=== PATIENT | male | born 1935 | race Caucasian/White ===

== ENCOUNTER 2017-07-28 11:48 | Inpatient (IN) | payer OTHER, MEDICARE ==
[~2017-07-28] VITALS: Ht 182.9 cm; Wt 81.6 kg
[~2017-07-28 11:48] MED LIST: AUGMENTIN 875-1 EACH PO; CEFUROXIME250 M1 PO; CENTRUM SILVER1 EAC3 PO; CLOPIDOGREL75 M1 PO; METOPROLOL TART25 M1 PO; PANTOPRAZOLE SO40 M1 PO; PANTOPRAZOLE SO40 MG PO; VITAMIN D22000 UNIT PO
[2017-07-28 12:52] LABS: ABSOLUTE BASOPHIL COUNT 0 /CUMM (0.0-0.2); ABSOLUTE EOSINOPHIL COUNT 0.1 /CUMM (0.0-0.7); ABSOLUTE GRANULOCYTE CT 4.2 /CUMM (1.4-6.5); ABSOLUTE LYMPH COUNT 0.8 /CUMM (1.2-3.4); ABSOLUTE MONOCYTE COUNT 0.6 /CUMM (0.10-0.60); BASOPHIL % 0.7 % (0.0-2.0); EOSINOPHIL % 1.3 % (0-5); GRANULOCYTE % 72.9 % (42.2-75.2); HEMATOCRIT 48.5 % (42-52); MEAN CORPUSCULAR HGB 29.9 PG (27.0-31.0); MEAN CORPUSCULAR HGB CONC 32.1 G/DL (33.0-37.0); MEAN CORPUSCULAR VOLUME 93.3 FL (80.0-94.0); MEAN PLATELET VOLUME 8.5 FL (7.4-10.4); PLATELET COUNT 241 /CUMM (130-400); RBC DISTRIBUTION WIDTH 14.9 % (11.5-14.5); WHITE BLOOD CELL COUNT 5.7 /CUMM (4.8-10.8)
[2017-07-28 13:02] LABS: PT 12.8 SEC (9.4-12.5); PTT 33 SEC (25-37)
--- NOTE | 2017-07-28 13:37 | RADIOLOGY REPORT ---
EXAMINATION: XR PORTABLE CHEST CLINICAL INFORMATION: Shortness of breath and hypoxia COMPARISON: CXR from 10/19/2016 and 06/13/2017 TECHNIQUE: Portable frontal view of the chest was obtained. FINDINGS: Chronic emphysematous lung disease. There are fiducial markers around a stable nodular opacity of the right upper lobe. The right lower lobe consolidation of 06/13/2017 has improved. However, there is some residual and/or recurrent consolidation in the right perihilar region, possibly in the superior segment of the right lower lobe. The left perihilar opacity and architectural distortion, compatible with region of radiation-induced fibrosis, is unchanged. There is stable cardiomegaly without acute pulmonary edema. The small left pleural effusion is unchanged. No acute osseous abnormality. IMPRESSION: 1. Chronic obstructive pulmonary disease. 2. There is an area of persistent or recurrent consolidation in the right midlung (likely pneumonia in the superior segment of the right lower lobe). Otherwise, stable findings in the chest compared to 06/13/2017.
--- NOTE | 2017-07-28 14:08 | ED DYSPNEA/ASTHMA COMPLAINT ---
History of Present Illness General Chief Complaint: Dyspnea (COPD, CHF, Other) Stated Complaint: SOB Source: patient Exam Limitations: no limitations Reconcile Medications Cefuroxime Axetil (Cefuroxime) 250 MG TABLET 2 TAB PO Q12 PNEUMONIA . Clopidogrel Bisulfate (Clopidogrel) 75 MG TABLET 1 TAB PO DAILY BLOOD THINNER (Reported) Ergocalciferol (Vitamin D2) (Vitamin D2) 2,000 UNIT TABLET 1 TAB PO DAILY VITAMIN SUPPORT (Reported) Metoprolol Tartrate 25 MG TABLET 1 TAB PO DAILY BP (Reported) Multivit-Min/FA/Lycopen/Lutein (Centrum Silver Tablet) 0.4 MG-300 MCG-250 MCG TABLET 1 TAB PO DAILY VITAMIN SUPPORT (Reported) Pantoprazole Sodium 40 MG TABLET. 1 TAB PO DAILY GI (Reported) Triage Note: PT WITH HX OF LUNG CANCER BECAME VERY SOB (MORE SO THEN USUAL) TODAY. PT STATES HE HAS HAD PNEUMONIA AND A PNEUMO IN THE PAST. WAS SCHEDULED TO SEE DR DIAZ [facility]. PT DENIES CP Triage Nurses Notes Reviewed? yes Onset: Gradual Duration: week(s): (2), changing over time, continues in ED, getting worse Timing: recent history Severity: mild, moderate Activities at Onset: none Prior Episodes/Possible Cause: occasional episodes Associated Symptoms: anxiety, weakness HPI: 81-year-old male past medical history of lung cancer presents for evaluation of shortness of breath. Patient states that he has been short of breath for the past year but recently over the past 2 weeks it is gotten much worse. He states he has difficulty sleeping due to shortness of breath. He sometimes has a dry cough but denies hemoptysis or chest pain. No fevers. He has a history of pneumothorax and pneumonia. He also states that he has been increasingly weak and has lost weight due to decreased appetite. He is currently not on chemotherapy or radiation but has had this in the past. He has inhalers that he 's been using without improvement. Symptoms get worse on exertion and improved with rest. No recent surgery or trauma. No lower extremity edema. No nausea vomiting or diarrhea. (Giovanni Gaytan) Vital Signs & Intake/Output Vital Signs & Intake/Output Vital Signs Date Time Temp Pulse Resp B/P B/P Pulse O2 O2 Flow FiO2 Mean Ox Delivery Rate 07/28 1752 97.6 105 20 140/78 98 Nasal 2.0L Cannula 07/28 1609 95 Nasal 1.5L Cannula 07/28 1440 98.0 91 20 103/65 95 Nasal 2.0L Cannula 07/28 1222 88 Room Air 07/28 1200 95.8 86 26 150/69 96 Room Air Allergies Coded Allergies: animal dander (Severe, EYES REDDENED, HIVES 07/28/17) Penicillins (Intermediate, RASH 07/21/16) (Liana ULRICH,Óscar Rowley) Past History Travel History Traveled to [place] past 21 day No Medical History Any Pertinent Medical History? see below for history Cardiovascular: ANEURYSM Gastrointestinal: lower GI bleed Cancer(s): lung cancer Other Medical Hx: peripheral vascular disease, carotid artery stenosis History of MRSA: No History of VRE: No History of CDIFF: No Influenza Vaccine: 04/30/16 Surgical History Surgical History: hernia repair-umbilical, PTX, CHEST TUBE LEFT CEA Psychosocial History Who do you live with Spouse Services at Home None What is your primary language Cuban Tobacco Use: Quit >30 days ago ETOH Use: denies use Illicit Drug Use: denies illicit drug use Family History Family History, If Any: MOTHER FH: diabetes mellitus BROTHER FH: COPD (chronic obstructive pulmonary disease) Hx Contributory? No (Giovanni Gaytan) Review of Systems Review of Systems Constitutional: Reports: weakness. EENTM: Reports: no symptoms. Respiratory: Reports: see HPI, cough, short of breath, wheezing. Cardiovascular: Reports: no symptoms. GI: Reports: see HPI (DECREASED APPETITE). Genitourinary: Reports: no symptoms. Musculoskeletal: Reports: no symptoms. Skin: Reports: no symptoms. Neurological/Psychological: Reports: no symptoms. Hematologic/Endocrine: Reports: no symptoms. Immunologic/Allergic: Reports: no symptoms. All Other Systems: Reviewed and Negative (Giovanni Gaytan) Physical Exam Physical Exam General Appearance: well developed/nourished, alert, awake, moderate distress Head: atraumatic, normal appearance Eyes: Bilateral: normal appearance, PERRL, EOMI. Ears, Nose, Throat: normal pharynx, normal ENT inspection, hearing grossly normal Neck: normal inspection, supple, full range of motion Respiratory: chest non-tender, decreased breath sounds, wheezing, respiratory distress Cardiovascular: regular rate/rhythm, normal peripheral pulses Peripheral Pulses: 2+ radial (R), 2+ radial (L) Gastrointestinal: normal bowel sounds, soft, non-tender, no organomegaly, distention Extremities: normal inspection, normal range of motion, no edema Neurologic/Psych: no motor/sensory deficits, awake, alert, oriented x 3, normal gait Skin: intact, normal color, warm/dry Core Measures ACS in differential dx? No CVA/TIA Diagnosis No Sepsis Present: No Sepsis Focused Exam Completed? No (Bhupinder GARCIA,Giovanni) Progress Differential Diagnosis: asthma, AMI, bronchitis, CHF, COPD, pericarditis, pulmonary embolism, pneumonia, LUNG CANCER Diagnostic Imaging: Viewed by Me: Radiology Read, CT Scan. Discussed w/RAD: Radiology Read, CT Scan. Radiology Impression: PATIENT: XIN LIM SR PRESENT AGE: 81 PATIENT ACCOUNT NO: [id number] : 33 LOCATION: [facility] ORDERING PHYSICIAN: Giovanni GARCIA SERVICE DATE: 07/28/17 EXAM TYPE: CAT - CTA CHEST-PULMONARY EMBOLISM EXAMINATION: CT ANGIOGRAM OF THE CHEST WITH AND WITHOUT CONTRAST (CT PULMONARY ANGIOGRAM FOR PE) CLINICAL INFORMATION: Shortness of breath and hypoxia. Assess for pulmonary embolism. COMPARISON: CTA of the chest from 06/13/2017, chest x-ray from 07/28/2017 TECHNIQUE: Prior to contrast administration, noncontrast localization images were obtained. Subsequently, multidetector volumetric imaging was performed from the thoracic inlet to below the diaphragms following the administration of 95 mL Optiray 320 intravenous contrast. No contrast reaction reported. Sagittal, coronal, and MIP oblique sagittal reformatted images were obtained on the CT workstation, uploaded to PACS, and reviewed. Total exam dose-length product 544 mGy-cm. FINDINGS: QUALITY OF STUDY/CONTRAST BOLUS: Satisfactory PULMONARY ARTERIES: There is some streak artifact through the main pulmonary arteries, accounting for which there is no evidence of central or segmental pulmonary embolism. THORACIC AORTA: The thoracic aorta remains normal in caliber with moderate calcification. There is calcification in the region of the aortic valve, unchanged. LUNG/pleura: There is underlying fairly severe emphysematous change. There is spiculated and calcified scarring in the right apex, with fiducial markers, unchanged. There are moderate bilateral pleural effusions which appear partially loculated on the left, progressive from the prior CT. There is a smaller but more densely consolidated area of airspace opacification in the right lower lobe than there was on the 06/13/2017 study, with less surrounding groundglass opacification that was seen on the earlier study. There is stable confluent soft tissue in the left hilum extending peripherally along the segmental bronchi with bronchiectasis, perhaps post treatment related change, unchanged. No progressive mucous plugging is visualized. MEDIASTINUM: The heart size is stable and within normal limits. There are coronary calcifications. There is nodular opacification in the left epicardial fat which is suspected reflect some fluid, unchanged. There is a trace pericardial effusion. No evidence of septal bowing or right heart strain. There are scattered mediastinal lymph nodes which are unchanged in comparison to the prior study, the largest in the left paratracheal region measures up to 1.3 cm in short axis. CHEST WALL/AXILLA: No axillary or internal mammary lymphadenopathy. OSSEOUS STRUCTURES: Multilevel degenerative changes of the spine. No acute abnormality. UPPER ABDOMEN: No acute abnormalities. There is mild reflux of contrast into the hepatic veins, similar to the prior. IMPRESSION : Accounting for streak artifact there is no central or segmental pulmonary embolism. There has been an increase in size in the loculated left pleural effusion from the prior CT of 06/13/2017. There is a stable moderate right pleural effusion. An area of irregular airspace opacification in the right lower lobe has become more densely consolidated with a decrease in surrounding ground glass attenuation. There are numerous other underlying chronic changes within both lungs as detailed above, and unchanged. VTE: negative DICTATED BY: Kitty Julien MD DATE/TIME DICTATED:07/28/171444 TAPE LIBRARIAN:JOCE DATE/TIME TRANSCRIBED:07/28/171444 CONFIDENTIAL, DO NOT COPY WITHOUT APPROPRIATE AUTHORIZATION. CXR Impression: PATIENT: XIN LIM PRESENT AGE: 81 PATIENT ACCOUNT NO: [id number] : 33 LOCATION: [facility] ORDERING PHYSICIAN: Giovanni GARCIA SERVICE DATE: 07/28/17 EXAM TYPE: RAD - XRY-PORTABLE CHEST XRAY EXAMINATION: XR PORTABLE CHEST CLINICAL INFORMATION: Shortness of breath and hypoxia COMPARISON: CXR from 10/19/2016 and 06/13/2017 TECHNIQUE: Portable frontal view of the chest was obtained. FINDINGS: Chronic emphysematous lung disease. There are fiducial markers around a stable nodular opacity of the right upper lobe. The right lower lobe consolidation of 06/13/2017 has improved. However, there is some residual and/or recurrent consolidation in the right perihilar region, possibly in the superior segment of the right lower lobe. The left perihilar opacity and architectural distortion, compatible with region of radiation-induced fibrosis, is unchanged. There is stable cardiomegaly without acute pulmonary edema. The small left pleural effusion is unchanged. No acute osseous abnormality. IMPRESSION: 1. Chronic obstructive pulmonary disease. 2. There is an area of persistent or recurrent consolidation in the right midlung ( likely pneumonia in the superior segment of the right lower lobe). Otherwise, stable findings in the chest compared to 06/13/2017. DICTATED BY: Sekou Galvez MD DATE/TIME DICTATED:07/28/171327 TAPE LIBRARIAN:JOCE DATE/TIME TRANSCRIBED:07/28/171327 Initial ED EKG: normal sinus rhythm, RBBB, LEFT ATRIAL ABNORMALITY Prior EKG: unchanged Rhythm Strip: normal sinus rhythm (Giovanni Gaytan) Plan of Care: Orders Procedure Date/time Status Heart Healthy Diet 07/29 B Active Telemetry/Floor Sanding Machine Operator 07/28 1223 Active URINALYSIS 07/28 1223 Active TROPONIN LEVEL 07/28 1223 Complete PARTIAL THROMBOPLASTIN TIME 07/28 1223 Complete PROTHROMBIN TIME 07/28 1223 Complete MAGNESIUM 07/28 1223 Complete D-DIMER 07/28 1223 Complete COMPREHENSIVE METABOLIC PANEL 07/28 1223 Complete CBC WITHOUT DIFFERENTIAL 07/28 1223 Complete B-TYPE NATRIURETIC PEP (BNP) 07/28 1223 Complete EKG 07/28 1149 Active Current Medications Sig/Dominique Start time Last Medication Dose Stop Time Status Admin Azithromycin 500 MG ONCE ONE 07/28 1730 AC (Zithromax) 07/28 1829 Sodium Chloride 250 ML (Normal Saline 0.9%) Laboratory Tests 07/28/17 1240: Anion Gap 17 H, Estimated GFR > 60, BUN/Creatinine Ratio 17.3, Glucose 125 H, Calcium 10.1, Magnesium 2.0, Total Bilirubin 1.1, AST 33, ALT 30, Alkaline Phosphatase 113, Troponin I 0.03, Yha-I-Diptkvewzoq Pept 7660 H, Total Protein 8.2, Albumin 4.8, Globulin 3.4, Albumin/Globulin Ratio 1.4, PT 12.8 H, INR 1.22 H, APTT 33, D-Dimer High Sensitivty 1025 H, CBC w Diff NO MAN DIFF REQ, RBC 5.20, MCV 93.3, MCH 29.9, RDW 14.9 H, MPV 8.5, Gran % 72.9, Lymphocytes % 14.0 L, Monocytes % 11.1 H, Eosinophils % 1.3, Basophils % 0.7, Absolute Granulocytes 4.2, Absolute Lymphocytes 0.8 L, Absolute Monocytes 0.6, Absolute Eosinophils 0.1, Absolute Basophils 0, PUBS MCHC 32.1 L Patient seen and evaluated. He has significant risk to her distress with decreased breath sounds and wheezing bilaterally. Patient is medicated with Solu-Medrol and DuoNeb. He becomes very short of breath with any ambulation and movement in the better just talking. No chest pain or hemoptysis. D-dimer is elevated. Patient will require CTA. Chest x-ray shows a possible pneumonia. Blood cell count negative troponin. BNP is also elevated to 7600. No pulmonary edema or peripheral edema to suggest acute CHF. CTA of the chest is negative for PE. Patient does have pleural effusions which may also be contributing to his hypoxia. Patient was ambulated in the emergency department and desaturated to 89% on room air. He was visibly short of breath. Patient will be admitted to the hospital for COPD exacerbation and pneumonia. He was hospitalized in May with pneumonia. He'll be medicated with ceftriaxone and Zithromax. Case discussed with Dr. Gaines he agrees. (Bhupinder GARCIA,Giovanni) (Liana ULRICH,Óscar Rowley) Departure Departure Disposition: STILL A PATIENT Condition: Stable Clinical Impression Primary Impression: COPD exacerbation Secondary Impressions: Pneumonia Qualifiers: Pneumonia type: due to unspecified organism Laterality: right Lung location: unspecified part of lung Qualified Code: J18.9 - Pneumonia, unspecified organism Referrals: Barbara ULRICH,Stalin Montoya (PCP/Family) Departure Forms: Customer Survey General Discharge Information Admission Note Spoke With: Ramon ULRICH,Derick Documentation of Exam: Documentation of any treatments & extenuating circumstances including Concerns Regarding Discharge (functional status, medication knowledge or non-compliance, living conditions, etc.) that warrant an admission rather than observation: Patient was ambulated in the emergency department and desaturated to 89% on room air. He has a pneumonia on his chest x-ray and recurrent pleural effusions. He require IV steroids, DuoNeb, IV antibiotics, pulmonology consult, oncology consult, serial chest x-rays, physical therapy (Giovanni Gaytan) PA/NURSING PROGRAM MANAGER Co-Sign Statement Statement: ED Attending supervision documentation- [X] I saw and evaluated the patient. I have also reviewed all the pertinent lab results and diagnostic results. I agree with the findings and the plan of care as documented in the PA's/NURSING PROGRAM MANAGER's documentation. Patient presents for evaluation of severe exertional dyspnea the past history of lung cancer. He is taking both chemotherapy and radiation therapy. Physical examination reveals a tired- appearing gentleman with otherwise good bilateral air entry and no wheezes rales or rhonchi. [] I have reviewed the ED Record and agree with the PA's/NURSING PROGRAM MANAGER's documentation. [] Additions or exceptions (if any) to the PAs/NURSING PROGRAM MANAGER's note and plan are summarized below: [] (Liana ULRICH,Óscar Rowley) Critical Care Note Critical Care Note Critical Care Time: non-applicable (Giovanni Gaytan)
--- NOTE | 2017-07-28 15:03 | CT SCAN REPORT ---
EXAMINATION: CT ANGIOGRAM OF THE CHEST WITH AND WITHOUT CONTRAST (CT PULMONARY ANGIOGRAM FOR PE) CLINICAL INFORMATION: Shortness of breath and hypoxia. Assess for pulmonary embolism. COMPARISON: CTA of the chest from 06/13/2017, chest x-ray from 07/28/2017 TECHNIQUE: Prior to contrast administration, noncontrast localization images were obtained. Subsequently, multidetector volumetric imaging was performed from the thoracic inlet to below the diaphragms following the administration of 95 mL Optiray 320 intravenous contrast. No contrast reaction reported. Sagittal, coronal, and MIP oblique sagittal reformatted images were obtained on the CT workstation, uploaded to PACS, and reviewed. Total exam dose-length product 544 mGy-cm. FINDINGS: QUALITY OF STUDY/CONTRAST BOLUS: Satisfactory PULMONARY ARTERIES: There is some streak artifact through the main pulmonary arteries, accounting for which there is no evidence of central or segmental pulmonary embolism. THORACIC AORTA: The thoracic aorta remains normal in caliber with moderate calcification. There is calcification in the region of the aortic valve, unchanged. LUNG/pleura: There is underlying fairly severe emphysematous change. There is spiculated and calcified scarring in the right apex, with fiducial markers, unchanged. There are moderate bilateral pleural effusions which appear partially loculated on the left, progressive from the prior CT. There is a smaller but more densely consolidated area of airspace opacification in the right lower lobe than there was on the 06/13/2017 study, with less surrounding groundglass opacification that was seen on the earlier study. There is stable confluent soft tissue in the left hilum extending peripherally along the segmental bronchi with bronchiectasis, perhaps post treatment related change, unchanged. No progressive mucous plugging is visualized. MEDIASTINUM: The heart size is stable and within normal limits. There are coronary calcifications. There is nodular opacification in the left epicardial fat which is suspected reflect some fluid, unchanged. There is a trace pericardial effusion. No evidence of septal bowing or right heart strain. There are scattered mediastinal lymph nodes which are unchanged in comparison to the prior study, the largest in the left paratracheal region measures up to 1.3 cm in short axis. CHEST WALL/AXILLA: No axillary or internal mammary lymphadenopathy. OSSEOUS STRUCTURES: Multilevel degenerative changes of the spine. No acute abnormality. UPPER ABDOMEN: No acute abnormalities. There is mild reflux of contrast into the hepatic veins, similar to the prior. IMPRESSION: Accounting for streak artifact there is no central or segmental pulmonary embolism. There has been an increase in size in the loculated left pleural effusion from the prior CT of 06/13/2017. There is a stable moderate right pleural effusion. An area of irregular airspace opacification in the right lower lobe has become more densely consolidated with a decrease in surrounding ground glass attenuation. There are numerous other underlying chronic changes within both lungs as detailed above, and unchanged. VTE: negative
[2017-07-28] MEDS ORDERED: VITAMIN D1000 UNIT PO (18:59)
--- NOTE | 2017-07-28 20:35 | History & Physical ---
Michael Kimble MD 07/28/172033: General Information and HPI MD Statement: I have seen and personally examined XIN LIM SR and documented this H&P. The patient is a 81 year old M who presented with a patient stated chief complaint of dyspnea Source of Information: patient, family, old records Exam Limitations: no limitations History of Present Illness: 81 year old male with a past medical history significant for smoking quit in 2007 with diagnosis of advanced lung cancer treated with chemotherapy and radiation therapy at [facility] in 2007 with subsequent Cyberknife treatments for lung nodule uncertain if biopsied, recurrence vs new primaries ( Dr. Slater @ [facility]) in 2014 and 02/2017, 5 treatments each time, history of pneumothorax in 2013 treated with a thoracic vent by Dr. Joshua, h/o GI bleed, abdominal aortic aneurysm, emphysema and COPD not on home oxygen, left CEA on plavix, recently admittted to [facility] and treated for community acquired pneumonia last month presents to the hospital today with complaints of progressive severe dyspnea. The patient was recently treated at [facility] for a right lower lobe community acquired pneumonia and discharged on total ten day course of oral cefuroxime. After discharge, the patient said he never quite felt better. The patient reports a progressive decline in his breathing without any obvious triggers. The patient denies any fevers or chills, upper respiratory infection, sinus pain, sore throat, rhinorrhea, sick contacts or travel. He does reportedly have a mild mostly dry cough that is occasionally productive of yellow sputum but no significant changes in its production, severity, or frequency. He denies any other symptoms on review, no chest pain palpitations, abdominal pain, nausea, vomiting, diarrhea or dysuria. He reportedly was having more and more trouble breathing and does endorse symptoms of orthopnea and that he was having more difficulty sleeping because of his breathing. He saw Dr. Solano, Dr. Thornton and Dr. Renteria prior to returning to the emergency department. He was started on steroids and a COPD inhaler just prior to arrival. A CTA of the chest was performed in the ED and in comparison to prior admission it showed and increased loculated left pleural effusion and stable moderate right pleural effusion. Irregular airspace opacification in the right lower lobe more densely consolidated. Of note, there was no pulmonary embolism. The patient was treated with ceftriaxone, azithromycin, albuterol, ipatroprium and solumedrol in the emergency department and admitted to general medicine for pneumonia. Allergies/Medications Allergies: Coded Allergies: animal dander (Severe, EYES REDDENED, HIVES 07/28/17) Penicillins (Intermediate, RASH 07/21/16) Home Med list Cholecalciferol (Vitamin D3) (Vitamin D) 1,000 UNIT TABLET 1 TAB PO DAILY SUPPLEMENT (Reported) Clopidogrel Bisulfate (Clopidogrel) 75 MG TABLET 1 TAB PO DAILY BLOOD THINNER (Reported) Metoprolol Tartrate 25 MG TABLET 1 TAB PO DAILY BP (Reported) Multivit-Min/FA/Lycopen/Lutein (Centrum Silver Tablet) 0.4 MG-300 MCG-250 MCG TABLET 1 TAB PO DAILY VITAMIN SUPPORT (Reported) Pantoprazole Sodium 40 MG TABLET.DR 1 TAB PO DAILY GI (Reported) Compliance With Home Meds: GOOD Past History Travel History Traveled to [place] past 21 day No Medical History Cardiovascular: ANEURYSM Gastrointestinal: lower GI bleed Cancer(s): lung cancer Other Medical Hx: peripheral vascular disease, carotid artery stenosis History of MRSA: No History of VRE: No History of CDIFF: No Influenza Vaccine: 04/30/16 Surgical History Surgical History: hernia repair-umbilical, PTX, CHEST TUBE LEFT CEA Past Family/Social History Family History Relations & Conditions if any MOTHER FH: diabetes mellitus BROTHER FH: COPD (chronic obstructive pulmonary disease) Psychosocial History Who Do You Live With? spouse Services at Home: None ETOH Use: denies use Illicit Drug Use: denies illicit drug use Functional Ability ADLs Independent: dressing, eating, toileting, bathing. Ambulation: independent IADLs Independent: shopping, housework, finances, food prep, telephone, transportation , medication admin. Review of Systems Review of Systems Constitutional: Reports: see HPI. Exam & Diagnostic Data Last 24 Hrs of Vital Signs/I&O Vital Signs Date Time Temp Pulse Resp B/P B/P Pulse O2 O2 Flow FiO2 Mean Ox Delivery Rate 07/28 2241 Nasal 2.0L Cannula 07/28 2027 98.7 99 22 136/84 96 Nasal 2.0L Cannula 07/28 1752 97.6 105 20 140/78 98 Nasal 2.0L Cannula 07/28 1609 95 Nasal 1.5L Cannula 07/28 1440 98.0 91 20 103/65 95 Nasal 2.0L Cannula 07/28 1222 88 Room Air 07/28 1200 95.8 86 26 150/69 96 Room Air Intake & Output 07/28 1600 07/28 0800 07/28 0000 Intake Total Output Total Balance Patient 81.647 kg Weight Weight Reported by Patient Measurement Method Physical Exam General Appearance Alert, Oriented X3, Cooperative, No Acute Distress Cardiovascular Regular Rate, Normal S1, Normal S2, No Murmurs Lungs right base crackles and diminished breath sounds bibasilarly Abdomen Normal Bowel Sounds, Soft, No Tenderness, No Masses Extremities No Clubbing, No Cyanosis, No Edema, Normal Pulses Last 24 Hrs of Labs/Yong: Laboratory Tests 07/28/17 1915: Urine Color YEL, Urine Clarity CLEAR, Urine pH 5.5, Ur Specific [place] 1.015, Urine Protein TRACE H, Urine Ketones NEG, Urine Nitrite NEG, Urine Bilirubin NEG, Urine Urobilinogen 0.2, Ur Leukocyte Esterase NEG, Ur Microscopic SEDIMENT EXAMINED, Urine RBC 1-3, Urine WBC 1-3 H, Ur Epithelial Cells RARE, Urine Bacteria MOD H, Urine Hemoglobin TRACE-INTACT H, Urine Glucose NEG 07/28/17 1240: Anion Gap 17 H, Estimated GFR > 60, BUN/Creatinine Ratio 17.3, Glucose 125 H, Calcium 10.1, Magnesium 2.0, Total Bilirubin 1.1, AST 33, ALT 30, Alkaline Phosphatase 113, Troponin I 0.03, Vha-G-Tmpuzssevhj Pept 7660 H, Total Protein 8.2, Albumin 4.8, Globulin 3.4, Albumin/Globulin Ratio 1.4, PT 12.8 H, INR 1.22 H, APTT 33, D-Dimer High Sensitivty 1025 H, CBC w Diff NO MAN DIFF REQ, RBC 5.20, MCV 93.3, MCH 29.9, RDW 14.9 H, MPV 8.5, Gran % 72.9, Lymphocytes % 14.0 L, Monocytes % 11.1 H, Eosinophils % 1.3, Basophils % 0.7, Absolute Granulocytes 4.2, Absolute Lymphocytes 0.8 L, Absolute Monocytes 0.6, Absolute Eosinophils 0.1, Absolute Basophils 0, PUBS MCHC 32.1 L Diagnostic Data EKG Results no ischemic ST T wave changes CXR Results 1. Chronic obstructive pulmonary disease. 2. There is an area of persistent or recurrent consolidation in the right midlung (likely pneumonia in the superior segment of the right lower lobe). Otherwise, stable findings in the chest compared to 06/13/2017. Other Results There has been an increase in size in the loculated left pleural effusion from the prior CT of 06/13/2017. There is a stable moderate right pleural effusion. An area of irregular airspace opacification in the right lower lobe has become more densely consolidated with a decrease in surrounding ground glass attenuation Assessment/Plan Assessment: 81 year old male with a past medical history significant for smoking, advanced lung cancer treated with chemotherapy and radiation therapy and Cyberknife, history of pneumothorax in 2013, COPD not on home oxygen, left CEA on plavix presents with progressive dyspnea and is found to have increasing pleural effusion and consolidation consistent with pneumonia. Acute hypoxemic respiratory failure with tachypnea and accessory muscle use Multifactorial-smoking/copd/emphysema/h/o radiation and pleural effusion with residual pna Continue empiric antibiotics for community acquired pneumonia Consolidation likely persistent from adjancent large pleural effusion Pulmonology consultation Titrate supplemental oxygen Incentive spirometry Would likely benefit from diagnostic and therapeutic thoracentesis TRC evaluation HTN: Continue metroprolol GERD: Continue PO PPI Heart healthy diet DVT ppx-lovenox 40mg subcutaneous daily Full code As Ranked By This Provider Problem List: 1. Lung cancer 2. Pneumothorax 3. Hypertension 4. GERD (gastroesophageal reflux disease) 5. Dyspnea 6. Pneumonia Qualifiers Pneumonia type: due to unspecified organism Laterality: right Lung location: unspecified part of lung Qualified Code: J18.9 - Pneumonia, unspecified organism 7. COPD exacerbation 8. Pleural effusion associated with pulmonary infection Core Measures/Misc (04/16) Acute Coronary Syndrome ACS Diagnosis: No Congestive Heart Failure Congestive Heart Failure Diagnosis No Cerebrovascular Accident CVA/TIA Diagnosis: No VTE (View Protocol) VTE Risk Factors Age>40 No Mechanical VTE Prophylaxis d/t N/A MechProphylax Ordered No VTE Pharm Prophylaxis d/t NA PharmProphylax ordered Sepsis (View protocol) Sepsis Present: No Josafat Farnsworth 07/29/17 0056: Resident Review Statement Resident Statement: examined this patient, discussed with dietary internship, agreed with dietary internship, discussed with family, reviewed EMR data (avail), discussed with nursing , discussed with case mgmt, reviewed images, amended to note Other Findings: 81-year-old , 120 PPD quit 10 years ago; with past medical history significant for lung cancer diagnosed in 2007 status post chemoradiotherapy ( [facility] center in [place]; last RDx in 2016), in remission since then, presented with worsening dyspnea. Patient is an active community dweller; lives with his . He was recently discharged from [facility] on 06/14/2017, during which he was diagnosed with pneumonia with the imaging finding of new patchy consolidation and groundglass attenuation in the right lower lobe associated with a small right pleural effusion. He was discharged on cefuroxime 500 mg by mouth twice a day for 10 days that he finished. Afterward patient noticed thathos "debilitating shortness" of breath has slightly improved. That minimal improvement lasted forfor while, when he was able to stay more physically active. About 3-4 weeks ago he started feeling gradual decline in his respiratory status. He could not highlight any significant precipitants factor/event that might have caused this decline.Shortness of breath was primarily started as exertional and eventually progressed to resting. Denies any recent travel, sick contacts, chest pain, palpitation, symptoms of URI, cough and sputum production, fever and shaking chills, GI/ symptoms. He had an appointment with Dr. Pat today as cancer Center but due to his debilitating shortness of breath patient could not keep his appointment and decided to come to the emergency room. Of note, his PMH is significant for, hypertension, GERD, carotid stenosis status post CEA, diverticular bleed (1y ago), peripheral vascular disease, aortic aneurysm. Review of system: Complaining of dyspnea; vital signs: Hypoxia saturating 88% in room air; corrected with 2 L of oxygen; tachycardia. Physical exam: GA: Moderate respiratory distress and increased work of breathing mucous membranes are dry; patient is using short sentences for communication; chest: S1-S2 no gallop no murmur, bibasilar faint crackles more predominant on the right side no wheezing, generally decreased air movements; normal chest expansion no tenderness; no peripheral edema; no lymphadenopathy, peripheral pulses are 2+ and symmetric. Pertinent data: Chest CTA: Accounting for streak artifact there is no central or segmental pulmonary embolism. There has been an increase in size in the loculated left pleural effusion from the prior CT of 06/13/2017. There is a stable moderate right pleural effusion. An area of irregular airspace opacification in the right lower lobe has become more densely consolidated with a decrease in surrounding ground glass attenuation. Chest x-ray: 1. Chronic obstructive pulmonary disease. 2. There is an area of persistent or recurrent consolidation in the right midlung (likely pneumonia in the superior segment of the right lower lobe). Otherwise, stable findings in the chest compared to 06/13/2017. INR 1.22, PT 12.8, d-dimer 10.25, Wells score: high risk Sodium 144, potassium 5.2, chloride 102 bicarbonate 25, ring gap 17 BUN 19, creatinine 1.1, troponin 0.03, proBNP 7660 EKG: Normal sinus rhythm, sinus tach; no ST- T segment change List of problems #1 hypoxic respiratory failure: Differential diagnosis includes but not limited to pulmonary thromboembolism ( elevated wells score and d-dimer; CTA was negative); I'm not convinced that Mr. Lim is having another pneumonia, however, due to his multiple comorbidities and history of cancer will continue IV antibiotics. If patient remained clinically stable morning came will reassess and DC the antibiotics. Clear evidence of expanding loculated pleural effusion that might have explained the slowly, progressive dyspnea and hypoxic respiratory failure. ProBNP is elevated , physical findings, history and images, decreases the likelihood of CHF/fluid overload. #AGMA: no lactic acid #Hypertension and tachycardia #GERD #Carotid artery stenosis status post CEA Plan * Admit to general medical floor * TRC; DuoNeb every 4 ioknal-dty-whsiq as needed * Continue ceftriaxone 1000 mg IV daily * Continue azithromycin 500 mg IV daily * Follow lactic acid results and ABG to interpret the AGMA * Gentle IV hydration normal saline 75-100 mL per hour- 1000 ML only * continue metoprolol 25 mg po BID * Hold Plavix; for possible ultrasound-guided thoracentesis tomorrow * Trazodone 50 mg at bedtime for insomnia * Consult pulmonology in the a.m. full code painpathway continued omeprazole Ramon ULRICH, [facility] 07/29/17 0588: Attending MD Review Statement Attending Statement Attending MD Statement: examined this patient, discuss w/resident/PA/SUPERVISOR PASTRY, agreed w/resident/PA/SUPERVISOR PASTRY, reviewed images, amended to note Attending Assessment/Plan: 81 yo M ex-smoker with h/o AAA, COPD, NSCLC s/p chemoradiation (2007), with recurrent malignant lung nodules requiring radiation therapy (last radiation Feb 2017 at [facility]), left pneumothorax s/p thoracic vent (2013), left CEA, recently admitted to [facility] (May 2017) for pneumonia, is here for evaluation of worsening exertional and rest dyspnea. He has baseline exertional dyspnea, but it has exacerbated over past 2 weeks now even occuring at rest. Dry cough+. The dyspnea limits his activities of daily living. He is also increasingly weak, has lost his appetite and some weight loss too. No sick contacts. Vitals: afebrile, HR 90-100's, BP 140/78, sats 88% RA --> 98% on 2L. Exam: AAO, in moderate respiratory distress, able to speak in short sentences, MMM, PERRL, Neck supple, Chest basilar crackles R>L, reduced to absent air entry b/l, Heart S1S2 regular, LE: no edema. Labs: no leukocytosis, INR 1.22, elevated D-dimer, K 5.2, AG 17, trop neg, elevated proBNP, UA neg. CXR: COPD, area of persistent or recurrent consolidation in right midlung. CTA chest: no PE, increase in size of loculated left pleural effusion, stable moderate right pleural effusion, area of irregular airspace consolidation in right lower lobe more densely consolidated with decrease in surrounding attenuation. EKG: SR, no changes. Assessment and plan: 1. Acute hypoxic respiratory failure 2. RLL consolidation, community acquired pneumonia ?persistent pneumonia 3. Bilateral pleural effusion loculated left and moderate right effusions (new from prior CT in May 2017) 4. History of bilateral lung cancer 5. Recurrent enlarging malignant nodules s/p radiation therapy 6. COPD 7. No evidence of PE - Admit to general medicine - [facility] nebs - Sputum culture - He received IV solumedrol in ER, he does not appear to be in COPD exacerbation - Pulm consult - He will need diagnostic and therapeutic thoracentesis by IR - Continue ceftriaxone and azithro for now - Would consider discontinuing antibiotics if he remains afebrile - Hold plavix and heparin products in anticipation of thoracentesis by IR - Continue metoprolol, PPI and trazodone - No IV fluids DVT ppx Alps. Full code.
[2017-07-28 23:02] VITALS: BP 113/70
--- NOTE | 2017-07-29 05:20 | Admission Certification ---
Admission Certification Certification Statement - As attending physician, I certify that at the time of - admission, based on clinical presentation, severity of - symptoms, need for further diagnostic testing and - therapeutic interventions, and risk of adverse outcomes - without in-hospital treatment, in my clinical assessment, - this patient requires an acute hospital stay for a minimum - of two nights or longer. I have also considered psychsocial - factors such as support system, advanced age, financial - issues, cognitive issues, and failed out-patient treatments, - past re-admission history, safety of patient, and lack of - compliance as applicable. Specific rationale supporting this admission is: Acute hypoxic respiratory failure, pleural effusion, community acquired pneumonia.
--- NOTE | 2017-07-29 05:39 | PN- Housestaff ---
Subjective Follow-up For: acute hypoxemic respiratory failure pleural effusion copd lung cancer Subjective: progressive exertional dyspnea, some tachypnea at rest minimal cough nonproductive no fevers or chills no other complaints Review of Systems Constitutional: Reports: see HPI. Objective Last 24 Hrs of Vital Signs/I&O Vital Signs Date Time Temp Pulse Resp B/P B/P Pulse O2 O2 Flow FiO2 Mean Ox Delivery Rate 07/29 0909 98 Nasal 2.0L Cannula 07/29 0800 Nasal 2.0L Cannula 07/29 0643 97.7 86 20 108/60 94 Nasal Cannula 07/29 0054 97.4 106 22 113/70 07/29 0000 Nasal 2.0L Cannula 07/28 2302 97.4 106 22 113/70 94 Nasal 2.0L Cannula 07/28 2241 Nasal 2.0L Cannula 07/28 2200 96 Nasal 2.0L Cannula 07/287 98.7 99 22 136/84 96 Nasal 2.0L Cannula 07/28 1752 97.6 105 20 140/78 98 Nasal 2.0L Cannula 07/28 1609 95 Nasal 1.5L Cannula 07/28 1440 98.0 91 20 103/65 95 Nasal 2.0L Cannula 07/28 1222 88 Room Air 07/28 1200 95.8 86 26 150/69 96 Room Air Intake & Output 07/29 1600 07/29 0800 07/29 0000 Intake Total 800 500 Output Total Balance 800 500 Intake, IV 600 500 Intake, Oral 200 Patient 81.647 kg Weight Weight Bed scale Measurement Method Physical Exam General Appearance: Alert, Oriented X3, Cooperative, No Acute Distress Cardiovascular: Regular Rate, Normal S1, Normal S2, No Murmurs Lungs: diminished bibasilar Abdomen: Normal Bowel Sounds, Soft, No Tenderness, No Masses Extremities: No Clubbing, No Cyanosis, No Edema, Normal Pulses Current Medications: Current Medications Sig/Dominique Start time Last Medication Dose Route Stop Time Status Admin Acetaminophen 650 MG Q6P PRN 07/29 0200 AC PO Acetaminophen 1,000 MG Q6P PRN 07/29 0200 AC IV Albuterol Sulfate 3 ML BID 07/29 1000 AC 07/29 INH 0909 Albuterol Sulfate 3 ML ONCE ONE 07/28 1530 DC 07/28 INH 07/28 1531 1608 Azithromycin 500 MG Q24H 07/29 1800 AC Sodium Chloride 250 ML IV Azithromycin 500 MG ONCE ONE 07/28 1730 DC 07/28 Sodium Chloride 250 ML IV 07/28 1829 1806 Ceftriaxone Sodium 1,000 MG Q24H 07/29 1800 AC IV Ceftriaxone Sodium 0 .STK-MED ONE 07/28 1759 DC .ROUTE Ceftriaxone Sodium 1,000 MG ONCE ONE 07/28 1730 DC 07/28 IV 07/28 1731 1806 Ipratropium [place] 2.5 ML ONCE ONE 07/28 1530 DC 07/28 INH 07/28 1531 1608 Methylprednisolone 0 .STK-MED ONE 07/28 1522 DC .ROUTE Methylprednisolone 125 MG ONCE ONE 07/28 1515 DC 07/28 IV 07/28 1516 1530 Metoprolol Tartrate 25 MG BID 07/28 2200 AC 07/29 PO 0054 Metoprolol Tartrate 25 MG DAILY 07/28 2132 DC PO Morphine Sulfate 1 MG Q6-PRN PRN 07/29 0200 AC IV Omeprazole 40 MG DAILY AC 07/29 0700 AC 07/29 PO 0557 Sodium Chloride 1,000 ML .Q10H 07/28 2215 DC 07/28 IV 07/29 0907 2301 Sodium Chloride 500 ML BOLUS ONE 07/28 1530 DC 07/28 IV 07/28 1629 1530 Trazodone HCl 50 MG AT BEDTIME NEED.. 07/29 0200 AC PO Last 24 Hrs of Lab/Yong Results Last 24 Hrs of Labs/Mics: Laboratory Tests 07/29/17 0730: Sodium Pending, Potassium Pending, Chloride Pending, Carbon Dioxide Pending, Anion Gap Pending, BUN Pending, Creatinine Pending, BUN/Creatinine Ratio Pending , Lactic Acid Pending, CBC w Diff Pending, WBC Pending, RBC Pending, Hgb Pending , Hct Pending, MCV Pending, MCH Pending, RDW Pending, Plt Count Pending, MPV Pending, PUBS MCHC Pending 07/28/17 1915: Urine Color YEL, Urine Clarity CLEAR, Urine pH 5.5, Ur Specific [place] 1.015, Urine Protein TRACE H, Urine Ketones NEG, Urine Nitrite NEG, Urine Bilirubin NEG, Urine Urobilinogen 0.2, Ur Leukocyte Esterase NEG, Ur Microscopic SEDIMENT EXAMINED, Urine RBC 1-3, Urine WBC 1-3 H, Ur Epithelial Cells RARE, Urine Bacteria MOD H, Urine Hemoglobin TRACE-INTACT H, Urine Glucose NEG 07/28/17 1240: Anion Gap 17 H, Estimated GFR > 60, BUN/Creatinine Ratio 17.3, Glucose 125 H, Calcium 10.1, Magnesium 2.0, Total Bilirubin 1.1, AST 33, ALT 30, Alkaline Phosphatase 113, Troponin I 0.03, Flw-E-Fpwcdzwlapj Pept 7660 H, Total Protein 8.2, Albumin 4.8, Globulin 3.4, Albumin/Globulin Ratio 1.4, PT 12.8 H, INR 1.22 H, APTT 33, D-Dimer High Sensitivty 1025 H, CBC w Diff NO MAN DIFF REQ, RBC 5.20, MCV 93.3, MCH 29.9, RDW 14.9 H, MPV 8.5, Gran % 72.9, Lymphocytes % 14.0 L, Monocytes % 11.1 H, Eosinophils % 1.3, Basophils % 0.7, Absolute Granulocytes 4.2, Absolute Lymphocytes 0.8 L, Absolute Monocytes 0.6, Absolute Eosinophils 0.1, Absolute Basophils 0, PUBS MCHC 32.1 L Microbiology 07/29 732 BODY FLUID: Body Fluid Culture - ORD 07/29 732 BODY FLUID: Gram Stain - ORD 07/29 719 LOWER RESP: Respiratory Culture - ORD 07/29 719 LOWER RESP: Gram Stain - ORD Assessment/Plan Assessment: 81 year old male with a past medical history significant for smoking, advanced lung cancer treated with chemotherapy and radiation therapy and Cyberknife, history of pneumothorax in 2013, COPD not on home oxygen, left CEA on plavix presents with progressive dyspnea and is found to have increasing pleural effusion and consolidation consistent with pneumonia. Acute hypoxemic respiratory failure with tachypnea and accessory muscle use Multifactorial-smoking/copd/emphysema/h/o radiation and pleural effusion with residual pna Continue empiric antibiotics for community acquired pneumonia, ceftriaxone/ azithroymcin Consolidation likely persistent from adjacent large pleural effusion Pulmonology consultation, consider therapeutic thoracentesis Titrate supplemental oxygen Incentive spirometry TRC evaluation HTN: Continue metroprolol GERD: Continue PO PPI Heart healthy diet DVT ppx-lovenox 40mg subcutaneous daily Full code Problem List: 1. Pleural effusion associated with pulmonary infection 2. COPD exacerbation 3. Pneumonia 4. Hypertension 5. GERD (gastroesophageal reflux disease) 6. Lung cancer Pain Ratin Pain Location: n/a Pain Goal: Pain 4 or less Pain Plan: prn Tomorrow's Labs & Rationales: rebecca borjap
[2017-07-29 06:43] VITALS: BP 108/60
[2017-07-29 09:21] LABS: ABSOLUTE BASOPHIL COUNT 0 /CUMM (0.0-0.2); ABSOLUTE EOSINOPHIL COUNT 0 /CUMM (0.0-0.7); ABSOLUTE LYMPH COUNT 0.4 /CUMM (1.2-3.4); ABSOLUTE MONOCYTE COUNT 0.3 /CUMM (0.10-0.60); MEAN CORPUSCULAR HGB 30.9 PG (27.0-31.0)
[2017-07-29 09:45] LABS: ABSOLUTE GRANULOCYTE CT 3.9 /CUMM (1.4-6.5); BASOPHIL % 0 % (0.0-2.0); EOSINOPHIL % 0.1 % (0-5); MEAN CORPUSCULAR HGB CONC 33.3 G/DL (33.0-37.0); MEAN CORPUSCULAR VOLUME 92.7 FL (80.0-94.0); PLATELET COUNT 193 /CUMM (130-400); RBC DISTRIBUTION WIDTH 15.2 % (11.5-14.5); RED BLOOD CELL CT 4.37 /CUMM (4.70-6.10); WHITE BLOOD CELL COUNT 4.6 /CUMM (4.8-10.8)
[2017-07-29 09:59] LABS: HEMATOCRIT 40.5 % (42-52)
[2017-07-29 10:17] LABS: GRANULOCYTE % 84.6 % (42.2-75.2)
--- NOTE | 2017-07-29 12:32 | PN- Att Addend ---
Attending Addendum Attending Brief Note Patient seen and examined. Resting comfortably not in acute distress. present at the bedside. Patient reports that his been developing progressive shortness of breath going on for the past few weeks. He reports having imaging done by his president [place] when results were obtained who was referred to his audio narrator for evaluation. He reports that his audio narrator referred for pulmonology function testing and was told that the results showed "no need for oxygen." He presented to the ER due to progressive shortness of breath and imaging revealed loculated left pleural effusion increased from prior imaging and stable moderate right pleural effusion. During hospitalization focal motor quadrant pneumonia in May imaging at that time was reported as small right pleural effusion and small loculated left pleural effusion. Patient currently is saturating 94% on room air. He does not appear to be in any respiratory distress. Vital Signs Date Time Temp Pulse Resp B/P B/P Pulse O2 O2 Flow FiO2 Mean Ox Delivery Rate 07/29 0935 100 120/62 07/29 0909 98 Nasal 2.0L Cannula 07/29 0800 Nasal 2.0L Cannula 07/29 0643 97.7 86 20 108/60 94 Nasal Cannula 07/29 0054 97.4 106 22 113/70 07/29 0000 Nasal 2.0L Cannula 07/28 2302 97.4 106 22 113/70 94 Nasal 2.0L Cannula 07/28 2241 Nasal 2.0L Cannula 07/28 2200 96 Nasal 2.0L Cannula 07/28 2027 98.7 99 22 136/84 96 Nasal 2.0L Cannula 07/28 1752 97.6 105 20 140/78 98 Nasal 2.0L Cannula 07/28 1609 95 Nasal 1.5L Cannula 07/28 1440 98.0 91 20 103/65 95 Nasal 2.0L Cannula 07/28 1222 88 Room Air Gen. appearance: Not in any respiratory distress Heart: S1-S2 regular Lungs: Diminished breath sounds bilaterally. No added sounds Abdomen: Soft, nontender with normal bowel sounds Extremities: No peripheral edema Skin: Intact with no rashes Neurologic: No gross focal deficit. Laboratory Tests 07/29/17 0940: pH 7.43, pCO2 28 L, pO2 60 L, HCO3 18 L, ABG O2 Sat (Measured) 88.0 L, Carboxyhemoglobin 1.4 L, O2 Concentration % RA, Phlebotomy Draw Site RIGHT RADIAL 07/29/17 0730: Anion Gap 14, Estimated GFR > 60, BUN/Creatinine Ratio 18.9, Lactic Acid 1.8, CBC w Diff NO MAN DIFF REQ, RBC 4.37 L, MCV 92.7, MCH 30.9, RDW 15.2 H, MPV 9.0, Gran % 84.6 H, Lymphocytes % 9.3 L, Monocytes % 6.0, Eosinophils % 0.1, Basophils % 0, Absolute Granulocytes 3.9, Absolute Lymphocytes 0.4 L, Absolute Monocytes 0.3, Absolute Eosinophils 0, Absolute Basophils 0, PUBS MCHC 33.3 07/28/17 1915: Urine Color YEL, Urine Clarity CLEAR, Urine pH 5.5, Ur Specific [place] 1.015, Urine Protein TRACE H, Urine Ketones NEG, Urine Nitrite NEG, Urine Bilirubin NEG, Urine Urobilinogen 0.2, Ur Leukocyte Esterase NEG, Ur Microscopic SEDIMENT EXAMINED, Urine RBC 1-3, Urine WBC 1-3 H, Ur Epithelial Cells RARE, Urine Bacteria MOD H, Urine Hemoglobin TRACE-INTACT H, Urine Glucose NEG 07/28/17 1240: Anion Gap 17 H, Estimated GFR > 60, BUN/Creatinine Ratio 17.3, Glucose 125 H, Calcium 10.1, Magnesium 2.0, Total Bilirubin 1.1, AST 33, ALT 30, Alkaline Phosphatase 113, Troponin I 0.03, Zso-Q-Emnmfppeamd Pept 7660 H, Total Protein 8.2, Albumin 4.8, Globulin 3.4, Albumin/Globulin Ratio 1.4, PT 12.8 H, INR 1.22 H, APTT 33, D-Dimer High Sensitivty 1025 H, CBC w Diff NO MAN DIFF REQ, RBC 5.20, MCV 93.3, MCH 29.9, RDW 14.9 H, MPV 8.5, Gran % 72.9, Lymphocytes % 14.0 L, Monocytes % 11.1 H, Eosinophils % 1.3, Basophils % 0.7, Absolute Granulocytes 4.2, Absolute Lymphocytes 0.8 L, Absolute Monocytes 0.6, Absolute Eosinophils 0.1, Absolute Basophils 0, PUBS MCHC 32.1 L Microbiology 07/29 0732 BODY FLUID: Body Fluid Culture - COLB 07/29 732 BODY FLUID: Gram Stain - COLB 07/29 0719 LOWER RESP: Respiratory Culture - COLB 07/29 719 LOWER RESP: Gram Stain - COLB Problems: 1. Bilateral pleural effusions. 2. History of lung cancer 3. Known oxygen-dependent COPD 4. History of peripheral vascular disease and carotid artery stenosis status post endarterectomy 5. History of diverticular bleeding. Plan: -Follow-up with pulmonology service. Patient will likely require diagnostic/ therapeutic thoracocentesis. -He was empirically started on antibiotics on admission. No evidence of pulmonary noted on imaging. Follow-up with the pulmonary service regarding need to continue antibiotic therapy. -Hold Plavix in anticipation of thoracocentesis.
[2017-07-29 14:43] VITALS: BP 122/66
--- NOTE | 2017-07-29 16:49 | Cons- Pulmonary ---
General Information and HPI Consulting Request Date of Consult: 07/29/17 Requested By: med team History of Present Illness: 81 year old male with a past medical history significant for smoking quit in 2007 with diagnosis of advanced lung cancer treated with chemotherapy and radiation therapy at [facility] in 2007 with subsequent Cyberknife treatments for lung nodule, recurrence vs new primaries (Dr. Slater @ [facility]) in 2014 and 02/2017, 5 treatments each time, history of pneumothorax in 2013 treated with a thoracic vent by Dr. Joshua, h/o GI bleed, abdominal aortic aneurysm, emphysema and COPD not on home oxygen, left CEA on plavix, recently admittted to [facility] and treated for community acquired pneumonia last month presents to the hospital today with complaints of progressive severe dyspnea. The patient was recently treated at [facility] for a right lower lobe community acquired pneumonia and discharged on total ten day course of oral cefuroxime. After discharge, the patient said he never quite felt better. The patient reports a progressive decline in his breathing without any obvious triggers. The patient denies any fevers or chills, upper respiratory infection, sinus pain, sore throat, rhinorrhea, sick contacts or travel. He does reportedly have a mild mostly dry cough that is occasionally productive of yellow sputum but no significant changes in its production, severity, or frequency. He denies any other symptoms on review, no chest pain palpitations, abdominal pain, nausea, vomiting, diarrhea or dysuria. He reportedly was having more and more trouble breathing and does endorse symptoms of orthopnea and that he was having more difficulty sleeping because of his breathing. He saw Dr. Solano, Dr. Thornton and Dr. Renteria prior to returning to the emergency department. He was started on steroids and a COPD inhaler just prior to arrival. A CTA of the chest was performed in the ED and in comparison to prior admission it showed and increased loculated left pleural effusion and stable moderate right pleural effusion. Irregular airspace opacification in the right lower lobe more densely consolidated. Of note, there was no pulmonary embolism. The patient was treated with ceftriaxone, azithromycin, albuterol, ipatroprium and solumedrol in the emergency department and admitted to general medicine for pneumonia. Allergies/Medications Allergies: Coded Allergies: animal dander (Severe, EYES REDDENED, HIVES 07/28/17) Penicillins (Intermediate, RASH 07/21/16) Home Med List: Cholecalciferol (Vitamin D3) (Vitamin D) 1,000 UNIT TABLET 1 TAB PO DAILY SUPPLEMENT (Reported) Clopidogrel Bisulfate (Clopidogrel) 75 MG TABLET 1 TAB PO DAILY BLOOD THINNER (Reported) Metoprolol Tartrate 25 MG TABLET 1 TAB PO DAILY BP (Reported) Multivit-Min/FA/Lycopen/Lutein (Centrum Silver Tablet) 0.4 MG-300 MCG-250 MCG TABLET 1 TAB PO DAILY VITAMIN SUPPORT (Reported) Pantoprazole Sodium 40 MG TABLET.DR 1 TAB PO DAILY GI (Reported) Review of Systems Review of Systems Constitutional: Reports: see HPI. 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 Home Who Do You Live With? spouse Services at Home: None Smoking Status: Former Smoker ETOH Use: denies use Illicit Drug Use: denies illicit drug use Functional Ability ADLs Independent: dressing, eating, toileting, bathing. Ambulation: independent IADLs Independent: shopping, housework, finances, food prep, telephone, transportation , medication admin. Exam & Diagnostic Data Last 24 Hrs of Vital Signs/I&O Vital Signs Date Time Temp Pulse Resp B/P B/P Pulse O2 O2 Flow FiO2 Mean Ox Delivery Rate 07/29 1443 97.2 80 20 122/66 94 Nasal Cannula 07/29 0935 100 120/62 07/29 0909 98 Nasal 2.0L Cannula 07/29 0800 Nasal 2.0L Cannula 07/29 0643 97.7 86 20 108/60 94 Nasal Cannula 07/29 0054 97.4 106 22 113/70 07/29 0000 Nasal 2.0L Cannula 07/28 2302 97.4 106 22 113/70 94 Nasal 2.0L Cannula 07/28 2241 Nasal 2.0L Cannula 12/29 2200 96 Nasal 2.0L Cannula 07/28 2027 98.7 99 22 136/84 96 Nasal 2.0L Cannula 07/28 1752 97.6 105 20 140/78 98 Nasal 2.0L Cannula Intake & Output 07/29 1600 07/29 0800 07/29 0000 Intake Total 1100 800 500 Output Total Balance 1100 800 500 Intake, IV 450 600 500 Intake, Oral 650 200 Patient 180 lb Weight Weight Bed scale Measurement Method Last 48 Hrs of Labs/Yong: Laboratory Tests 07/29/17 0940: pH 7.43, pCO2 28 L, pO2 60 L, HCO3 18 L, ABG O2 Sat (Measured) 88.0 L, Carboxyhemoglobin 1.4 L, O2 Concentration % RA, Phlebotomy Draw Site RIGHT RADIAL 07/29/17 0730: Anion Gap 14, Estimated GFR > 60, BUN/Creatinine Ratio 18.9, Lactic Acid 1.8, CBC w Diff NO MAN DIFF REQ, RBC 4.37 L, MCV 92.7, MCH 30.9, RDW 15.2 H, MPV 9.0, Gran % 84.6 H, Lymphocytes % 9.3 L, Monocytes % 6.0, Eosinophils % 0.1, Basophils % 0, Absolute Granulocytes 3.9, Absolute Lymphocytes 0.4 L, Absolute Monocytes 0.3, Absolute Eosinophils 0, Absolute Basophils 0, PUBS MCHC 33.3 07/28/17 1915: Urine Color YEL, Urine Clarity CLEAR, Urine pH 5.5, Ur Specific [place] 1.015, Urine Protein TRACE H, Urine Ketones NEG, Urine Nitrite NEG, Urine Bilirubin NEG, Urine Urobilinogen 0.2, Ur Leukocyte Esterase NEG, Ur Microscopic SEDIMENT EXAMINED, Urine RBC 1-3, Urine WBC 1-3 H, Ur Epithelial Cells RARE, Urine Bacteria MOD H, Urine Hemoglobin TRACE-INTACT H, Urine Glucose NEG 07/28/17 1240: Anion Gap 17 H, Estimated GFR > 60, BUN/Creatinine Ratio 17.3, Glucose 125 H, Calcium 10.1, Magnesium 2.0, Total Bilirubin 1.1, AST 33, ALT 30, Alkaline Phosphatase 113, Troponin I 0.03, Sfl-F-Qidfyhaxfpq Pept 7660 H, Total Protein 8.2, Albumin 4.8, Globulin 3.4, Albumin/Globulin Ratio 1.4, PT 12.8 H, INR 1.22 H, APTT 33, D-Dimer High Sensitivty 1025 H, CBC w Diff NO MAN DIFF REQ, RBC 5.20, MCV 93.3, MCH 29.9, RDW 14.9 H, MPV 8.5, Gran % 72.9, Lymphocytes % 14.0 L, Monocytes % 11.1 H, Eosinophils % 1.3, Basophils % 0.7, Absolute Granulocytes 4.2, Absolute Lymphocytes 0.8 L, Absolute Monocytes 0.6, Absolute Eosinophils 0.1, Absolute Basophils 0, PUBS MCHC 32.1 L Assessment/Plan Impression/Plan: Physical Exam General Appearance Alert, Oriented X3, Cooperative, No Acute Distress Cardiovascular Regular Rate, Normal S1, Normal S2, No Murmurs Lungs right base crackles and diminished breath sounds bibasilarly Abdomen Normal Bowel Sounds, Soft, No Tenderness, No Masses Extremities No Clubbing, No Cyanosis, No Edema, Normal Pulses CT IMPRESSION: Accounting for streak artifact there is no central or segmental pulmonary embolism. There has been an increase in size in the loculated left pleural effusion from the prior CT of 06/13/2017. There is a stable moderate right pleural effusion. An area of irregular airspace opacification in the right lower lobe has become more densely consolidated with a decrease in surrounding ground glass attenuation. There are numerous other underlying chronic changes within both lungs as detailed above, and unchanged. 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 In 2007, he was found to have a tumor in the left lung. 2. He underwent a left thoracotomy for a non-small cell lung cancer. 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 3. ERBT/carboplatin/Taxol 08/07-12/05. 5. The patient had a local recurrence in the right upper lobe for which he underwent CyberKnife radiation treatments in 10/2014. 4. In November of 2014, he developed a recurrent left-sided pleural effusion, which required a PleurX catheter, which was in place for about a year until December of 2014, when it was removed, and he has been quite stable since that time. 5. Right lower lobe SBRT 5000 cGy (02/21-03/03/2017) over 5 fractions. IMPRESSION Pt with complicated onc history as above with locally advance NSCLCA sq variety with recent xrt in 03/16, with sig copd and chronic lung disease / Chronic left effusion which is slowly increasing in size (previouis pleurx in the left side in 2014) now with * Sig resp insuff and poor performance status - appears multifactorial including prob xrt pna with consolidation in the rt ll in the area of his xrt * Severe copd * Enlarging rt effusion rule out malignancy * Chronic enlarging loculated left effusion - present since 2014 with prior pleurx * Recent xrt and lovally advanced NSCLA sq variety - recurrent vs stage 4 cancer Poor performance status NO sig bacterial pna,.but cannot rule out REC * Start po prednisone 50 mg daily * COnt nebs * Cont abx and prob can change to po * Cont symptomatic rx * Needs Right sided thora first when able by INterventional radiology - to eval the rt side and rule out pleural mets and disease * Left effusion appears chronic and loculate and this may need to be drained, however he may have trapped lung on the left side, needs cts eval in the future to discuss further the intervention he may need on the left side * Flu swab, sputum culture if any * Urinary antigens for pneumo and leigenella Will follow Prog appears guarded Discussed with Consult Acknowledgment - Thank you for your consult request.
--- NOTE | 2017-07-29 19:34 | Event Note ---
Event Note Event Note: Situation: I was paged that patient has shortness of breath with pain in the chest. Back ground: 81 year old male with a past medical history significant for smoking quit in 2007 with diagnosis of advanced lung cancer treated with chemotherapy and radiation therapy at [facility] in 2007 with subsequent Cyberknife treatments for lung nodule, recurrence vs new primaries (Dr. Slater @ [facility]) in 2014 and 02/2017, 5 treatments each time, history of pneumothorax in 2013 treated with a thoracic vent by keyonna De Leon presented progressive dyspnea. Assessment and plan: Went to see the patient, he was tachypneic and having nausea. On physical examination of the retractor from the right side of the lung compared to left but air entry was normal bilaterally. Abdominal auscultation and resonant and patient reported difficulty in passing gas. Stat EKG and troponin were ordered. As patient is feeling nauseous so stat Tigan injection was ordered. His oxygen requirement increases from 2 L to 5 L. Blood pressure was 100/60 and pulse was 115 with 100% saturation on 5 L of oxygen. We will rule out acute coronary syndrome and pulmonary embolism although CTA was done yesterday that was negative for PE.
[2017-07-29 22:35] VITALS: BP 102/60
[2017-07-30 06:30] VITALS: BP 140/78
[2017-07-30 09:12] LABS: ABSOLUTE BASOPHIL COUNT 0 /CUMM (0.0-0.2); ABSOLUTE EOSINOPHIL COUNT 0 /CUMM (0.0-0.7); ABSOLUTE LYMPH COUNT 0.4 /CUMM (1.2-3.4); ABSOLUTE MONOCYTE COUNT 0.4 /CUMM (0.10-0.60); EOSINOPHIL % 0 % (0-5); MEAN PLATELET VOLUME 9.1 FL (7.4-10.4); RED BLOOD CELL CT 4.32 /CUMM (4.70-6.10)
--- NOTE | 2017-07-30 09:18 | History & Physical ---
General Information and HPI Source of Information: patient, family, old records Exam Limitations: no limitations Allergies/Medications Allergies: Coded Allergies: animal dander (Severe, EYES REDDENED, HIVES 07/28/17) Penicillins (Intermediate, RASH 07/21/16) Home Med list Cholecalciferol (Vitamin D3) (Vitamin D) 1,000 UNIT TABLET 1 TAB PO DAILY SUPPLEMENT (Reported) Clopidogrel Bisulfate (Clopidogrel) 75 MG TABLET 1 TAB PO DAILY BLOOD THINNER (Reported) Metoprolol Tartrate 25 MG TABLET 1 TAB PO DAILY BP (Reported) Multivit-Min/FA/Lycopen/Lutein (Centrum Silver Tablet) 0.4 MG-300 MCG-250 MCG TABLET 1 TAB PO DAILY VITAMIN SUPPORT (Reported) Pantoprazole Sodium 40 MG TABLET.DR 1 TAB PO DAILY GI (Reported) Compliance With Home Meds: GOOD Past History Travel History Traveled to [place] past 21 day No Medical History Blood Transfusion Hx: No Neurological: NONE EENT: NONE Cardiovascular: ANEURYSM Respiratory: COPD, pneumonia Gastrointestinal: lower GI bleed Hepatic: NONE Renal: NONE Musculoskeletal: NONE Psychiatric: NONE Endocrine: NONE Blood Disorders: NONE 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 Home Who Do You Live With? spouse Services at Home: None Smoking Status: Former Smoker ETOH Use: denies use Illicit Drug Use: denies illicit drug use Functional Ability ADLs Independent: dressing, eating, toileting, bathing. Ambulation: independent IADLs Independent: shopping, housework, finances, food prep, telephone, transportation , medication admin. Exam & Diagnostic Data Diagnostic Data EKG Results no ischemic ST T wave changes CXR Results 1. Chronic obstructive pulmonary disease. 2. There is an area of persistent or recurrent consolidation in the right midlung (likely pneumonia in the superior segment of the right lower lobe). Otherwise, stable findings in the chest compared to 06/13/2017. Other Results There has been an increase in size in the loculated left pleural effusion from the prior CT of 06/13/2017. There is a stable moderate right pleural effusion. An area of irregular airspace opacification in the right lower lobe has become more densely consolidated with a decrease in surrounding ground glass attenuation Core Measures/Misc (04/16) Cerebrovascular Accident CVA/TIA Diagnosis: No VTE (View Protocol) VTE Risk Factors Age>40 Sepsis (View protocol) Sepsis Present: No
--- NOTE | 2017-07-30 09:18 | PN- Housestaff ---
[facility]18: Subjective Follow-up For: acute hypoxemic respiratory failure pleural effusion copd lung cancer Subjective: Patient seen and examined today, his flank and the patient with mild distress, he reports that his breathing is still the same with no improvement, couldn't sleep well at night. He reports mild cough with some clear sputum. Vitals remain stable, he is on 1 L nasal cannula and oxygen saturation is 96 Review of Systems Constitutional: Reports: no symptoms. EENTM: Reports: no symptoms. Cardiovascular: Reports: no symptoms. Respiratory: Reports: cough, short of breath. Gastrointestinal: Reports: no symptoms. Genitourinary: Reports: no symptoms. Musculoskeletal: Reports: no symptoms. Objective Last 24 Hrs of Vital Signs/I&O Vital Signs Date Time Temp Pulse Resp B/P B/P Pulse O2 O2 Flow FiO2 Mean Ox Delivery Rate 07/30 1015 90 140/78 07/30 0839 96 Nasal 1.0L Cannula 07/30 0630 98.4 90 20 140/78 96 Nasal Cannula 07/30 0000 Nasal 3.0L Cannula 07/29 2235 98.1 97 24 102/60 97 Nasal Cannula 07/29 2212 80 126/88 07/29 1940 98 Nasal 3.0L Cannula 07/29 1600 Nasal 2.0L Cannula 07/29 1443 97.2 80 20 122/66 94 Nasal Cannula Intake & Output 07/30 1600 07/30 0800 07/30 0000 Intake Total 200 Output Total 250 Balance -50 Intake, Oral 200 Output, Urine 250 Physical Exam General Appearance: Alert, Oriented X3, Cooperative, Moderate Distress Skin: No Rashes, No Breakdown, No Significant Lesion HEENT: Atraumatic, PERRLA, EOMI Lymphatic: Axillary nl, Cervical nl Cardiovascular: Regular Rate, Normal S1, Normal S2 Lungs: Decrease eir entry on bases with crackle Abdomen: Normal Bowel Sounds, Soft, No Tenderness Neurological: Normal Speech, Strength at 5/5 X4 Ext, Normal Tone, Sensation Intact Extremities: No Clubbing, No Cyanosis, No Edema Vascular: Normal Pulses, Pulses Symmetrical Current Medications: Current Medications Sig/Dominique Start time Last Medication Dose Route Stop Time Status Admin Acetaminophen 650 MG Q6P PRN 07/29 200 AC PO Acetaminophen 1,000 MG Q6P PRN 07/29 200 AC IV Albuterol Sulfate 3 ML BID 07/29 1000 AC 07/30 INH 0836 Azithromycin 500 MG Q24H 07/29 1800 AC 07/29 Sodium Chloride 250 ML IV 1821 Ceftriaxone Sodium 1,000 MG Q24H 07/29 1800 AC 07/29 IV 1822 Methylprednisolone 40 MG ONCE ONE 07/29 2015 DC 07/29 IV 07/29 Metoprolol Tartrate 25 MG BID 07/28 2200 AC 07/30 PO 1015 Morphine Sulfate 1 MG Q6-PRN PRN 07/29 200 AC IV Omeprazole 40 MG DAILY AC 07/29 0700 AC 07/30 PO 0629 Prednisone 50 MG DAILY 07/30 1000 AC 07/30 PO 1015 Prednisone 50 MG DAILY 07/29 1912 DC PO Simethicone 80 MG ONCE ONE 07/29 1900 DC 07/29 PO 07/29 Trazodone HCl 50 MG AT BEDTIME NEED.. 07/29 200 AC PO Trimethobenzamide HCl 200 MG ONCE ONE 07/29 1915 DC IM 07/29 1916 Last 24 Hrs of Lab/Yong Results Last 24 Hrs of Labs/Mics: Laboratory Tests 07/30/17 0830: Troponin I Pending 07/30/17 0830: Anion Gap 14, Estimated GFR > 60, BUN/Creatinine Ratio 26.4 H, CBC w Diff NO MAN DIFF REQ, RBC 4.32 L, MCV 92.6, MCH 30.6, RDW 15.7 H, MPV 9.1, Gran % 90.0 H, Lymphocytes % 4.8 L, Monocytes % 5.2, Eosinophils % 0, Basophils % 0, Absolute Granulocytes 7.3 H, Absolute Lymphocytes 0.4 L, Absolute Monocytes 0.4, Absolute Eosinophils 0, Absolute Basophils 0, PUBS MCHC 33.0 07/30/17 0215: Troponin I 0.06 07/29/17 2030: Troponin I 0.05 Microbiology 07/30 740 URINE ROUT: Legionella Antigen - RECD 07/30 740 URINE ROUT: Streptococcus pneumoniae Antigen (M - RECD 07/30 645 NASOPHARYN: Influenza Virus A & B Rapid Smear - COMP 07/29 1915 LOWER RESP: Respiratory Culture - CAN Cancelled: Cancelled via OE: Error 07/29 1915 LOWER RESP: Gram Stain - CAN Cancelled: Cancelled via OE: Error Assessment/Plan Assessment: 81 year old male with a past medical history significant for smoking, advanced lung cancer treated with chemotherapy and radiation therapy and Cyberknife, history of pneumothorax in 2014, COPD not on home oxygen, left CEA on plavix presents with progressive dyspnea and is found to have increasing pleural effusion and consolidation consistent with pneumonia. #Acute hypoxemic respiratory failure with tachypnea and accessory muscle use Multifactorial-smoking/copd/emphysema/h/o radiation and pleural effusion with residual pna Continue empiric antibiotics for community acquired pneumonia, ceftriaxone/ azithroymcin Consolidation likely persistent from adjacent large pleural effusion Pulmonology on board, he is po prednisone daily, discussed with there pleural effusion in the left side is small to be taped, on the right may need to be taped, assess tomorrow Titrate supplemental oxygen Incentive spirometry TRC evaluation #Hyperkalemia: K:5.9 * EKG showed no acute changes * IV dextrose and insulin was given with PO kayexalate, will check K later on the evening HTN: Continue metroprolol GERD: Continue PO PPI Heart healthy diet DVT ppx-lovenox 40mg subcutaneous daily Full code Problem List: 1. COPD exacerbation 2. Pleural effusion associated with pulmonary infection 3. Hyperkalemia Pain Ratin Pain Location: - Pain Goal: Remain pain free Pain Plan: - Tomorrow's Labs & Rationales: cbc, bep Nito ULRICH,Cate 07/30/17 1259: Attending MD Review Statement Attending Statement Attending MD Statement: examined this patient, discuss w/resident/PA/DIRECTOR PRINT, agreed w/resident/PA/DIRECTOR PRINT, discussed with family, reviewed EMR data (avail), discussed with nursing, amended to note Attending Assessment/Plan: Patient seen and examined. He reports feeling no better today. Continues to complain of shortness of breath. Reports her symptoms are present even at rest. Yesterday evening he had complained of shortness of breath or chest pain. Cardiac enzymes were done and have been negative. EKG shows no ischemic changes. He was placed on oxygen supplementation and is currently saturating 96 % on 1 L of oxygen. He was scheduled to undergo thoracocentesis yesterday to further evaluate his bilateral pleural effusion. On-call interventional radiologist however reports that following sonogram of the chest is noted that he does not have significant fluid present to allow for safe thoracocentesis. I did discuss this with the patient and his . On examination he does not appear to be in respiratory distress. There is no use of accessory muscles. He has fair entry bilaterally with no added sounds. Abdomen is obese but soft and nontender with normal bowel sounds. He has no peripheral edema. Recommendations: -In light of report that he does not have significant pleural effusions present etiology of his persistent and progressive shortness of breath is unclear at present. -Continue empiric antibiotic therapy for presumed pneumonia continue bronchodilator therapy -Systemic chemotherapy has been changed to oral route for his COPD. -Mobilize patient as tolerated. -Follow up with the pulmonology service regarding the need for pursuing thoracocentesis. -We will notify his cardiothoracic surgeon on Monday about the loculated effusion on the left for management recommendations. -Administer a dose of Kayexalate and repeat serum chemistry later today to evaluate improvement of his hyperkalemia
[2017-07-30 09:22] LABS: ABSOLUTE GRANULOCYTE CT 7.3 /CUMM (1.4-6.5); BASOPHIL % 0 % (0.0-2.0); MEAN CORPUSCULAR HGB 30.6 PG (27.0-31.0); MEAN CORPUSCULAR VOLUME 92.6 FL (80.0-94.0); PLATELET COUNT 195 /CUMM (130-400); RBC DISTRIBUTION WIDTH 15.7 % (11.5-14.5)
[2017-07-30 09:23] LABS: WHITE BLOOD CELL COUNT 8.1 /CUMM (4.8-10.8)
--- NOTE | 2017-07-30 13:33 | PN- Pulmonary ---
Subjective HPI/Critical Care Issues: Doing about the same and still has dyspnea Objective Current Medications: Current Medications Sig/Dominique Start time Last Medication Dose Route Stop Time Status Admin Acetaminophen 650 MG Q6P PRN 07/29 0200 AC PO Acetaminophen 1,000 MG Q6P PRN 07/29 0200 AC IV Albuterol Sulfate 3 ML BID 07/29 1000 AC 07/30 INH 0836 Azithromycin 500 MG Q24H 07/29 1800 AC 07/29 Sodium Chloride 250 ML IV 1821 Calcium Carbonate 500 MG ONCE ONE 07/30 1300 DC PO 07/30 1301 Ceftriaxone Sodium 1,000 MG Q24H 07/29 1800 AC 07/29 IV 1822 Dextrose 25 GM ONCE ONE 07/30 1330 DC IV 07/30 1331 Insulin Human Regular 10 UNITS ONCE ONE 07/30 1330 DC IV 07/30 1331 Methylprednisolone 40 MG ONCE ONE 07/29 2015 DC 07/29 IV 07/29 Metoprolol Tartrate 25 MG BID 07/28 2200 AC 07/30 PO 1015 Morphine Sulfate 1 MG Q6-PRN PRN 07/29 0200 AC IV Omeprazole 40 MG DAILY AC 07/29 0700 AC 07/30 PO 0629 Prednisone 50 MG DAILY 07/30 1000 AC 07/30 PO 1015 Prednisone 50 MG DAILY 07/29 191 DC PO Simethicone 80 MG Q6P PRN 07/30 1030 AC PO Simethicone 80 MG ONCE ONE 07/29 1900 DC 07/29 PO 07/29 190 1906 Sodium Polystyrene 60 ML ONCE ONE 07/30 1315 DC Sulfonate PO 07/30 1316 Trazodone HCl 50 MG AT BEDTIME NEED.. 07/29 020 AC PO Trimethobenzamide HCl 200 MG ONCE ONE 07/29 191 DC IM 07/29 191 Vital Signs & I&O Last 24 Hrs of Vitals and I&O: Vital Signs Date Time Temp Pulse Resp B/P B/P Pulse O2 O2 Flow FiO2 Mean Ox Delivery Rate 07/30 1015 90 140/78 07/30 0839 96 Nasal 1.0L Cannula 07/30 0800 96 Nasal 1.0L Cannula 07/30 630 98.4 90 20 140/78 96 Nasal Cannula 07/30 0000 Nasal 3.0L Cannula 07/29 2235 98.1 97 24 102/60 97 Nasal Cannula 07/29 2212 80 126/88 07/29 1940 98 Nasal 3.0L Cannula 07/29 1600 Nasal 2.0L Cannula 07/29 1443 97.2 80 20 122/66 94 Nasal Cannula Intake & Output 07/30 1600 07/30 0800 07/30 0000 Intake Total 200 Output Total 250 Balance -50 Intake, Oral 200 Output, Urine 250 Laboratory Tests 07/30 07/30 07/30 07/29 0830 0830 0215 2030 Chemistry Sodium (137 - 145 mmol/L) 140 Potassium (3.5 - 5.1 mmol/L) 5.9 H Chloride (98 - 107 mmol/L) 106 Carbon Dioxide (22 - 30 mmol/L) 20 L Anion Gap (5 - 16) 14 BUN (9 - 20 mg/dL) 29 H Creatinine (0.7 - 1.2 mg/dL) 1.1 Estimated GFR (>60 ml/min) > 60 BUN/Creatinine Ratio (7 - 25 %) 26.4 H Phosphorus (2.5 - 4.5 mg/dL) Pending Magnesium (1.6 - 2.3 mg/dL) Pending Troponin I (<0.11 ng/ml) 0.05 0.06 0.05 Hematology CBC w Diff NO MAN DIFF REQ WBC (4.8 - 10.8 /CUMM) 8.1 RBC (4.70 - 6.10 /CUMM) 4.32 L Hgb (14.0 - 18.0 G/DL) 13.2 L Hct (42 - 52 %) 40.0 L MCV (80.0 - 94.0 FL) 92.6 MCH (27.0 - 31.0 PG) 30.6 RDW (11.5 - 14.5 %) 15.7 H Plt Count (130 - 400 /CUMM) 195 MPV (7.4 - 10.4 FL) 9.1 Gran % (42.2 - 75.2 %) 90.0 H Lymphocytes % (20.5 - 51.1 %) 4.8 L Monocytes % (1.7 - 9.3 %) 5.2 Eosinophils % (0 - 5 %) 0 Basophils % (0.0 - 2.0 %) 0 Absolute Granulocytes (1.4 - 6.5 /CUMM) 7.3 H Absolute Lymphocytes (1.2 - 3.4 /CUMM) 0.4 L Absolute Monocytes (0.10 - 0.60 /CUMM) 0.4 Absolute Eosinophils (0.0 - 0.7 /CUMM) 0 Absolute Basophils (0.0 - 0.2 /CUMM) 0 PUBS MCHC (33.0 - 37.0 G/DL) 33.0 07/29 07/29 07/29 0940 0732 0732 Blood Gas pH (7.35 - 7.45 PH) 7.43 pCO2 (35 - 45 TORR) 28 L pO2 (80 - 100 TORR) 60 L HCO3 (21 - 28 MEQ/L) 18 L ABG O2 Sat (Measured) (>96.0 %) 88.0 L Carboxyhemoglobin (1.5 - 5.0 %) 1.4 L O2 Concentration % RA Miscellaneous Phlebotomy Draw Site RIGHT RADIAL Other Body Source Fluid WBC Cancelled Fld Total RBCs Counted Cancelled Fluid Glucose Cancelled Fluid Total Protein Cancelled Fluid Albumin Cancelled Fluid LDH Cancelled Fluid Amylase Cancelled 07/29 07/28 0730 1915 Chemistry Sodium (137 - 145 mmol/L) 141 Potassium (3.5 - 5.1 mmol/L) 5.1 Chloride (98 - 107 mmol/L) 108 H Carbon Dioxide (22 - 30 mmol/L) 20 L Anion Gap (5 - 16) 14 BUN (9 - 20 mg/dL) 17 Creatinine (0.7 - 1.2 mg/dL) 0.9 Estimated GFR (>60 ml/min) > 60 BUN/Creatinine Ratio (7 - 25 %) 18.9 Lactic Acid (0.7 - 2.1 mmol/L) 1.8 Hematology CBC w Diff NO MAN DIFF REQ WBC (4.8 - 10.8 /CUMM) 4.6 L RBC (4.70 - 6.10 /CUMM) 4.37 L Hgb (14.0 - 18.0 G/DL) 13.5 L Hct (42 - 52 %) 40.5 L MCV (80.0 - 94.0 FL) 92.7 MCH (27.0 - 31.0 PG) 30.9 RDW (11.5 - 14.5 %) 15.2 H Plt Count (130 - 400 /CUMM) 193 MPV (7.4 - 10.4 FL) 9.0 Gran % (42.2 - 75.2 %) 84.6 H Lymphocytes % (20.5 - 51.1 %) 9.3 L Monocytes % (1.7 - 9.3 %) 6.0 Eosinophils % (0 - 5 %) 0.1 Basophils % (0.0 - 2.0 %) 0 Absolute Granulocytes (1.4 - 6.5 /CUMM) 3.9 Absolute Lymphocytes (1.2 - 3.4 /CUMM) 0.4 L Absolute Monocytes (0.10 - 0.60 /CUMM) 0.3 Absolute Eosinophils (0.0 - 0.7 /CUMM) 0 Absolute Basophils (0.0 - 0.2 /CUMM) 0 PUBS MCHC (33.0 - 37.0 G/DL) 33.3 Urines Urine Color (YEL,AMB,STR) YEL Urine Clarity (CLEAR) CLEAR Urine pH (5.0 - 8.0) 5.5 Ur Specific [place] (1.001 - 1.035) 1.015 Urine Protein (NEG,<30 MG/DL) TRACE H Urine Ketones (NEG) NEG Urine Nitrite (NEG) NEG Urine Bilirubin (NEG) NEG Urine Urobilinogen (0.1 - 1.0 EU/dl) 0.2 Ur Leukocyte Esterase (NEG) NEG Ur Microscopic SEDIMENT EXAMINED Urine RBC (0 - 5 /HPF) 1-3 Urine WBC (0 - 2 /HPF) 1-3 H Ur Epithelial Cells (NONE,FEW) RARE Urine Bacteria (NEG/NONE) MOD H Urine Hemoglobin (NEG) TRACE-INTACT H Urine Glucose (N MG/DL) NEG Microbiology Date/Time Procedure - Status Source Growth 07/30 740 Legionella Antigen - COMP URINE ROUT 07/30 740 Streptococcus pneumoniae Antigen (M - COMP URINE ROUT 07/30 645 Influenza Virus A & B Rapid Smear - COMP NASOPHARYN 07/29 1915 Respiratory Culture - CAN LOWER RESP Cancelled: Cancelled via OE: Error 07/29 1915 Gram Stain - CAN LOWER RESP Cancelled: Cancelled via OE: Error 07/29 732 Body Fluid Culture - COLB BODY FLUID 07/29 732 Gram Stain - COLB BODY FLUID 07/29 719 Respiratory Culture - COLB LOWER RESP 07/29 719 Gram Stain - COLB LOWER RESP Impression/Plan Impression/Plan Impression/Plan: Physical Exam General Appearance Alert, Oriented X3, Cooperative, No Acute Distress Cardiovascular Regular Rate, Normal S1, Normal S2, No Murmurs Lungs right base crackles and diminished breath sounds bibasilarly Abdomen Normal Bowel Sounds, Soft, No Tenderness, No Masses Extremities No Clubbing, No Cyanosis, No Edema, Normal Pulses CT IMPRESSION: Accounting for streak artifact there is no central or segmental pulmonary embolism. There has been an increase in size in the loculated left pleural effusion from the prior CT of 06/13/2017. There is a stable moderate right pleural effusion. An area of irregular airspace opacification in the right lower lobe has become more densely consolidated with a decrease in surrounding ground glass attenuation. There are numerous other underlying chronic changes within both lungs as detailed above, and unchanged. 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 In 2007, he was found to have a tumor in the left lung. 2. He underwent a left thoracotomy for a non-small cell lung cancer. 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 3. ERBT/carboplatin/Taxol 08/07-12/05. 5. The patient had a local recurrence in the right upper lobe for which he underwent CyberKnife radiation treatments in 10/2014. 4. In November of 2014, he developed a recurrent left-sided pleural effusion, which required a PleurX catheter, which was in place for about a year until December of 2014, when it was removed, and he has been quite stable since that time. 5. Right lower lobe SBRT 5000 cGy (02/21-03/03/2017) over 5 fractions. IMPRESSION Pt with complicated onc history as above with locally advance NSCLCA sq variety with recent xrt in 03/16, with sig copd and chronic lung disease / Chronic left effusion which is slowly increasing in size (previouis pleurx in the left side in 2014) now with * Sig resp insuff and poor performance status - appears multifactorial including prob xrt pna with consolidation in the rt ll in the area of his xrt * Severe copd * Enlarging rt effusion rule out malignancy but not enough to tap/ * Chronic enlarging loculated left effusion - present since 2014 with prior pleurx * Recent xrt and lovally advanced NSCLA sq variety - recurrent vs stage 4 cancer Poor performance status NO sig bacterial pna,.but cannot rule out REC * Start po prednisone 50 mg daily * COnt nebs * Cont abx and prob can change to po in a day or two * Cont symptomatic rx * Needs cxr in the next 3-4 days to eval for worsening rt sided effusion * Left effusion appears chronic and loculate and this is stable and does not need drainage. Discussed with Dr Joshua. However he may have trapped lung on the Will follow Prog appears guarded Discussed with
[2017-07-30 15:31] VITALS: BP 122/72
--- NOTE | 2017-07-30 17:23 | ULTRASOUND REPORT ---
EXAMINATION: US chest CLINICAL INFORMATION: Shortness of breath and pleural effusion seen on CT angiography of the chest COMPARISON: Prior CT angiography of the chest dated 07/28/2017 TECHNIQUE: Ultrasound of the posterior chest was performed with the patient in the upright position. FINDINGS: Ultrasound of both hemithoraces show small pleural effusions, not enlarged to perform thoracentesis safely. Because of this, thoracentesis was not performed. IMPRESSION: Pleural effusions are too small to safely perform thoracentesis.
[2017-07-30 21:20] VITALS: BP 130/70
[2017-07-31 06:24] VITALS: BP 108/70
[2017-07-31 09:37] LABS: ABSOLUTE BASOPHIL COUNT 0 /CUMM (0.0-0.2); ABSOLUTE EOSINOPHIL COUNT 0 /CUMM (0.0-0.7); ABSOLUTE GRANULOCYTE CT 7.8 /CUMM (1.4-6.5); ABSOLUTE LYMPH COUNT 1.1 /CUMM (1.2-3.4); ABSOLUTE MONOCYTE COUNT 0.9 /CUMM (0.10-0.60); BASOPHIL % 0.1 % (0.0-2.0); EOSINOPHIL % 0.3 % (0-5); GRANULOCYTE % 78.8 % (42.2-75.2); HEMATOCRIT 42.8 % (42-52); MEAN CORPUSCULAR HGB 30.9 PG (27.0-31.0); MEAN CORPUSCULAR VOLUME 93.3 FL (80.0-94.0); MEAN PLATELET VOLUME 9.3 FL (7.4-10.4); PLATELET COUNT 179 /CUMM (130-400); RBC DISTRIBUTION WIDTH 15.8 % (11.5-14.5); RED BLOOD CELL CT 4.58 /CUMM (4.70-6.10); WHITE BLOOD CELL COUNT 9.9 /CUMM (4.8-10.8)
--- NOTE | 2017-07-31 12:49 | PN- Pulmonary ---
Subjective HPI/Critical Care Issues: Stable no new issues Objective Current Medications: Current Medications Sig/Dominique Start time Last Medication Dose Route Stop Time Status Admin Acetaminophen 650 MG Q6P PRN 07/29 0200 AC PO Acetaminophen 1,000 MG Q6P PRN 07/29 0200 AC IV Albuterol Sulfate 3 ML BID 07/29 1000 AC 07/31 INH 0842 Azithromycin 500 MG Q24H 07/29 1800 AC 07/30 Sodium Chloride 250 ML IV 1803 Calcium Carbonate 500 MG ONCE ONE 07/30 1300 DC 07/30 PO 07/30 1301 1440 Ceftriaxone Sodium 1,000 MG Q24H 07/29 1800 AC 07/30 IV 1803 Dextrose 25 GM ONCE ONE 07/30 1330 DC 07/30 IV 07/30 1331 1343 Insulin Human Regular 10 UNITS ONCE ONE 07/30 1330 DC 07/30 IV 07/30 1331 1343 Metoprolol Tartrate 25 MG BID 07/28 2200 AC 07/31 PO 1024 Morphine Sulfate 1 MG Q6-PRN PRN 07/29 0200 AC IV Omeprazole 40 MG DAILY AC 07/29 0700 AC 07/31 PO 0545 Prednisone 50 MG DAILY 07/30 1000 AC 07/31 PO 1024 Simethicone 80 MG Q6P PRN 07/30 1030 AC PO Sodium Polystyrene 60 ML ONCE ONE 07/30 1315 DC 07/30 Sulfonate PO 07/30 1316 1439 Trazodone HCl 50 MG AT BEDTIME NEED.. 07/29 0200 AC PO Trimethobenzamide HCl 200 MG .STK-MED ONE 07/30 191 DC IM 07/30 191 Vital Signs & I&O Last 24 Hrs of Vitals and I&O: Vital Signs Date Time Temp Pulse Resp B/P B/P Pulse O2 O2 Flow FiO2 Mean Ox Delivery Rate 07/31 1024 94 110/72 07/31 0845 96 Nasal 2.0L Cannula 07/31 0800 96 Nasal 2.0L Cannula 07/31 0624 98.3 94 22 108/70 96 Nasal 3.0L Cannula 07/31 0000 95 Nasal 2.0L Cannula 07/300 97.5 104 24 130/70 95 Nasal 3.0L Cannula 07/30 2023 104 130/70 07/30 1835 95 Nasal 1.0L Cannula 07/30 1600 Nasal 1.0L Cannula 07/30 1531 97.7 92 18 122/72 93 Intake & Output 07/31 1600 07/31 0800 07/31 0000 Intake Total 250 540 Output Total Balance 250 540 Intake, IV 10 300 Intake, Oral 240 240 Impression/Plan Impression/Plan Impression/Plan: Physical Exam General Appearance Alert, Oriented X3, Cooperative, No Acute Distress Cardiovascular Regular Rate, Normal S1, Normal S2, No Murmurs Lungs right base crackles and diminished breath sounds bibasilarly Abdomen Normal Bowel Sounds, Soft, No Tenderness, No Masses Extremities No Clubbing, No Cyanosis, No Edema, Normal Pulses CT IMPRESSION: Accounting for streak artifact there is no central or segmental pulmonary embolism. There has been an increase in size in the loculated left pleural effusion from the prior CT of 06/13/2017. There is a stable moderate right pleural effusion. An area of irregular airspace opacification in the right lower lobe has become more densely consolidated with a decrease in surrounding ground glass attenuation. There are numerous other underlying chronic changes within both lungs as detailed above, and unchanged. 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 In 2007, he was found to have a tumor in the left lung. 2. He underwent a left thoracotomy for a non-small cell lung cancer. 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 3. ERBT/carboplatin/Taxol 08/07-12/05. 5. The patient had a local recurrence in the right upper lobe for which he underwent CyberKnife radiation treatments in 10/2014. 4. In November of 2014, he developed a recurrent left-sided pleural effusion, which required a PleurX catheter, which was in place for about a year until December of 2014, when it was removed, and he has been quite stable since that time. 5. Right lower lobe SBRT 5000 cGy (02/21-03/03/2017) over 5 fractions. IMPRESSION Pt with complicated onc history as above with locally advance NSCLCA sq variety with recent xrt in 03/16, with sig copd and chronic lung disease / Chronic left effusion which is slowly increasing in size (previouis pleurx in the left side in 2014) now with * Sig resp insuff and poor performance status - appears multifactorial including prob xrt pna with consolidation in the rt ll in the area of his xrt * Severe copd * Enlarging rt effusion rule out malignancy but not enough to tap/ * Chronic enlarging loculated left effusion - present since 2014 with prior pleurx * Recent xrt and lovally advanced NSCLA sq variety - recurrent vs stage 4 cancer Poor performance status NO sig bacterial pna,.but cannot rule out REC * Prednisone 50 mg daily and a slow taper * COnt nebs * Cont abx and change to po avelox in am for a total abx of 7 days * Cont symptomatic rx * Needs cxr in the next 3-4 days to eval for worsening rt sided effusion * Left effusion appears chronic and loculate and this is stable and does not need drainage. Discussed with Dr Joshua. However he may have trapped lung on the Will follow Prog appears guarded Discussed with and patient
[2017-07-31 14:01] VITALS: BP 128/80
--- NOTE | 2017-07-31 16:02 | PN- Att Addend ---
Attending Addendum Attending Brief Note Patient seen and examined. Continues to complain of shortness of breath at rest and with exertion. Patient and state that his symptoms have been progressive ever since he underwent radiation in February. reports that baseline patient is able to ambulate just 10 steps before getting short of breath. He is now short of breath just walking to the bathroom. Thoracocentesis could not be attempted yesterday as ultrasound revealed minimal fluid. Vital Signs Date Time Temp Pulse Resp B/P B/P Pulse O2 O2 Flow FiO2 Mean Ox Delivery Rate 07/31 1401 97.6 92 20 128/80 96 Nasal 2.0L Cannula 07/31 1024 94 110/72 07/31 0845 96 Nasal 2.0L Cannula 07/31 0800 96 Nasal 2.0L Cannula 07/31 0624 98.3 94 22 108/70 96 Nasal 3.0L Cannula 07/31 0000 95 Nasal 2.0L Cannula 07/30 2120 97.5 104 24 130/70 95 Nasal 3.0L Cannula 07/30 2023 104 130/70 07/30 1835 95 Nasal 1.0L Cannula Intake & Output 07/31 1600 07/31 0800 07/31 0000 Intake Total 250 540 Output Total Balance 250 540 Intake, IV 10 300 Intake, Oral 240 240 Gen. appearance: Not in obvious respiratory distress Heart: S1-S2 Lungs: Diminished air entry bilaterally Abdomen: Soft, nontender with normal bowel sounds Extremities: No pedal edema Skin: Intact with no rashes Laboratory Tests 07/31/17 0830: Anion Gap 16, Estimated GFR > 60, BUN/Creatinine Ratio 27.3 H, CBC w Diff NO MAN DIFF REQ, RBC 4.58 L, MCV 93.3, MCH 30.9, RDW 15.8 H, MPV 9.3, Gran % 78.8 H, Lymphocytes % 11.4 L, Monocytes % 9.4 H, Eosinophils % 0.3, Basophils % 0.1, Absolute Granulocytes 7.8 H, Absolute Lymphocytes 1.1 L, Absolute Monocytes 0.9 H, Absolute Eosinophils 0, Absolute Basophils 0, PUBS MCHC 33.0 07/30/17 1800: Sodium Cancelled, Potassium Cancelled, Chloride Cancelled, Carbon Dioxide Cancelled, Anion Gap Cancelled, BUN Cancelled, Creatinine Cancelled, BUN/ Creatinine Ratio Cancelled 12/31/17 1715: Anion Gap 16, Estimated GFR > 60, BUN/Creatinine Ratio 27.3 H Problems: 1. Bilateral pleural effusions. 2. History of lung cancer 3. Non- oxygen-dependent COPD 4. History of peripheral vascular disease and carotid artery stenosis status post endarterectomy 5. History of diverticular bleeding. Recommendations: -Case discussed with the pulmonology service. Patient dyspnea is multifactorial due to combination of his underlying lung cancer, bilateral pleural effusions with probable trapped lung due to the loculated left pleural effusion and COPD. It is unclear if he has superimposed pneumonia well. -Continue empiric antibiotic therapy is recommended. Continue prednisone taper. -Follow-up with patient's primary coal drier operator Hank Dumont MD for long- term plan of care as patient and report that his symptoms have been worsening progressively ever since he underwent radiation therapy in February. -Follow-up with patient's cardiothoracic surgeon regarding management of his loculated pleural effusion. -Wean off oxygen supplementation if tolerated.
[2017-07-31 22:38] VITALS: BP 106/60
[2017-08-01 06:51] VITALS: BP 108/60
--- NOTE | 2017-08-01 07:26 | PN- Housestaff ---
Refugio ULRICH,[facility] [place] 08/01/17 0725: Subjective Follow-up For: acute hypoxemic respiratory failure pleural effusion copd lung cancer Subjective: Patient continues to state he has shortness of breath with little exertion. states that the patient shortness of breath even walking to the bathroom which is well 10 feet away from his chair. The patient also states that he has been having ongoing decreased appetite. States that he feels bloated. He states that he has nausea after eating. Review of Systems Constitutional: Reports: see HPI (decreased appetite). Respiratory: Reports: short of breath. Gastrointestinal: Reports: see HPI (bloating), nausea. Objective Last 24 Hrs of Vital Signs/I&O Vital Signs Date Time Temp Pulse Resp B/P B/P Pulse O2 O2 Flow FiO2 Mean Ox Delivery Rate 08/01 2105 100 126/76 08/01 2042 98.5 100 20 126/76 96 08/01 2002 92 Nasal 2.0L Cannula 08/01 1600 92 Nasal 2.0L Cannula 08/01 1451 98.0 83 32 100/80 92 Nasal 2.0L Cannula 08/01 0936 77 136/76 / 0907 95 Nasal 2.0L Cannula 08/01 0800 95 Nasal 2.0L Cannula / 0651 97.6 91 22 108/60 95 Nasal Cannula 08/01 0000 Nasal 2.0L Cannula Intake & Output 08/01 1600 08/01 0800 / 0000 Intake Total 400 300 Output Total Balance 400 300 Intake, IV 100 Intake, Oral 400 200 Physical Exam General Appearance: Alert, Oriented X3, Cooperative, No Acute Distress Cardiovascular: ?systolic murmur Lungs: decreased bilateral basal lung sounds Abdomen: decreased bowel sounds Extremities: no lower extremity swelling Vascular: 2+ radial pulses Assessment/Plan Assessment: 81 year old male with a past medical history significant for smoking, advanced lung cancer treated with chemotherapy and radiation therapy and Cyberknife, history of pneumothorax in 2014, COPD not on home oxygen, left CEA on plavix presents with progressive dyspnea and is found to have increasing pleural effusion and consolidation consistent with pneumonia. #Acute hypoxemic respiratory failure with tachypnea and accessory muscle use Multifactorial-smoking/copd/emphysema/h/o radiation and pleural effusion with residual pna Consolidation likely persistent from adjacent large pleural effusion Pulmonology on board, he is po prednisone daily, discussed with there pleural effusion in the left side is small to be tapped Continue empiric antibiotics for community acquired pneumonia, ceftriaxone/ azithroymcin+1 day of moxifloxacin -Continue 1 day of azithromycin to complete a five-day course of treatment ( pulmonology note from Dr. Gómez states to switch the antibiotics to moxifloxacin for 7 days total however discussion with infectious disease Dr. Marcano recommended switching back to azithromycin for 1 day to complete a 5 day course) -f/u cardiac ultrasound in view of elevated BNP and pleural effusions -f/u PT recs -Continue prednisone taper -Chest x-ray in 3- 4 days for reevaluation -Titrate supplemental oxygen -Incentive spirometry -cont trc #decreased appeitite CT abd: Diffuse gallbladder wall thickening without cholelithiasis. Mesenteric fat stranding. Small amount of abdominal and pelvic free fluid. Small bilateral pleural effusions with associated airspace disease. Extensive colonic diverticulosis without evidence of diverticulitis. -Follow-up right upper quadrant ultrasound for further assessment of gallbladder -cont PPI for GERD #Hyperkalemia now resolved EKG showed no acute changes IV dextrose and insulin was given with PO kayexalate -Continue to monitor HTN: -Continue metroprolol GERD: -Continue PO PPI Heart healthy diet DVT ppx-lovenox 40mg subcutaneous daily Full code Problem List: 1. Pleural effusion associated with pulmonary infection 2. COPD exacerbation Pain Ratin Pain Location: none Pain Goal: Pain 4 or less Pain Plan: pain pathway Tomorrow's Labs & Rationales: cbc bep Bandar Herrera 08/01/17 1316: Attending MD Review Statement Attending Statement Attending MD Statement: examined this patient, discuss w/resident/PA/JAVASCRIPT SOFTWARE ENGINEER, agreed w/resident/PA/JAVAS[employer] SOFTWARE ENGINEER, discussed with family, reviewed EMR data (avail), discussed with nursing, discussed with case mgmt, reviewed images, amended to note Attending Assessment/Plan: Patient seen and examined. He reports feeling no better today. Continues to complain of shortness of breath. Reports her symptoms are present even at rest. Pateint c/o nausea x 1 week. His USG chest shows not significant plerual effusion to tap. On examination he does not appear to be in respiratory distress. There is no use of accessory muscles. He has fair entry bilaterally with no added sounds. Abdomen is obese but soft and nontender with normal bowel sounds. He has no peripheral edema. Recommendations: -etiology of his persistent and progressive shortness of breath is unclear at present. -Continue empiric antibiotic therapy for presumed pneumonia continue bronchodilator therapy -Steroid taper as per Pulmoanry, c/w PPI for GERD -Mobilize patient as tolerated. -Obtain CT a/p for persistent nasuea. Provide iv meds prn nasuea. cont current care with abx and supportive care. -FOLLOW pulmonary and f/u ECHO.
--- NOTE | 2017-08-01 08:40 | PN- Pulmonary ---
Subjective HPI/Critical Care Issues: Patient continues to feel weak and shortness of breath. CT scan suggested small to moderate right pleural effusion or ultrasound suggested this was too small to tap Objective Current Medications: Current Medications Sig/Dominique Start time Last Medication Dose Route Stop Time Status Admin Acetaminophen 650 MG Q6P PRN 07/29 0200 AC PO Acetaminophen 1,000 MG Q6P PRN 07/29 0200 AC IV Albuterol Sulfate 3 ML BID 07/29 1000 AC 07/31 INH 1955 Azithromycin 500 MG Q24H 07/29 1800 DC 07/31 Sodium Chloride 250 ML IV 1851 Calcium Carbonate 500 MG ONCE ONE 07/31 2044 DC 07/31 PO 07/31 2045 204 Ceftriaxone Sodium 1,000 MG Q24H 07/29 1800 DC 07/31 IV 1851 Metoprolol Tartrate 25 MG BID 07/28 2200 AC 07/31 PO 2103 Morphine Sulfate 1 MG Q6-PRN PRN 07/29 0200 AC IV Moxifloxacin HCl 400 MG DAILY 08/01 1000 AC PO Omeprazole 40 MG DAILY AC 07/29 0700 AC 08/01 PO 0549 Prednisone 50 MG DAILY 07/30 1000 AC 07/31 PO 1024 Simethicone 80 MG Q6P PRN 07/30 1030 AC PO Trazodone HCl 50 MG AT BEDTIME NEED.. 07/29 0200 AC PO Vital Signs & I&O Last 24 Hrs of Vitals and I&O: Vital Signs Date Time Temp Pulse Resp B/P B/P Pulse O2 O2 Flow FiO2 Mean Ox Delivery Rate 08/01 0651 97.6 91 22 108/60 95 Nasal Cannula 08/01 0000 Nasal 2.0L Cannula 07/31 2238 97.5 83 22 106/60 96 Nasal Cannula 07/31 2103 92 128/80 07/31 2044 96 Nasal 2.0L Cannula 07/31 1401 97.6 92 20 128/80 96 Nasal 2.0L Cannula 07/31 1024 94 110/72 07/31 0845 96 Nasal 2.0L Cannula Intake & Output 08/01 1600 08/01 0800 08/01 0000 Intake Total 300 Output Total Balance 300 Intake, IV 100 Intake, Oral 200 Since saturation 2 L 95% exam of his chest shows diminished breath sounds at the bases there are no wheezes or crackles cardiac exam shows regular S1 and S2 without murmurs Impression/Plan Impression/Plan Impression/Plan: 81-year-old with COPD lung cancer admitted with increasing shortness of breath and community-acquired pneumonia. Pulmonary function tests recently obtained showed only mild airflow obstruction. For his breath is likely multifactorial. Recommendations: Complete course of antibiotics. Begin steroid taper. Taper FiO2 his saturations allow. Physical therapy.
--- NOTE | 2017-08-01 08:41 | Event Note ---
Event Note Event Note: Obtain cardiac ultrasound in view of elevated BNP and pleural effusions
[2017-08-01 09:17] LABS: ABSOLUTE BASOPHIL COUNT 0 /CUMM (0.0-0.2); ABSOLUTE EOSINOPHIL COUNT 0 /CUMM (0.0-0.7); ABSOLUTE GRANULOCYTE CT 6.2 /CUMM (1.4-6.5); ABSOLUTE LYMPH COUNT 0.8 /CUMM (1.2-3.4); BASOPHIL % 0.2 % (0.0-2.0); EOSINOPHIL % 0.5 % (0-5); GRANULOCYTE % 77.2 % (42.2-75.2); HEMATOCRIT 39.7 % (42-52); MEAN CORPUSCULAR HGB 31.3 PG (27.0-31.0); MEAN CORPUSCULAR HGB CONC 33.4 G/DL (33.0-37.0); MEAN CORPUSCULAR VOLUME 93.6 FL (80.0-94.0); MEAN PLATELET VOLUME 9.1 FL (7.4-10.4); PLATELET COUNT 168 /CUMM (130-400); RBC DISTRIBUTION WIDTH 15.8 % (11.5-14.5); RED BLOOD CELL CT 4.24 /CUMM (4.70-6.10)
--- NOTE | 2017-08-01 14:41 | CT SCAN REPORT ---
EXAMINATION: CT ABDOMEN AND PELVIS WITH CONTRAST CLINICAL INFORMATION: Nausea. Lung cancer. COMPARISON: Multiple prior exams are reviewed. The most recent is from 07/28/2017. TECHNIQUE: Contiguous axial thin section helical images of the abdomen and pelvis were performed following the administration of 100 mL of intravenous Omnipaque 300. The data set was reformatted in the coronal and sagittal planes and reviewed on an independent workstation. DLP: 383 mGy-cm. FINDINGS: The visualized portions of the heart are enlarged, but stable. There is no pericardial effusion. There are right greater than left bilateral pleural effusions. There is associated bibasilar atelectasis. The liver is of normal size and attenuation without focal lesions nor intrahepatic biliary ductal dilation. There is the appearance of diffuse gallbladder wall thickening with a small amount of adjacent mesenteric fat stranding. The spleen and adrenal glands are unremarkable. There is diffuse fatty infiltration about the pancreas. Both kidneys are of normal size and attenuation without hydronephrosis or nephrolithiasis. Following the administration of IV contrast, prompt symmetric nephrograms are displayed. There is a small amount of free fluid within the upper abdomen. There is a small amount of left paracolic gutter fluid. There is neither mesenteric nor retroperitoneal lymphadenopathy. There is stable dilation to the infrarenal abdominal aorta. There is diffuse vascular calcification to the abdominal aorta and iliac arteries. There is extensive colonic diverticulosis without evidence of diverticulitis. Otherwise, unremarkable unopacified loops of small and large bowel are identified. There is a small amount of pelvic free fluid. The urinary bladder is unremarkable. There is neither pelvic nor inguinal lymphadenopathy. Bone windows: Neither sclerotic nor lytic bone lesions are identified. There is multilevel disc height loss with osteophyte formation. IMPRESSION: Diffuse gallbladder wall thickening without discernible cholelithiasis. There is adjacent mesenteric fat stranding. Recommendation is for correlation with a right upper quadrant ultrasound for further characterization of the gallbladder wall. Small amount of abdominal and pelvic free fluid. Small bilateral pleural effusions with associated airspace disease. Extensive colonic diverticulosis without evidence of diverticulitis.
[2017-08-01 14:51] VITALS: BP 100/80
[2017-08-01 20:42] VITALS: BP 126/76
[2017-08-02 06:41] VITALS: BP 112/74
--- NOTE | 2017-08-02 08:26 | PN- Pulmonary ---
Subjective HPI/Critical Care Issues: Patient is primary complaint is fatigue. Cardiac ultrasound results are pending Objective Current Medications: Current Medications Sig/Dominique Start time Last Medication Dose Route Stop Time Status Admin Acetaminophen 650 MG Q6P PRN 07/29 0200 AC PO Acetaminophen 1,000 MG Q6P PRN 07/29 0200 AC IV Albuterol Sulfate 3 ML BID 07/29 1000 AC 08/01 INH 1959 Azithromycin 500 MG ONCE ONE 08/02 1000 AC Sodium Chloride 250 ML IV 08/02 1059 Heparin Sodium 5,000 UNIT Q8 08/01 1623 AC 08/02 (Porcine) SC 0638 Metoprolol Tartrate 25 MG BID 07/28 2200 AC 08/01 PO 2105 Morphine Sulfate 1 MG Q6-PRN PRN 07/29 0200 AC IV Moxifloxacin HCl 400 MG DAILY 08/01 1000 DC 08/01 PO 0937 Omeprazole 40 MG DAILY AC 07/29 0700 AC 08/02 PO 0637 Prednisone 40 MG DAILY 08/02 1000 AC PO 08/03 1001 Prednisone 50 MG DAILY 07/30 1000 DC 08/01 PO 0936 Simethicone 80 MG Q6P PRN 07/30 1030 AC PO Trazodone HCl 50 MG AT BEDTIME NEED.. 07/29 0200 AC 08/01 PO 2105 Vital Signs & I&O Last 24 Hrs of Vitals and I&O: Vital Signs Date Time Temp Pulse Resp B/P B/P Pulse O2 O2 Flow FiO2 Mean Ox Delivery Rate 08/02 0641 97.4 90 22 112/74 98 Nasal 2.0L Cannula 08/01 210 100 126/76 08/01 2042 98.5 100 20 126/76 96 08/01 2002 92 Nasal 2.0L Cannula 08/01 1600 92 Nasal 2.0L Cannula 08/01 1451 98.0 83 32 100/80 92 Nasal 2.0L Cannula 08/01 0936 77 136/76 08/01 0907 95 Nasal 2.0L Cannula Intake & Output 08/02 1600 08/02 0800 08/02 0000 Intake Total 250 Output Total Balance 250 Intake, IV 10 Intake, Oral 240 Oxygen saturation 2 L 98% exam of his chest shows decreased breath sounds there are no wheezes cardiac exam shows a regular S1 and S2 without murmurs Impression/Plan Impression/Plan Impression/Plan: 81-year-old with COPD lung cancer admitted with increasing shortness of breath and community-acquired pneumonia. Pulmonary function tests recently obtained showed only mild airflow obstruction. Shortness of breath is likely multifactorial. Await cardiac ultrasound results and abdominal ultrasound Recommendations: Complete course of antibiotics. Begin steroid taper. Taper FiO2 his saturations allow. Physical therapy. Follow-up cardiac ultrasound results
[2017-08-02 10:19] LABS: ABSOLUTE BASOPHIL COUNT 0 /CUMM (0.0-0.2); ABSOLUTE EOSINOPHIL COUNT 0 /CUMM (0.0-0.7); ABSOLUTE GRANULOCYTE CT 6.4 /CUMM (1.4-6.5); ABSOLUTE LYMPH COUNT 0.9 /CUMM (1.2-3.4); ABSOLUTE MONOCYTE COUNT 0.8 /CUMM (0.10-0.60); BASOPHIL % 0 % (0.0-2.0); EOSINOPHIL % 0.4 % (0-5); GRANULOCYTE % 78.4 % (42.2-75.2); HEMATOCRIT 42.2 % (42-52); MEAN CORPUSCULAR HGB 30.8 PG (27.0-31.0); MEAN CORPUSCULAR HGB CONC 32.6 G/DL (33.0-37.0); MEAN CORPUSCULAR VOLUME 94.4 FL (80.0-94.0); MEAN PLATELET VOLUME 9.3 FL (7.4-10.4); PLATELET COUNT 180 /CUMM (130-400); RBC DISTRIBUTION WIDTH 15.5 % (11.5-14.5); RED BLOOD CELL CT 4.47 /CUMM (4.70-6.10); WHITE BLOOD CELL COUNT 8.2 /CUMM (4.8-10.8)
--- NOTE | 2017-08-02 11:23 | PN- Housestaff ---
Refugio ULRICH,[facility] 08/02/17 1122: Subjective Follow-up For: SOB Subjective: Continues to have SOB. SOB worst after just finishing PT. Still has poor appetite. States naseau better today but states he was not eaten anything. Review of Systems Constitutional: Reports: see HPI. Cardiovascular: Reports: no symptoms. Respiratory: Reports: short of breath. Gastrointestinal: Reports: see HPI (poor apptetite). Denies: nausea. Genitourinary: Reports: no symptoms. Musculoskeletal: Reports: no symptoms. Objective Last 24 Hrs of Vital Signs/I&O Vital Signs Date Time Temp Pulse Resp B/P B/P Pulse O2 O2 Flow FiO2 Mean Ox Delivery Rate 08/02 2101 120/70 08/02 1905 92 Room Air 08/02 1635 97.8 96 18 118/90 08/02 1600 Nasal 2.0L Cannula 08/02 1416 97.8 96 18 118/90 95 Nasal 2.0L Cannula 08/02 1021 94 Nasal 2.0L Cannula 08/02 0955 94 112/70 08/02 0800 Nasal 2.0L Cannula 08/02 0641 97.4 90 22 112/74 98 Nasal 2.0L Cannula 08/02 0000 96 Nasal 2.0L Cannula Intake & Output 08/02 1600 08/02 0800 08/02 0000 Intake Total 520 50 250 Output Total Balance 520 50 250 Intake, IV 280 0 10 Intake, Oral 240 50 240 Number 0 Bowel Movements Patient 180 lb Weight Physical Exam General Appearance: Alert, Oriented X3, Cooperative Skin Temp/Moisture Exam: Warm/Dry Cardiovascular: Regular Rate, Normal S1, Normal S2 Lungs: decreased air movement, more prominent on left Abdomen: decreased bowel sounds Extremities: 2+ radial pulses Current Medications: Current Medications Sig/Dominique Start time Last Medication Dose Route Stop Time Status Admin Acetaminophen 650 MG Q6P PRN 07/29 0200 AC PO Acetaminophen 1,000 MG Q6P PRN 07/29 0200 AC IV Albuterol Sulfate 3 ML BID 07/29 1000 AC 08/02 INH 1905 Azithromycin 500 MG DAILY 08/03 1000 AC Sodium Chloride 250 ML IV Azithromycin 500 MG ONCE ONE 08/02 1000 DC 08/02 Sodium Chloride 250 ML IV 08/02 1059 1118 Calcium Carbonate 500 MG ONCE ONE 08/02 1400 DC 08/02 PO 08/02 1401 1421 Ceftriaxone Sodium 1,000 MG DAILY 08/02 1115 AC 08/02 IV 08/04 1001 1411 Heparin Sodium 5,000 UNIT Q8 08/01 1623 AC 08/02 (Porcine) SC 2101 Lisinopril 2.5 MG DAILY 08/02 1500 AC 08/02 PO 1635 Metoprolol Tartrate 25 MG BID 07/28 2200 AC 08/02 PO 2101 Morphine Sulfate 1 MG Q6-PRN PRN 07/29 0200 AC IV Omeprazole 40 MG DAILY AC 07/29 0700 AC 08/02 PO 0637 Prednisone 40 MG DAILY 08/02 1000 AC 08/02 PO 08/03 1001 0955 Simethicone 80 MG Q6P PRN 07/30 1030 AC PO Trazodone HCl 50 MG AT BEDTIME NEED.. 07/29 0200 AC 08/01 PO 2105 Last 24 Hrs of Lab/Yong Results Last 24 Hrs of Labs/Mics: Laboratory Tests 08/02/17 0805: Anion Gap 15, Estimated GFR 58 L, BUN/Creatinine Ratio 28.3 H, CBC w Diff NO MAN DIFF REQ, RBC 4.47 L, MCV 94.4 H, MCH 30.8, RDW 15.5 H, MPV 9.3, Gran % 78.4 H, Lymphocytes % 11.4 L, Monocytes % 9.8 H, Eosinophils % 0.4, Basophils % 0, Absolute Granulocytes 6.4, Absolute Lymphocytes 0.9 L, Absolute Monocytes 0.8 H, Absolute Eosinophils 0, Absolute Basophils 0, PUBS MCHC 32.6 L Assessment/Plan Assessment: 81 year old male with a past medical history significant for smoking, advanced lung cancer treated with chemotherapy and radiation therapy and Cyberknife, history of pneumothorax in 2013, COPD not on home oxygen, left CEA on plavix presents with progressive dyspnea and is found to have increasing pleural effusion and consolidation consistent with pneumonia. #Acute hypoxemic respiratory failure with tachypnea and accessory muscle use Multifactorial-smoking/copd/emphysema/h/o radiation and pleural effusion with residual pna Consolidation likely persistent from adjacent large pleural effusion Pulmonology on board, he is on po prednisone daily, discussed with there pleural effusion in the left side is small to be tapped Echo: moderate as, severe mitral insufficiency, LVEF 25-30%, global hypokinesia which is worse in the inferoposterior / inferolateral and anteroapical segments, enlargment of the right heart chambers is present with moderate tricuspid insufficiency, mild to moderate pulmonic insufficiency, enlargement of the IVC and pulmonary hypertension with an estimated RV systolic pressure of 60 mmHg. Repeat cxr:Slight increase in size of left-sided pleural effusion compared to 07/28/2017. Associated increased patchy parenchymal opacity in the left lung base is also seen, suggesting increased atelectasis -Continue azithromycin + ceftriaxone to complete a 7-day course of treatment -f/u cardiology consult (Dr. Solano) for possible chf -start pt on lisinopril 2.5 for CHF -Continue prednisone taper -Chest x-ray in 3- 4 days for reevaluation -Titrate supplemental oxygen -Incentive spirometry -cont trc #decreased appeitite CT abd: Diffuse gallbladder wall thickening without cholelithiasis. Mesenteric fat stranding. Small amount of abdominal and pelvic free fluid. Small bilateral pleural effusions with associated airspace disease. Extensive colonic diverticulosis without evidence of diverticulitis. RUQ US: The gallbladder wall is thickened and there is fluid in the wall. There is also fluid in the pericholecystic region. There are no echogenic gallbladder calculi. -consider GI consult -cont PPI for GERD #Hyperkalemia now resolved EKG showed no acute changes IV dextrose and insulin was given with PO kayexalate -Continue to monitor HTN: -Continue metroprolol GERD: -Continue PO PPI Heart healthy diet DVT ppx-lovenox 40mg subcutaneous daily Full code Problem List: 1. Pleural effusion associated with pulmonary infection 2. COPD exacerbation 3. Poor appetite 4. Thickening of wall of gallbladder Pain Ratin Pain Location: none Pain Goal: Pain 4 or less Pain Plan: none Tomorrow's Labs & Rationales: cbc bep SharonBandar lopez 08/02/17 1532: Attending MD Review Statement Attending Statement Attending MD Statement: examined this patient, discuss w/resident/PA/[place] [employer] [place], agreed w/resident/PA/[place] [employer] [place], discussed with family, reviewed EMR data (avail), discussed with nursing, discussed with case mgmt, reviewed images, amended to note Attending Assessment/Plan: Patient seen and examined. He reports feeling better with NPO. Continues to complain of shortness of breath. Pateint c/o nausea x 1 week. His USG chest shows not significant pleural effusion to tap. On examination Abdomen is obese but soft and nontender with normal bowel sounds. He has no peripheral edema. No use of accessory muscles. He is on oxygen supplementation. CT a/p shows gall bladder wall thickening USG RUQ shows pericholecystitc fluid with no obvious cholelithiasis. ECHO shows EF 25-30% ? new onset CHF. Recommendations: -etiology of his persistent and progressive shortness of breath is unclear at present. -Continue empiric antibiotic therapy for presumed pneumonia continue bronchodilator therapy -Steroid taper as per Pulmoanry, c/w PPI for GERD -Systolic CHF EF 25-30% with hypokinesia anterolateral/inferior posterior wall, added low dose lisinopril. -c/w Provide iv meds prn nasuea. cont current care with abx and supportive care. -Mobilize patient as tolerated. -FOLLOW pulmononary and consult cardiology Dr Solano.
--- NOTE | 2017-08-02 12:08 | ULTRASOUND REPORT ---
EXAMINATION: US ABDOMEN LIMITED CLINICAL INFORMATION: Right upper quadrant pain. Assess for gallstones/cholecystitis. COMPARISON: CT scan of the abdomen and pelvis 08/01/2017. TECHNIQUE: Real-time imaging of the right upper quadrant abdominal viscera. FINDINGS: PANCREAS: The visualized pancreatic head and body are normal in appearance. The remainder of the pancreas is obscured from visualization by the overlying bowel gas. LIVER: The liver demonstrates normal size, contour and echogenicity. No focal lesion or intrahepatic biliary duct dilatation. GALLBLADDER: The gallbladder areas distended. The gallbladder wall is thickened to 1.2 cm and there is fluid in the wall. There is pericholecystic fluid. There are no echogenic gallbladder calculi. The patient was not tender in the right upper abdomen. COMMON BILE DUCT: Normal in caliber measuring 0.3 cm in diameter. RIGHT KIDNEY: There is no hydronephrosis. There are no renal calculi or focal parenchymal lesions. The kidney measures 10.7 cm in maximum dimension. FREE FLUID: There is a right pleural effusion and there is a small amount of perihepatic fluid. IMPRESSION: 1. The gallbladder wall is thickened and there is fluid in the wall. There is also fluid in the pericholecystic region. There are no echogenic gallbladder calculi. 2. There is a small amount of perihepatic fluid end there is a small right pleural effusion.
--- NOTE | 2017-08-02 12:13 | ECHOCARDIOGRAM REPORT ---
XIN LIM Age: 81 : 1935 Gender: M Exam Date: 08/01/2017 16:21 Exam Location: [address] [place] [address] Ht (in): 72 Wt (lb): 180 BSA: 2.04 BP: 100 / 80 Ordering Physician: Scooter Huff MD Referring Physician: Cesar Solano MD Technologist: Kathy Florez [facility] Room Number: 226 Indications: SHORTNESS OF BREATH Rhythm: Sinus Technical Quality: Fair, Technically difficult study FINDINGS Left Ventricle Left ventricular cavity size at the upper limits of normal. Moderately reduced global left ventricular systolic function. Moderately abnormal left ventricular ejection fraction estimated at 25-30%. Right Ventricle Right ventricular dilatation. Right Atrium Right atrial dilatation. Left Atrium Mild left atrial dilatation. Mitral Valve Mitral valve thickened. Mitral annular calcification. Moderate mitral regurgitation. Aortic Valve Diffuse thickening (sclerosis) of the aortic valve cusps without reduced excursion. Trileaflet aortic valve. No aortic stenosis. Trace to mild aortic regurgitation. Tricuspid Valve Tricuspid valve not well visualized, grossly normal. Moderate tricuspid regurgitation. Right ventricular systolic pressure estimated to be elevated at 60 mmHg. Pulmonic Valve Pulmonic valve not well visualized, grossly normal. [id number] pulmonic regurgitation. Pericardium No pericardial effusion. Great Vessels Aortic root and proximal ascending aorta not well visualized, grossly normal. CONCLUSIONS 1. This was a technically difficult examination. 2. Moderate aortic sclerosis is present with minimal to mild aortic insufficiency. 3. Mitral leaflet thickening is present with anular calcification and moderate to moderately severe mitral insufficiency with mild left atrial enlargement. 4. There is no significant pericardial fluid present. 5. The left ventricular chamber is upper normal in size with global hypokinesia which is worse in the inferoposterior / inferolateral and anteroapical segments with an ejection fraction of 25-30%. 6. Enlargment of the right heart chambers is present with moderate tricuspid insufficiency, mild to moderate pulmonic insufficiency, enlargement of the IVC and pulmonary hypertension with an estimated RV systolic pressure of 60 mmHg. Cesar Solano M.D. (Electronically Signed) Final Date: 02 August 2017 12:12 MEASUREMENTS (Male / Female) Normal Values 2D ECHO LV Diastolic Diameter PLAX 5.6 cm 4.2 - 5.9 / 3.9 - 5.3 cm LV Systolic Diameter PLAX 4.5 cm 2.1 - 4.0 cm LV Fractional Shortening PLAX 19.6 % 25 - 46 % LV Ejection Fraction 2D Teich 39.8 % IVS Diastolic Thickness 1.0 cm LVPW Diastolic Thickness 1.1 cm LV Relative Wall Thickness 0.4 RV Internal Dim ED PLAX 3.7 cm 1.9 - 3.8 cm LVOT Diameter 2.0 cm Aortic Root Diameter 3.7 cm LA Systolic Diameter LX 3.3 cm 3.0 - 4.0 / 2.7 - 3.8 cm LA Volume 46.0 cm 18 - 58 / 22 - 52 cm Ascending Aorta Diameter 3.5 cm DOPPLER AV Peak Velocity 84.7 cm/s AV Peak Gradient 2.9 mmHg AV Mean Velocity 58.7 cm/s AV Mean Gradient 2.0 mmHg AV Velocity Time Integral 13.7 cm LVOT Peak Velocity 50.7 cm/s LVOT Peak Gradient 1.0 mmHg LVOT Mean Velocity 32.6 cm/s LVOT Mean Gradient 1.0 mmHg LVOT Velocity Time Integral 7.2 cm LVOT Stroke Volume 22.8 cm AV Area Cont Eq vti 1.7 cm AV Area Cont Eq pk 1.9 cm MV Peak Velocity 101.0 cm/s MV Peak Gradient 4.1 mmHg MV Mean Velocity 60.3 cm/s MV Mean Gradient 2.0 mmHg Mitral E Point Velocity 95.8 cm/s MV PHT Velocity 107.0 cm/s MV Deceleration King 611.0 cm/s MV Pressure Half Time 52.5 ms MV Area PHT 4.2 cm MV Deceleration Time 194.0 ms MR Peak Velocity 405.0 cm/s MR Peak Gradient 65.6 mmHg MR ERO PISA 0.5 cm MR Regurgitant Volume PISA 58.8 cm TR Peak Velocity 342.0 cm/s TR Peak Gradient 46.8 mmHg Right Atrial Pressure 10.0 mmHg Pulmonary Artery Systolic Pressu 56.8 mmHg Right Ventricular Systolic Press 56.8 mmHg PV Peak Velocity 73.0 cm/s PV Peak Gradient 2.1 mmHg PV Mean Velocity 44.2 cm/s PV Mean Gradient 1.0 mmHg PV Velocity Time Integral 7.8 cm LV E' Lateral Velocity 5.6 cm/s Mitral E to LV E' Lateral Ratio 17.2 LV E' Septal Velocity 4.6 cm/s Mitral E to LV E' Septal Ratio 20.9
[2017-08-02 14:16] VITALS: BP 118/90
--- NOTE | 2017-08-02 15:22 | RADIOLOGY REPORT ---
EXAMINATION:\H\ \N\CR CHEST CLINICAL INFORMATION: Shortness of breath. Assess size of pleural effusion. COMPARISON: Multiple prior chest x-rays, most recent of which is dated 07/28/2017. CTA of the chest dated 07/28/2017. CT scan of the abdomen and pelvis dated 08/01/2017. TECHNIQUE: AP semierect view of the chest was obtained. FINDINGS: The cardiomediastinal silhouette is enlarged. There is elevation of the left hemidiaphragm with slight shift of the mediastinum toward the right side. Small left-sided pleural effusion is seen extending from the left lung base along the lateral chest wall into the left major fissure, minimally larger compared to the previous exam. Associated patchy parenchymal opacity in the left lower lobe may have increased slightly, consistent with subsegmental atelectasis. There is also masslike opacity in the right upper lobe with associated fiducial markers and patchy parenchymal opacity in the right perihilar region, unchanged from prior exam. The right CP angle is not fully included on this image. No pneumothorax is seen. No suspicious bone findings. IMPRESSION: 1. Slight increase in size of left-sided pleural effusion compared to 07/28/2017. Associated increased patchy parenchymal opacity in the left lung base is also seen, suggesting increased atelectasis. 2. No other significant change noted.
[2017-08-02 22:49] VITALS: BP 120/70
[2017-08-03 06:30] VITALS: BP 122/60
--- NOTE | 2017-08-03 07:49 | PN- Housestaff ---
Refugio ULRICH,[facility] 08/03/17 0749: Subjective Follow-up For: SOB Subjective: Patient states that he felt very sick after getting antibiotics yesterday. States that he felt very nauseous but did not vomit. States that he didn't any hives. States that he felt this way during Monday after antibiotics. Possibly due to reaction from ceftriaxone. Review of Systems Constitutional: Reports: see HPI. Cardiovascular: Reports: see HPI. Respiratory: Reports: see HPI. Gastrointestinal: Reports: see HPI, nausea. Objective Last 24 Hrs of Vital Signs/I&O Vital Signs Date Time Temp Pulse Resp B/P B/P Pulse O2 O2 Flow FiO2 Mean Ox Delivery Rate 08/03 1414 98.1 85 20 102/56 91 Nasal Cannula 08/03 1114 95 Nasal 2.0L Cannula 08/03 0800 Nasal 2.0L Cannula 08/03 0630 98.3 95 20 122/60 95 Nasal Cannula 08/03 0000 Nasal 2.0L Cannula 08/02 2249 98.5 96 20 120/70 95 Nasal Cannula 08/02 2101 120/70 08/02 1905 92 Room Air 08/02 1635 97.8 96 18 118/90 08/02 1600 Nasal 2.0L Cannula Intake & Output 08/03 1600 08/03 0800 08/03 0000 Intake Total 240 240 Output Total Balance 240 240 Intake, Oral 240 240 Physical Exam General Appearance: Alert, Oriented X3, Cooperative, No Acute Distress Skin Temp/Moisture Exam: Warm/Dry Cardiovascular: Regular Rate, Normal S1, Normal S2 Lungs: Clear to Auscultation, Normal Air Movement Abdomen: Normal Bowel Sounds, Soft, No Tenderness Vascular: 2+ radial pulses Current Medications: Current Medications Sig/Dominique Start time Last Medication Dose Route Stop Time Status Admin Acetaminophen 650 MG Q6P PRN 07/29 0200 AC PO Acetaminophen 1,000 MG Q6P PRN 07/29 0200 AC IV Albuterol Sulfate 3 ML BID 07/29 1000 AC 08/03 INH 1112 Azithromycin 500 MG DAILY 08/03 1000 CAN Sodium Chloride 250 ML IV Ceftriaxone Sodium 1,000 MG DAILY 08/02 1115 DC 08/02 IV 08/04 1001 1411 Furosemide 20 MG DAILY 08/03 1030 AC 08/03 IV 1344 Heparin Sodium 5,000 UNIT Q8 08/01 1623 AC 08/03 (Porcine) SC 1330 Lisinopril 2.5 MG DAILY 08/02 1500 AC 08/03 PO 0958 Metoprolol Tartrate 25 MG BID 07/28 2200 AC 08/03 PO 0958 Morphine Sulfate 1 MG Q6-PRN PRN 07/29 0200 AC IV Moxifloxacin HCl 400 MG DAILY 08/03 1000 AC 08/03 PO 08/04 1001 1331 Omeprazole 40 MG DAILY AC 07/29 0700 AC 08/03 PO 0531 Prednisone 40 MG DAILY 08/02 1000 DC 08/03 PO 08/03 1001 1002 Simethicone 80 MG Q6P PRN 07/30 1030 AC PO Trazodone HCl 50 MG AT BEDTIME NEED.. 07/29 0200 AC 08/01 PO 2105 Last 24 Hrs of Lab/Yong Results Last 24 Hrs of Labs/Mics: Laboratory Tests 08/03/17 0754: Anion Gap 12, Estimated GFR > 60, BUN/Creatinine Ratio 38.0 H, Total Bilirubin 1.0, Direct Bilirubin 0.6 H, AST 333 H, ALT 512 H, Alkaline Phosphatase 149 H, Total Protein 5.9 L, Albumin 3.3 L, CBC w Diff NO MAN DIFF REQ, RBC 4.37 L , MCV 93.4, MCH 31.1 H, RDW 15.8 H, MPV 9.5, Gran % 77.7 H, Lymphocytes % 9.5 L, Monocytes % 12.0 H, Eosinophils % 0.7, Basophils % 0.1, Absolute Granulocytes 6.1, Absolute Lymphocytes 0.7 L, Absolute Monocytes 0.9 H, Absolute Eosinophils 0.1, Absolute Basophils 0, PUBS MCHC 33.3 Assessment/Plan Assessment: 81 year old male with a past medical history significant for smoking, advanced lung cancer treated with chemotherapy and radiation therapy and [employer], history of pneumothorax in 2013, COPD not on home oxygen, left CEA on plavix presents with progressive dyspnea and is found to have increasing pleural effusion and consolidation consistent with pneumonia. #Acute hypoxemic respiratory failure with tachypnea and accessory muscle use Multifactorial-smoking/copd/emphysema/h/o radiation and pleural effusion with residual pna Consolidation likely persistent from adjacent large pleural effusion Pulmonology on board, he is on po prednisone daily, discussed with there pleural effusion in the left side is small to be tapped Echo: moderate as, severe mitral insufficiency, LVEF 25-30%, global hypokinesia which is worse in the inferoposterior / inferolateral and anteroapical segments, enlargment of the right heart chambers is present with moderate tricuspid insufficiency, mild to moderate pulmonic insufficiency, enlargement of the IVC and pulmonary hypertension with an estimated RV systolic pressure of 60 mmHg. Repeat cxr:Slight increase in size of left-sided pleural effusion compared to 07/28/2017. Associated increased patchy parenchymal opacity in the left lung base is also seen, suggesting increased atelectasis -Switch to moxifloxacin due to reaction possibly from ceftriaxone for 2 days to complete a 7-day course of treatment -Trial of Lasix 20 mg IV daily for CHF -Continue lisinopril 2.5 for CHF -Continue prednisone taper -Chest x-ray in 3- 4 days for reevaluation -Titrate supplemental oxygen -Incentive spirometry -cont trc #decreased appeitite/diffuse wall thickening of gallbladder CT abd: Diffuse gallbladder wall thickening without cholelithiasis. Mesenteric fat stranding. Small amount of abdominal and pelvic free fluid. Small bilateral pleural effusions with associated airspace disease. Extensive colonic diverticulosis without evidence of diverticulitis. RUQ US: The gallbladder wall is thickened and there is fluid in the wall. There is also fluid in the pericholecystic region. There are no echogenic gallbladder calculi. hepatic function: T bili 1.0, direct bili 0.6, AST 233, ALT 512, ALP 149 -f/u GI consult -cont PPI for GERD -trend hepatic function #Hyperkalemia now resolved EKG showed no acute changes IV dextrose and insulin was given with PO kayexalate -Continue to monitor HTN: -Continue metroprolol GERD: -Continue PO PPI Heart healthy diet DVT ppx-lovenox 40mg subcutaneous daily Full code Problem List: 1. Thickening of wall of gallbladder 2. Pleural effusion associated with pulmonary infection 3. COPD exacerbation 4. CHF (congestive heart failure) Pain Ratin Pain Location: none Pain Goal: Pain 4 or less Pain Plan: pain pathway Tomorrow's Labs & Rationales: bep LFT Bandar Herrera 08/03/17 1120: Attending MD Review Statement Attending Statement Attending MD Statement: examined this patient, discuss w/resident/PA/RADIOACTIVITY TECHNICIAN, agreed w/resident/PA/RADIOACTIVITY TECHNICIAN, discussed with family, reviewed EMR data (avail), discussed with nursing, discussed with case mgmt, reviewed images, amended to note Attending Assessment/Plan: Patient seen and examined. He reports feeling better with NPO. Continues to complain of shortness of breath. Pateint c/o nausea which is persistent. His USG chest shows not significant pleural effusion to tap. On examination Abdomen is obese but soft and nontender with normal bowel sounds. He has no peripheral edema. No use of accessory muscles. He is on oxygen supplementation. CT a/p shows gall bladder wall thickening USG RUQ shows pericholecystitc fluid with no obvious cholelithiasis. ECHO shows EF 25-30% with worsening of CHF. Recommendations: -etiology of his persistent and progressive shortness of breath is unclear at present. -Continue empiric antibiotic therapy for presumed pneumonia continue bronchodilator therapy -Steroid taper as per Pulmoanry, c/w PPI for GERD -Systolic CHF EF 25-30% with hypokinesia anterolateral/inferior posterior wall, added low dose lisinopril. H/o CAD in past with vasculoapthy -c/w Provide iv meds prn nasuea. cont current care with abx and supportive care. -Mobilize patient as tolerated. -FOLLOW pulmononary and f/u cardiology Dr Solano. -Consult GI for abnormal USG findings/CT findings and persistent nausea.
--- NOTE | 2017-08-03 08:55 | PN- Pulmonary ---
Subjective HPI/Critical Care Issues: Cardiac ultrasound shows evidence of cardiomyopathy and pulmonary hypertension. This is likely cause of significant dyspnea on exertion as pulmonary function tests show only mild airflow obstruction. BNP is markedly elevated suggesting a component of congestive heart failure Objective Current Medications: Current Medications Sig/Dominique Start time Last Medication Dose Route Stop Time Status Admin Acetaminophen 650 MG Q6P PRN 07/29 0200 AC PO Acetaminophen 1,000 MG Q6P PRN 07/29 0200 AC IV Albuterol Sulfate 3 ML BID 07/29 1000 AC 08/02 INH 1905 Azithromycin 500 MG DAILY 08/03 1000 AC Sodium Chloride 250 ML IV Azithromycin 500 MG ONCE ONE 08/02 1000 DC 08/02 Sodium Chloride 250 ML IV 08/02 1059 1118 Calcium Carbonate 500 MG ONCE ONE 08/02 1400 DC 08/02 PO 08/02 1401 1421 Ceftriaxone Sodium 1,000 MG DAILY 08/02 1115 AC 08/02 IV 08/04 1001 1411 Heparin Sodium 5,000 UNIT Q8 08/01 1623 AC 08/03 (Porcine) SC 0531 Lisinopril 2.5 MG DAILY 08/02 1500 AC 08/02 PO 1635 Metoprolol Tartrate 25 MG BID 07/28 2200 AC 08/02 PO 2101 Morphine Sulfate 1 MG Q6-PRN PRN 07/29 0200 AC IV Omeprazole 40 MG DAILY AC 07/29 0700 AC 08/03 PO 0531 Prednisone 40 MG DAILY 08/02 1000 AC 08/02 PO 08/03 1001 0955 Simethicone 80 MG Q6P PRN 07/30 1030 AC PO Trazodone HCl 50 MG AT BEDTIME NEED.. 07/29 0200 AC 08/01 PO 2105 Vital Signs & I&O Last 24 Hrs of Vitals and I&O: Vital Signs Date Time Temp Pulse Resp B/P B/P Pulse O2 O2 Flow FiO2 Mean Ox Delivery Rate 08/03 0630 98.3 95 20 122/60 95 Nasal Cannula 08/03 0000 Nasal 2.0L Cannula 08/02 2249 98.5 96 20 120/70 95 Nasal Cannula 08/02 2101 120/70 08/02 1905 92 Room Air 08/02 1635 97.8 96 18 118/90 08/02 1600 Nasal 2.0L Cannula 08/02 1416 97.8 96 18 118/90 95 Nasal 2.0L Cannula 08/02 1021 94 Nasal 2.0L Cannula 08/02 0955 94 112/70 Intake & Output 08/03 1600 08/03 0800 08/03 0000 Intake Total 240 240 Output Total Balance 240 240 Intake, Oral 240 240 Oxygen saturation 2 L 95% exam of his chest shows diminished breath sounds are no wheezes cardiac exam shows regular S1 and S2 without murmurs Impression/Plan Impression/Plan Impression/Plan: 81-year-old with COPD lung cancer admitted with increasing shortness of breath and community-acquired pneumonia. Pulmonary function tests recently obtained showed only mild airflow obstruction. Shortness of breath is likely related to cardiomyopathy pulmonary hypertension. Recommendations: Complete course of antibiotics. Begin steroid taper. Taper FiO2 his saturations allow. Physical therapy. Cardiology evaluation for cardiomyopathy
--- NOTE | 2017-08-03 09:15 | Cons- Cardiology ---
General Information and HPI Consulting Request Date of Consult: 08/02/17 Requested By: Bandar Herrera MD Reason for Consult: worsening left ventricular function Source of Information: patient, family, old records Exam Limitations: no limitations History of Present Illness: the patient is an 81-year-old male who is well-known to me. His past medical history is remarkable for lung cancer, status post chemotherapy and recent radiation, coronary artery disease, prior cardiomyopathy, peripheral vascular disease, known carotid artery disease, etc. The patient was recently in [facility] and treated for community-acquired pneumonia. Following discharge, however, the patient continued to feel unwell with persistent dyspnea. I saw the patient in the office a few weeks ago. 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 The echocardiogram, unfortunately, was not performed since the patient ended up being readmitted to the hospital. The patient is now in the hospital with complaints of persistent sense of shortness of breath. He also notes exertional shortness of breath. He is also, since admission, had progressive anorexia, nausea, etc. of unclear etiology. The patient had a CT performed which suggested worsening pleural effusions, however, at the time of attempted thoracentesis, the effusions were felt to be too small to tap safely. The patient also had his echocardiogram performed here at [facility] which showed progressive worsening of his left ventricular function. He also has severe pulmonary hypertension. at the present time, the patient is lying comfortably in bed. He is not short of breath on supplemental oxygen. He denies any other cardiac symptoms. His primary complaint is anorexia, nausea, and inability to eat. Allergies/Medications Allergies: Coded Allergies: animal dander (Severe, EYES REDDENED, HIVES 07/28/17) Penicillins (Intermediate, RASH 07/21/16) Home Med List: Cholecalciferol (Vitamin D3) (Vitamin D) 1,000 UNIT TABLET 1 TAB PO DAILY SUPPLEMENT (Reported) Clopidogrel Bisulfate (Clopidogrel) 75 MG TABLET 1 TAB PO DAILY BLOOD THINNER (Reported) Metoprolol Tartrate 25 MG TABLET 1 TAB PO DAILY BP (Reported) Multivit-Min/FA/Lycopen/Lutein (Centrum Silver Tablet) 0.4 MG-300 MCG-250 MCG TABLET 1 TAB PO DAILY VITAMIN SUPPORT (Reported) Pantoprazole Sodium 40 MG TABLET.DR 1 TAB PO DAILY GI (Reported) Current Medications: Current Medications Sig/Dominique Start time Last Medication Dose Route Stop Time Status Admin Acetaminophen 650 MG Q6P PRN 07/29 0200 AC PO Acetaminophen 1,000 MG Q6P PRN 07/29 0200 AC IV Albuterol Sulfate 3 ML BID 07/29 1000 AC 08/02 INH 1905 Azithromycin 500 MG DAILY 08/03 1000 AC Sodium Chloride 250 ML IV Azithromycin 500 MG ONCE ONE 08/02 1000 DC 08/02 Sodium Chloride 250 ML IV 08/02 1059 1118 Calcium Carbonate 500 MG ONCE ONE 08/02 1400 DC 08/02 PO 08/02 1401 1421 Ceftriaxone Sodium 1,000 MG DAILY 08/02 1115 AC 08/02 IV 08/04 1001 1411 Heparin Sodium 5,000 UNIT Q8 08/01 1623 AC 08/03 (Porcine) SC 0531 Lisinopril 2.5 MG DAILY 08/02 1500 AC 08/02 PO 1635 Metoprolol Tartrate 25 MG BID 07/28 2200 AC 08/02 PO 2101 Morphine Sulfate 1 MG Q6-PRN PRN 07/29 0200 AC IV Omeprazole 40 MG DAILY AC 07/29 0700 AC 08/03 PO 0531 Prednisone 40 MG DAILY 08/02 1000 AC 08/02 PO 08/03 1001 0955 Simethicone 80 MG Q6P PRN 07/30 1030 AC PO Trazodone HCl 50 MG AT BEDTIME NEED.. 07/29 0200 AC 08/01 PO 2105 Past History Travel History Traveled to [place] past 21 day No Medical History Blood Transfusion Hx: No Neurological: NONE EENT: NONE Cardiovascular: aortic aneurysm, CAD, cardiomyopathy, PVD Respiratory: COPD, pneumonia Gastrointestinal: lower GI bleed Hepatic: NONE Renal: NONE Musculoskeletal: NONE Psychiatric: NONE Endocrine: NONE Blood Disorders: NONE Cancer(s): lung cancer HEALTH INFORMATION MANAGER/Reproductive: NONE Other Medical Hx: peripheral vascular disease, carotid artery stenosis Surgical History Surgical History: hernia repair-umbilical, PTX, CHEST TUBE LEFT CEA Family History Relations & Conditions If Any: MOTHER FH: diabetes mellitus BROTHER FH: COPD (chronic obstructive pulmonary disease) Psychosocial History Where Do You Live? Home Who Do You Live With? spouse Services at Home: None Smoking Status: Former Smoker ETOH Use: denies use Illicit Drug Use: denies illicit drug use Functional Ability ADLs Independent: dressing, eating, toileting, bathing. Ambulation: independent IADLs Independent: shopping, housework, finances, food prep, telephone, transportation , medication admin. Exam & Diagnostic Data Vital Signs and I&O Vital Signs Date Time Temp Pulse Resp B/P B/P Pulse O2 O2 Flow FiO2 Mean Ox Delivery Rate 08/03 0630 98.3 95 20 122/60 95 Nasal Cannula 08/03 0000 Nasal 2.0L Cannula 08/02 2249 98.5 96 20 120/70 95 Nasal Cannula 08/02 2101 120/70 08/02 1905 92 Room Air 08/02 1635 97.8 96 18 118/90 08/02 1600 Nasal 2.0L Cannula 08/02 1416 97.8 96 18 118/90 95 Nasal 2.0L Cannula 08/02 1021 94 Nasal 2.0L Cannula 08/02 0955 94 112/70 Intake & Output 08/03 1600 08/03 0800 08/03 0000 08/02 1600 08/02 0800 08/02 0000 Intake Total 240 240 520 50 250 Output Total Balance 240 240 520 50 250 Intake, IV 280 0 10 Intake, Oral 240 240 240 50 240 Number 0 Bowel Movements Patient 180 lb Weight Physical Exam: General Appearance: Alert, Oriented X3, Cooperative, mild distress Skin: Warm/Dry Cardiovascular: Regular Rate, Normal S1, Normal S2, 1 to 2/6 systolic murmur left upper sternal border Lungs: decreased air movement bilaterally, more prominent on left Abdomen: decreased bowel sounds; no focal findings Extremities: normal pulses upper extremity; decreased distal lower artery pulses bilaterally; no significant edema Labs/Yong Results: Laboratory Tests 08/03 08/02 0754 0805 Chemistry Sodium (137 - 145 mmol/L) Pending 141 Potassium (3.5 - 5.1 mmol/L) Pending 4.6 Chloride (98 - 107 mmol/L) Pending 105 Carbon Dioxide (22 - 30 mmol/L) Pending 21 L Anion Gap (5 - 16) Pending 15 BUN (9 - 20 mg/dL) Pending 34 H Creatinine (0.7 - 1.2 mg/dL) Pending 1.2 Estimated GFR (>60 ml/min) 58 L BUN/Creatinine Ratio (7 - 25 %) Pending 28.3 H Total Bilirubin Pending Direct Bilirubin Pending AST Pending ALT Pending Alkaline Phosphatase Pending Total Protein Pending Albumin Pending Hematology CBC w Diff Pending NO MAN DIFF REQ WBC (4.8 - 10.8 /CUMM) Pending 8.2 RBC (4.70 - 6.10 /CUMM) Pending 4.47 L Hgb (14.0 - 18.0 G/DL) Pending 13.8 L Hct (42 - 52 %) Pending 42.2 MCV (80.0 - 94.0 FL) Pending 94.4 H MCH (27.0 - 31.0 PG) Pending 30.8 RDW (11.5 - 14.5 %) Pending 15.5 H Plt Count (130 - 400 /CUMM) Pending 180 MPV (7.4 - 10.4 FL) Pending 9.3 Gran % (42.2 - 75.2 %) 78.4 H Lymphocytes % (20.5 - 51.1 %) 11.4 L Monocytes % (1.7 - 9.3 %) 9.8 H Eosinophils % (0 - 5 %) 0.4 Basophils % (0.0 - 2.0 %) 0 Absolute Granulocytes (1.4 - 6.5 /CUMM) 6.4 Absolute Lymphocytes (1.2 - 3.4 /CUMM) 0.9 L Absolute Monocytes (0.10 - 0.60 /CUMM) 0.8 H Absolute Eosinophils (0.0 - 0.7 /CUMM) 0 Absolute Basophils (0.0 - 0.2 /CUMM) 0 PUBS MCHC (33.0 - 37.0 G/DL) Pending 32.6 L Diagnostic Data CXR Results FINDINGS: The cardiomediastinal silhouette is enlarged. There is elevation of the left hemidiaphragm with slight shift of the mediastinum toward the right side. Small left-sided pleural effusion is seen extending from the left lung base along the lateral chest wall into the left major fissure, minimally larger compared to the previous exam. Associated patchy parenchymal opacity in the left lower lobe may have increased slightly, consistent with subsegmental atelectasis. There is also masslike opacity in the right upper lobe with associated fiducial markers and patchy parenchymal opacity in the right perihilar region, unchanged from prior exam. The right CP angle is not fully included on this image. No pneumothorax is seen. No suspicious bone findings. IMPRESSION: 1. Slight increase in size of left-sided pleural effusion compared to 07/28/2017. Associated increased patchy parenchymal opacity in the left lung base is also seen, suggesting increased atelectasis. 2. No other significant change noted. Other Results :CT of chest: IMPRESSION: Accounting for streak artifact there is no central or segmental pulmonary embolism. There has been an increase in size in the loculated left pleural effusion from the prior CT of 06/13/2017. There is a stable moderate right pleural effusion. An area of irregular airspace opacification in the right lower lobe has become more densely consolidated with a decrease in surrounding ground glass attenuation. There are numerous other underlying chronic changes within both lungs as detailed above, and unchanged. VTE: negative echocardiogram: CONCLUSIONS 1. This was a technically difficult examination. 2. Moderate aortic sclerosis is present with minimal to mild aortic insufficiency. 3. Mitral leaflet thickening is present with anular calcification and moderate to moderately severe mitral insufficiency with mild left atrial enlargement. 4. There is no significant pericardial fluid present. 5. The left ventricular chamber is upper normal in size with global hypokinesia which is worse in the inferoposterior / inferolateral and anteroapical segments with an ejection fraction of 25-30%. 6. Enlargment of the right heart chambers is present with moderate tricuspid insufficiency, mild to moderate pulmonic insufficiency, enlargement of the IVC and pulmonary hypertension with an estimated RV systolic pressure of 60 mmHg. Assessment/Plan Assessment/Plan assessment: 1. Worsening shortness of breath, likely multifactorial-at the present time, it would appear that the patient's shortness of breath is likely related to multiple factors including lung cancer, underlying pulmonary disease, pleural effusions, etc. In addition, the possibility of worsening left ventricular function contributing to his symptoms and/or the possibility of underlying ischemia due to progressive coronary disease are also possibly playing a role here. 2. Bilateral pleural effusions 3. Lung cancer 4. Worsening left ventricular function by echocardiogram 5. History of known coronary artery disease-the patient had a cardiac catheterization performed in 2006. At that time, his LAD was normal. He had a 70% proximal M1 stenosis. A 30-50% proximal right coronary lesion was noted. 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 6. History of carotid artery disease, status post endarterectomy 7. History of peripheral arterial disease 8. Anorexia and nausea with evidence of gallbladder wall thickening on CT and ultrasound. Recommendations: -continue current medications for now. -In the absence of overt heart failure, I am not sure whether adding a low-dose diuretic might help, however, in the absence of any other options that might be worthwhile to try adding Lasix 20 mg daily to his regimen with monitoring of his intakes, outputs, daily weights, etc. -In view of his worsening left ventricular function and history of known coronary disease by prior catheter, further evaluation with a pharmacologic stress test or repeat catheter might be useful at some point to exclude coronary artery disease as contributing to his issues. However, in view of his other comorbidities, further discussions about this would be moss. -Continue current pulmonary management -Consider GI input. Consult Acknowledgment - Thank you for your consult request.
[2017-08-03 09:26] LABS: ABSOLUTE BASOPHIL COUNT 0 /CUMM (0.0-0.2); ABSOLUTE EOSINOPHIL COUNT 0.1 /CUMM (0.0-0.7); ABSOLUTE GRANULOCYTE CT 6.1 /CUMM (1.4-6.5); ABSOLUTE LYMPH COUNT 0.7 /CUMM (1.2-3.4); ABSOLUTE MONOCYTE COUNT 0.9 /CUMM (0.10-0.60); BASOPHIL % 0.1 % (0.0-2.0); EOSINOPHIL % 0.7 % (0-5); GRANULOCYTE % 77.7 % (42.2-75.2); HEMATOCRIT 40.8 % (42-52); MEAN CORPUSCULAR HGB 31.1 PG (27.0-31.0); MEAN CORPUSCULAR HGB CONC 33.3 G/DL (33.0-37.0); MEAN CORPUSCULAR VOLUME 93.4 FL (80.0-94.0); MEAN PLATELET VOLUME 9.5 FL (7.4-10.4); RBC DISTRIBUTION WIDTH 15.8 % (11.5-14.5); RED BLOOD CELL CT 4.37 /CUMM (4.70-6.10); WHITE BLOOD CELL COUNT 7.9 /CUMM (4.8-10.8)
[2017-08-03 10:25] LABS: PLATELET COUNT 179 /CUMM (130-400)
[2017-08-03 14:14] VITALS: BP 102/56
[2017-08-03 23:00] VITALS: BP 100/50
[2017-08-04 06:28] VITALS: BP 128/60
--- NOTE | 2017-08-04 07:13 | PN- Housestaff ---
Refugio ULRICH,[facility] 08/04/17 0713: Subjective Follow-up For: SOB Subjective: No acute events last night. SOB of breath better. Pt still on oxygen. Able to walk further than yday. Review of Systems Constitutional: Reports: no symptoms. Cardiovascular: Reports: no symptoms. Respiratory: Reports: short of breath. Gastrointestinal: Reports: no symptoms. Genitourinary: Reports: no symptoms. Musculoskeletal: Reports: no symptoms. Objective Last 24 Hrs of Vital Signs/I&O Vital Signs Date Time Temp Pulse Resp B/P B/P Pulse O2 O2 Flow FiO2 Mean Ox Delivery Rate 08/04 1533 96.1 78 22 110/70 08/04 1119 Nasal 2.0L Cannula 08/04 1102 93 Nasal 2.0L Cannula 08/04 1036 110/70 08/04 1035 110/70 08/04 0800 Nasal 2.0L Cannula 08/04 0628 96.1 78 22 128/60 93 Nasal Cannula 08/04 0000 Nasal 2.0L Cannula Intake & Output 08/04 1600 08/04 0800 08/04 0000 Intake Total 800 300 Output Total Balance 800 300 Intake, Oral 800 300 Physical Exam General Appearance: Alert, Oriented X3, Cooperative Skin Temp/Moisture Exam: Warm/Dry Cardiovascular: Regular Rate, Normal S1, Normal S2 Lungs: Clear to Auscultation, Normal Air Movement Abdomen: Normal Bowel Sounds, Soft, No Tenderness Extremities: 2+ radial pulses, no LE edema Current Medications: Current Medications Sig/Dominique Start time Last Medication Dose Route Stop Time Status Admin Acetaminophen 650 MG Q6P PRN 07/29 0200 DCD PO Acetaminophen 1,000 MG Q6P PRN 07/29 0200 DCD IV Albuterol Sulfate 3 ML BID 07/29 1000 DCD 08/04 INH 1059 Furosemide 20 MG DAILY 08/04 1000 DCD 08/04 PO 1147 Furosemide 20 MG DAILY 08/03 1030 DC 08/03 IV 1344 Heparin Sodium 5,000 UNIT Q8 08/01 1623 DCD 08/04 (Porcine) SC 1422 Lisinopril 2.5 MG DAILY 08/02 1500 DCD 08/04 PO 1035 Metoprolol Tartrate 25 MG BID 07/28 2200 DCD 08/04 PO 1036 Morphine Sulfate 1 MG Q6-PRN PRN 07/29 0200 DCD IV Moxifloxacin HCl 400 MG DAILY 08/03 1000 DC 08/03 PO 08/04 1001 1331 Omeprazole 40 MG DAILY AC 07/29 0700 DCD 08/04 PO 0554 Prednisone 30 MG DAILY 08/04 1000 DCD 08/04 PO 08/05 1001 1034 Simethicone 80 MG Q6P PRN 07/30 1030 DCD PO Trazodone HCl 50 MG AT BEDTIME NEED.. 07/29 0200 DCD 08/01 PO 2105 Last 24 Hrs of Lab/Yong Results Last 24 Hrs of Labs/Mics: Laboratory Tests 08/04/17 0836: CBC w Diff NO MAN DIFF REQ, RBC 4.64 L, MCV 94.1 H, MCH 30.9, RDW 15.3 H, MPV 9.3, Gran % 82.4 H, Lymphocytes % 7.2 L, Monocytes % 10.0 H, Eosinophils % 0.4, Basophils % 0, Absolute Granulocytes 6.8 H, Absolute Lymphocytes 0.6 L, Absolute Monocytes 0.8 H, Absolute Eosinophils 0, Absolute Basophils 0, PUBS MCHC 32.8 L 08/04/17 0815: Anion Gap 11, Estimated GFR > 60, BUN/Creatinine Ratio 35.6 H, Total Bilirubin 0.9, Direct Bilirubin 0.5 H, AST 129 H, ALT 368 H, Alkaline Phosphatase 137 H, Total Protein 6.0 L, Albumin 3.4 L Assessment/Plan Assessment: 81 year old male with a past medical history significant for smoking, advanced lung cancer treated with chemotherapy and radiation therapy and [employer], history of pneumothorax in 2013, COPD not on home oxygen, left CEA on plavix presents with progressive dyspnea and is found to have increasing pleural effusion and consolidation consistent with pneumonia. #Acute hypoxemic respiratory failure with tachypnea and accessory muscle use Multifactorial-smoking/copd/emphysema/h/o radiation and pleural effusion with residual pna Consolidation likely persistent from adjacent large pleural effusion Pulmonology on board, he is on po prednisone daily, discussed with there pleural effusion in the left side is small to be tapped Echo: moderate as, severe mitral insufficiency, LVEF 25-30%, global hypokinesia which is worse in the inferoposterior / inferolateral and anteroapical segments, enlargment of the right heart chambers is present with moderate tricuspid insufficiency, mild to moderate pulmonic insufficiency, enlargement of the IVC and pulmonary hypertension with an estimated RV systolic pressure of 60 mmHg. Repeat cxr:Slight increase in size of left-sided pleural effusion compared to 07/28/2017. Associated increased patchy parenchymal opacity in the left lung base is also seen, suggesting increased atelectasis Completed 7 day course of abx -f/u cardiology outpt for cardiac cath -f/u pulmnology -continue Trial of Lasix 20 mg IV daily for CHF -Continue lisinopril 2.5 for CHF -Continue prednisone taper -Titrate supplemental oxygen -Incentive spirometry -cont trc #decreased appeitite/diffuse wall thickening of gallbladder CT abd: Diffuse gallbladder wall thickening without cholelithiasis. Mesenteric fat stranding. Small amount of abdominal and pelvic free fluid. Small bilateral pleural effusions with associated airspace disease. Extensive colonic diverticulosis without evidence of diverticulitis. RUQ US: The gallbladder wall is thickened and there is fluid in the wall. There is also fluid in the pericholecystic region. There are no echogenic gallbladder calculi. hepatic function: T bili .9, direct bili 0.5, AST 129, ALT 368, ALP 137 -f/u GI outpatient -cont PPI for GERD #Hyperkalemia now resolved EKG showed no acute changes IV dextrose and insulin was given with PO kayexalate -Continue to monitor HTN: -Continue metroprolol GERD: -Continue PO PPI Heart healthy diet DVT ppx-lovenox 40mg subcutaneous daily Full code Problem List: 1. CHF (congestive heart failure) 2. Thickening of wall of gallbladder 3. Poor appetite 4. Pleural effusion associated with pulmonary infection 5. Pneumonia 6. COPD exacerbation Pain Ratin Pain Location: none Pain Goal: Pain 4 or less Pain Plan: pain pathway Tomorrow's Labs & Rationales: none Bandar Herrera 08/04/17 1202: Attending MD Review Statement Attending Statement Attending MD Statement: examined this patient, discuss w/resident/PA/MERCHANT MILLER, agreed w/resident/PA/MERCHANT MILLER, discussed with family, reviewed EMR data (avail), discussed with nursing, discussed with case mgmt, reviewed images, amended to note Attending Assessment/Plan: Patient seen and examined. He reports feeling better and tolerated his breakfast. Continues to complain of shortness of breath with mild improvement. His USG chest shows not significant pleural effusion to tap. On examination Abdomen is obese but soft and nontender with normal bowel sounds. He has no peripheral edema. No use of accessory muscles. He is on oxygen supplementation. afebrile. CT a/p shows gall bladder wall thickening USG RUQ shows pericholecystitc fluid with no obvious cholelithiasis. ECHO shows EF 25-30% with worsening of CHF. Recommendations: -etiology of his persistent and progressive shortness of breath is multifactorial in nature. -Complete empiric antibiotic therapy for presumed pneumonia continue bronchodilator therapy -Steroid taper as per Pulmoanry, c/w PPI for GERD -Systolic CHF EF 25-30% with hypokinesia anterolateral/inferior posterior wall, added low dose lisinopril. H/o CAD in past with vasculoapthy -Mobilize patient as tolerated. -FOLLOW pulmononary and f/u cardiology Dr Solano. -Referral for GI for abnormal USG findings for gall bladder wall thickening i/p vs o/p. Monitor as o/p.
--- NOTE | 2017-08-04 08:13 | PN- Pulmonary ---
Subjective HPI/Critical Care Issues: Patient feels better nauseous improved as his shortness of breath. Diuretics have been started Objective Current Medications: Current Medications Sig/Dominique Start time Last Medication Dose Route Stop Time Status Admin Acetaminophen 650 MG Q6P PRN 07/29 0200 AC PO Acetaminophen 1,000 MG Q6P PRN 07/29 0200 AC IV Albuterol Sulfate 3 ML BID 07/29 1000 AC 08/03 INH 1955 Azithromycin 500 MG DAILY 08/03 1000 CAN Sodium Chloride 250 ML IV Ceftriaxone Sodium 1,000 MG DAILY 08/02 1115 DC 08/02 IV 08/04 1001 1411 Furosemide 20 MG DAILY 08/03 1030 AC 08/03 IV 1344 Heparin Sodium 5,000 UNIT Q8 08/01 1623 AC 08/04 (Porcine) SC 0554 Lisinopril 2.5 MG DAILY 08/02 1500 AC 08/03 PO 0958 Metoprolol Tartrate 25 MG BID 07/28 2200 AC 08/03 PO 2112 Morphine Sulfate 1 MG Q6-PRN PRN 07/29 0200 AC IV Moxifloxacin HCl 400 MG DAILY 08/03 1000 AC 08/03 PO 08/04 1001 1331 Omeprazole 40 MG DAILY AC 07/29 0700 AC 08/04 PO 0554 Prednisone 30 MG DAILY 08/04 1000 AC PO 08/05 1001 Prednisone 40 MG DAILY 08/02 1000 DC 08/03 PO 08/03 1001 1002 Simethicone 80 MG Q6P PRN 07/30 1030 AC PO Trazodone HCl 50 MG AT BEDTIME NEED.. 07/29 0200 AC 08/01 PO 2105 Vital Signs & I&O Last 24 Hrs of Vitals and I&O: Vital Signs Date Time Temp Pulse Resp B/P B/P Pulse O2 O2 Flow FiO2 Mean Ox Delivery Rate 08/04 627 96.1 78 22 128/60 93 Nasal Cannula 08/04 0000 Nasal 2.0L Cannula 08/03 2299 98.6 75 20 100/50 94 Nasal 2.0L Cannula 08/03 2205 98.8 98 20 92 Nasal 2.0L Cannula 08/03 2111 85 20 102/56 08/03 1954 92 Nasal 2.0L Cannula 08/03 141 98.1 85 20 102/56 91 Nasal Cannula 08/03 1114 95 Nasal 2.0L Cannula Intake & Output 08/04 1600 08/04 0800 08/04 0000 Intake Total 300 Output Total Balance 300 Intake, Oral 300 Saturation 2 L 93% exam of his chest with diminished breath sounds at the bases with rare right basilar crackles cardiac exam shows regular S1 and S2 without murmurs Impression/Plan Impression/Plan Impression/Plan: 81-year-old with COPD lung cancer admitted with increasing shortness of breath and community-acquired pneumonia. Pulmonary function tests recently obtained showed only mild airflow obstruction. Shortness of breath is likely related to cardiomyopathy pulmonary hypertension. Breath is improved as is nausea Recommendations: Complete course of antibiotics. Begin steroid taper. Taper FiO2 his saturations allow. Physical therapy. Cardiology evaluation for cardiomyopathy reviewed. Patient is stable for discharge with outpatient follow-up from pulmonary perspective
--- NOTE | 2017-08-04 09:01 | Discharge Summary ---
Visit Information Visit Dates Admission Date: 07/28/17 Discharge Date: 08/04/2017 Hospital Course Course Attending Physician: Bandar Herrera MD Primary Care Physician: Barbara ULRICH,Stalin Montoya Consulting Request: Consulting Specialty: Cardiology Consulting Physician: Hospital Course: 81 year old male with a past medical history significant for smoking quit in 2007 with diagnosis of advanced lung cancer treated with chemotherapy and radiation therapy at [facility] in 2007 with subsequent Cyberknife treatments for lung nodule, recurrence vs new primaries (Dr. Slater @ [facility]) in 2014 and 02/2017, 5 treatments each time, history of pneumothorax in 2013 treated with a thoracic vent by Dr. Joshua, h/o GI bleed, abdominal aortic aneurysm, emphysema and COPD not on home oxygen, left CEA on plavix, recently admittted to [facility] and treated for community acquired pneumonia last month presents to the hospital today with complaints of progressive severe dyspnea. Vitals: afebrile, HR 90-100's, BP 140/78, sats 88% RA --> 98% on 2L. Exam: AAO, in moderate respiratory distress, able to speak in short sentences, MMM, PERRL, Neck supple, Chest basilar crackles R>L, reduced to absent air entry b/l, Heart S1S2 regular, LE: no edema. Labs: no leukocytosis, INR 1.22, elevated D-dimer, K 5.2, AG 17, trop neg, elevated proBNP, UA neg. CXR: COPD, area of persistent or recurrent consolidation in right midlung. CTA chest: no PE, increase in size of loculated left pleural effusion, stable moderate right pleural effusion, area of irregular airspace consolidation in right lower lobe more densely consolidated with decrease in surrounding attenuation. EKG: SR, no changes. He was admitted to general medicine floor and treated for the following problems : #Acute hypoxic respiratory failure which is multifactorial 2/2 RLL consolidation community acquired pneumonia, sever COPD, bilateral pleural effusion (CTA during this admission was done which showed There has been an increase in size in the loculated left pleural effusion from the prior CT of 06/13/2017. There is a stable moderate right pleural effusion. An area of irregular airspace opacification in the right lower lobe has become more densely consolidated with a decrease in surrounding ground glass attenuation). Left effusion appears chronic and loculate, which was discussed with thoracic surgion , the left effusion is loculated and does not need drainage, the right effusion is small to be drained by IR. We treated him with prednisone taper and recovered community-acquired pneumonia with ceftriaxone/azithromycin which switched later to moxifloxacin, he complete a total of 8 days of antibiotic. During his hospitalization patient was seen by Dr. [facility]. PE ruled out with CTA. # History of bilateral lung cancer: Patient is to follow-up with his oncologist as an outpatient #Worsening left ventricular function by echocardiogram: Cardiology consult was obtained with Dr. Solano who recommend starting patient on a low-dose Lasix 20 mg daily #History of known coronary artery disease-the patient had a cardiac catheterization performed in 2006. At that time, his LAD was normal. He had a 70% proximal M1 stenosis. A 30-50% proximal right coronary lesion was noted. 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 #History of carotid artery disease, status post endarterectomy #History of peripheral arterial disease #Anorexia and nausea with evidence of gallbladder wall thickening on CT and ultrasound: GI consult was called for the patient, patient is stable he can follow up with in an outpatient setting. Patient needs to f/u with his hypoid gear tester and his tube splicer after discharge. He is going to [facility]. Complications: Non Allergies: Coded Allergies: animal dander (Severe, EYES REDDENED, HIVES 07/28/17) Penicillins (Intermediate, RASH 07/21/16) Disposition Summary Disposition Principal Diagnosis: -Significant respiratory insufficiency and poor performance status - appears multifactorial including community acquired pneumonia with consolidation -Severe copd -Worsening left ventricular function by echocardiogram -History of known coronary artery disease -Enlarging rt effusion rule out malignancy but not enough to tap -Chronic enlarging loculated left effusion - present since 2014 with prior pleurx -Recent treatment and locally advanced NSCLA , 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 Additional Diagnosis: As above Discharge Disposition: SNF Discharge Instructions General Discharge Information Code Status: Full Code Patient's Diet: Regular heart healthy diet Patient's Activity: As tolerated Follow-Up Instructions/Appts: Please follow up with your pcp in 1-2 weeks. Please follow up with your pulmnologist in 1-2 weeks (Dr. [facility]). Please follow up with your hypoid gear tester Dr. Solano in 1-2 weeks. Please follow up with your animal trapper Dr. Rivera in 1-2 weeks. Please take your medications as perscribed. Medications at Discharge Discharge Medications: Stop taking the following medications: Metoprolol Tartrate (Metoprolol Tartrate) 25 MG TABLET ORAL DAILY Continue taking these medications: Clopidogrel Bisulfate (Clopidogrel) 75 MG TABLET 1 Tablet ORAL DAILY Comments: NOT GIVEN Multivit-Min/FA/Lycopen/Lutein (Centrum Silver Tablet) 0.4 MG-300 MCG-250 MCG TABLET 1 Tablet ORAL DAILY Comments: NOT GIVEN WHILE IN HOSPITAL Pantoprazole Sodium (Pantoprazole Sodium) 40 MG TABLET. 1 Tablet ORAL DAILY Qty = 90 Comments: NOT GIVEN Cholecalciferol (Vitamin D3) (Vitamin D) 1,000 UNIT TABLET 1 Tablet ORAL DAILY Comments: NOT GIVEN Start taking the following new medications: Prednisone (Prednisone) 10 MG TABLET 1 Tablet ORAL DAILY Qty = 10 No Refills Instructions: Date Tabs 08/05 3 08/06 2 08/07 2 08/08 1 08/09 1 08/10 0.5 08/11 0.5 08/12 STOP Comments: Last Taken: 08/04/17 Time: 1030AM Metoprolol Tartrate (Metoprolol Tartrate) 25 MG TABLET 1 Tablet ORAL TWICE DAILY Qty = 60 No Refills Comments: Last Taken: 08/04/17 Time: 1030AM Lisinopril (Lisinopril) 2.5 MG TABLET 1 Tablet ORAL DAILY Qty = 30 No Refills Comments: Last Taken: 08/04/17 Time: 1030AM Furosemide (Furosemide) 20 MG TABLET 1 Tablet ORAL DAILY Qty = 30 No Refills Comments: Last Taken: 08/04/17 Time: 1145AM Albuterol Sulfate (Albuterol Sulfate) 2.5 MG/3 ML (0.083 %) VIAL.NEB 1 VIAL Inhale through mouth TWICE DAILY Qty = 30 No Refills Comments: Last Taken: 08/04/17 Time: 1100AM Simethicone (Simethicone) 80 MG TAB.CHEW 1 Tablet ORAL EVERY SIX HOURS NEEDED as needed for GAS Qty = 30 No Refills Comments: NOT GIVEN Trazodone HCl (Trazodone HCl) 50 MG TABLET 50 Milligram ORAL AT BEDTIME NEEDED as needed for INSOMNIA Qty = 5 No Refills Comments: Last Taken: 08/01/17 Time: 900PM Copies To: Bandar Herrera MD Attending MD Review Statement Documenting Attending: Bandar Herrera MD Other Findings: Patient seen and examined. He reports feeling better and tolerated his breakfast. Continues to complain of shortness of breath with mild improvement. His USG chest shows not significant pleural effusion to tap. On examination Abdomen is obese but soft and nontender with normal bowel sounds. He has no peripheral edema. No use of accessory muscles. He is on oxygen supplementation. afebrile. CT a/p shows gall bladder wall thickening USG RUQ shows pericholecystitc fluid with no obvious cholelithiasis. ECHO shows EF 25-30% with worsening of CHF. Recommendations: -etiology of his persistent and progressive shortness of breath is multifactorial in nature. -Completed empiric antibiotic therapy for presumed pneumonia continue bronchodilator therapy -Steroid taper as per Pulmoanry, c/w PPI for GERD -Systolic CHF EF 25-30% with hypokinesia anterolateral/inferior posterior wall, added low dose lisinopril. H/o CAD in past with vasculoapthy, Dr Solano hypoid gear tester. -Referral for GI for abnormal USG findings for gall bladder wall thickening i/p vs o/p. Monitor as o/p. -dc planning to [facility]. FOLLOW UP f/u pulmononary Dr [facility] in 1-2 weeks of discharge f/u cardiology Dr Solano in 2 weeks of discharge F/u Gastroenterology in 3-4 weeks of dsicharge PCP in 3-5 days of discharge.
[2017-08-04 09:25] LABS: ABSOLUTE BASOPHIL COUNT 0 /CUMM (0.0-0.2); ABSOLUTE EOSINOPHIL COUNT 0 /CUMM (0.0-0.7); ABSOLUTE GRANULOCYTE CT 6.8 /CUMM (1.4-6.5); ABSOLUTE LYMPH COUNT 0.6 /CUMM (1.2-3.4); ABSOLUTE MONOCYTE COUNT 0.8 /CUMM (0.10-0.60); BASOPHIL % 0 % (0.0-2.0); EOSINOPHIL % 0.4 % (0-5); HEMATOCRIT 43.6 % (42-52); MEAN CORPUSCULAR HGB 30.9 PG (27.0-31.0); MEAN CORPUSCULAR HGB CONC 32.8 G/DL (33.0-37.0); MEAN CORPUSCULAR VOLUME 94.1 FL (80.0-94.0); MEAN PLATELET VOLUME 9.3 FL (7.4-10.4); PLATELET COUNT 176 /CUMM (130-400); RBC DISTRIBUTION WIDTH 15.3 % (11.5-14.5); RED BLOOD CELL CT 4.64 /CUMM (4.70-6.10); WHITE BLOOD CELL COUNT 8.3 /CUMM (4.8-10.8)
[2017-08-04 09:49] LABS: GRANULOCYTE % 82.4 % (42.2-75.2)
[2017-08-04] MEDS ORDERED: PREDNISONE10 M2 PO ×2 (11:03→11:19)
[2017-08-04] MEDS ORDERED: FUROSEMIDE20 M1 PO (11:03)
[2017-08-04] MEDS ORDERED: METOPROLOL TART25 M1 PO (11:03)
[2017-08-04] MEDS ORDERED: LISINOPRIL2.5 M1 PO (11:03)
[2017-08-04] MEDS ORDERED: SIMETHICONE80 M1 PO (11:13)
[2017-08-04] MEDS ORDERED: ALBUTEROL2.5 MG/3 M INH (11:13)
--- NOTE | 2017-08-04 11:15 | Patient Discharge Instructions ---
Discharge Instructions General Discharge Information Special Instructions: Please follow up with your pcp in 1-2 weeks. Please follow up with your pulmnologist in 1-2 weeks (Dr. [facility]). Please follow up with your major general Dr. Solano in 1-2 weeks. Please follow up with your power lineman Dr. Angelo in 1-2 weeks. Please take your medications as perscribed. Acute Coronary Syndrome Inclusion Criteria At DC or during hospital stay patient has or had the following: Discharge Core Measures Meds if any: Prescribed or Continued at Discharge Meds if any: NOT Prescribed or Continued at Discharge Congestive Heart Failure Inclusion Criteria At DC or during hospital stay patient has or had the following: Discharge Core Measures Meds if any: Prescribed or Continued at Discharge Meds if any: NOT Prescribed or Continued at Discharge Cerebrovascular accident Inclusion Criteria At DC or during hospital stay patient has or had the following: CVA/TIA Diagnosis No Discharge Core Measures Meds if any: Prescribed or Continued at Discharge Meds if any: NOT Prescribed or Continued at Discharge Venous thromboembolism Discharge Core Measures - Per Current guidelines, there needs to be overlap - treatment for the first 5 days of Warfarin therapy. - If discharged on Warfarin prior to 5 days of - overlap therapy, the patient will need to be - assessed for post discharge needs including - *Post discharge parental anticoagulation - *Warfarin and/or parental anticoagulation education - *Follow up date to check INR post discharge Meds if any: Prescribed or Continued at Discharge Note: Overlap Therapy is Warfarin and Anticoagulant Meds if any: NOT Prescribed or Continued at Discharge
--- NOTE | 2017-08-04 12:59 | Cons- Gastroenterology ---
General Information and HPI Consulting Request Date of Consult: 08/04/17 Requested By: Bandar Herrera MD Reason for Consult: RUQ pain, abdnormal ct scan and US of the gallbladderand increased LFTs. Source of Information: patient, old records Exam Limitations: no limitations History of Present Illness: Mr. Jenkins is an 81 year old male with multiple medical problems including advanced lung ca s/p chemo, xrt and cyberknife treatment who was admitted to on 07/28/17 with complaints of progressive dyspnea. He was treated in the ER with ceftriaxone, azithromycin, albuterol, ipatroprium and solumedrol and he was admitted to the hospital with a diagnosis of a pneumonia. Since being in the hospital he has been treated with nebulizers, antibiotics and steroids both of which have been changed to oral from IV with some improvement in his SOB, but not complete relief. He has also been receiving IV diuresis for volume overload. He had been complaining of nausea and indigestion for which he underwent a ct scan and US that showed a thickened gallbladder wall and some pericholecystic fluid, but it was negative for gallstones. He has been without any RUQ pain or vomiting. He also denies any noticable jaundice, dark urine or any collette colored stool. He is also without any heartburn or dysphagia. He has been having normal bowel movements without any diarrhea, brbpr, or constipation. His breathing has improved since admission, but he still has some dyspnea. Allergies/Medications Allergies: Coded Allergies: animal dander (Severe, EYES REDDENED, HIVES 07/28/17) Penicillins (Intermediate, RASH 07/21/16) Home Med List: Albuterol Sulfate 2.5 MG/3 ML (0.083 %) VIAL.NEB 1 VIAL INH BID SOB Cholecalciferol (Vitamin D3) (Vitamin D) 1,000 UNIT TABLET 1 TAB PO DAILY SUPPLEMENT (Reported) Clopidogrel Bisulfate (Clopidogrel) 75 MG TABLET 1 TAB PO DAILY BLOOD THINNER (Reported) Furosemide 20 MG TABLET 1 TAB PO DAILY CHF Lisinopril 2.5 MG TABLET 1 TAB PO DAILY HEART FAILURE Metoprolol Tartrate 25 MG TABLET 1 TAB PO DAILY BP (Reported) Metoprolol Tartrate 25 MG TABLET 1 TAB PO BID Heart Multivit-Min/FA/Lycopen/Lutein (Centrum Silver Tablet) 0.4 MG-300 MCG-250 MCG TABLET 1 TAB PO DAILY VITAMIN SUPPORT (Reported) Pantoprazole Sodium 40 MG TABLET.DR 1 TAB PO DAILY GI (Reported) Prednisone 10 MG TABLET 1 TAB PO DAILY COPD Date Tabs 08/05 3 08/06 2 08/07 2 08/08 1 08/09 1 08/10 0.5 08/11 0.5 08/12 STOP Simethicone 80 MG TAB.CHEW 1 TAB PO Q6P PRN GAS Current Medications: Current Medications Sig/Dominique Start time Last Medication Dose Route Stop Time Status Admin Acetaminophen 650 MG Q6P PRN 07/29 0200 AC PO Acetaminophen 1,000 MG Q6P PRN 07/29 0200 AC IV Albuterol Sulfate 3 ML BID 07/29 1000 AC 08/04 INH 1059 Furosemide 20 MG DAILY 08/04 1000 AC 08/04 PO 1147 Furosemide 20 MG DAILY 08/03 1030 DC 08/03 IV 1344 Heparin Sodium 5,000 UNIT Q8 08/01 1623 AC 08/04 (Porcine) SC 0554 Lisinopril 2.5 MG DAILY 08/02 1500 AC 08/04 PO 1035 Metoprolol Tartrate 25 MG BID 07/28 2200 AC 08/04 PO 1036 Morphine Sulfate 1 MG Q6-PRN PRN 07/29 0200 AC IV Moxifloxacin HCl 400 MG DAILY 08/03 1000 DC 08/03 PO 08/04 1001 1331 Omeprazole 40 MG DAILY AC 07/29 0700 AC 08/04 PO 0554 Prednisone 30 MG DAILY 08/04 1000 AC 08/04 PO 08/05 1001 1034 Simethicone 80 MG Q6P PRN 07/30 1030 AC PO Trazodone HCl 50 MG AT BEDTIME NEED.. 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 Home Who Do You Live With? spouse Services at Home: None Smoking Status: Former Smoker ETOH Use: denies use Illicit Drug Use: denies illicit drug use Functional Ability ADLs Independent: dressing, eating, toileting, bathing. Ambulation: independent IADLs Independent: shopping, housework, finances, food prep, telephone, transportation , medication admin. Review of Systems Review of Systems Constitutional: Reports: malaise, weakness. Denies: diaphoresis, fever. EENTM: Denies: no symptoms. Cardiovascular: Reports: edema, orthopena. Denies: chest pain, palpitations. Respiratory: Reports: cough, orthopnea, short of breath, sputum production. Denies: hemoptysis, stridor, wheezing. GI: Reports: see HPI. Genitourinary: Denies: no symptoms. Musculoskeletal: Reports: joint pain. Denies: joint swelling, muscle pain, muscle stiffness. Skin: Denies: no symptoms. Neurological/Psychological: Denies: no symptoms. Hematologic/Endocrine: Denies: no symptoms. Immunologic/Allergic: Denies: no symptoms. All Other Systems: Reviewed and Negative Exam & Diagnostic Data Vital Signs and I&O Vital Signs Date Time Temp Pulse Resp B/P B/P Pulse O2 O2 Flow FiO2 Mean Ox Delivery Rate 08/04 1119 Nasal 2.0L Cannula 08/04 1102 93 Nasal 2.0L Cannula 08/04 1036 110/70 08/04 1035 110/70 08/04 0800 Nasal 2.0L Cannula 08/04 0628 96.1 78 22 128/60 93 Nasal Cannula 08/04 0000 Nasal 2.0L Cannula 08/03 2300 98.6 75 20 100/50 94 Nasal 2.0L Cannula 08/03 2206 98.8 98 20 92 Nasal 2.0L Cannula 08/03 2112 85 20 102/56 08/03 1955 92 Nasal 2.0L Cannula 08/03 1414 98.1 85 20 102/56 91 Nasal Cannula Intake & Output 08/04 1600 08/04 0400 08/03 1600 08/03 0400 08/02 1600 08/02 0400 Intake Total 300 840 240 570 250 Output Total Balance 300 840 240 570 250 Intake, IV 280 10 Intake, Oral 300 840 240 290 240 Number 0 Bowel Movements Patient 180 lb Weight Physical Exam General Appearance: well developed/nourished, no apparent distress, alert, comfortable Head: atraumatic, normal appearance Eyes: Bilateral: normal appearance. Ears, Nose, Throat: normal pharynx, normal ENT inspection, hearing grossly normal Neck: normal inspection, supple, full range of motion Respiratory: chest non-tender, decreased breath sounds Cardiovascular: regular rate/rhythm Gastrointestinal: normal bowel sounds, soft, non-tender, negative murphys sign Rectal: deferred Back: normal inspection, normal range of motion Extremities: pedal edema Neurologic/Psych: no motor/sensory deficits, awake, alert, oriented x 3 Skin: intact, normal color, warm/dry Results Pertinent Lab Results: Laboratory Tests 08/04 08/04 0836 0815 Chemistry Sodium (137 - 145 mmol/L) 140 Potassium (3.5 - 5.1 mmol/L) 4.8 Chloride (98 - 107 mmol/L) 103 Carbon Dioxide (22 - 30 mmol/L) 26 Anion Gap (5 - 16) 11 BUN (9 - 20 mg/dL) 32 H Creatinine (0.7 - 1.2 mg/dL) 0.9 Estimated GFR (>60 ml/min) > 60 BUN/Creatinine Ratio (7 - 25 %) 35.6 H Total Bilirubin (0.2 - 1.3 mg/dL) 0.9 Direct Bilirubin (< 0.4 mg/dL) 0.5 H AST (17 - 59 U/L) 129 H ALT (21 - 72 U/L) 368 H Alkaline Phosphatase (< 127 U/L) 137 H Total Protein (6.3 - 8.2 g/dL) 6.0 L Albumin (3.5 - 5.0 g/dL) 3.4 L Hematology CBC w Diff NO MAN DIFF REQ WBC (4.8 - 10.8 /CUMM) 8.3 RBC (4.70 - 6.10 /CUMM) 4.64 L Hgb (14.0 - 18.0 G/DL) 14.3 Hct (42 - 52 %) 43.6 MCV (80.0 - 94.0 FL) 94.1 H MCH (27.0 - 31.0 PG) 30.9 RDW (11.5 - 14.5 %) 15.3 H Plt Count (130 - 400 /CUMM) 176 MPV (7.4 - 10.4 FL) 9.3 Gran % (42.2 - 75.2 %) 82.4 H Lymphocytes % (20.5 - 51.1 %) 7.2 L Monocytes % (1.7 - 9.3 %) 10.0 H Eosinophils % (0 - 5 %) 0.4 Basophils % (0.0 - 2.0 %) 0 Absolute Granulocytes (1.4 - 6.5 /CUMM) 6.8 H Absolute Lymphocytes (1.2 - 3.4 /CUMM) 0.6 L Absolute Monocytes (0.10 - 0.60 /CUMM) 0.8 H Absolute Eosinophils (0.0 - 0.7 /CUMM) 0 Absolute Basophils (0.0 - 0.2 /CUMM) 0 PUBS MCHC (33.0 - 37.0 G/DL) 32.8 L 08/03 08/02 0754 0805 Chemistry Sodium (137 - 145 mmol/L) 140 141 Potassium (3.5 - 5.1 mmol/L) 4.7 4.6 Chloride (98 - 107 mmol/L) 104 105 Carbon Dioxide (22 - 30 mmol/L) 24 21 L Anion Gap (5 - 16) 12 15 BUN (9 - 20 mg/dL) 38 H 34 H Creatinine (0.7 - 1.2 mg/dL) 1.0 1.2 Estimated GFR (>60 ml/min) > 60 58 L BUN/Creatinine Ratio (7 - 25 %) 38.0 H 28.3 H Total Bilirubin (0.2 - 1.3 mg/dL) 1.0 Direct Bilirubin (< 0.4 mg/dL) 0.6 H AST (17 - 59 U/L) 333 H ALT (21 - 72 U/L) 512 H Alkaline Phosphatase (< 127 U/L) 149 H Total Protein (6.3 - 8.2 g/dL) 5.9 L Albumin (3.5 - 5.0 g/dL) 3.3 L Hematology CBC w Diff NO MAN DIFF REQ NO MAN DIFF REQ WBC (4.8 - 10.8 /CUMM) 7.9 8.2 RBC (4.70 - 6.10 /CUMM) 4.37 L 4.47 L Hgb (14.0 - 18.0 G/DL) 13.6 L 13.8 L Hct (42 - 52 %) 40.8 L 42.2 MCV (80.0 - 94.0 FL) 93.4 94.4 H MCH (27.0 - 31.0 PG) 31.1 H 30.8 RDW (11.5 - 14.5 %) 15.8 H 15.5 H Plt Count (130 - 400 /CUMM) 179 180 MPV (7.4 - 10.4 FL) 9.5 9.3 Gran % (42.2 - 75.2 %) 77.7 H 78.4 H Lymphocytes % (20.5 - 51.1 %) 9.5 L 11.4 L Monocytes % (1.7 - 9.3 %) 12.0 H 9.8 H Eosinophils % (0 - 5 %) 0.7 0.4 Basophils % (0.0 - 2.0 %) 0.1 0 Absolute Granulocytes (1.4 - 6.5 /CUMM) 6.1 6.4 Absolute Lymphocytes (1.2 - 3.4 /CUMM) 0.7 L 0.9 L Absolute Monocytes (0.10 - 0.60 /CUMM) 0.9 H 0.8 H Absolute Eosinophils (0.0 - 0.7 /CUMM) 0.1 0 Absolute Basophils (0.0 - 0.2 /CUMM) 0 0 PUBS MCHC (33.0 - 37.0 G/DL) 33.3 32.6 L Imaging/Other Studies: Echo 08/01/17: CONCLUSIONS 1. This was a technically difficult examination. 2. Moderate aortic sclerosis is present with minimal to mild aortic insufficiency. 3. Mitral leaflet thickening is present with anular calcification and moderate to moderately severe mitral insufficiency with mild left atrial enlargement. 4. There is no significant pericardial fluid present. 5. The left ventricular chamber is upper normal in size with global hypokinesia which is worse in the inferoposterior / inferolateral and anteroapical segments with an ejection fraction of 25-30%. 6. Enlargment of the right heart chambers is present with moderate tricuspid insufficiency, mild to moderate pulmonic insufficiency, enlargement of the IVC and pulmonary hypertension with an estimated RV systolic pressure of 60 mmHg. SERVICE DATE: 08/01/17- EXAM TYPE: CAT - CT ABD & PELVIS W/O IV CONTRAS EXAMINATION: CT ABDOMEN AND PELVIS WITH CONTRAST CLINICAL INFORMATION: Nausea. Lung cancer. COMPARISON: Multiple prior exams are reviewed. The most recent is from 07/28/2017. TECHNIQUE: Contiguous axial thin section helical images of the abdomen and pelvis were performed following the administration of 100 mL of intravenous Omnipaque 300. The data set was reformatted in the coronal and sagittal planes and reviewed on an independent workstation. DLP: 383 mGy-cm. FINDINGS: The visualized portions of the heart are enlarged, but stable. There is no pericardial effusion. There are right greater than left bilateral pleural effusions. There is associated bibasilar atelectasis. The liver is of normal size and attenuation without focal lesions nor intrahepatic biliary ductal dilation. There is the appearance of diffuse gallbladder wall thickening with a small amount of adjacent mesenteric fat stranding. The spleen and adrenal glands are unremarkable. There is diffuse fatty infiltration about the pancreas. Both kidneys are of normal size and attenuation without hydronephrosis or nephrolithiasis. Following the administration of IV contrast, prompt symmetric nephrograms are displayed. There is a small amount of free fluid within the upper abdomen. There is a small amount of left paracolic gutter fluid. There is neither mesenteric nor retroperitoneal lymphadenopathy. There is stable dilation to the infrarenal abdominal aorta. There is diffuse vascular calcification to the abdominal aorta and iliac arteries. There is extensive colonic diverticulosis without evidence of diverticulitis. Otherwise, unremarkable unopacified loops of small and large bowel are identified. There is a small amount of pelvic free fluid. The urinary bladder is unremarkable. There is neither pelvic nor inguinal lymphadenopathy. Bone windows: Neither sclerotic nor lytic bone lesions are identified. There is multilevel disc height loss with osteophyte formation. IMPRESSION: Diffuse gallbladder wall thickening without discernible cholelithiasis. There is adjacent mesenteric fat stranding. Recommendation is for correlation with a right upper quadrant ultrasound for further characterization of the gallbladder wall. Small amount of abdominal and pelvic free fluid. Small bilateral pleural effusions with associated airspace disease. Extensive colonic diverticulosis without evidence of diverticulitis. SERVICE DATE: 08/02/17 EXAM TYPE: US - US-LIMITED ABDOMEN EXAMINATION: US ABDOMEN LIMITED CLINICAL INFORMATION: Right upper quadrant pain. Assess for gallstones/cholecystitis. COMPARISON: CT scan of the abdomen and pelvis 08/01/2017. TECHNIQUE: Real-time imaging of the right upper quadrant abdominal viscera. FINDINGS: PANCREAS: The visualized pancreatic head and body are normal in appearance. The remainder of the pancreas is obscured from visualization by the overlying bowel gas. LIVER: The liver demonstrates normal size, contour and echogenicity. No focal lesion or intrahepatic biliary duct dilatation. GALLBLADDER: The gallbladder areas distended. The gallbladder wall is thickened to 1.2 cm and there is fluid in the wall. There is pericholecystic fluid. There are no echogenic gallbladder calculi. The patient was not tender in the right upper abdomen. COMMON BILE DUCT: Normal in caliber measuring 0.3 cm in diameter. RIGHT KIDNEY: There is no hydronephrosis. There are no renal calculi or focal parenchymal lesions. The kidney measures 10.7 cm in maximum dimension. FREE FLUID: There is a right pleural effusion and there is a small amount of perihepatic fluid. IMPRESSION: 1. The gallbladder wall is thickened and there is fluid in the wall. There is also fluid in the pericholecystic region. There are no echogenic gallbladder calculi. 2. There is a small amount of perihepatic fluid end there is a small right pleural effusion. Assessment/Plan Assessment/Recommendations: Assessment: Mr. Jenkins is an 81 year old male with lung ca s/p tx with xrt, chemo and cyberknife therapy who has been admited for the past week with SOB/MELO which has been improving with antibiotics, nebulizer treatments, steroids and now diuresis who has been noted to have increased LFTs and a thickened GB on US and ct scan without gallstones. While he does have some pericholecystic fluid and a thick gallbladder wall which could be indicative of acalculous cholecystistis his symptoms are now suggestive of this as he is without any signficant RUQ pain with eating and his PE is also not consistent with cholecystitis. I feel the increased LFTs and ct scan/US findings are both likely a result of passive congetstion from CHF especially considering the echo findings that show elevated right sided heart pressures. His LFTs are now also improving with diuresis which also supports CHF as a cause of his increased LFTs. Recommendations: 1. Treatment of PNA/COPD/CHF as per primary care team, pulmonay and cardiology recommendations. 2. Follow daily LFTs with continued diuresis 3. If pt develops symptoms consistent with biliary colic or if he develops signs of an infection without another possible source (ie. his lungs) would then call a surgical consult and would give consideation for a CCY if he is a surgical candidate or a cholecystostomy tube if he isn't but I don't this is warranted now based on his current physical exam an complaints. I will continue to follow this patient and make further recommendations based on his clinical course and results of repeat blood work with continued diuresis. Consult Acknowledgment - Thank you for your consult request.
[2017-08-04] MEDS ORDERED: TRAZODONE HCL50 M1 PO (14:32)
--- NOTE | 2017-08-04 14:40 | PN- Cardiology ---
Subjective Subjective: Feeling much better today. Respiratory status improving. GI symptoms resolved with discontinuation of Rocephin Objective Vital Signs and I&Os Vital Signs Date Time Temp Pulse Resp B/P B/P Pulse O2 O2 Flow FiO2 Mean Ox Delivery Rate 08/04 1119 Nasal 2.0L Cannula 08/04 1102 93 Nasal 2.0L Cannula 08/04 1036 110/70 08/04 1035 110/70 08/04 0800 Nasal 2.0L Cannula 08/04 0628 96.1 78 22 128/60 93 Nasal Cannula 08/04 0000 Nasal 2.0L Cannula 08/03 2300 98.6 75 20 100/50 94 Nasal 2.0L Cannula 08/03 2206 98.8 98 20 92 Nasal 2.0L Cannula 08/03 2112 85 20 102/56 08/03 1955 92 Nasal 2.0L Cannula Intake & Output 08/04 1600 08/04 0800 08/04 0000 08/03 1600 08/03 0800 08/03 0000 Intake Total 800 300 600 240 240 Output Total Balance 800 300 600 240 240 Intake, Oral 800 300 600 240 240 Current Medications: Current Medications Sig/Dominique Start time Last Medication Dose Route Stop Time Status Admin Acetaminophen 650 MG Q6P PRN 07/29 0200 AC PO Acetaminophen 1,000 MG Q6P PRN 07/29 0200 AC IV Albuterol Sulfate 3 ML BID 07/29 1000 AC 08/04 INH 1059 Furosemide 20 MG DAILY 08/04 1000 AC 08/04 PO 1147 Furosemide 20 MG DAILY 08/03 1030 DC 08/03 IV 1344 Heparin Sodium 5,000 UNIT Q8 08/01 1623 AC 08/04 (Porcine) SC 0554 Lisinopril 2.5 MG DAILY 08/02 1500 AC 08/04 PO 1035 Metoprolol Tartrate 25 MG BID 07/28 2200 AC 08/04 PO 1036 Morphine Sulfate 1 MG Q6-PRN PRN 07/29 0200 AC IV Moxifloxacin HCl 400 MG DAILY 08/03 1000 DC 08/03 PO 08/04 1001 1331 Omeprazole 40 MG DAILY AC 07/29 0700 AC 08/04 PO 0554 Prednisone 30 MG DAILY 08/04 1000 AC 08/04 PO 08/05 1001 1034 Simethicone 80 MG Q6P PRN 07/30 1030 AC PO Trazodone HCl 50 MG AT BEDTIME NEED.. 07/29 0200 AC 08/01 PO 2105 Results Last 48 Hrs of Labs/Mics: Laboratory Tests 08/04/17 0836: CBC w Diff NO MAN DIFF REQ, RBC 4.64 L, MCV 94.1 H, MCH 30.9, RDW 15.3 H, MPV 9.3, Gran % 82.4 H, Lymphocytes % 7.2 L, Monocytes % 10.0 H, Eosinophils % 0.4, Basophils % 0, Absolute Granulocytes 6.8 H, Absolute Lymphocytes 0.6 L, Absolute Monocytes 0.8 H, Absolute Eosinophils 0, Absolute Basophils 0, PUBS MCHC 32.8 L 08/04/17 0815: Anion Gap 11, Estimated GFR > 60, BUN/Creatinine Ratio 35.6 H, Total Bilirubin 0.9, Direct Bilirubin 0.5 H, AST 129 H, ALT 368 H, Alkaline Phosphatase 137 H, Total Protein 6.0 L, Albumin 3.4 L 08/03/17 0754: Anion Gap 12, Estimated GFR > 60, BUN/Creatinine Ratio 38.0 H, Total Bilirubin 1.0, Direct Bilirubin 0.6 H, AST 333 H, ALT 512 H, Alkaline Phosphatase 149 H, Total Protein 5.9 L, Albumin 3.3 L, CBC w Diff NO MAN DIFF REQ, RBC 4.37 L , MCV 93.4, MCH 31.1 H, RDW 15.8 H, MPV 9.5, Gran % 77.7 H, Lymphocytes % 9.5 L, Monocytes % 12.0 H, Eosinophils % 0.7, Basophils % 0.1, Absolute Granulocytes 6.1, Absolute Lymphocytes 0.7 L, Absolute Monocytes 0.9 H, Absolute Eosinophils 0.1, Absolute Basophils 0, PUBS MCHC 33.3 Assessment/Plan Assessment/Plan assessment: 1. Worsening shortness of breath, likely multifactorial-at the present time, it would appear that the patient's shortness of breath is likely related to multiple factors including lung cancer, underlying pulmonary disease, pleural effusions, etc. In addition, the possibility of worsening left ventricular function contributing to his symptoms and/or the possibility of underlying ischemia due to progressive coronary disease are also possibly playing a role here. 2. Bilateral pleural effusions 3. Lung cancer 4. Worsening left ventricular function by echocardiogram 5. History of known coronary artery disease-the patient had a cardiac catheterization performed in 2006. At that time, his LAD was normal. He had a 70% proximal M1 stenosis. A 30-50% proximal right coronary lesion was noted. 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 6. History of carotid artery disease, status post endarterectomy 7. History of peripheral arterial disease 8. Anorexia and nausea with evidence of gallbladder wall thickening on CT and ultrasound. Recommendations: -continue current medications for now. -In the absence of overt heart failure, I am not sure whether adding a low-dose diuretic might help, however, in the absence of any other options that might be worthwhile to try adding Lasix 20 mg daily to his regimen with monitoring of his intakes, outputs, daily weights, etc. -In view of his worsening left ventricular function and history of known coronary disease by prior cardiac cath, further evaluation would be prudent to exclude coronary artery disease as contributing to his issues. I discussed this in detail with the family today. The patient has had major issues with pharmacologic stress testing before and they would actually prefer to proceed to cardiac catheterization. -From a cardiac standpoint, I believe the patient is stable to be discharged to rehabilitation on his current medical regimen. I will meet with the family in one to 2 weeks and we can set up his cardiac cath as an outpatient. -Continue current pulmonary management -GI input pending
[2017-08-04 15:33] VITALS: BP 110/70
== END 2017-08-04 15:35 | DRG 193 ==
LOC: ERH 11:48 → ERHI 18:40 → 2NA 18:40 → ENRESERV 19:32 → ENTRNSPT 20:38 → EDTRNSPT 20:55 → EDTRNSPTSTS 20:55 → CMPTRNSPT 21:08 → 2NA 21:44
PROVIDERS: Physician Assistant Medical; Student in an Organized Health Care Education/Training Program
DX: J18.9 Pneumonia, unspecified organism (principal); J96.01 Acute respiratory failure with hypoxia; J44.0 Chronic obstructive pulmonary disease with (acute) lower respiratory infection; C34.11 Malignant neoplasm of upper lobe, right bronchus or lung; E87.5 Hyperkalemia; I42.9 Cardiomyopathy, unspecified; I50.22 Chronic systolic (congestive) heart failure; J44.1 Chronic obstructive pulmonary disease with (acute) exacerbation; C34.92 Malignant neoplasm of unspecified part of left bronchus or lung; J90 Pleural effusion, not elsewhere classified; I11.0 Hypertensive heart disease with heart failure; I08.0 Rheumatic disorders of both mitral and aortic valves; I73.9 Peripheral vascular disease, unspecified; Z87.891 Personal history of nicotine dependence; K21.9 Gastro-esophageal reflux disease without esophagitis
CPT/HCPCS: 2NAP; 87075; 36415; 71045; 74176; 81001; 82436; 87070; 87449; 87450; 87804; 87804-59; 93005; 93010; 93306; 96374; 96375; 97110-GO; 97116-GO; 97161-GP; 97530-GO; J0456; J0696; J1644; J1815; J1940; J2920; J2930; J3250; J7040; J7512

== ENCOUNTER 2017-08-26 11:01 | Inpatient (IN) | payer OTHER ==
[~2017-08-26] VITALS: Ht 182.9 cm; Wt 80.9 kg
[~2017-08-26 11:01] MED LIST changes: +ALBUTEROL2.5 MG/3 M INH; +FUROSEMIDE20 M1 PO; +LISINOPRIL2.5 M1 PO; +PREDNISONE10 M2 PO; +SIMETHICONE80 M1 PO; +TRAZODONE HCL50 M1 PO; +VITAMIN D1000 UNIT PO
[2017-08-26 12:09] LABS: ABSOLUTE BASOPHIL COUNT 0 /CUMM (0.0-0.2); ABSOLUTE EOSINOPHIL COUNT 0.1 /CUMM (0.0-0.7); ABSOLUTE GRANULOCYTE CT 4.1 /CUMM (1.4-6.5); ABSOLUTE MONOCYTE COUNT 0.9 /CUMM (0.10-0.60); BASOPHIL % 0.2 % (0.0-2.0); EOSINOPHIL % 2.2 % (0-5); GRANULOCYTE % 66.6 % (42.2-75.2); HEMATOCRIT 41.3 % (42-52); MEAN CORPUSCULAR HGB 29.9 PG (27.0-31.0); MEAN CORPUSCULAR HGB CONC 32.2 G/DL (33.0-37.0); MEAN CORPUSCULAR VOLUME 93.1 FL (80.0-94.0); MEAN PLATELET VOLUME 9.4 FL (7.4-10.4); PLATELET COUNT 314 /CUMM (130-400); RBC DISTRIBUTION WIDTH 14.7 % (11.5-14.5); RED BLOOD CELL CT 4.44 /CUMM (4.70-6.10); WHITE BLOOD CELL COUNT 6.1 /CUMM (4.8-10.8)
--- NOTE | 2017-08-26 12:23 | ED DYSPNEA/ASTHMA COMPLAINT ---
See Addendum History of Present Illness General Chief Complaint: Dyspnea (COPD, CHF, Other) Stated Complaint: SOB RAPID HR Source: patient, family, old records, EMS Exam Limitations: no limitations Vital Signs & Intake/Output Vital Signs & Intake/Output Vital Signs Date Time Temp Pulse Resp B/P B/P Pulse O2 O2 Flow FiO2 Mean Ox Delivery Rate 08/26 1629 98.0 128 24 98/68 97 Nasal 2.0L Cannula 08/26 1412 96.0 120 18 98/66 94 Nasal 2.0L Cannula 08/26 1330 97.5 128 24 101/56 99 Nasal 2.0L Cannula 08/26 1140 98.4 120 18 90/52 96 Nasal 6.0L Cannula 08/26 1130 100 Nasal 2.0L Cannula 08/26 1119 97 Nasal 3.0L Cannula 08/26 1111 98.6 127 24 84/55 99 Nasal 3.0L Cannula Allergies Coded Allergies: animal dander (Severe, EYES REDDENED, HIVES 07/28/17) Penicillins (Intermediate, RASH 07/21/16) Reconcile Medications Acetaminophen (Masophen) 325 MG TABLET 2 TAB PO Q4H PRN PAIN/TEMP (Reported) Albuterol Sulfate (Proair Hfa) 90 MCG HFA.AER.AD 2 PUF INH Q4H PRN WHEEZE ( Reported) Cholecalciferol (Vitamin D3) (Vitamin D) 1,000 UNIT TABLET 1 TAB PO DAILY SUPPLEMENT (Reported) Clopidogrel Bisulfate (Clopidogrel) 75 MG TABLET 1 TAB PO DAILY BLOOD THINNER (Reported) Furosemide 20 MG TABLET 1 TAB PO DAILY CHF Lisinopril 2.5 MG TABLET 1 TAB PO DAILY HEART FAILURE Metoprolol Succ XL (Toprol XL) 25 MG TAB 1 TAB PO DAILY HEART/BP (Reported) Multivit-Min/FA/Lycopen/Lutein (Centrum Silver Tablet) 0.4 MG-300 MCG-250 MCG TABLET 1 TAB PO DAILY VITAMIN SUPPORT (Reported) Pantoprazole Sodium 40 MG TABLET.DR 1 TAB PO DAILY GI (Reported) Simethicone 80 MG TAB.CHEW 1 TAB PO Q6H PRN GAS (Reported) Triage Note: 81 YO MALE PITA FROM HOME. PT HX OF RECENT PNA, WAS ADMITTED AND SENT TO REHAB FOR 20 DAYS. PT STATES HE WAS ONLY HOME FOR A COUPLE DAYS AND HIS VISITING NURSE CAME TO SEE HIM AND NOTICIED HIM TO BE IN RAPID AFIB, HAS BEEN HOLDING MOTOPROL D/T LOW BLOOD PRESSURE. PT ARRIVES TACHYNPNIC, ON 3L OXYGEN AT BASELINE. HR 120S. PT WAS GIVEN 5MG METOPROL IN ROUTE TO ER. BP 84/54 MANUALLY. MD AT BEDSIDE FOR EVAL. PT STATES +BROWN SPUTUM PRODUCTION. Triage Nurses Notes Reviewed? yes Onset: Last week Duration: day(s):, constant, continues in ED Timing: recent history Severity: moderate, severe Activities at Onset: none Prior Episodes/Possible Cause: illness exposure Modifying Factors: Improves With: rest. Worsens With: movement. Associated Symptoms: cough, weakness HPI: 1 month prior to admission patient was admitted for community-acquired pneumonia and discharged to short-term rehabilitation. 1 week prior to admission patient was discharged from short-term rehabilitation to home. Since this time he has been having increased dyspnea on exertion shortness of breath productive cough of brown sputum weakness and loss of appetite. There has been no fever chills nausea vomiting diarrhea chest pain headache dysuria rash bleeding. He has had low blood pressures and metoprolol was withheld. Prior to admission he received 5 mg IV Lopressor for tachycardia resulting in hypotension. Past History Travel History Traveled to [place] past 21 day No Medical History Any Pertinent Medical History? 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 No Review of Systems Review of Systems Constitutional: Reports: see HPI, malaise, weakness. EENTM: Reports: no symptoms. Respiratory: Reports: see HPI, cough, short of breath, sputum production. Cardiovascular: Reports: no symptoms. GI: Reports: no symptoms. Genitourinary: Reports: no symptoms. Musculoskeletal: Reports: no symptoms. Skin: Reports: no symptoms. Neurological/Psychological: Reports: no symptoms. Hematologic/Endocrine: Reports: no symptoms. Immunologic/Allergic: Reports: no symptoms. All Other Systems: Reviewed and Negative Physical Exam Physical Exam General Appearance: well developed/nourished, alert, awake, anxious, severe distress Head: atraumatic, normal appearance Eyes: Bilateral: normal appearance, PERRL, EOMI. Ears, Nose, Throat: normal pharynx, normal ENT inspection, hearing grossly normal Neck: normal inspection, supple, full range of motion, no midline tenderness Respiratory: chest non-tender, decreased breath sounds, rales, respiratory distress Cardiovascular: regular rate/rhythm, normal peripheral pulses, tachycardia, norml femoral pulses equa Peripheral Pulses: 4+ carotid (R), 4+ carotid (L) Gastrointestinal: normal bowel sounds, soft, non-tender, no organomegaly Extremities: normal inspection, normal capillary refill, normal range of motion, no edema, no ligament instability Neurologic/Psych: no motor/sensory deficits, awake, alert, oriented x 3, normal gait, normal mood/affect, 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 No CVA/TIA Diagnosis No Sepsis Present: Yes Sepsis Focused Exam Completed? Yes Progress Differential Diagnosis: AMI, CHF, COPD, pneumonia, pneumothorax Plan of Care: Orders Procedure Date/time Status Heart Healthy Diet 08/26 D Active Patient Data 08/26 1536 Active OXYGEN SETUP (GEN) 08/26 1437 Active Saline Lock 08/[address] in observation 08/26 1437 Active Vital Signs 08/26 1437 Active Activity/Ambulation 08/26 1437 Active Code Status 08/26 1437 Active LACTIC ACID 08/26 1428 Active LACTIC ACID 08/26 1128 Complete TROPONIN LEVEL 08/26 1114 Complete PROTHROMBIN TIME 08/26 1114 Complete MAGNESIUM 08/26 1114 Complete COMPREHENSIVE METABOLIC PANEL 08/26 1114 Complete CBC WITHOUT DIFFERENTIAL 08/26 1114 Complete B-TYPE NATRIURETIC PEP (BNP) 08/26 1114 Complete Intake & Output 08/26 1112 Active EKG 08/26 1105 Active Laboratory Tests 08/26/17 1625: Lactic Acid Pending 08/26/17 1308: Lactic Acid 3.7 H, PT 14.9 H, INR 1.42 H 08/26/17 1150: Anion Gap 18 H, Estimated GFR > 60, BUN/Creatinine Ratio 28.9 H, Glucose 142 H, Calcium 8.8, Magnesium 2.0, Total Bilirubin 0.5, AST 28, ALT 28, Alkaline Phosphatase 109, Troponin I 0.06, [id number]-Aupujuwuhnn Pept 7760 H, Total Protein 6.2 L, Albumin 3.4 L, Globulin 2.8, Albumin/Globulin Ratio 1.2, CBC w Diff NO MAN DIFF REQ, RBC 4.44 L, MCV 93.1, MCH 29.9, MCHC 32.2 L, RDW 14.7 H, MPV 9.4, Gran % 66.6, Lymphocytes % 16.6 L, Monocytes % 14.4 H, Eosinophils % 2.2, Basophils % 0.2, Absolute Granulocytes 4.1, Absolute Lymphocytes 1.0 L, Absolute Monocytes 0.9 H, Absolute Eosinophils 0.1, Absolute Basophils 0 Diagnostic Imaging: Viewed by Me: Radiology Read. Discussed w/RAD: Radiology Read. CXR Impression: 1. No significant change as compared to the prior study. 2. Persistent trace right pleural effusion, spiculated masslike opacity in the right midlung, and soft tissue fullness surrounding the surgical clips in the right upper lobe. 3. Unchanged pleural-parenchymal opacity in the left midlung with elevation of the left hemidiaphragm 4. Cardiomegaly, unchanged Initial ED EKG: normal p-waves, RBBB, no ST T wave changes Prior EKG: unchanged Rhythm Strip: sinus tachycardia Departure Departure Disposition: STILL A PATIENT Condition: Stable Clinical Impression Primary Impression: Lactic acidosis Secondary Impressions: COPD with exacerbation, History of lung cancer, Hyperkalemia, Pneumonia Referrals: Barbara ULRICH,Stalin Montoya (PCP/Family) Departure Forms: Customer Survey General Discharge Information Admission Note Documentation of Exam: Documentation of any treatments & extenuating circumstances including Concerns Regarding Discharge (functional status, medication knowledge or non-compliance, living conditions, etc.) that warrant an admission rather than observation: Observation Note Spoke With: Perico ULRICH,Symone Physician Advisor Notified: LUNA FARIAS DO Place Patient In: Non-ED OBS Care Area Rationale for Observation: My rational for observation is as follows IV antibiotics IV steroids supplemental oxygen serial beta agonist nebs medication adjustment follow cultures oncology evaluation pulmonary evaluation continuing care discharge planning. ED Sepsis Exam Date of Focused Sepsis Exam: 08/26/17 Time of Focused Sepsis Exam: 1521 Sepsis Cardiac Exam: Tachycardia Sepsis Resp Exam: Rales Sepsis Cap Refill Exam: <2 Sec Sepsis Peripheral Pulse Exam: Normal Sepsis Peripheral Pulse Location: Radial Sepsis Skin Color Exam: Normal for Ethnicity Skin Temp/Moisture Exam: Warm/Dry Critical Care Note Critical Care Note Critical Care Time: 30-74 min (40)
[2017-08-26] MEDS ORDERED: TOPROL XL25 M1 PO (13:11)
[2017-08-26] MEDS ORDERED: MASOPHEN325 MG PO (13:14)
[2017-08-26] MEDS ORDERED: SIMETHICONE80 M1 PO (13:14)
[2017-08-26] MEDS ORDERED: PROAIR HFA8.5 GM INH (13:15)
--- NOTE | 2017-08-26 13:18 | RADIOLOGY REPORT ---
EXAMINATION: XR PORTABLE CHEST CLINICAL INFORMATION: Shortness of breath. Cough. COMPARISON: 08/02/2017 TECHNIQUE: Portable frontal view of the chest was obtained. FINDINGS: Cardiomediastinal silhouette remains enlarged. Again seen is an ill-defined opacity in the right midlung which likely corresponds to the spiculated mass seen on the prior studies. Soft tissue fullness around the surgical clips in the right upper lobe is again noted. The scarlike opacity in the left midlung at the hilum extends to the lateral pleural surface and appears unchanged. There is persistent elevation of left hemidiaphragm. Trace right pleural effusion is present no pneumothorax. Pulmonary vasculature is unremarkable. No acute osseous abnormalities. IMPRESSION: 1. No significant change as compared to the prior study. 2. Persistent trace right pleural effusion, spiculated masslike opacity in the right midlung, and soft tissue fullness surrounding the surgical clips in the right upper lobe. 3. Unchanged pleural-parenchymal opacity in the left midlung with elevation of the left hemidiaphragm 4. Cardiomegaly, unchanged
[2017-08-26 13:26] LABS: PT 14.9 SEC (9.4-12.5)
--- NOTE | 2017-08-26 18:20 | PN- Att Addend ---
Attending Addendum Attending Brief Note 81-year-old male with past medical history significant for lung cancer in the past treated with chemotherapy/radiation as well as CyberKnife, aortic aneurysm, coronary artery disease, cardio myopathy, peripheral vascular disease, COPD with a recent admission to [facility] with acute respiratory failure secondary to pneumonia, worsening of ejection fraction and found to have cardiomyopathy was recently discharged from rehabilitation. Patient presenting with increasing shortness of breath. He is feeling overall weak and has very poor appetite. Patient's claims that he was never good enough after his discharge from the hospital. He has been coughing which is mostly dry. He does complain of shortness of breath and dyspnea on exertion. Denies any fevers or chills. Denies any palpitations. Not feeling well at all. Patient denies any weight gain or any lower extremity edema. Patient was discharged on low-dose Lasix last time and he has been taking that. Vital Signs Date Time Temp Pulse Resp B/P B/P Pulse O2 O2 Flow FiO2 Mean Ox Delivery Rate 08/26 1629 98.0 128 24 98/68 97 Nasal 2.0L Cannula 08/26 1412 96.0 120 18 98/66 94 Nasal 2.0L Cannula 08/26 1330 97.5 128 24 101/56 99 Nasal 2.0L Cannula 08/26 1140 98.4 120 18 90/52 96 Nasal 6.0L Cannula 08/26 1130 100 Nasal 2.0L Cannula 08/26 1119 97 Nasal 3.0L Cannula 08/26 1111 98.6 127 24 84/55 99 Nasal 3.0L Cannula on exam; aox3, mild distress. cv; s1,s2, rrr, tachycardia resp; + Crackles b/l upto mid lungs. abd; soft, nt,bs+ ext; no edema. Laboratory Tests 08/26 08/26 08/26 1753 1625 1308 Chemistry Sodium (137 - 145 mmol/L) 137 Potassium (3.5 - 5.1 mmol/L) 5.4 H Chloride (98 - 107 mmol/L) 98 Carbon Dioxide (22 - 30 mmol/L) 21 L Anion Gap (5 - 16) 17 H BUN (9 - 20 mg/dL) 27 H Creatinine (0.7 - 1.2 mg/dL) 0.9 Estimated GFR (>60 ml/min) > 60 BUN/Creatinine Ratio (7 - 25 %) 30.0 H Lactic Acid (0.7 - 2.1 mmol/L) 2.4 H 3.7 H Troponin I (<0.11 ng/ml) Pending Coagulation PT (9.4 - 12.5 SEC) 14.9 H INR (0.90 - 1.17) 1.42 H 08/26 1150 Chemistry Sodium (137 - 145 mmol/L) 138 Potassium (3.5 - 5.1 mmol/L) 5.9 H Chloride (98 - 107 mmol/L) 98 Carbon Dioxide (22 - 30 mmol/L) 22 Anion Gap (5 - 16) 18 H BUN (9 - 20 mg/dL) 26 H Creatinine (0.7 - 1.2 mg/dL) 0.9 Estimated GFR (>60 ml/min) > 60 BUN/Creatinine Ratio (7 - 25 %) 28.9 H Glucose (65 - 99 mg/dL) 142 H Calcium (8.4 - 10.2 mg/dL) 8.8 Magnesium (1.6 - 2.3 mg/dL) 2.0 Total Bilirubin (0.2 - 1.3 mg/dL) 0.5 AST (17 - 59 U/L) 28 ALT (21 - 72 U/L) 28 Alkaline Phosphatase (< 127 U/L) 109 Troponin I (<0.11 ng/ml) 0.06 [id number] Pept (<125 pg/mL) 7760 H Total Protein (6.3 - 8.2 g/dL) 6.2 L Albumin (3.5 - 5.0 g/dL) 3.4 L Globulin (1.9 - 4.2 gm/dL) 2.8 Albumin/Globulin Ratio (1.1 - 2.2 %) 1.2 Hematology CBC w Diff NO MAN DIFF REQ WBC (4.8 - 10.8 /CUMM) 6.1 RBC (4.70 - 6.10 /CUMM) 4.44 L Hgb (14.0 - 18.0 G/DL) 13.3 L Hct (42 - 52 %) 41.3 L MCV (80.0 - 94.0 FL) 93.1 MCH (27.0 - 31.0 PG) 29.9 MCHC (33.0 - 37.0 G/DL) 32.2 L RDW (11.5 - 14.5 %) 14.7 H Plt Count (130 - 400 /CUMM) 314 MPV (7.4 - 10.4 FL) 9.4 Gran % (42.2 - 75.2 %) 66.6 Lymphocytes % (20.5 - 51.1 %) 16.6 L Monocytes % (1.7 - 9.3 %) 14.4 H Eosinophils % (0 - 5 %) 2.2 Basophils % (0.0 - 2.0 %) 0.2 Absolute Granulocytes (1.4 - 6.5 /CUMM) 4.1 Absolute Lymphocytes (1.2 - 3.4 /CUMM) 1.0 L Absolute Monocytes (0.10 - 0.60 /CUMM) 0.9 H Absolute Eosinophils (0.0 - 0.7 /CUMM) 0.1 Absolute Basophils (0.0 - 0.2 /CUMM) 0 EKG>> Sinus tach. CXR: IMPRESSION: 1. No significant change as compared to the prior study. 2. Persistent trace right pleural effusion, spiculated masslike opacity in the right midlung, and soft tissue fullness surrounding the surgical clips in the right upper lobe. 3. Unchanged pleural-parenchymal opacity in the left midlung with elevation of the left hemidiaphragm 4. Cardiomegaly, unchanged. A/P; 81-year-old male with past medical history significant for lung cancer in the past treated with chemotherapy/radiation as well as CyberKnife, aortic aneurysm, coronary artery disease, cardio myopathy, peripheral vascular disease, COPD with a recent admission to [facility] with acute respiratory failure secondary to pneumonia, worsening of ejection fraction and found to have cardiomyopathy was recently discharged from rehabilitation, now presenting with increasing shortness of breath, sinus tachycardia and high lactate levels. He is also hyperkalemic. Patient is admitted to telemetry. Please trend troponins. Patient was recently hospitalized therefore will cover with broad-spectrum antibiotics for possible pneumonia. Blood pain sputum culture, blood cultures. Unfortunately blood cultures were not drawn in the emergency room therefore we need to order them. We will trend lactate. Patient needs cardiology and pulmonary consults. Will obtain CT chest to rule out PE. Patient is significantly tachycardic and hypoxic and has a history of malignancy. We'll continue the rest of his cardiac medications. DVT px; Lovenox. Full code. Patient's CTA chest came back + for PE. This explains his hypoxia, tachycardia. At this point patient will be anticoagulated with IV heparin. Pulm consult will be obtained. Patient afebrile, no leukocytosis, will hold off on abx and follow up cx. Please follow cardiology recommendations for tachycardia.
--- NOTE | 2017-08-26 18:21 | CT SCAN REPORT ---
EXAMINATION: CT ANGIOGRAM OF THE CHEST WITH CONTRAST (CT PULMONARY ANGIOGRAM FOR PE) CLINICAL INFORMATION: Shortness of breath and tachycardia COMPARISON: 01/17/2017, 06/13/2017 and 07/28/2017 TECHNIQUE: Prior to contrast administration, noncontrast localization images were obtained. Subsequently, multidetector volumetric imaging was performed from the thoracic inlet to below the diaphragms following the administration of 95 mL Optiray 350 intravenous contrast. No contrast reaction reported. Sagittal, coronal, and MIP oblique sagittal reformatted images were obtained on the CT workstation, uploaded to PACS, and reviewed. Total exam dose-length product 601 mGy-cm FINDINGS: QUALITY OF STUDY/CONTRAST BOLUS: Satisfactory. PULMONARY ARTERIES: Compared to 07/28/2017, there is a new embolic filling defect within the segmental branch to the superior segment of the left lower lobe. There is suboptimal opacification of subsegmental vessels in the inferior aspect of the left lower lobe. THORACIC AORTA: Atherosclerotic calcification of the thoracic aorta without aneurysm. LUNGS AND PLEURA: Severe centrilobular emphysema. 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 Associated mild volume loss in the right upper lobe with upward retraction of the minor fissure. Persistent consolidation with air bronchograms in the right lower lobe, similar in appearance compared to 07/28/2017, and more consolidated in appearance compared to 06/13/2017. This consolidation occupies an area measuring approximately 4.5 cm. Moderate right pleural effusion is unchanged. Persistent curvilinear, bandlike opacity (appearance of fibrosis and/or atelectasis) in the posterior right lower lobe with surrounding groundglass attenuation. 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 Small left pleural effusion appears partially loculated, similar in size compared to 07/28/2017. No pneumothorax. MEDIASTINUM: Cardiomegaly with multichamber cardiac enlargement. Atherosclerotic calcification of coronary arteries. No pericardial effusion. No evidence of septal bowing. The esophagus is grossly unremarkable. Thyroid gland is atrophied. LYMPHATICS: No axillary lymphadenopathy. Also, no bulky hilar lymphadenopathy. Stable appearance of mild mediastinal lymphadenopathy. UPPER ABDOMEN: Adrenal glands are unremarkable. Atherosclerotic calcification of the visualized abdominal aorta and splenic artery. There is contrast reflux into the inferior vena cava. Multiple diverticula of the colon. Pancreas is atrophied and partially replaced with fat. OSSEOUS STRUCTURES: No acute findings within the extensively degenerated spine. No aggressive osseous lesions. Old, healed fracture of right anterior third rib. No acute, displaced rib fractures. IMPRESSION: 1. Compared to 07/28/2017, there is a new embolic filling defect within the branch to the superior segment of the left lower lobe. 2. Severe centrilobular emphysema. 3. Multilobar pulmonary abnormalities remain similar in appearance compared to 07/28/2017. Also, the pleural effusions (right larger than left) have not significantly changed in size compared to 07/28/2017. The critical test result was discussed with Dr Salmon at 6:13 pm on 08/26/2017 and it was ascertained that the content and the importance of the findings was understood at the time of the direct communication.
--- NOTE | 2017-08-26 18:30 | History & Physical ---
Donis Adamson 08/26/17 1829: General Information and HPI MD Statement: I have seen and personally examined XIN LIM SR and documented this H&P. The patient is a 81 year old M who presented with a patient stated chief complaint of []. Source of Information: patient, family Exam Limitations: no limitations, unable to give history, patient's age History of Present Illness: 81-year-old with hx of smoker, advanced lung cancer with chemotherapy and 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 Pat, abdominal aortic aneurysm, emphysema and COPD was recently discharged from the [facility] for possible pneumonia and COPD exacerbation on 2 L and also EF of 30% to half-way came back, from home with chief complaint of rapid heart rate and shortness of breath with productive cough. In last admission patient echocardiogram showed EF of 25-30%, he was supposed to follow-up in an outpatient setting for cardiac catheterization after regaining his strength in half-way. After being discharged from half-way couple of days ago patient heart rate was elevated to 130s during the home stay and he also developed more productive cough with shortness of breath mostly on exertion and was advised to come to the hospital. Patient denies any nausea, vomiting, chest pain, abdominal pain, fevers, chills, recent sick contact. Upon arrival patient 2.5 L oxygen, heart rate 128, blood pressure 100/56 with no fever Labs notable hemoglobin 13.3 WBC 6.1, PLT 314, Potassium 5.9, sodium 138, BUN 26, anion gap 18, magnesium 2, lactic acid 3.7 and subsequently 2.4, troponin 0.06, BMP near 8000 CXR: 1. No significant change as compared to the prior study. 2. Persistent trace right pleural effusion, spiculated masslike opacity in the right midlung, and soft tissue fullness surrounding the surgical clips in the right upper lobe. 3. Unchanged pleural-parenchymal opacity in the left midlung with elevation of the left hemidiaphragm 4. Cardiomegaly, unchanged In the ED received 2 L of normal saline and TRC nebs with solumedrol IV cefazolin and vancomycin EKG showed tachycardia questionable atrial flutter with a sinus tachycardia with RBBB, 130 Allergies/Medications Allergies: Coded Allergies: animal dander (Severe, EYES REDDENED, HIVES 07/28/17) Penicillins (Intermediate, RASH 07/21/16) Home Med list Acetaminophen (Masophen) 325 MG TABLET 2 TAB PO Q4H PRN PAIN/TEMP (Reported) Albuterol Sulfate (Proair Hfa) 90 MCG HFA.AER.AD 2 PUF INH Q4H PRN WHEEZE ( Reported) Cholecalciferol (Vitamin D3) (Vitamin D) 1,000 UNIT TABLET 1 TAB PO DAILY SUPPLEMENT (Reported) Clopidogrel Bisulfate (Clopidogrel) 75 MG TABLET 1 TAB PO DAILY BLOOD THINNER (Reported) Furosemide 20 MG TABLET 1 TAB PO DAILY CHF Lisinopril 2.5 MG TABLET 1 TAB PO DAILY HEART FAILURE Metoprolol Succ XL (Toprol XL) 25 MG TAB 1 TAB PO DAILY HEART/BP (Reported) Multivit-Min/FA/Lycopen/Lutein (Centrum Silver Tablet) 0.4 MG-300 MCG-250 MCG TABLET 1 TAB PO DAILY VITAMIN SUPPORT (Reported) Pantoprazole Sodium 40 MG TABLET.DR 1 TAB PO DAILY GI (Reported) Simethicone 80 MG TAB.CHEW 1 TAB PO Q6H PRN GAS (Reported) Past History Travel History Traveled to [place] past 21 day No Medical History Neurological: NONE EENT: NONE Cardiovascular: aortic aneurysm, CAD, cardiomyopathy, PVD Respiratory: COPD, pneumonia Gastrointestinal: lower GI bleed Hepatic: NONE Renal: NONE Musculoskeletal: NONE Psychiatric: NONE Endocrine: NONE Blood Disorders: NONE Cancer(s): 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 spouse Services at Home: None Functional Ability ADLs Independent: dressing, eating, toileting, bathing. Ambulation: independent IADLs Independent: shopping, housework, finances, food prep, telephone, transportation , medication admin. Review of Systems Review of Systems Constitutional: Reports: see HPI. Exam & Diagnostic Data Last 24 Hrs of Vital Signs/I&O Vital Signs Date Time Temp Pulse Resp B/P B/P Pulse O2 O2 Flow FiO2 Mean Ox Delivery Rate 08/27 0920 120 96/72 08/27 0800 94 Nasal 2.0L Cannula 08/27 0758 119 96/72 08/27 0703 97.6 116 18 104/82 94 Nasal Cannula 08/27 0326 119 116/60 08/26 2236 97.0 118 18 108/70 96 Nasal Cannula 08/26 2149 125 118/76 08/26 2146 Nasal 2.0L Cannula 08/26 2137 125 110/76 08/26 2026 95 Nasal 2.0L Cannula 08/26 1849 97.9 129 18 100/62 95 Nasal Cannula 08/26 1629 98.0 128 24 98/68 97 Nasal 2.0L Cannula 08/26 1412 96.0 120 18 98/66 94 Nasal 2.0L Cannula 08/26 1330 97.5 128 24 101/56 99 Nasal 2.0L Cannula 08/26 1140 98.4 120 18 90/52 96 Nasal 6.0L Cannula 08/26 1130 100 Nasal 2.0L Cannula 08/26 1119 97 Nasal 3.0L Cannula 08/26 1111 98.6 127 24 84/55 99 Nasal 3.0L Cannula Intake & Output 08/27 1600 08/27 0800 08/27 0000 Intake Total 258 1368 Output Total 200 Balance 58 1368 Intake, IV 208 1128 Intake, Oral 50 240 Number 0 Bowel Movements Output, Urine 200 Patient 80.739 kg Weight Weight Chair scale Measurement Method Physical Exam General Appearance Alert, Oriented X3, Cooperative, No Acute Distress Skin Temp/Moisture Exam: Warm/Dry Cardiovascular tachycardia Lungs decreased breath should bilaterally in the bases with bilateral crackles up to middle of bnoth lungs Abdomen Normal Bowel Sounds, Soft Extremities No Edema Assessment/Plan Assessment: 81-year-old with hx of smoker, advanced lung cancer with chemotherapy and 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 Pat, abdominal aortic aneurysm, emphysema and COPD was recently discharged from the [facility] for possible pneumonia and COPD exacerbation on 2 L and also EF of 30% to half-way came back, from home with chief complaint of rapid heart rate and shortness of breath with productive cough. In last admission patient echocardiogram showed EF of 25-30%, he was supposed to follow-up in an outpatient setting for cardiac catheterization after regaining his strength in half-way. After being discharged from half-way couple of days ago patient heart rate was elevated to 130s during the home stay and he also developed more productive cough with shortness of breath mostly on exertion and was advised to come to the hospital. Patient denies any nausea, vomiting, chest pain, abdominal pain, fevers, chills, recent sick contact. Upon arrival patient 2.5 L oxygen, heart rate 128, blood pressure 100/56 with no fever Labs notable hemoglobin 13.3 WBC 6.1, PLT 314, Potassium 5.9, sodium 138, BUN 26, anion gap 18, magnesium 2, lactic acid 3.7 and subsequently 2.4, troponin 0.06, BMP near 8000 CXR: 1. No significant change as compared to the prior study. 2. Persistent trace right pleural effusion, spiculated masslike opacity in the right midlung, and soft tissue fullness surrounding the surgical clips in the right upper lobe. 3. Unchanged pleural-parenchymal opacity in the left midlung with elevation of the left hemidiaphragm 4. Cardiomegaly, unchanged In the ED received 2 L of normal saline and TRC nebs with solumedrol IV cefazolin and vancomycin EKG showed tachycardia questionable atrial flutter with a sinus tachycardia with RBBB, 130 Assessment and plan Tachycardia With systolic CHF and lactic acidosis Sepsis(due to PNA) versus CHF exacerbation and a flutter vs PE admit to telemetry CTA stat telemetry monitoring cardio consult placed Low IV and additional 250 mg bolus was ordered We will trend lactic acid EKG and troponin 2 We will continue cefotaxime and vancomycin with blood culture and sputum culture with urine legionella and strep Hold lisinopril and metoprolol due to low BP Continue clopidogrel Consider starting Solu-Medrol tomorrow if patient does not improve TRC nebs History of GERD and low vitamin D Continue omeprazole and vitamin D Full code, DVT prophylaxis is subcutaneous heparin and Alps, Tylenol for pain, heart healthy diet As Ranked By This Provider Problem List: 1. Lung cancer 2. 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 In addition to all the other diagnoses that I mentioned, patient also has acute respiratory failure present on admission.
[2017-08-26 18:49] VITALS: BP 100/62
--- NOTE | 2017-08-26 19:57 | Cons- Cardiology ---
General Information and HPI Consulting Request Date of Consult: 08/26/17 Requested By: Perico ULRICH,Symone Reason for Consult: PE, atrial flutter History of Present Illness: The patient is an 81-year-old male with history of lung cancer status post chemotherapy and radiation, coronary artery disease, peripheral arterial disease , prior cardiomyopathy who is followed in the office by Dr. Solano. He was admitted in June with respiratory therapy secondary to pneumonia, COPD, and congestive heart failure. He was discharged to rehabilitation to home. For the past few days he has been noted to be tachycardic with heart rate in the 130s, and with borderline hypotension. He was sent to the emergency department today by his visiting nurse. Metoprolol has been on hold because of hypotension. On arrival he was noted to be hypotensive and tachycardic with heart rate in the 120s. CT angiogram reveals pulmonary embolism. He is noted to be in atrial flutter. He complains of shortness of breath which is worse over the past few days. He notes productive cough. No recent chest pain. No nausea or vomiting. No diaphoresis. No syncope. Allergies/Medications Allergies: Coded Allergies: animal dander (Severe, EYES REDDENED, HIVES 07/28/17) Penicillins (Intermediate, RASH 07/21/16) Home Med List: Acetaminophen (Masophen) 325 MG TABLET 2 TAB PO Q4H PRN PAIN/TEMP (Reported) Albuterol Sulfate (Proair Hfa) 90 MCG HFA.AER.AD 2 PUF INH Q4H PRN WHEEZE ( Reported) Cholecalciferol (Vitamin D3) (Vitamin D) 1,000 UNIT TABLET 1 TAB PO DAILY SUPPLEMENT (Reported) Clopidogrel Bisulfate (Clopidogrel) 75 MG TABLET 1 TAB PO DAILY BLOOD THINNER (Reported) Furosemide 20 MG TABLET 1 TAB PO DAILY CHF Lisinopril 2.5 MG TABLET 1 TAB PO DAILY HEART FAILURE Metoprolol Succ XL (Toprol XL) 25 MG TAB 1 TAB PO DAILY HEART/BP (Reported) Multivit-Min/FA/Lycopen/Lutein (Centrum Silver Tablet) 0.4 MG-300 MCG-250 MCG TABLET 1 TAB PO DAILY VITAMIN SUPPORT (Reported) Pantoprazole Sodium 40 MG TABLET.DR 1 TAB PO DAILY GI (Reported) Simethicone 80 MG TAB.CHEW 1 TAB PO Q6H PRN GAS (Reported) Current Medications: Current Medications Sig/Dominique Start time Last Medication Dose Route Stop Time Status Admin Albuterol Sulfate 3 ML ONCE ONE 08/26 1115 DC 08/26 INH 08/26 1116 1126 Calcium Gluconate 0 .STK-MED ONE 08/26 1419 DC IV Calcium Gluconate 1 GM ONCE ONE 08/26 1415 DC 08/26 Sodium Chloride 100 ML IV 08/26 1514 1452 Ceftazidime 1,000 MG IQ8 08/27 0000 CAN IV Ceftazidime 0 .STK-MED ONE 08/26 1419 DC .ROUTE Ceftazidime 1,000 MG ONCE ONE 08/26 1415 DC 08/26 IV 08/26 1416 1452 Cholecalciferol 1,000 IU DAILY 08/27 1000 AC PO Clopidogrel Bisulfate 75 MG DAILY 08/27 1000 AC PO Heparin Sodium 25,000 UNIT Q24H 08/26 1830 AC (Porcine) IV Sodium Chloride 500 ML Ipratropium [place] 2.5 ML ONCE ONE 08/26 1130 DC 08/26 INH 08/26 1131 1126 Methylprednisolone 0 .STK-MED ONE 08/26 1133 DC .ROUTE Methylprednisolone 125 MG ONCE ONE 08/26 1130 DC 08/26 IV 08/26 1131 1134 Metoprolol Tartrate 0 .STK-MED ONE 08/26 1144 DC IV Omeprazole 40 MG DAILY AC 08/27 0700 AC PO Sodium Chloride 250 ML BOLUS ONE 08/26 1715 DC IV 08/26 1814 Sodium Chloride 1,000 ML BOLUS ONE 08/26 1415 DC 08/26 IV 08/26 1514 1645 Sodium Chloride 1,000 ML BOLUS ONE 08/26 1400 DC 08/26 IV 08/26 1459 1411 Sodium Chloride 1,000 ML BOLUS ONE 08/26 1115 DC 08/26 IV 08/26 1214 1134 Sodium Polystyrene 60 ML ONCE ONE 08/26 1830 CAN Sulfonate PO 08/26 1831 Vancomycin HCl 1,000 MG DAILY@1630 08/27 1630 CAN Dextrose/Water 250 ML IV Vancomycin HCl 0 .STK-MED ONE 08/26 1419 DC .ROUTE Vancomycin HCl 1,000 MG ONCE ONE 08/26 1415 DC 08/26 Dextrose/Water 250 ML IV 08/26 1514 1630 Review of Systems Review of Systems: No rash. No tremor. No hemoptysis. No hematemesis. All other systems were reviewed, and were noted to be negative. 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 spouse Services at Home: None Functional Ability ADLs Independent: dressing, eating, toileting, bathing. Ambulation: independent IADLs Independent: shopping, housework, finances, food prep, telephone, transportation , medication admin. Exam & Diagnostic Data Vital Signs and I&O Vital Signs Date Time Temp Pulse Resp B/P B/P Pulse O2 O2 Flow FiO2 Mean Ox Delivery Rate 08/26 1849 97.9 129 18 100/62 95 Nasal Cannula 08/26 1629 98.0 128 24 98/68 97 Nasal 2.0L Cannula 08/26 1412 96.0 120 18 98/66 94 Nasal 2.0L Cannula 08/26 1330 97.5 128 24 101/56 99 Nasal 2.0L Cannula 08/26 1140 98.4 120 18 90/52 96 Nasal 6.0L Cannula 08/26 1130 100 Nasal 2.0L Cannula 08/26 1119 97 Nasal 3.0L Cannula 08/26 1111 98.6 127 24 84/55 99 Nasal 3.0L Cannula Intake & Output 08/26 1600 08/26 0800 08/26 0000 08/25 1600 08/25 0800 08/25 0000 Intake Total 0 Output Total Balance 0 Intake, Oral 0 Patient 175 lb Weight Weight Reported by Patient Measurement Method Physical Exam: Gen: The patient is in no acute distress HEENT: Normal nose, ears, and oropharynx. Pupils equal bilaterally. Conjunctiva normal. Neck: Supple with no JVD, no masses, and no thyromegaly Lungs: Scattered rhonchi with normal respiratory effort Heart: Tachycardic S1, S2, 1/6 systolic murmur. No peripheral edema, 2+ pulses in the lower extremities bilaterally Abdomen: Soft, nontender, no masses. No hepatomegaly. No splenomegaly Extremities: No clubbing or cyanosis. Normal muscle strength in the upper and lower extremities Skin: Normal skin turgor with no skin ulcers or lesions noted. Neuro: Cranial nerves intact. Sensation intact Psych: Alert and oriented 3 with appropriate affect Labs/Yong Results: Laboratory Tests 08/26 08/26 08/26 1753 1625 1308 Chemistry Sodium (137 - 145 mmol/L) 137 Potassium (3.5 - 5.1 mmol/L) 5.4 H Chloride (98 - 107 mmol/L) 98 Carbon Dioxide (22 - 30 mmol/L) 21 L Anion Gap (5 - 16) 17 H BUN (9 - 20 mg/dL) 27 H Creatinine (0.7 - 1.2 mg/dL) 0.9 Estimated GFR (>60 ml/min) > 60 BUN/Creatinine Ratio (7 - 25 %) 30.0 H Lactic Acid (0.7 - 2.1 mmol/L) 2.4 H 3.7 H Troponin I (<0.11 ng/ml) 0.08 Coagulation PT (9.4 - 12.5 SEC) 14.9 H INR (0.90 - 1.17) 1.42 H 08/26 1150 Chemistry Sodium (137 - 145 mmol/L) 138 Potassium (3.5 - 5.1 mmol/L) 5.9 H Chloride (98 - 107 mmol/L) 98 Carbon Dioxide (22 - 30 mmol/L) 22 Anion Gap (5 - 16) 18 H BUN (9 - 20 mg/dL) 26 H Creatinine (0.7 - 1.2 mg/dL) 0.9 Estimated GFR (>60 ml/min) > 60 BUN/Creatinine Ratio (7 - 25 %) 28.9 H Glucose (65 - 99 mg/dL) 142 H Calcium (8.4 - 10.2 mg/dL) 8.8 Magnesium (1.6 - 2.3 mg/dL) 2.0 Total Bilirubin (0.2 - 1.3 mg/dL) 0.5 AST (17 - 59 U/L) 28 ALT (21 - 72 U/L) 28 Alkaline Phosphatase (< 127 U/L) 109 Troponin I (<0.11 ng/ml) 0.06 [id number] Pept (<125 pg/mL) 7760 H Total Protein (6.3 - 8.2 g/dL) 6.2 L Albumin (3.5 - 5.0 g/dL) 3.4 L Globulin (1.9 - 4.2 gm/dL) 2.8 Albumin/Globulin Ratio (1.1 - 2.2 %) 1.2 Hematology CBC w Diff NO MAN DIFF REQ WBC (4.8 - 10.8 /CUMM) 6.1 RBC (4.70 - 6.10 /CUMM) 4.44 L Hgb (14.0 - 18.0 G/DL) 13.3 L Hct (42 - 52 %) 41.3 L MCV (80.0 - 94.0 FL) 93.1 MCH (27.0 - 31.0 PG) 29.9 MCHC (33.0 - 37.0 G/DL) 32.2 L RDW (11.5 - 14.5 %) 14.7 H Plt Count (130 - 400 /CUMM) 314 MPV (7.4 - 10.4 FL) 9.4 Gran % (42.2 - 75.2 %) 66.6 Lymphocytes % (20.5 - 51.1 %) 16.6 L Monocytes % (1.7 - 9.3 %) 14.4 H Eosinophils % (0 - 5 %) 2.2 Basophils % (0.0 - 2.0 %) 0.2 Absolute Granulocytes (1.4 - 6.5 /CUMM) 4.1 Absolute Lymphocytes (1.2 - 3.4 /CUMM) 1.0 L Absolute Monocytes (0.10 - 0.60 /CUMM) 0.9 H Absolute Eosinophils (0.0 - 0.7 /CUMM) 0.1 Absolute Basophils (0.0 - 0.2 /CUMM) 0 Diagnostic Data EKG Results EKG tracing is independently reviewed, and reveals atrial flutter with ventricular rate of 124, right bundle-branch block CXR Results 1. No significant change as compared to the prior study. 2. Persistent trace right pleural effusion, spiculated masslike opacity in the right midlung, and soft tissue fullness surrounding the surgical clips in the right upper lobe. 3. Unchanged pleural-parenchymal opacity in the left midlung with elevation of the left hemidiaphragm 4. Cardiomegaly, unchanged Other Results CTA chest: 1. Compared to 07/28/2017, there is a new embolic filling defect within the branch to the superior segment of the left lower lobe. 2. Severe centrilobular emphysema. 3. Multilobar pulmonary abnormalities remain similar in appearance compared to 07/28/2017. Also, the pleural effusions (right larger than left) have not significantly changed in size compared to 07/28/2017. Echocardiogram 08/02/17: 1. This was a technically difficult examination. 2. Moderate aortic sclerosis is present with minimal to mild aortic insufficiency. 3. Mitral leaflet thickening is present with anular calcification and moderate to moderately severe mitral insufficiency with mild left atrial enlargement. 4. There is no significant pericardial fluid present. 5. The left ventricular chamber is upper normal in size with global hypokinesia which is worse in the inferoposterior / inferolateral and anteroapical segments with an ejection fraction of 25-30%. 6. Enlargment of the right heart chambers is present with moderate tricuspid insufficiency, mild to moderate pulmonic insufficiency, enlargement of the IVC and pulmonary hypertension with an estimated RV systolic pressure of 60 mmHg. Assessment/Plan Assessment/Plan Assessment: 1. Coronary artery disease 2. Chronic systolic heart failure, with LVEF 25-30% 3. Acute pulmonary embolism 4. Atrial flutter with rapid ventricular rate Plan: * IV heparin per protocol * Hold metoprolol for hypertension. Start metoprolol reduced dose once blood pressure is adequate * For rate control in the setting of hypotension, would start digoxin 0.5 mg IV * Echocardiogram * Hold Lasix for now given hypotension Consult Acknowledgment - Thank you for your consult request.
[2017-08-26 21:49] VITALS: BP 118/76
[2017-08-26 22:36] VITALS: BP 108/70
[2017-08-27] VITALS (8 sets, daily range): BP systolic 96–138; BP diastolic 60–82
[2017-08-27 02:55] LABS: PTT 65 SEC (25-37)
[2017-08-27 07:58] LABS: ABSOLUTE BASOPHIL COUNT 0 /CUMM (0.0-0.2); ABSOLUTE EOSINOPHIL COUNT 0 /CUMM (0.0-0.7); ABSOLUTE GRANULOCYTE CT 3.8 /CUMM (1.4-6.5); ABSOLUTE LYMPH COUNT 0.4 /CUMM (1.2-3.4); ABSOLUTE MONOCYTE COUNT 0.5 /CUMM (0.10-0.60); BASOPHIL % 0 % (0.0-2.0); EOSINOPHIL % 0.2 % (0-5); GRANULOCYTE % 80.4 % (42.2-75.2); HEMATOCRIT 38.7 % (42-52); MEAN CORPUSCULAR HGB 30.2 PG (27.0-31.0); MEAN CORPUSCULAR HGB CONC 32.9 G/DL (33.0-37.0); MEAN CORPUSCULAR VOLUME 91.9 FL (80.0-94.0); PLATELET COUNT 305 /CUMM (130-400); RBC DISTRIBUTION WIDTH 15.1 % (11.5-14.5); RED BLOOD CELL CT 4.22 /CUMM (4.70-6.10); WHITE BLOOD CELL COUNT 4.7 /CUMM (4.8-10.8)
--- NOTE | 2017-08-27 08:19 | PN- Housestaff ---
Donis Adamson 08/27/17 0818: Subjective Follow-up For: flutter PE SOB Tele-Events Since Last Visit: 115-121 flutter Subjective: I have seen and examined the patient. Patient is feeling better today. Review of Systems Constitutional: Reports: see HPI. Objective Last 24 Hrs of Vital Signs/I&O Vital Signs Date Time Temp Pulse Resp B/P B/P Pulse O2 O2 Flow FiO2 Mean Ox Delivery Rate 08/27 0920 120 96/72 08/27 0800 94 Nasal 2.0L Cannula 08/27 0758 119 96/72 08/27 0703 97.6 116 18 104/82 94 Nasal Cannula 08/27 0326 119 116/60 08/26 2236 97.0 118 18 108/70 96 Nasal Cannula 08/26 214 125 118/76 08/26 2146 Nasal 2.0L Cannula 08/26 2137 125 110/76 08/26 2026 95 Nasal 2.0L Cannula 08/26 1849 97.9 129 18 100/62 95 Nasal Cannula 08/26 1629 98.0 128 24 98/68 97 Nasal 2.0L Cannula 08/26 1412 96.0 120 18 98/66 94 Nasal 2.0L Cannula 08/26 1330 97.5 128 24 101/56 99 Nasal 2.0L Cannula 08/26 1140 98.4 120 18 90/52 96 Nasal 6.0L Cannula 08/26 1130 100 Nasal 2.0L Cannula 08/26 1119 97 Nasal 3.0L Cannula 08/26 1111 98.6 127 24 84/55 99 Nasal 3.0L Cannula Intake & Output 08/27 1600 08/27 0800 08/27 0000 Intake Total 258 1368 Output Total 200 Balance 58 1368 Intake, IV 208 1128 Intake, Oral 50 240 Number 0 Bowel Movements Output, Urine 200 Patient 80.739 kg Weight Weight Chair scale Measurement Method Physical Exam General Appearance: Alert, Oriented X3, Cooperative, No Acute Distress Other Physical Findings: Cardiovascular tachycardia Lungs decreased breath should bilaterally in the bases but better than yesterday Abdomen Normal Bowel Sounds, Soft Extremities No Edema Current Medications: Current Medications Sig/Dominique Start time Last Medication Dose Route Stop Time Status Admin Albuterol Sulfate 3 ML ONCE ONE 08/26 1115 DC 08/26 INH 08/26 1116 1126 Calcium Gluconate 0 .STK-MED ONE 08/26 1419 DC IV Calcium Gluconate 1 GM ONCE ONE 08/26 1415 DC 08/26 Sodium Chloride 100 ML IV 08/26 1514 1452 Ceftazidime 1,000 MG IQ8 08/27 0000 CAN IV Ceftazidime 0 .STK-MED ONE 08/26 1419 DC .ROUTE Ceftazidime 1,000 MG ONCE ONE 08/26 1415 DC 08/26 IV 08/26 1416 1452 Cholecalciferol 1,000 IU DAILY 08/27 1000 AC 08/27 PO 0919 Clopidogrel Bisulfate 75 MG DAILY 08/27 1000 AC 08/27 PO 0919 Digoxin 0.25 MG ONCE ONE 08/27 0930 DC 08/27 IV 08/27 0931 0920 Digoxin 0.25 MG ONCE ONE 08/27 0330 DC 08/27 IV 08/27 0331 0326 Digoxin 0.5 MG ONCE ONE 08/26 2130 DC 08/26 IV 08/26 2131 2137 Heparin Sodium 25,000 UNIT Q24H 08/26 1830 AC 08/26 (Porcine) IV 2000 Sodium Chloride 500 ML Ipratropium [place] 2.5 ML ONCE ONE 08/26 1130 DC 08/26 INH 08/26 1131 1126 Melatonin 5 MG ONCE ONE 08/26 2215 DC 08/26 PO 08/26 2216 2224 Methylprednisolone 0 .STK-MED ONE 08/26 1133 DC .ROUTE Methylprednisolone 125 MG ONCE ONE 08/26 1130 DC 08/26 IV 08/26 1131 1134 Metoprolol Tartrate 6.25 MG BID 08/27 1030 AC PO Metoprolol Tartrate 0 .STK-MED ONE 08/26 1144 DC IV Omeprazole 40 MG DAILY AC 08/27 0700 AC 08/27 PO 0919 Sodium Chloride 250 ML BOLUS ONE 08/26 1715 DC 08/26 IV 08/26 1814 2137 Sodium Chloride 1,000 ML BOLUS ONE 08/26 1415 DC 08/26 IV 08/26 1514 1645 Sodium Chloride 1,000 ML BOLUS ONE 08/26 1400 DC 08/26 IV 08/26 1459 1411 Sodium Chloride 1,000 ML BOLUS ONE 08/26 1115 DC 08/26 IV 08/26 1214 1134 Sodium Polystyrene 60 ML ONCE ONE 08/27 1000 DC Sulfonate PO 08/27 1001 Sodium Polystyrene 60 ML ONCE ONE 08/26 1830 CAN Sulfonate PO 08/26 1831 Vancomycin HCl 1,000 MG DAILY@1630 08/27 1630 CAN Dextrose/Water 250 ML IV Vancomycin HCl 0 .STK-MED ONE 08/26 1419 DC .ROUTE Vancomycin HCl 1,000 MG ONCE ONE 08/26 1415 DC 08/26 Dextrose/Water 250 ML IV 08/26 1514 1630 Assessment/Plan Assessment: 81-year-old with hx of smoker, advanced lung cancer with chemotherapy and 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 Pat, abdominal aortic aneurysm, emphysema and COPD was recently discharged from the [facility] for possible pneumonia and COPD exacerbation on 2 L and also EF of 30% to half-way came back, from home with chief complaint of rapid heart rate and shortness of breath with productive cough. Patient denies any nausea, vomiting, chest pain, abdominal pain, fevers, chills, recent sick contact. Upon arrival patient 2.5 L oxygen, heart rate 128, blood pressure 100/56 with no fever Labs notable hemoglobin 13.3 WBC 6.1, PLT 314, Potassium 5.9, sodium 138, BUN 26, anion gap 18, magnesium 2, lactic acid 3.7 and subsequently 2.4, troponin 0.06, BMP near 8000 CXR: 1. No significant change as compared to the prior study. 2. Persistent trace right pleural effusion, spiculated masslike opacity in the right midlung, and soft tissue fullness surrounding the surgical clips in the right upper lobe. 3. Unchanged pleural-parenchymal opacity in the left midlung with elevation of the left hemidiaphragm 4. Cardiomegaly, unchanged In the ED received 2 L of normal saline and TRC nebs with solumedrol IV cefazolin and vancomycin EKG showed tachycardia questionable atrial flutter with a sinus tachycardia with RBBB, 130 CTA positive for PE Assessment new onset PE History of lung cancer History of emphysema Borderline low blood pressure Systolic CHF History of GERD plan Ultrasound of the lower extremities telemetry monitoring Continue IV heparin cardio consult appreciated Low-dose metoprolol 6.25 was started Digoxin level started on a loading dose even resume maintenance dose based on the level of digoxin at 2 PM lactic acid normalized no abx for now No Lisinopril for now TRC nebs Pulmonology input appreciated Continue omeprazole Full code, DVT prophylaxis IV heaprin, Tylenol for pain, heart healthy diet Problem List: 1. Lung cancer Pain Ratin Pain Location: no pain Pain Goal: Pain 4 or less Pain Plan: same Tomorrow's Labs & Rationales: cbc bep Perico ULRICH,Symone 08/27/17 1159: Attending MD Review Statement Attending Statement Attending MD Statement: examined this patient, discuss w/resident/PA/HAMMERER HELPER, agreed w/resident/PA/HAMMERER HELPER, reviewed EMR data (avail), discussed with nursing, discussed with case mgmt, reviewed images, amended to note Attending Assessment/Plan: Patient seen and examined, not feeling much better. Still feeling short of breath. Remains tachycardic. As mentioned, CT positive for pulmonary embolism and patient has been started on IV heparin. Vital Signs Date Time Temp Pulse Resp B/P B/P Pulse O2 O2 Flow FiO2 Mean Ox Delivery Rate 08/27 1138 119 138/70 08/27 1135 138/70 08/27 1134 100/78 08/27 0920 120 96/72 08/27 0800 94 Nasal 2.0L Cannula 08/27 0758 119 96/72 08/27 0703 97.6 116 18 104/82 94 Nasal Cannula 08/27 0326 119 116/60 08/26 2236 97.0 118 18 108/70 96 Nasal Cannula 08/26 2149 125 118/76 08/26 2146 Nasal 2.0L Cannula 08/26 2137 125 110/76 08/26 2026 95 Nasal 2.0L Cannula 08/26 1849 97.9 129 18 100/62 95 Nasal Cannula 08/26 1629 98.0 128 24 98/68 97 Nasal 2.0L Cannula 08/26 1412 96.0 120 18 98/66 94 Nasal 2.0L Cannula 08/26 1330 97.5 128 24 101/56 99 Nasal 2.0L Cannula on exam; aox3, nad. cv; s1,s2 rrr, tachy. resp; mild crackles b/l bases. abd; soft, nt, bs+ ext; no edema. Laboratory Tests 08/27 08/27 08/26 08/26 0635 0215 2309 2001 Chemistry Sodium (137 - 145 mmol/L) 137 Potassium (3.5 - 5.1 mmol/L) 5.6 H Chloride (98 - 107 mmol/L) 102 Carbon Dioxide (22 - 30 mmol/L) 21 L Anion Gap (5 - 16) 14 BUN (9 - 20 mg/dL) 33 H Creatinine (0.7 - 1.2 mg/dL) 1.1 Estimated GFR (>60 ml/min) > 60 BUN/Creatinine Ratio (7 - 25 %) 30.0 H Lactic Acid (0.7 - 2.1 mmol/L) 1.8 4.3 H Coagulation APTT (25 - 37 SEC) 65 H Hematology CBC w Diff NO MAN DIFF REQ WBC (4.8 - 10.8 /CUMM) 4.7 L RBC (4.70 - 6.10 /CUMM) 4.22 L Hgb (14.0 - 18.0 G/DL) 12.7 L Hct (42 - 52 %) 38.7 L MCV (80.0 - 94.0 FL) 91.9 MCH (27.0 - 31.0 PG) 30.2 MCHC (33.0 - 37.0 G/DL) 32.9 L RDW (11.5 - 14.5 %) 15.1 H Plt Count (130 - 400 /CUMM) 305 MPV (7.4 - 10.4 FL) 9.0 Gran % (42.2 - 75.2 %) 80.4 H Lymphocytes % (20.5 - 51.1 %) 9.2 L Monocytes % (1.7 - 9.3 %) 10.2 H Eosinophils % (0 - 5 %) 0.2 Basophils % (0.0 - 2.0 %) 0 Absolute Granulocytes (1.4 - 6.5 /CUMM) 3.8 Absolute Lymphocytes (1.2 - 3.4 /CUMM) 0.4 L Absolute Monocytes (0.10 - 0.60 /CUMM) 0.5 Absolute Eosinophils (0.0 - 0.7 /CUMM) 0 Absolute Basophils (0.0 - 0.2 /CUMM) 0 08/26 08/26 08/26 1753 1625 1308 Chemistry Sodium (137 - 145 mmol/L) 137 Potassium (3.5 - 5.1 mmol/L) 5.4 H Chloride (98 - 107 mmol/L) 98 Carbon Dioxide (22 - 30 mmol/L) 21 L Anion Gap (5 - 16) 17 H BUN (9 - 20 mg/dL) 27 H Creatinine (0.7 - 1.2 mg/dL) 0.9 Estimated GFR (>60 ml/min) > 60 BUN/Creatinine Ratio (7 - 25 %) 30.0 H Lactic Acid (0.7 - 2.1 mmol/L) 2.4 H 3.7 H Troponin I (<0.11 ng/ml) 0.08 Coagulation PT (9.4 - 12.5 SEC) 14.9 H INR (0.90 - 1.17) 1.42 H A/P; 81-year-old male with past medical history significant for lung cancer in the past treated with chemotherapy/radiation as well as CyberKnife, aortic aneurysm, coronary artery disease, cardio myopathy, peripheral vascular disease, COPD with a recent admission to [facility] with acute respiratory failure secondary to pneumonia, worsening of ejection fraction and found to have cardiomyopathy was recently discharged from rehabilitation, presented with increasing shortness of breath, sinus tachycardia and high lactate levels. He was also hyperkalemic. Admitted to telemetry with acute respiratory failure and found to have acute pulmonary embolism. Patient has been watched off of antibiotics. Follow-up on cultures. Has been started on IV heparin. Please check note extremity Doppler ultrasound. Appreciate pulmonology and cardiology input. Please use low-dose beta nicolette and digoxin as recommended by cardiology and follow the level for digoxin. Patient was given For hyperkalemia. Monitor the levels. If no interventions planned per pulmonary, patient will need to be switched to oral anticoagulation. DVT px; Hep gtt.
--- NOTE | 2017-08-27 10:06 | Cons- Pulmonary ---
General Information and HPI Consulting Request Date of Consult: 08/27/17 Requested By: Fatimah Reason for Consult: Shortness of breath pulmonary embolism History of Present Illness: Patient is 81-year-old gentleman with underlying cardiomyopathy COPD lung cancer admitted with increasing shortness of breath and tachycardia. Patient was recently hospitalized which time his cardiac ejection fraction was found to be 25-30%. CTA was negative for pulmonary embolism. While in rehabilitation he developed tachycardia worsening shortness breath and was found to have an isolated pulmonary embolism. He was in atrial flutter with rapid ventricular response. He is now anticoagulated. He has no chest pain or hemoptysis. Allergies/Medications Allergies: Coded Allergies: animal dander (Severe, EYES REDDENED, HIVES 07/28/17) Penicillins (Intermediate, RASH 07/21/16) Home Med List: Acetaminophen (Masophen) 325 MG TABLET 2 TAB PO Q4H PRN PAIN/TEMP (Reported) Albuterol Sulfate (Proair Hfa) 90 MCG HFA.AER.AD 2 PUF INH Q4H PRN WHEEZE ( Reported) Cholecalciferol (Vitamin D3) (Vitamin D) 1,000 UNIT TABLET 1 TAB PO DAILY SUPPLEMENT (Reported) Clopidogrel Bisulfate (Clopidogrel) 75 MG TABLET 1 TAB PO DAILY BLOOD THINNER (Reported) Furosemide 20 MG TABLET 1 TAB PO DAILY CHF Lisinopril 2.5 MG TABLET 1 TAB PO DAILY HEART FAILURE Metoprolol Succ XL (Toprol XL) 25 MG TAB 1 TAB PO DAILY HEART/BP (Reported) Multivit-Min/FA/Lycopen/Lutein (Centrum Silver Tablet) 0.4 MG-300 MCG-250 MCG TABLET 1 TAB PO DAILY VITAMIN SUPPORT (Reported) Pantoprazole Sodium 40 MG TABLET.DR 1 TAB PO DAILY GI (Reported) Simethicone 80 MG TAB.CHEW 1 TAB PO Q6H PRN GAS (Reported) Review of Systems Review of Systems Constitutional: Denies: chills, fever. Cardiovascular: Denies: chest pain, edema. Respiratory: Reports: short of breath. Denies: cough, hemoptysis. 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 Home Who Do You Live With? spouse Services at Home: None Smoking Status: Former Smoker Functional Ability ADLs Independent: dressing, eating, toileting, bathing. Ambulation: independent IADLs Independent: shopping, housework, finances, food prep, telephone, transportation , medication admin. Exam & Diagnostic Data Last 24 Hrs of Vital Signs/I&O Vital Signs Date Time Temp Pulse Resp B/P B/P Pulse O2 O2 Flow FiO2 Mean Ox Delivery Rate 08/27 0920 120 96/72 08/27 0758 119 96/08/27 0703 97.6 116 18 104/82 94 Nasal Cannula 08/27 0326 119 116/60 08/26 2236 97.0 118 18 108/70 96 Nasal Cannula 08/26 2149 125 118/76 08/26 2146 Nasal 2.0L Cannula 08/26 2137 125 110/76 08/26 2026 95 Nasal 2.0L Cannula 08/26 1849 97.9 129 18 100/62 95 Nasal Cannula 08/26 1629 98.0 128 24 98/68 97 Nasal 2.0L Cannula 08/26 1412 96.0 120 18 98/66 94 Nasal 2.0L Cannula 08/26 1330 97.5 128 24 101/56 99 Nasal 2.0L Cannula 08/26 1140 98.4 120 18 90/52 96 Nasal 6.0L Cannula 08/26 1130 100 Nasal 2.0L Cannula 08/26 1119 97 Nasal 3.0L Cannula 08/26 1111 98.6 127 24 84/55 99 Nasal 3.0L Cannula Intake & Output 08/27 1600 08/27 0800 08/27 0000 Intake Total 258 1368 Output Total 200 Balance 58 1368 Intake, IV 208 1128 Intake, Oral 50 240 Number 0 Bowel Movements Output, Urine 200 Patient 178 lb Weight Weight Chair scale Measurement Method Oxygen saturation 2 L is 94-96% he remains tachycardic exam of his chest shows diminished breath sounds are no wheezes cardiac exam shows an irregular rhythm abdomen is soft nontender he has no calf tenderness Last 48 Hrs of Labs/Yong: Laboratory Tests 08/27/17 0635: Anion Gap 14, Estimated GFR > 60, BUN/Creatinine Ratio 30.0 H, CBC w Diff NO MAN DIFF REQ, RBC 4.22 L, MCV 91.9, MCH 30.2, MCHC 32.9 L, RDW 15.1 H, MPV 9.0, Gran % 80.4 H, Lymphocytes % 9.2 L, Monocytes % 10.2 H, Eosinophils % 0.2, Basophils % 0, Absolute Granulocytes 3.8, Absolute Lymphocytes 0.4 L, Absolute Monocytes 0.5, Absolute Eosinophils 0, Absolute Basophils 0 08/27/17 0215: APTT 65 H 08/26/17 2309: Lactic Acid 1.8 08/26/17 2002: Lactic Acid 4.3 H 08/26/17 1753: Anion Gap 17 H, Estimated GFR > 60, BUN/Creatinine Ratio 30.0 H, Troponin I 0.08 08/26/17 1625: Lactic Acid 2.4 H 08/26/17 1308: Lactic Acid 3.7 H, PT 14.9 H, INR 1.42 H 08/26/17 1150: Anion Gap 18 H, Estimated GFR > 60, BUN/Creatinine Ratio 28.9 H, Glucose 142 H, Calcium 8.8, Magnesium 2.0, Total Bilirubin 0.5, AST 28, ALT 28, Alkaline Phosphatase 109, Troponin I 0.06, Tod-D-Phdlhokivbe Pept 7760 H, Total Protein 6.2 L, Albumin 3.4 L, Globulin 2.8, Albumin/Globulin Ratio 1.2, CBC w Diff NO MAN DIFF REQ, RBC 4.44 L, MCV 93.1, MCH 29.9, MCHC 32.2 L, RDW 14.7 H, MPV 9.4, Gran % 66.6, Lymphocytes % 16.6 L, Monocytes % 14.4 H, Eosinophils % 2.2, Basophils % 0.2, Absolute Granulocytes 4.1, Absolute Lymphocytes 1.0 L, Absolute Monocytes 0.9 H, Absolute Eosinophils 0.1, Absolute Basophils 0 Assessment/Plan Impression/Plan: 81-year-old gentleman with lung cancer COPD and cardiomyopathy admitted with increasing shortness of breath cardiac arrhythmia in the setting of pulmonary embolism Recommendations: Continue full anticoagulation. Repeat cardiac ultrasound. Further management of tachycardia per cardiology. There is no need for steroids at this time. Continue baseline bronchodilator medications. Follow-up results of lower extremity duplex ultrasound Consult Acknowledgment - Thank you for your consult request.
--- NOTE | 2017-08-27 10:56 | ULTRASOUND REPORT ---
EXAMINATION: US TRIPLEX OF LOWER EXTREMITIES, BILATERAL CLINICAL INFORMATION: 81-year-old man with pulmonary embolism. COMPARISON: None TECHNIQUE: Color-flow triplex imaging with spectral analysis and compression Doppler were performed on the lower extremities. FINDINGS: Respiratory variation, normal compression and augmented flow are noted throughout the lower extremities. The visualized common femoral vein, superficial femoral vein, profunda femoral vein, popliteal vein and midcalf peroneal and posterior tibial venous segments show no evidence of deep venous thrombosis. There is no Whitehead's cyst. IMPRESSION: Normal triplex scan without evidence of deep venous thrombosis involving the lower extremities.
--- NOTE | 2017-08-27 14:24 | PN- Cardiology ---
Subjective Subjective: The patient continues to be somewhat short of breath. No current chest pain. No palpitations. He remains in atrial flutter with mildly elevated ventricular rate. IV digoxin load was given yesterday Objective Vital Signs and I&Os Vital Signs Date Time Temp Pulse Resp B/P B/P Pulse O2 O2 Flow FiO2 Mean Ox Delivery Rate 08/27 1138 119 138/70 08/27 1135 138/70 08/27 1134 100/78 08/27 0920 120 96/72 08/27 0800 94 Nasal 2.0L Cannula 08/27 0758 119 96/72 08/27 0703 97.6 116 18 104/82 94 Nasal Cannula 08/27 0326 119 116/60 08/26 2236 97.0 118 18 108/70 96 Nasal Cannula 08/26 2149 125 118/76 08/26 2146 Nasal 2.0L Cannula 08/26 2137 125 110/76 08/26 2026 95 Nasal 2.0L Cannula 08/26 1849 97.9 129 18 100/62 95 Nasal Cannula 08/26 1629 98.0 128 24 98/68 97 Nasal 2.0L Cannula Intake & Output 08/27 1600 08/27 0800 08/27 0000 08/26 1600 08/26 0800 08/26 0000 Intake Total 258 1368 0 Output Total 200 Balance 58 1368 0 Intake, IV 208 1128 Intake, Oral 50 240 0 Number 0 Bowel Movements Output, Urine 200 Patient 178 lb 175 lb Weight Weight Chair scale Reported by Patient Measurement Method Physical Exam: Gen: The patient is in no acute distress HEENT: Normal nose, ears, and oropharynx. Pupils equal bilaterally. Conjunctiva normal. Neck: Supple with no JVD, no masses, and no thyromegaly Lungs: Scattered rhonchi with normal respiratory effort Heart: Tachycardic S1, S2, 1/6 systolic murmur. No peripheral edema, 2+ pulses in the lower extremities bilaterally Abdomen: Soft, nontender, no masses. No hepatomegaly. No splenomegaly Extremities: No clubbing or cyanosis. Normal muscle strength in the upper and lower extremities Skin: Normal skin turgor with no skin ulcers or lesions noted. Neuro: Cranial nerves intact. Sensation intact Current Medications: Current Medications Sig/Domiinque Start time Last Medication Dose Route Stop Time Status Admin Calcium Gluconate 0 .STK-MED ONE 08/26 1419 DC IV Calcium Gluconate 1 GM ONCE ONE 08/26 1415 DC 08/26 Sodium Chloride 100 ML IV 08/26 1514 1452 Ceftazidime 1,000 MG IQ8 08/27 0000 CAN IV Ceftazidime 0 .STK-MED ONE 08/26 1419 DC .ROUTE Cholecalciferol 1,000 IU DAILY 08/27 1000 AC 08/27 PO 0919 Clopidogrel Bisulfate 75 MG DAILY 08/27 1000 AC 08/27 PO 0919 Digoxin 0.25 MG ONCE ONE 08/27 0930 DC 08/27 IV 08/27 0931 0920 Digoxin 0.25 MG ONCE ONE 08/27 0330 DC 08/27 IV 08/27 0331 0326 Digoxin 0.5 MG ONCE ONE 08/26 2130 DC 08/26 IV 08/26 2131 2137 Heparin Sodium 25,000 UNIT Q24H 08/26 1830 AC 08/26 (Porcine) IV 2000 Sodium Chloride 500 ML Melatonin 5 MG ONCE ONE 08/26 2215 DC 08/26 PO 08/26 2216 2224 Metoprolol Tartrate 6.25 MG BID 08/27 1030 AC 08/27 PO 1138 Omeprazole 40 MG DAILY AC 08/27 0700 AC 08/27 PO 0919 Sodium Chloride 250 ML BOLUS ONE 08/26 1715 DC 08/26 IV 08/26 1814 2137 Sodium Chloride 1,000 ML BOLUS ONE 08/26 1415 DC 08/26 IV 08/26 1514 1645 Sodium Chloride 1,000 ML BOLUS ONE 08/26 1400 DC 08/26 IV 08/26 1459 1411 Sodium Polystyrene 60 ML ONCE ONE 08/27 1000 DC 08/27 Sulfonate PO 08/27 1001 1138 Sodium Polystyrene 60 ML ONCE ONE 08/26 1830 CAN Sulfonate PO 08/26 1831 Vancomycin HCl 1,000 MG DAILY@1630 08/27 1630 CAN Dextrose/Water 250 ML IV Vancomycin HCl 0 .STK-MED ONE 08/26 1419 DC .ROUTE Vancomycin HCl 1,000 MG ONCE ONE 08/26 1415 DC 08/26 Dextrose/Water 250 ML IV 08/26 1514 1630 Results Last 48 Hrs of Labs/Mics: Laboratory Tests 08/27/17 0635: Anion Gap 14, Estimated GFR > 60, BUN/Creatinine Ratio 30.0 H, CBC w Diff NO MAN DIFF REQ, RBC 4.22 L, MCV 91.9, MCH 30.2, MCHC 32.9 L, RDW 15.1 H, MPV 9.0, Gran % 80.4 H, Lymphocytes % 9.2 L, Monocytes % 10.2 H, Eosinophils % 0.2, Basophils % 0, Absolute Granulocytes 3.8, Absolute Lymphocytes 0.4 L, Absolute Monocytes 0.5, Absolute Eosinophils 0, Absolute Basophils 0 08/27/17 0215: APTT 65 H 08/26/17 2309: Lactic Acid 1.8 08/26/172001: Lactic Acid 4.3 H 08/26/17 1753: Anion Gap 17 H, Estimated GFR > 60, BUN/Creatinine Ratio 30.0 H, Troponin I 0.08 08/26/17 1625: Lactic Acid 2.4 H 08/26/17 1308: Lactic Acid 3.7 H, PT 14.9 H, INR 1.42 H 08/26/17 1150: Anion Gap 18 H, Estimated GFR > 60, BUN/Creatinine Ratio 28.9 H, Glucose 142 H, Calcium 8.8, Magnesium 2.0, Total Bilirubin 0.5, AST 28, ALT 28, Alkaline Phosphatase 109, Troponin I 0.06, Gks-F-Ubykgbpzmqn Pept 7760 H, Total Protein 6.2 L, Albumin 3.4 L, Globulin 2.8, Albumin/Globulin Ratio 1.2, CBC w Diff NO MAN DIFF REQ, RBC 4.44 L, MCV 93.1, MCH 29.9, MCHC 32.2 L, RDW 14.7 H, MPV 9.4, Gran % 66.6, Lymphocytes % 16.6 L, Monocytes % 14.4 H, Eosinophils % 2.2, Basophils % 0.2, Absolute Granulocytes 4.1, Absolute Lymphocytes 1.0 L, Absolute Monocytes 0.9 H, Absolute Eosinophils 0.1, Absolute Basophils 0 Microbiology 08/27 829 URINE ROUT: Legionella Antigen - COMP 08/27 829 URINE ROUT: Streptococcus pneumoniae Antigen (M - COMP Recent Imaging Studies: LE doppler: Normal triplex scan without evidence of deep venous thrombosis involving the lower extremities. Assessment/Plan Assessment/Plan Assessment: 1. Coronary artery disease 2. Chronic systolic heart failure, with LVEF 25-30% 3. Acute pulmonary embolism 4. Atrial flutter with rapid ventricular rate Recommendations: * IV heparin per protocol * Echocardiogram * Check digoxin level today. If not elevated, would start digoxin 0.125 mg by mouth daily * Increase metoprolol to 12.5 mg by mouth twice a day for additional rate control, with first dose now. If atrial rate remains elevated blood pressures adequate, the metoprolol this can be increased to 25 g twice a day. If necessary, IV metoprolol 5 mg can be given as well. Continue telemetry? Yes
[2017-08-27 15:52] LABS: PTT 38 SEC (25-37)
[2017-08-27 23:21] LABS: PTT > 120 SEC (25-37)
[2017-08-28 06:28] VITALS: BP 116/66
--- NOTE | 2017-08-28 08:03 | PN- Pulmonary ---
Subjective HPI/Critical Care Issues: Patient's feels her shortness breath is somewhat improved. Objective Current Medications: Current Medications Sig/Dominique Start time Last Medication Dose Route Stop Time Status Admin Albuterol Sulfate 3 ML BID 08/28 1000 AC INH Cholecalciferol 1,000 IU DAILY 08/27 1000 AC 08/27 PO 0919 Clopidogrel Bisulfate 75 MG DAILY 08/27 1000 AC 08/27 PO 0919 Digoxin 0.125 MG 1700 08/28 1700 AC PO Digoxin 0.25 MG ONCE ONE 08/27 0930 DC 08/27 IV 08/27 0931 0920 Heparin Sodium 6,100 UNIT ONE ONE 08/27 1630 DC 08/27 (Porcine) IV 08/27 1631 1700 Heparin Sodium 25,000 UNIT Q24H 08/26 1830 AC 08/27 (Porcine) IV 1510 Sodium Chloride 500 ML Metoprolol Tartrate 12.5 MG BID 08/27 2200 DC PO Metoprolol Tartrate 25 MG BID 08/27 2200 AC 08/28 PO 0723 Metoprolol Tartrate 12.5 MG ONCE ONE 08/27 1815 DC 08/27 PO 08/27 1816 1821 Metoprolol Tartrate 6.25 MG ONCE ONE 08/27 1430 DC 08/27 PO 08/27 1431 1509 Metoprolol Tartrate 6.25 MG BID 08/27 1030 DC 08/27 PO 1138 Omeprazole 40 MG DAILY AC 08/27 0700 AC 08/28 PO 0558 Sodium Polystyrene 60 ML ONCE ONE 08/27 1000 DC 08/27 Sulfonate PO 08/27 1001 1138 Vital Signs & I&O Last 24 Hrs of Vitals and I&O: Vital Signs Date Time Temp Pulse Resp B/P B/P Pulse O2 O2 Flow FiO2 Mean Ox Delivery Rate 08/28 07 130 116/80 08/28 627 97.3 119 20 116/66 96 Nasal Cannula 08/27 2324 Nasal 2.0L Cannula 08/27 2300 98.3 125 20 112/74 94 Nasal 2.0L Cannula 08/27 2111 125 112/74 08/27 2058 Nasal 2.0L Cannula 08/27 1821 125 118/70 08/27 1754 126 118/70 08/27 1637 124 96/60 08/27 1600 93 Nasal 2.0L Cannula 08/27 1509 123 118/70 08/27 1436 97.4 124 20 11870 93 Nasal 2.0L Cannula 08/27 1138 119 138/70 08/27 1135 138/70 08/27 1134 100/78 08/27 0920 120 96/72 Intake & Output 08/28 1600 08/28 0800 08/28 0000 Intake Total 650 500 Output Total 1150 Balance -500 500 Intake, IV 350 Intake, Oral 300 500 Output, Urine 1150 Oxygen saturation 2 L 93% he is hemodynamically stable Impression/Plan Impression/Plan Impression/Plan: 81-year-old gentleman with lung cancer COPD and cardiomyopathy admitted with increasing shortness of breath cardiac arrhythmia in the setting of pulmonary embolism respiratory status and hemodynamics are stable although he remains tachycardic. With improved blood pressure consider restarting beta nicolette. Recommendations: Continue full anticoagulation. Repeat cardiac ultrasound. Further management of tachycardia per cardiology. There is no need for steroids at this time. Continue baseline bronchodilator medications. Consider transition to oral anticoagulant
--- NOTE | 2017-08-28 08:08 | PN- Housestaff ---
Alexy Rodriguez MD,Ami 08/28/17 0808: Subjective Follow-up For: Pulmonary embolism CHF A. fib/flutter Tele-Events Since Last Visit: A flutter, sinus tachycardia , 92 to 125, PVCs Subjective: Patient visited today, was lying in bed comfortably in no acute distress, was alert and oriented. at the bedside, disscussed the diagnosis and plan of care. No fever or chills, improved shortness of breathing, no chest pain, no other events. No change in BM color or frequency, patien on heparin. HR was high on digoxin, planned to increase dose of metoprolol rather than adding cardizem. Review of Systems Constitutional: Reports: see HPI. Objective Last 24 Hrs of Vital Signs/I&O Vital Signs Date Time Temp Pulse Resp B/P B/P Pulse O2 O2 Flow FiO2 Mean Ox Delivery Rate 08/28 1224 130 112/60 08/28 0909 90 Nasal 2.0L Cannula 08/28 0800 96 Nasal 2.0L Cannula 08/28 0723 130 116/80 08/28 0628 97.3 119 20 116/66 96 Nasal Cannula 08/27 2324 Nasal 2.0L Cannula 08/27 2300 98.3 125 20 112/74 94 Nasal 2.0L Cannula 08/27 2112 125 112/74 08/27 2059 Nasal 2.0L Cannula 08/27 1821 125 118/70 08/27 1754 126 118/70 08/27 1637 124 96/60 08/27 1600 93 Nasal 2.0L Cannula 08/27 1509 123 118/70 Intake & Output 08/28 1600 08/28 0800 08/28 0000 Intake Total 650 500 Output Total 1150 Balance -500 500 Intake, IV 350 Intake, Oral 300 500 Output, Urine 1150 Physical Exam General Appearance: Alert, Oriented X3, Cooperative, No Acute Distress Skin Temp/Moisture Exam: Warm/Dry Sepsis Skin Exam (color): Normal for Ethnicity Cardiovascular: Normal S1, Normal S2, tachicardia Lungs: decreased breathing sound bilaterally Abdomen: Soft, No Tenderness Extremities: No Edema Current Medications: Current Medications Sig/Dominique Start time Last Medication Dose Route Stop Time Status Admin Albuterol Sulfate 3 ML BID 08/28 1000 AC 08/28 INH 0908 Cholecalciferol 1,000 IU DAILY 08/27 1000 AC 08/28 PO 0915 Clopidogrel Bisulfate 75 MG DAILY 08/27 1000 AC 08/28 PO 0915 Digoxin 0.125 MG 1700 08/28 1700 AC PO Diltiazem HCl 30 MG Q8 08/28 1000 DC PO Heparin Sodium 6,100 UNIT ONE ONE 08/27 1630 DC 08/27 (Porcine) IV 08/27 1631 1700 Heparin Sodium 25,000 UNIT Q24H 08/26 1830 AC 08/27 (Porcine) IV 1510 Sodium Chloride 500 ML Metoprolol Tartrate 50 MG BID 08/28 2200 AC PO Metoprolol Tartrate 25 MG ONCE ONE 08/28 1130 DC 08/28 PO 08/28 1131 1224 Metoprolol Tartrate 12.5 MG BID 08/27 2200 DC PO Metoprolol Tartrate 25 MG BID 08/27 2200 DC 08/28 PO 0723 Metoprolol Tartrate 12.5 MG ONCE ONE 08/27 1815 DC 08/27 PO 08/27 1816 1821 Omeprazole 40 MG DAILY AC 08/27 0700 AC 08/28 PO 0558 Last 24 Hrs of Lab/Yong Results Last 24 Hrs of Labs/Mics: Laboratory Tests 08/28/17 0625: Anion Gap 14, Estimated GFR > 60, BUN/Creatinine Ratio 33.3 H, APTT 65 H, CBC w Diff NO MAN DIFF REQ, RBC 4.05 L, MCV 92.4, MCH 30.0, MCHC 32.4 L, RDW 15.4 H, MPV 8.7, Gran % 75.8 H, Lymphocytes % 11.0 L, Monocytes % 11.7 H, Eosinophils % 1.2, Basophils % 0.3, Absolute Granulocytes 4.5, Absolute Lymphocytes 0.7 L, Absolute Monocytes 0.7 H, Absolute Eosinophils 0.1, Absolute Basophils 0 08/27/174: APTT > 120 *H Assessment/Plan Assessment: 81-year-old with hx of smoker, advanced lung cancer with chemotherapy and 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 Pat, abdominal aortic aneurysm, emphysema and COPD was recently discharged from the [facility] for possible pneumonia and COPD exacerbation on 2 L and also EF of 30% to residential came back, from home with chief complaint of rapid heart rate and shortness of breath with productive cough. At the time of admission patient denies any nausea, vomiting, chest pain, abdominal pain, fevers, chills, recent sick contact. Upon arrival patient 2.5 L oxygen, heart rate 128, blood pressure 100/56 with no fever Labs notable hemoglobin 13.3 WBC 6.1, PLT 314, Potassium 5.9, sodium 138, BUN 26, anion gap 18, magnesium 2, lactic acid 3.7 and subsequently 2.4, troponin 0.06, BMP near 8000 CXR: 1. No significant change as compared to the prior study. 2. Persistent trace right pleural effusion, spiculated masslike opacity in the right midlung, and soft tissue fullness surrounding the surgical clips in the right upper lobe. 3. Unchanged pleural-parenchymal opacity in the left midlung with elevation of the left hemidiaphragm 4. Cardiomegaly, unchanged In the ED received 2 L of normal saline and TRC nebs with solumedrol IV cefazolin and vancomycin EKG showed tachycardia questionable atrial flutter with a sinus tachycardia with RBBB, 130 CTA was done which revealed PE: 1. Compared to 07/28/2017, there is a new embolic filling defect within the branch to the superior segment of the left lower lobe. 2. Severe centrilobular emphysema. 3. Multilobar pulmonary abnormalities remain similar in appearance compared to 07/28/2017. Also, the pleural effusions (right larger than left) have not significantly changed in size compared to 07/28/2017. Patient was admitted to telemetry floor for management of following conditions: New onset pulmonary embolism We started patient on anticoagulation -Continue monitoring in telemetry floor -Vital signs -IV heparin Cardiac problems: A flutter, tachycardia, CHF, or the non-low blood pressure Patient had low ejection fraction of 30% during previous admission, increasing heart rate could correlate to low ejection fracture and CHF. We performed heart rate control with metoprolol rather than Cardizem considering heart failure -Metoprolol increased to 50 twice a day -Continue digoxin Chronich medical problems: History of lung cancer, emphysema, GERD We will continue home medication, and continue to monitor - Continue omeprazole Full code, DVT prophylaxis IV heaprin, Tylenol for pain, heart healthy diet Problem List: 1. CHF (congestive heart failure) 2. Pulmonary emboli Pain Ratin Pain Location: None Pain Goal: Pain 4 or less Pain Plan: Continue current plan Tomorrow's Labs & Rationales: Cbc BEP Kirsten Pat 08/28/17 1459: Attending MD Review Statement Attending Statement Attending MD Statement: examined this patient, discuss w/resident/PA/TENSILE TESTER, agreed w/resident/PA/TENSILE TESTER, discussed with family, reviewed EMR data (avail), discussed with case mgmt Attending Assessment/Plan: d/w pt and family the care plan. Explained that we are increasing the metoprolol to 50mg po bid to help control the rate better. Hyperkalemia at admission resolved. cardiology following closely. On iv heparin. will switch to oral agent prior to dc.
[2017-08-28 08:30] LABS: ABSOLUTE BASOPHIL COUNT 0 /CUMM (0.0-0.2); ABSOLUTE EOSINOPHIL COUNT 0.1 /CUMM (0.0-0.7); ABSOLUTE GRANULOCYTE CT 4.5 /CUMM (1.4-6.5); ABSOLUTE LYMPH COUNT 0.7 /CUMM (1.2-3.4); ABSOLUTE MONOCYTE COUNT 0.7 /CUMM (0.10-0.60); BASOPHIL % 0.3 % (0.0-2.0); EOSINOPHIL % 1.2 % (0-5); GRANULOCYTE % 75.8 % (42.2-75.2); HEMATOCRIT 37.5 % (42-52); MEAN CORPUSCULAR HGB CONC 32.4 G/DL (33.0-37.0); MEAN CORPUSCULAR VOLUME 92.4 FL (80.0-94.0); MEAN PLATELET VOLUME 8.7 FL (7.4-10.4); PLATELET COUNT 280 /CUMM (130-400); RBC DISTRIBUTION WIDTH 15.4 % (11.5-14.5); RED BLOOD CELL CT 4.05 /CUMM (4.70-6.10)
[2017-08-28 09:01] LABS: PTT 65 SEC (25-37)
--- NOTE | 2017-08-28 11:02 | PN- Cardiology ---
Subjective Subjective: The patient continues to complain of shortness of breath which is increased by activity. He remains in atrial flutter. Ventricular rate is alternating between normal and mildly elevated. No chest pain. No syncope. No nausea or vomiting. Objective Vital Signs and I&Os Vital Signs Date Time Temp Pulse Resp B/P B/P Pulse O2 O2 Flow FiO2 Mean Ox Delivery Rate 08/28 0909 90 Nasal 2.0L Cannula 08/28 0800 96 Nasal 2.0L Cannula 08/28 0723 130 116/80 08/28 0628 97.3 119 20 116/66 96 Nasal Cannula 08/27 2324 Nasal 2.0L Cannula 08/27 2300 98.3 125 20 112/74 94 Nasal 2.0L Cannula 08/27 2112 125 112/74 08/27 2059 Nasal 2.0L Cannula 08/27 1821 125 118/70 08/27 1754 126 118/70 08/27 1637 124 96/60 08/27 1600 93 Nasal 2.0L Cannula 08/27 1509 123 118/70 08/27 1436 97.4 124 20 11870 93 Nasal 2.0L Cannula 08/27 1138 119 138/70 08/27 1135 138/70 08/27 1134 100/78 Intake & Output 08/28 1600 08/28 0800 08/28 0000 08/27 1600 08/27 0800 08/27 0000 Intake Total 650 500 738 168 2119 Output Total 1150 100 200 Balance -500 500 133 25 7542 Intake, IV 350 811 508 4033 Intake, Oral 300 500 700 50 240 Number 1 0 Bowel Movements Output, Urine 1150 100 200 Patient 178 lb Weight Weight Chair scale Measurement Method Physical Exam: Gen: The patient is in no acute distress HEENT: Normal nose, ears, and oropharynx. Pupils equal bilaterally. Conjunctiva normal. Neck: Supple with no JVD, no masses, and no thyromegaly Lungs: Scattered rhonchi with normal respiratory effort Heart: Tachycardic S1, S2, 1/6 systolic murmur. No peripheral edema, 2+ pulses in the lower extremities bilaterally Abdomen: Soft, nontender, no masses. No hepatomegaly. No splenomegaly Extremities: No clubbing or cyanosis. Normal muscle strength in the upper and lower extremities Skin: Normal skin turgor with no skin ulcers or lesions noted. Neuro: Cranial nerves intact. Sensation intact Current Medications: Current Medications Sig/Dominique Start time Last Medication Dose Route Stop Time Status Admin Albuterol Sulfate 3 ML BID 08/28 1000 AC 08/28 INH 0908 Cholecalciferol 1,000 IU DAILY 08/27 1000 AC 08/28 PO 0915 Clopidogrel Bisulfate 75 MG DAILY 08/27 1000 AC 08/28 PO 0915 Digoxin 0.125 MG 1700 08/28 1700 AC PO Diltiazem HCl 30 MG Q8 08/28 1000 AC PO Heparin Sodium 6,100 UNIT ONE ONE 08/27 1630 DC 08/27 (Porcine) IV 08/27 1631 1700 Heparin Sodium 25,000 UNIT Q24H 08/26 1830 AC 08/27 (Porcine) IV 1510 Sodium Chloride 500 ML Metoprolol Tartrate 12.5 MG BID 08/27 2200 DC PO Metoprolol Tartrate 25 MG BID 08/27 2200 AC 08/28 PO 0723 Metoprolol Tartrate 12.5 MG ONCE ONE 08/27 1815 DC 08/27 PO 08/27 1816 1821 Metoprolol Tartrate 6.25 MG ONCE ONE 08/27 1430 DC 08/27 PO 08/27 1431 1509 Metoprolol Tartrate 6.25 MG BID 08/27 1030 DC 08/27 PO 1138 Omeprazole 40 MG DAILY AC 08/27 0700 AC 08/28 PO 0558 Results Last 48 Hrs of Labs/Mics: Laboratory Tests 08/28/17 0625: Anion Gap 14, Estimated GFR > 60, BUN/Creatinine Ratio 33.3 H, APTT 65 H, CBC w Diff NO MAN DIFF REQ, RBC 4.05 L, MCV 92.4, MCH 30.0, MCHC 32.4 L, RDW 15.4 H, MPV 8.7, Gran % 75.8 H, Lymphocytes % 11.0 L, Monocytes % 11.7 H, Eosinophils % 1.2, Basophils % 0.3, Absolute Granulocytes 4.5, Absolute Lymphocytes 0.7 L, Absolute Monocytes 0.7 H, Absolute Eosinophils 0.1, Absolute Basophils 0 08/27/17 2234: APTT > 120 *H 08/27/17 1440: APTT 38 H, Digoxin 1.9 08/27/17 0635: Anion Gap 14, Estimated GFR > 60, BUN/Creatinine Ratio 30.0 H, CBC w Diff NO MAN DIFF REQ, RBC 4.22 L, MCV 91.9, MCH 30.2, MCHC 32.9 L, RDW 15.1 H, MPV 9.0, Gran % 80.4 H, Lymphocytes % 9.2 L, Monocytes % 10.2 H, Eosinophils % 0.2, Basophils % 0, Absolute Granulocytes 3.8, Absolute Lymphocytes 0.4 L, Absolute Monocytes 0.5, Absolute Eosinophils 0, Absolute Basophils 0 08/27/17 0215: APTT 65 H 08/26/17 2309: Lactic Acid 1.8 08/26/172001: Lactic Acid 4.3 H 08/26/17 1753: Anion Gap 17 H, Estimated GFR > 60, BUN/Creatinine Ratio 30.0 H, Troponin I 0.08 08/26/17 1625: Lactic Acid 2.4 H 08/26/17 1308: Lactic Acid 3.7 H, PT 14.9 H, INR 1.42 H 08/26/17 1150: Anion Gap 18 H, Estimated GFR > 60, BUN/Creatinine Ratio 28.9 H, Glucose 142 H, Calcium 8.8, Magnesium 2.0, Total Bilirubin 0.5, AST 28, ALT 28, Alkaline Phosphatase 109, Troponin I 0.06, Kbz-[id number] Pept 7760 H, Total Protein 6.2 L, Albumin 3.4 L, Globulin 2.8, Albumin/Globulin Ratio 1.2, CBC w Diff NO MAN DIFF REQ, RBC 4.44 L, MCV 93.1, MCH 29.9, MCHC 32.2 L, RDW 14.7 H, MPV 9.4, Gran % 66.6, Lymphocytes % 16.6 L, Monocytes % 14.4 H, Eosinophils % 2.2, Basophils % 0.2, Absolute Granulocytes 4.1, Absolute Lymphocytes 1.0 L, Absolute Monocytes 0.9 H, Absolute Eosinophils 0.1, Absolute Basophils 0 Microbiology 08/27 829 URINE ROUT: Legionella Antigen - COMP 08/27 829 URINE ROUT: Streptococcus pneumoniae Antigen (M - COMP Assessment/Plan Assessment/Plan Assessment: 1. Coronary artery disease 2. Chronic systolic heart failure, with LVEF 25-30% 3. Acute pulmonary embolism 4. Atrial flutter with rapid ventricular rate Recommendations: * IV heparin per protocol * Echocardiogram * Digoxin 0.125 mg p.o. daily * Increase metoprolol to 50 mg p.o. BID, with first dose this morning. If necessary to control her heart rate, this could be subsequently increased to 100 mg twice daily * Would not start diltiazem. Metoprolol is preferred over diltiazem given the decreased ejection fraction. Continue telemetry? Yes
[2017-08-28 14:40] VITALS: BP 100/60
[2017-08-28 18:52] LABS: PTT 58 SEC (25-37)
[2017-08-28 22:53] VITALS: BP 82/48
[2017-08-29] VITALS: BP 120/66
[2017-08-29 02:30] LABS: PTT 88 SEC (25-37)
[2017-08-29 06:33] VITALS: BP 128/68
--- NOTE | 2017-08-29 07:23 | PN- Housestaff ---
Alexy Rodriguez MD,Ami 08/29/17 0723: Subjective Follow-up For: Pulmonary embolism CHF A. fib/flutter Tele-Events Since Last Visit: A flutter 87 -105 Subjective: Patient visited today, was sitting in bed comfortably in no acute distress, was alert and oriented. Reported overall no change in symptoms. No shortness of breathing as he reported he doesn't have any activity. No fever or chills, no chest pain, no other events. Review of Systems Constitutional: Reports: see HPI. Objective Last 24 Hrs of Vital Signs/I&O Vital Signs Date Time Temp Pulse Resp B/P B/P Pulse O2 O2 Flow FiO2 Mean Ox Delivery Rate 08/29 0812 96 128/68 08/29 0800 Nasal 4.5L Cannula 08/29 0633 97.5 96 16 128/68 98 Nasal 4.0L Cannula 08/29 0000 128 120/66 08/28 2253 97.9 90 18 82/48 97 Nasal Cannula 08/28 2048 Nasal 4.5L Cannula 08/28 2039 89 112/60 08/28 2007 94 Nasal 3.0L Cannula 08/28 1653 110 10060 08/28 1600 96 Nasal 2.0L Cannula 08/28 1440 97.5 88 20 100/60 97 Nasal Cannula 08/28 1224 130 112/60 08/28 0909 90 Nasal 2.0L Cannula Intake & Output 08/29 1600 08/29 0800 08/29 0000 Intake Total 333.6 448 Output Total 750 500 Balance -416.4 -52 Intake, IV 233.6 208 Intake, Oral 100 240 Number 0 0 Bowel Movements Output, Urine 750 500 Physical Exam General Appearance: Alert, Oriented X3, Cooperative, No Acute Distress Skin: No Significant Lesion Skin Temp/Moisture Exam: Warm/Dry Sepsis Skin Exam (color): Normal for Ethnicity HEENT: Atraumatic, EOMI, Mucous Membr. moist/pink Cardiovascular: Normal S1, Normal S2, tachycardia Lungs: bilateral wheezing Abdomen: Soft, No Tenderness Neurological: Normal Speech Current Medications: Current Medications Sig/Dominique Start time Last Medication Dose Route Stop Time Status Admin Albuterol Sulfate 3 ML BID 08/28 1000 AC 08/29 INH 0821 Cholecalciferol 1,000 IU DAILY 08/27 1000 AC 08/29 PO 0813 Clopidogrel Bisulfate 75 MG DAILY 08/27 1000 AC 08/29 PO 0813 Digoxin 0.125 MG 1700 08/28 1700 AC 08/28 PO 1653 Diltiazem HCl 30 MG Q8 08/28 1000 DC PO Heparin Sodium 25,000 UNIT Q24H 08/26 1830 AC 08/27 (Porcine) IV 1510 Sodium Chloride 500 ML Metoprolol Tartrate 50 MG BID 08/28 2200 DC PO Metoprolol Tartrate 100 MG BID 08/28 2200 AC 08/29 PO 0812 Metoprolol Tartrate 25 MG ONCE ONE 08/28 1130 DC 08/28 PO 08/28 1131 1224 Metoprolol Tartrate 25 MG BID 08/27 2200 DC 08/28 PO 0723 Omeprazole 40 MG DAILY AC 08/27 0700 AC 08/29 PO 0512 Last 24 Hrs of Lab/Yong Results Last 24 Hrs of Labs/Mics: Laboratory Tests 08/29/17 0654: Anion Gap 11, Estimated GFR > 60, BUN/Creatinine Ratio 27.1 H, CBC w Diff NO MAN DIFF REQ, RBC 4.12 L, MCV 92.1, MCH 30.3, MCHC 32.9 L, RDW 15.3 H, MPV 8.7, Gran % 73.0, Lymphocytes % 11.4 L, Monocytes % 13.0 H, Eosinophils % 2.3, Basophils % 0.3, Absolute Granulocytes 4.0, Absolute Lymphocytes 0.6 L, Absolute Monocytes 0.7 H, Absolute Eosinophils 0.1, Absolute Basophils 0 08/29/17 0200: APTT 88 H 08/28/17 1800: APTT 58 H Assessment/Plan Assessment: 81-year-old with hx of smoker, advanced lung cancer with chemotherapy and 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 Pat, abdominal aortic aneurysm, emphysema and COPD was recently discharged from the [facility] for possible pneumonia and COPD exacerbation on 2 L and also EF of 30% to residential came back, from home with chief complaint of rapid heart rate and shortness of breath with productive cough. At the time of admission patient denies any nausea, vomiting, chest pain, abdominal pain, fevers, chills, recent sick contact. Upon arrival patient 2.5 L oxygen, heart rate 128, blood pressure 100/56 with no fever Labs notable hemoglobin 13.3 WBC 6.1, PLT 314, Potassium 5.9, sodium 138, BUN 26, anion gap 18, magnesium 2, lactic acid 3.7 and subsequently 2.4, troponin 0.06, BMP near 8000 CXR: 1. No significant change as compared to the prior study. 2. Persistent trace right pleural effusion, spiculated masslike opacity in the right midlung, and soft tissue fullness surrounding the surgical clips in the right upper lobe. 3. Unchanged pleural-parenchymal opacity in the left midlung with elevation of the left hemidiaphragm 4. Cardiomegaly, unchanged In the ED received 2 L of normal saline and TRC nebs with solumedrol IV cefazolin and vancomycin EKG showed tachycardia questionable atrial flutter with a sinus tachycardia with RBBB, 130 CTA was done which revealed PE: 1. Compared to 07/28/2017, there is a new embolic filling defect within the branch to the superior segment of the left lower lobe. 2. Severe centrilobular emphysema. 3. Multilobar pulmonary abnormalities remain similar in appearance compared to 07/28/2017. Also, the pleural effusions (right larger than left) have not significantly changed in size compared to 07/28/2017. Patient was admitted to telemetry floor for management of following conditions: Acute on chronic hypoxic respiratory failure pulmonary embolism Patient was on 2 L oxygen at home, the new exacerbation and respiratory condition was most likely related to pulmonary embolism. We started patient on IV heparin and increased oxygen supplement. -O2 supplement -Continue monitoring in telemetry floor -Vital signs -IV heparin Cardiac problems: A flutter, tachycardia, CHF, low blood pressure Patient had low ejection fraction of 30% during previous admission, increasing heart rate could correlate to low ejection fracture and CHF. We performed heart rate control with metoprolol rather than Cardizem considering heart failure Metoprolol increased slowly to control heart rate. -Metoprolol increased to 100 twice a day -Continue digoxin Chronich medical problems: History of lung cancer, emphysema, GERD We will continue home medication, and continue to monitor - Continue omeprazole Full code, DVT prophylaxis IV heaprin, Tylenol for pain, heart healthy diet Problem List: 1. Pulmonary emboli 2. CHF (congestive heart failure) 3. COPD exacerbation Pain Ratin Pain Location: none Pain Goal: Pain 4 or less Pain Plan: Continue current plan Tomorrow's Labs & Rationales: CBC BEP Pat,[place] 08/29/17 1458: Attending MD Review Statement Attending Statement Attending MD Statement: examined this patient, discuss w/resident/PA/POWER SHOVEL OPERATOR, agreed w/resident/PA/POWER SHOVEL OPERATOR, reviewed EMR data (avail), discussed with nursing, discussed with case mgmt Attending Assessment/Plan: Acute on chronic Systolic Chf- Reviewed CXR done in am. shows moderate left side pleural effusion. given his low EF on echo of 25-30% and afib with rvr will give one dose of 20mg iv lasxi and repeat as needed. Afib /aflutter- planned for GUS and cardioversion likely tomorrow. Acute PE- cont on iv heparin for now and switch to NOAC tomorrow after the procedure. Deconditioning- will get PT eval and see how he does with therapy. pt recently dced from [facility]. would want to go home with home PT.
[2017-08-29 08:02] LABS: ABSOLUTE BASOPHIL COUNT 0 /CUMM (0.0-0.2); ABSOLUTE EOSINOPHIL COUNT 0.1 /CUMM (0.0-0.7); ABSOLUTE LYMPH COUNT 0.6 /CUMM (1.2-3.4); ABSOLUTE MONOCYTE COUNT 0.7 /CUMM (0.10-0.60); BASOPHIL % 0.3 % (0.0-2.0); EOSINOPHIL % 2.3 % (0-5); MEAN CORPUSCULAR HGB 30.3 PG (27.0-31.0); MEAN CORPUSCULAR HGB CONC 32.9 G/DL (33.0-37.0); MEAN CORPUSCULAR VOLUME 92.1 FL (80.0-94.0); MEAN PLATELET VOLUME 8.7 FL (7.4-10.4); PLATELET COUNT 273 /CUMM (130-400); RBC DISTRIBUTION WIDTH 15.3 % (11.5-14.5); RED BLOOD CELL CT 4.12 /CUMM (4.70-6.10); WHITE BLOOD CELL COUNT 5.4 /CUMM (4.8-10.8)
--- NOTE | 2017-08-29 08:06 | PN- Pulmonary ---
Subjective HPI/Critical Care Issues: Patient continues to have shortness of breath at baseline Objective Current Medications: Current Medications Sig/Dominique Start time Last Medication Dose Route Stop Time Status Admin Albuterol Sulfate 3 ML BID 08/28 1000 AC 08/28 INH 2000 Cholecalciferol 1,000 IU DAILY 08/27 1000 AC 08/28 PO 0915 Clopidogrel Bisulfate 75 MG DAILY 08/27 1000 AC 08/28 PO 0915 Digoxin 0.125 MG 1700 08/28 1700 AC 08/28 PO 1653 Diltiazem HCl 30 MG Q8 08/28 1000 DC PO Heparin Sodium 25,000 UNIT Q24H 08/26 1830 AC 08/27 (Porcine) IV 1510 Sodium Chloride 500 ML Metoprolol Tartrate 50 MG BID 08/28 2200 DC PO Metoprolol Tartrate 100 MG BID 08/28 2200 AC 08/28 PO 2039 Metoprolol Tartrate 25 MG ONCE ONE 08/28 1130 DC 08/28 PO 08/28 1131 1224 Metoprolol Tartrate 25 MG BID 08/27 2200 DC 08/28 PO 0723 Omeprazole 40 MG DAILY AC 08/27 0700 AC 08/29 PO 0512 Vital Signs & I&O Last 24 Hrs of Vitals and I&O: Vital Signs Date Time Temp Pulse Resp B/P B/P Pulse O2 O2 Flow FiO2 Mean Ox Delivery Rate 08/29 0633 97.5 96 16 128/68 98 Nasal 4.0L Cannula 08/29 0000 128 120/66 08/28 2253 97.9 90 18 82/48 97 Nasal Cannula 08/28 2048 Nasal 4.5L Cannula 08/28 2039 89 112/60 08/28 2007 94 Nasal 3.0L Cannula 08/28 1653 110 100/60 08/28 1600 96 Nasal 2.0L Cannula 08/28 1440 97.5 88 20 100/60 97 Nasal Cannula 08/28 1224 130 112/60 08/28 0909 90 Nasal 2.0L Cannula Intake & Output 08/29 1600 08/29 0800 08/29 0000 Intake Total 333.6 448 Output Total 750 500 Balance -416.4 -52 Intake, IV 233.6 208 Intake, Oral 100 240 Number 0 0 Bowel Movements Output, Urine 750 500 Oxygen saturation 4 L 98% exam of his chest shows occasional crackles there are no wheezes cardiac exam shows a regular rapid rhythm Impression/Plan Impression/Plan Impression/Plan: 81-year-old gentleman with lung cancer COPD and cardiomyopathy admitted with increasing shortness of breath cardiac arrhythmia in the setting of pulmonary embolism respiratory status and hemodynamics are stable although he remains tachycardic. With improved blood pressure consider restarting beta nicolette. Patient's respiratory status is stable FiO2 can be tapered further management of tachycardia per cardiology Recommendations: Convert to oral anticoagulant. Follow-up cardiac ultrasound. Further management of tachycardia per cardiology. Taper FiO2
--- NOTE | 2017-08-29 11:58 | RADIOLOGY REPORT ---
EXAMINATION: XR PORTABLE CHEST CLINICAL INFORMATION: Shortness of breath. COMPARISON: CTA of the chest and chest x-ray 08/26/2017. TECHNIQUE: Portable AP 80 degrees semiupright view of the chest was obtained. FINDINGS: The lung kamara are asymmetrically aerated, smaller on the left. There is opacity in the left midzone extending laterally, similar compared to the prior study. The study demonstrates a ill-defined opacity in the right mid/upper zone with calcifications, corresponding to the lesion on the CT scan. It appears similar compared to the prior study. There is a moderate left pleural effusion, and there is elevation of the left hemidiaphragm. There is trace right pleural effusion. The cardiac silhouette is mildly prominent, but unchanged. The aorta is calcified and unfolded. The central pulmonary vasculature appears normal. There are no acute osseous findings. There are monitor leads overlying the chest. There is a surgical clip in the left lower neck. There are multiple monitor leads overlying the chest. IMPRESSION: 1. There is no interval change in the opacity in the mid/right upper when compared to prior imaging. There is a small right pleural effusion. 2. The opacity in the left midzone is also unchanged, with elevation of the left hemidiaphragm and a moderate left pleural effusion. 3. There is stable mild cardiomegaly.
--- NOTE | 2017-08-29 12:52 | PN- Cardiology ---
Subjective Subjective: The patient remains in atrial flutter. Ventricular rate is under control on metoprolol. No chest pain. He continues to be short of breath. No diaphoresis. No orthopnea. Objective Vital Signs and I&Os Vital Signs Date Time Temp Pulse Resp B/P B/P Pulse O2 O2 Flow FiO2 Mean Ox Delivery Rate 08/29 0955 95 Nasal 3.0L Cannula 08/29 0812 96 128/68 08/29 0800 Nasal 4.5L Cannula 08/29 0633 97.5 96 16 128/68 98 Nasal 4.0L Cannula 08/29 0000 128 120/66 08/28 2253 97.9 90 18 82/48 97 Nasal Cannula 08/288 Nasal 4.5L Cannula 08/28 2039 89 112/60 08/28 2007 94 Nasal 3.0L Cannula 08/28 1653 110 100/60 08/28 1600 96 Nasal 2.0L Cannula 08/28 1440 97.5 88 20 100/60 97 Nasal Cannula Intake & Output 08/29 1600 08/29 0800 08/29 0000 08/28 1600 08/28 0800 08/28 0000 Intake Total 333.6 448 620 650 500 Output Total 750 811 030 6104 Balance -416.4 -52 270 -500 500 Intake, IV 233.6 208 350 Intake, Oral 100 240 620 300 500 Number 0 0 1 Bowel Movements Output, Urine 750 [phone] Physical Exam: Gen: The patient is in no acute distress HEENT: Normal nose, ears, and oropharynx. Pupils equal bilaterally. Conjunctiva normal. Neck: Supple with no JVD, no masses, and no thyromegaly Lungs: Scattered rhonchi with normal respiratory effort Heart: Tachycardic S1, S2, 1/6 systolic murmur. No peripheral edema, 2+ pulses in the lower extremities bilaterally Abdomen: Soft, nontender, no masses. No hepatomegaly. No splenomegaly Extremities: No clubbing or cyanosis. Normal muscle strength in the upper and lower extremities Skin: Normal skin turgor with no skin ulcers or lesions noted. Neuro: Cranial nerves intact. Sensation intact Current Medications: Current Medications Sig/Dominique Start time Last Medication Dose Route Stop Time Status Admin Albuterol Sulfate 3 ML BID 08/28 1000 AC 08/29 INH 0821 Cholecalciferol 1,000 IU DAILY 08/27 1000 AC 08/29 PO 0813 Clopidogrel Bisulfate 75 MG DAILY 08/27 1000 AC 08/29 PO 0813 Digoxin 0.125 MG 1700 08/28 1700 AC 08/28 PO 1653 Heparin Sodium 25,000 UNIT Q24H 08/26 1830 AC 08/29 (Porcine) IV 0956 Sodium Chloride 500 ML Metoprolol Tartrate 50 MG BID 08/280 DC PO Metoprolol Tartrate 100 MG BID 08/28 2200 AC 08/29 PO 0812 Omeprazole 40 MG DAILY AC 08/27 0700 AC 08/29 PO 0512 Results Last 48 Hrs of Labs/Mics: Laboratory Tests 08/29/17 0654: Anion Gap 11, Estimated GFR > 60, BUN/Creatinine Ratio 27.1 H, CBC w Diff NO MAN DIFF REQ, RBC 4.12 L, MCV 92.1, MCH 30.3, MCHC 32.9 L, RDW 15.3 H, MPV 8.7, Gran % 73.0, Lymphocytes % 11.4 L, Monocytes % 13.0 H, Eosinophils % 2.3, Basophils % 0.3, Absolute Granulocytes 4.0, Absolute Lymphocytes 0.6 L, Absolute Monocytes 0.7 H, Absolute Eosinophils 0.1, Absolute Basophils 0 08/29/17 0200: APTT 88 H 08/28/17 1800: APTT 58 H 08/28/17 0625: Anion Gap 14, Estimated GFR > 60, BUN/Creatinine Ratio 33.3 H, APTT 65 H, CBC w Diff NO MAN DIFF REQ, RBC 4.05 L, MCV 92.4, MCH 30.0, MCHC 32.4 L, RDW 15.4 H, MPV 8.7, Gran % 75.8 H, Lymphocytes % 11.0 L, Monocytes % 11.7 H, Eosinophils % 1.2, Basophils % 0.3, Absolute Granulocytes 4.5, Absolute Lymphocytes 0.7 L, Absolute Monocytes 0.7 H, Absolute Eosinophils 0.1, Absolute Basophils 0 08/27/17 2234: APTT > 120 *H 08/27/17 1440: APTT 38 H, Digoxin 1.9 Recent Imaging Studies: Chest x-ray: 1. There is no interval change in the opacity in the mid/right upper when compared to prior imaging. There is a small right pleural effusion. 2. The opacity in the left midzone is also unchanged, with elevation of the left hemidiaphragm and a moderate left pleural effusion. 3. There is stable mild cardiomegaly. Assessment/Plan Assessment/Plan Assessment: 1. Coronary artery disease 2. Chronic systolic heart failure, with LVEF 25-30% 3. Acute pulmonary embolism 4. Atrial flutter rate under control Recommendations: * Would start Eliquis 10 mg p.o. twice daily. This will be changed to 5 mg bid after 7 days. * Discontinue IV heparin when first dose of Eliquis is given * Echocardiogram result is pending * Possible GUS/Cardioversion prior to discharge vs outpatient cardioversion * Would make n.p.o. after midnight for potential GUS/Cardioversion tomorrow * Continue metoprolol 100 mg p.o. twice daily * Start lisinopril 5 mg daily for left ventricular systolic dysfunction Continue telemetry? Yes
[2017-08-29 14:00] VITALS: BP 100/50
[2017-08-29 15:04] LABS: PTT 54 SEC (25-37)
[2017-08-29 21:08] LABS: PTT > 120 SEC (25-37)
[2017-08-29 21:52] VITALS: BP 116/60
[2017-08-30 04:43] LABS: ABSOLUTE BASOPHIL COUNT 0 /CUMM (0.0-0.2); ABSOLUTE EOSINOPHIL COUNT 0.1 /CUMM (0.0-0.7); ABSOLUTE GRANULOCYTE CT 3.4 /CUMM (1.4-6.5); ABSOLUTE LYMPH COUNT 0.7 /CUMM (1.2-3.4); ABSOLUTE MONOCYTE COUNT 0.7 /CUMM (0.10-0.60); BASOPHIL % 0.2 % (0.0-2.0); EOSINOPHIL % 1.4 % (0-5); GRANULOCYTE % 69.5 % (42.2-75.2); HEMATOCRIT 37.4 % (42-52); MEAN CORPUSCULAR HGB 30.1 PG (27.0-31.0); MEAN CORPUSCULAR HGB CONC 32.8 G/DL (33.0-37.0); MEAN CORPUSCULAR VOLUME 91.7 FL (80.0-94.0); MEAN PLATELET VOLUME 8.2 FL (7.4-10.4); PLATELET COUNT 265 /CUMM (130-400); RBC DISTRIBUTION WIDTH 15.3 % (11.5-14.5); RED BLOOD CELL CT 4.08 /CUMM (4.70-6.10); WHITE BLOOD CELL COUNT 4.9 /CUMM (4.8-10.8)
[2017-08-30 04:51] LABS: PTT 68 SEC (25-37)
[2017-08-30 07:00] VITALS: BP 112/64
--- NOTE | 2017-08-30 08:02 | PN- Housestaff ---
Alexy Rodriguez MD,Ami 08/30/17 0801: Subjective Follow-up For: Pulmonary embolism CHF A. fib/flutter Tele-Events Since Last Visit: A flutter/afib 65-69 PVC Subjective: Patient visited today, PE on heparin, was lying in bed comfortably in no acute distress, was alert and oriented. Planned to undergo cardioversion today as the recent decrease in EF was related to afib; future cardiac cath disscusion being done. No fever or chills, improved shortness of breathing, no chest pain, no other events. Review of Systems Constitutional: Reports: see HPI. Objective Last 24 Hrs of Vital Signs/I&O Vital Signs Date Time Temp Pulse Resp B/P B/P Pulse O2 O2 Flow FiO2 Mean Ox Delivery Rate 08/30 1025 100 110/60 08/30 0800 93 Nasal 4.5L Cannula 08/30 0700 97.7 74 22 112/64 98 Nasal Cannula 08/29 215 97.9 120 22 116/60 96 Nasal 4.5L Cannula 08/29 2149 96 Nasal 4.5L Cannula 08/29 2107 120 116/60 08/29 2051 96 Nasal 3.0L Cannula 08/29 1832 105 98/62 08/29 1831 105 98/62 08/29 1400 97.7 88 20 100/50 94 Intake & Output 08/30 1600 08/30 0800 08/30 0000 Intake Total 0 300 Output Total 400 350 Balance -400 -50 Intake, Oral 0 300 Output, Urine 400 350 Physical Exam General Appearance: Alert, Cooperative, No Acute Distress Skin: No Significant Lesion Skin Temp/Moisture Exam: Warm/Dry Cardiovascular: Normal S1, Normal S2, tachicardia controlled Lungs: bilateral ronchi and wheezing Abdomen: Soft, No Tenderness Neurological: Normal Speech Current Medications: Current Medications Sig/Dominique Start time Last Medication Dose Route Stop Time Status Admin Albuterol Sulfate 3 ML BID 08/28 1000 AC 08/29 INH 2050 Cholecalciferol 1,000 IU DAILY 08/27 1000 AC 08/29 PO 08 Clopidogrel Bisulfate 75 MG DAILY 08/27 1000 AC 08/29 PO 08 Digoxin 0.125 MG 1700 08/28 1700 AC 08/29 PO 1831 Furosemide 20 MG DAILY 08/31 1000 AC PO Furosemide 20 MG ONCE ONE 08/29 1515 DC 08/29 IV 08/29 1516 1509 Furosemide 40 MG .STK-MED ONE 08/29 1507 DC IV 08/29 1508 Heparin Sodium 3,200 UNIT ONCE ONE 08/29 1600 DC 08/29 (Porcine) IV 08/29 1601 1622 Heparin Sodium 5,000 UNIT .STK-MED ONE 08/29 1554 DC (Porcine) IV 08/29 1555 Heparin Sodium 25,000 UNIT Q24H 08/26 1830 AC 08/30 (Porcine) IV 0429 Sodium Chloride 500 ML Lidocaine 0 .STK-MED ONE 08/30 0927 DC TOP Lisinopril 5 MG DAILY 08/29 1521 AC PO Melatonin 5 MG ONCE ONE 08/29 2245 DC 08/29 PO 08/29 2245 224 Metoprolol Tartrate 100 MG BID 08/28 2200 AC 08/30 PO 1025 Omeprazole 40 MG DAILY AC 08/27 0700 AC 08/29 PO 0512 Last 24 Hrs of Lab/Yong Results Last 24 Hrs of Labs/Mics: Laboratory Tests 08/30/17 0425: Anion Gap 12, Estimated GFR > 60, BUN/Creatinine Ratio 26.7 H, APTT 68 H, CBC w Diff NO MAN DIFF REQ, RBC 4.08 L, MCV 91.7, MCH 30.1, MCHC 32.8 L, RDW 15.3 H, MPV 8.2, Gran % 69.5, Lymphocytes % 14.2 L, Monocytes % 14.7 H, Eosinophils % 1.4, Basophils % 0.2, Absolute Granulocytes 3.4, Absolute Lymphocytes 0.7 L, Absolute Monocytes 0.7 H, Absolute Eosinophils 0.1, Absolute Basophils 0 08/29/172009: APTT > 120 *H 08/29/17 1420: APTT 54 H Assessment/Plan Assessment: 81-year-old with hx of smoker, advanced lung cancer with chemotherapy and 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 Pat, abdominal aortic aneurysm, emphysema and COPD was recently discharged from the [facility] for possible pneumonia and COPD exacerbation on 2 L and also EF of 30% to shelter came back, from home with chief complaint of rapid heart rate and shortness of breath with productive cough. At the time of admission patient denies any nausea, vomiting, chest pain, abdominal pain, fevers, chills, recent sick contact. Upon arrival patient 2.5 L oxygen, heart rate 128, blood pressure 100/56 with no fever Labs notable hemoglobin 13.3 WBC 6.1, PLT 314, Potassium 5.9, sodium 138, BUN 26, anion gap 18, magnesium 2, lactic acid 3.7 and subsequently 2.4, troponin 0.06, BMP near 8000 CXR: 1. No significant change as compared to the prior study. 2. Persistent trace right pleural effusion, spiculated masslike opacity in the right midlung, and soft tissue fullness surrounding the surgical clips in the right upper lobe. 3. Unchanged pleural-parenchymal opacity in the left midlung with elevation of the left hemidiaphragm 4. Cardiomegaly, unchanged In the ED received 2 L of normal saline and TRC nebs with solumedrol IV cefazolin and vancomycin EKG showed tachycardia questionable atrial flutter with a sinus tachycardia with RBBB, 130 CTA was done which revealed PE: 1. Compared to 07/28/2017, there is a new embolic filling defect within the branch to the superior segment of the left lower lobe. 2. Severe centrilobular emphysema. 3. Multilobar pulmonary abnormalities remain similar in appearance compared to 07/28/2017. Also, the pleural effusions (right larger than left) have not significantly changed in size compared to 07/28/2017. Patient was admitted to telemetry floor for management of following conditions: Acute on chronic hypoxic respiratory failure pulmonary embolism Patient was on 2 L oxygen at home, the new exacerbation and respiratory condition was most likely related to pulmonary embolism. We started patient on IV heparin and increased oxygen supplement. -O2 supplement -Continue monitoring in telemetry floor -Vital signs -IV heparin DCed - eliquise `10 BID for 7days and then continue with 5 Cardiac problems: A flutter, tachycardia, CHF, low blood pressure Patient had low ejection fraction of 30% during previous admission, increasing heart rate could correlate to low ejection fracture and CHF. We performed heart rate control with metoprolol rather than Cardizem considering heart failure Metoprolol increased slowly to control heart rate. -Metoprolol increased to 100 twice a day -Continue digoxin - Lasix resumed with increased BP Chronich medical problems: History of lung cancer, emphysema, GERD We will continue home medication, and continue to monitor - Continue omeprazole Full code, DVT prophylaxis IV heaprin, Tylenol for pain, heart healthy diet Problem List: 1. History of lung cancer 2. Pulmonary emboli 3. CHF (congestive heart failure) 4. Pulmonary embolism 5. Atrial flutter Pain Ratin Pain Location: None Pain Goal: Pain 4 or less Pain Plan: Continue current plan Tomorrow's Labs & Rationales: CBc BEP Kirsten Pat 08/30/17 1354: Attending MD Review Statement Attending Statement Attending MD Statement: examined this patient, discuss w/resident/PA/BALL HOLDER, agreed w/resident/PA/BALL HOLDER, reviewed EMR data (avail), discussed with nursing, discussed with case mgmt Attending Assessment/Plan: pt going for GUS and cardioversion today. Resume 20mg po lasix . Pts acute hypoxic resp failure resolving. still on 3L oxygen by [place]. will see how he does after the cardioversion as pts risk of recurrence is high given his other comorbidities.
--- NOTE | 2017-08-30 08:15 | PN- Pulmonary ---
Subjective HPI/Critical Care Issues: Shortness of breath appears improved. Decision regarding cardioversion pending Objective Current Medications: Current Medications Sig/Dominique Start time Last Medication Dose Route Stop Time Status Admin Albuterol Sulfate 3 ML BID 08/28 1000 AC 08/29 INH 2051 Cholecalciferol 1,000 IU DAILY 08/27 1000 AC 08/29 PO 0813 Clopidogrel Bisulfate 75 MG DAILY 08/27 1000 AC 08/29 PO 0813 Digoxin 0.125 MG 1700 08/28 1700 AC 08/29 PO 1831 Furosemide 20 MG ONCE ONE 08/29 1515 DC 08/29 IV 08/29 1516 1509 Furosemide 40 MG .STK-MED ONE 08/29 1507 DC IV 08/29 1508 Heparin Sodium 3,200 UNIT ONCE ONE 08/29 1600 DC 08/29 (Porcine) IV 08/29 1601 1622 Heparin Sodium 5,000 UNIT .STK-MED ONE 08/29 1554 DC (Porcine) IV 08/29 1555 Heparin Sodium 25,000 UNIT Q24H 08/26 1830 AC 08/30 (Porcine) IV 0429 Sodium Chloride 500 ML Lisinopril 5 MG DAILY 08/29 1521 AC PO Melatonin 5 MG ONCE ONE 08/29 2245 DC 08/29 PO 08/29 2246 2247 Metoprolol Tartrate 100 MG BID 08/28 2200 AC 08/29 PO 2107 Omeprazole 40 MG DAILY AC 08/27 0700 AC 08/29 PO 0512 Vital Signs & I&O Last 24 Hrs of Vitals and I&O: Vital Signs Date Time Temp Pulse Resp B/P B/P Pulse O2 O2 Flow FiO2 Mean Ox Delivery Rate 08/30 699 97.7 74 22 112/64 98 Nasal Cannula 08/29 2151 97.9 120 22 116/60 96 Nasal 4.5L Cannula 08/29 2149 96 Nasal 4.5L Cannula 08/29 2106 120 116/60 08/29 2051 96 Nasal 3.0L Cannula 08/29 1831 105 98/62 08/29 183 105 98/62 08/29 1400 97.7 88 20 100/50 94 08/29 0955 95 Nasal 3.0L Cannula Intake & Output 08/30 1600 08/30 0800 08/30 0000 Intake Total 0 300 Output Total 400 350 Balance -400 -50 Intake, Oral 0 300 Output, Urine 400 350 Oxygen saturation 4 L 98% exam of his chest shows somewhat diminished breath sounds no wheezes or crackles cardiac exam shows a regular rhythm Impression/Plan Impression/Plan Impression/Plan: 81-year-old gentleman with lung cancer COPD and cardiomyopathy admitted with increasing shortness of breath cardiac arrhythmia in the setting of pulmonary embolism . Respiratory status is stable. Recommendations: Taper FiO2 to saturations of 92%. Await decision on cardioversion. No further pulmonary suggestions
--- NOTE | 2017-08-30 10:27 | ECHOCARDIOGRAM REPORT ---
XIN LIM Age: 81 : 1935 Gender: M Exam Date: 08/27/2017 13:53 Exam Location: 1 [address] Ht (in): 72 Wt (lb): 177 BSA: 2.02 BP: 138 / 70 Ordering Physician: Abbie Champion MD Referring Physician: Cesar Solano MD Technologist: Kathy Florez [facility] Room Number: 175 Indications: AFIB/FLUTTER Rhythm: Atrial fibrillation Technical Quality: Fair FINDINGS Left Ventricle Left ventricular cavity size at the upper limits of normal. Moderately reduced global left ventricular systolic function. Moderately abnormal left ventricular ejection fraction estimated at 30-35%. Left ventricular wall thickness increased. Right Ventricle Right ventricular dilatation. Right Atrium Right atrial dilatation. Left Atrium Left atrial dilatation. Mitral Valve Mitral valve thickened. Mitral annular calcification. Mild-to- moderate mitral regurgitation. Aortic Valve Trileaflet aortic valve. Diffuse thickening (sclerosis) of the aortic valve cusps without reduced excursion. No aortic stenosis. Trace to mild aortic regurgitation. Tricuspid Valve Tricuspid valve not well visualized, grossly normal. Moderate tricuspid regurgitation. Right ventricular systolic pressure estimated at 48 mmHg. Pulmonic Valve Pulmonic valve not well visualized, grossly normal. [id number] pulmonic regurgitation. Pericardium Small pericardial effusion. Left pleural effusion. Great Vessels Aortic root and proximal ascending aorta not well visualized, grossly normal. CONCLUSIONS 1. This was a technically difficult and limited examination. A followup examination might be useful when the patient's heart rate is better controlled. 2. Moderate aortic sclerosis is present with minimal to mild aortic insufficiency. 3. Mitral leaflet thickening is present with anular calcification and mild to moderate mitral insufficiency with left atrial enlargement. 4. A small pericardial effusion is present. 5. A left pleural effusion is present. 6. The left ventricular chamber size is upper normal with global hypokinesia which is worse in the inferoposterior , inferolateral and distal anteroapical segments. The ejection fraction is approximately 30-35%. Mild eccentric hypertrophy is present. 7. Enlargement of the right heart chambers and IVC are present with moderate tricuspid insufficiency, mild to moderate pulmonic insufficiency and an estimated RV systolic pressure of 48 mmHg. 8. A followup examination is recommended when the heart rate is slower to more accureately assess valvular function and the RV systolic pressure. Cesar Solano M.D. (Electronically Signed) Final Date: 30 August 2017 10:26 MEASUREMENTS (Male / Female) Normal Values 2D ECHO LV Diastolic Diameter PLAX 5.0 cm 4.2 - 5.9 / 3.9 - 5.3 cm LV Systolic Diameter PLAX 4.1 cm 2.1 - 4.0 cm LV Fractional Shortening PLAX 18.0 % 25 - 46 % LV Ejection Fraction 2D Teich 37.2 % IVS Diastolic Thickness 1.4 cm LVPW Diastolic Thickness 1.4 cm LV Relative Wall Thickness 0.6 RV Internal Dim ED PLAX 3.7 cm 1.9 - 3.8 cm LVOT Diameter 2.1 cm Aortic Root Diameter 3.7 cm LA Systolic Diameter LX 3.5 cm 3.0 - 4.0 / 2.7 - 3.8 cm LA Volume 51.0 cm 18 - 58 / 22 - 52 cm Ascending Aorta Diameter 3.6 cm DOPPLER AV Peak Velocity 107.0 cm/s AV Peak Gradient 4.6 mmHg AV Mean Velocity 77.3 cm/s AV Mean Gradient 3.0 mmHg AV Velocity Time Integral 16.5 cm LVOT Peak Velocity 61.1 cm/s LVOT Peak Gradient 1.5 mmHg LVOT Mean Velocity 38.9 cm/s LVOT Mean Gradient 1.0 mmHg LVOT Velocity Time Integral 8.1 cm LVOT Stroke Volume 28.2 cm AV Area Cont Eq vti 1.7 cm AV Area Cont Eq pk 2.0 cm MV Peak Velocity 124.0 cm/s MV Peak Gradient 6.2 mmHg MV Mean Velocity 72.7 cm/s MV Mean Gradient 3.0 mmHg Mitral E Point Velocity 113.0 cm/s MV PHT Velocity 130.0 cm/s MV Deceleration [place] 591.0 cm/s MV Pressure Half Time 66.0 ms MV Area PHT 3.3 cm MV Deceleration Time 140.0 ms TR Peak Velocity 292.0 cm/s TR Peak Gradient 34.1 mmHg Right Atrial Pressure 10.0 mmHg Pulmonary Artery Systolic Pressu 44.1 mmHg Right Ventricular Systolic Press 44.1 mmHg PV Peak Velocity 55.8 cm/s PV Peak Gradient 1.2 mmHg PV Mean Velocity 39.6 cm/s PV Mean Gradient 1.0 mmHg PV Velocity Time Integral 6.7 cm LV E' Lateral Velocity 11.5 cm/s Mitral E to LV E' Lateral Ratio 9.8 LV E' Septal Velocity 3.8 cm/s Mitral E to LV E' Septal Ratio 29.4
--- NOTE | 2017-08-30 13:39 | PN- Cardiology ---
Subjective Subjective: Clinically fairly stable. Remains in atrial fibrillation with reasonably good rate control. Heart rate increases with any activity however. Tentatively scheduled for cardioversion today. Objective Vital Signs and I&Os Vital Signs Date Time Temp Pulse Resp B/P B/P Pulse O2 O2 Flow FiO2 Mean Ox Delivery Rate 08/30 1025 100 110/60 08/30 0800 93 Nasal 4.5L Cannula 08/30 0700 97.7 74 22 112/64 98 Nasal Cannula 08/29 2151 97.9 120 22 116/60 96 Nasal 4.5L Cannula 08/29 2149 96 Nasal 4.5L Cannula 08/29 2106 120 116/60 08/29 2051 96 Nasal 3.0L Cannula 08/29 1831 105 98/62 08/29 183 105 98/62 08/29 1400 97.7 88 20 100/50 94 Intake & Output 08/30 1600 08/30 0800 08/30 0000 08/29 1600 08/29 0800 08/29 0000 Intake Total 0 300 633.6 333.6 448 Output Total 400 350 750 500 Balance -400 -50 633.6 -416.4 -52 Intake, IV 233.6 233.6 208 Intake, Oral 0 300 400 100 240 Number 0 0 Bowel Movements Output, Urine 400 350 750 500 Current Medications: Current Medications Sig/Dominique Start time Last Medication Dose Route Stop Time Status Admin Albuterol Sulfate 3 ML BID 08/28 1000 AC 08/29 INH 2051 Cholecalciferol 1,000 IU DAILY 08/27 1000 AC 08/29 PO 0813 Clopidogrel Bisulfate 75 MG DAILY 08/27 1000 AC 08/29 PO 0813 Digoxin 0.125 MG 1700 08/28 1700 AC 08/29 PO 1831 Furosemide 20 MG DAILY 08/31 1000 AC PO Furosemide 20 MG ONCE ONE 08/29 1515 DC 08/29 IV 08/29 1516 1509 Furosemide 40 MG .STK-MED ONE 08/29 1507 DC IV 08/29 1508 Heparin Sodium 3,200 UNIT ONCE ONE 08/29 1600 DC 08/29 (Porcine) IV 08/29 1601 1622 Heparin Sodium 5,000 UNIT .STK-MED ONE 08/29 1554 DC (Porcine) IV 08/29 1555 Heparin Sodium 25,000 UNIT Q24H 08/26 1830 AC 08/30 (Porcine) IV 0429 Sodium Chloride 500 ML Lidocaine 0 .STK-MED ONE 08/30 0927 DC TOP Lisinopril 5 MG DAILY 08/29 1521 AC PO Melatonin 5 MG ONCE ONE 08/295 DC 08/29 PO 08/29 2245 224 Metoprolol Tartrate 100 MG BID 08/28 2200 AC 08/30 PO 1025 Omeprazole 40 MG DAILY AC 08/27 0700 AC 08/29 PO 0512 Results Last 48 Hrs of Labs/Mics: Laboratory Tests 08/30/17 0425: Anion Gap 12, Estimated GFR > 60, BUN/Creatinine Ratio 26.7 H, APTT 68 H, CBC w Diff NO MAN DIFF REQ, RBC 4.08 L, MCV 91.7, MCH 30.1, MCHC 32.8 L, RDW 15.3 H, MPV 8.2, Gran % 69.5, Lymphocytes % 14.2 L, Monocytes % 14.7 H, Eosinophils % 1.4, Basophils % 0.2, Absolute Granulocytes 3.4, Absolute Lymphocytes 0.7 L, Absolute Monocytes 0.7 H, Absolute Eosinophils 0.1, Absolute Basophils 0 08/29/17 2010: APTT > 120 *H 08/29/17 1420: APTT 54 H 08/29/17 0654: Anion Gap 11, Estimated GFR > 60, BUN/Creatinine Ratio 27.1 H, CBC w Diff NO MAN DIFF REQ, RBC 4.12 L, MCV 92.1, MCH 30.3, MCHC 32.9 L, RDW 15.3 H, MPV 8.7, Gran % 73.0, Lymphocytes % 11.4 L, Monocytes % 13.0 H, Eosinophils % 2.3, Basophils % 0.3, Absolute Granulocytes 4.0, Absolute Lymphocytes 0.6 L, Absolute Monocytes 0.7 H, Absolute Eosinophils 0.1, Absolute Basophils 0 08/29/17 0200: APTT 88 H 08/28/17 1800: APTT 58 H Assessment/Plan Assessment/Plan Assessment: 1. Coronary artery disease 2. Chronic systolic heart failure, with LVEF 25-30% 3. Acute pulmonary embolism 4. Atrial flutter rate under control Recommendations: * Would start Eliquis 10 mg p.o. twice daily. This will be changed to 5 mg bid after 7 days. * Discontinue IV heparin when first dose of Eliquis is given * Continue current medications. * GUS cardioversion was attempted today. After receiving initial anesthesia, the patient relatively quickly became hypoxic and subsequently bradycardic. In view of the patient's instability, GUS was not performed. In view of this fact, no attempt at cardioversion was made. For now, in view of the patient's respiratory instability with anesthesia, I would favor several weeks of anticoagulation with subsequent cardioversion at that time. * Monitor on telemetry overnight. Continue telemetry? Yes
[2017-08-30 18:12] LABS: PTT 116 SEC (25-37)
[2017-08-30 22:04] VITALS: BP 102/50
[2017-08-31 06:40] VITALS: BP 114/66
--- NOTE | 2017-08-31 08:05 | PN- Housestaff ---
Alexy Rodriguez MD,Ami 08/31/17 0804: Subjective Follow-up For: Pulmonary embolism CHF A. fib/flutter Tele-Events Since Last Visit: A flutter, heart rate 80-89, PVCs this morning increased to 130 Subjective: Patient visited today, pleasant old gentleman, was lying in bed comfortably in no acute distress, was alert and oriented. Underwent for cardioversion yesterday, but was not completed due to low blood pressure during initial anesthesia. No fever or chills, improved shortness of breathing, no chest pain, no other events. This morning nursing found 2pills (eliquise and metoprolol) in patients bed, suggesting he did not take his night meds, but the AM medications were administered. The increased HR could be related to missed metoprolol dose. We got an EKG for rythm evalaution. Review of Systems Constitutional: Reports: see HPI. Objective Last 24 Hrs of Vital Signs/I&O Vital Signs Date Time Temp Pulse Resp B/P B/P Pulse O2 O2 Flow FiO2 Mean Ox Delivery Rate 08/31 0640 97.5 133 20 114/66 96 Nasal 2.0L Cannula 08/30 2204 98.0 81 20 102/50 97 Nasal 2.5L Cannula 08/30 2049 85 106/60 08/30 1837 96 Nasal 3.0L Cannula 08/30 1657 85 106/60 08/30 1502 97.7 85 20 93 Nasal 3.0L Cannula 08/30 1416 70 106/60 08/30 1359 96 Nasal 3.0L Cannula 08/30 1025 100 110/60 Intake & Output 08/31 1600 08/31 0800 08/31 0000 Intake Total 200 Output Total 125 250 Balance -125 -50 Intake, Oral 200 Output, Urine 125 250 Physical Exam General Appearance: Alert, Oriented X3, Cooperative, No Acute Distress Skin: No Significant Lesion Skin Temp/Moisture Exam: Warm/Dry Sepsis Skin Exam (color): Normal for Ethnicity HEENT: Atraumatic, EOMI, Mucous Membr. moist/pink Cardiovascular: Normal S1, Normal S2, tachcardic Lungs: Clear to Auscultation Abdomen: Normal Bowel Sounds, Soft, No Tenderness Neurological: Normal Speech Extremities: No Edema Current Medications: Current Medications Sig/Dominique Start time Last Medication Dose Route Stop Time Status Admin Albuterol Sulfate 3 ML BID 08/28 1000 AC 08/30 INH 1835 Apixaban 10 MG BID 08/30 2200 AC 08/31 PO 0631 Cholecalciferol 1,000 IU DAILY 08/27 1000 AC 08/31 PO 0812 Clopidogrel Bisulfate 75 MG DAILY 08/27 1000 AC 08/31 PO 0812 Digoxin 0.125 MG 1700 08/28 1700 AC 08/30 PO 1657 Furosemide 20 MG DAILY 08/31 1000 AC 08/31 PO 0813 Heparin Sodium 25,000 UNIT Q24H 08/26 1830 DC 08/30 (Porcine) IV 0429 Sodium Chloride 500 ML Lidocaine 0 .STK-MED ONE 08/30 0927 DC TOP Lisinopril 5 MG DAILY 08/29 1521 AC 08/31 PO 0812 Metoprolol Tartrate 100 MG BID 08/28 2200 AC 08/31 PO 0812 Omeprazole 40 MG DAILY AC 08/27 0700 AC 08/31 PO 0611 Last 24 Hrs of Lab/Yong Results Last 24 Hrs of Labs/Mics: Laboratory Tests 08/31/17 0700: Anion Gap 15, Estimated GFR > 60, BUN/Creatinine Ratio 30.0 H, CBC w Diff Pending, WBC Pending, RBC Pending, Hgb Pending, Hct Pending, MCV Pending, MCH Pending, MCHC Pending, RDW Pending, Plt Count Pending, MPV Pending 08/30/17 1641: APTT 116 *H Assessment/Plan Assessment: 81-year-old with hx of smoker, advanced lung cancer with chemotherapy and 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 Pat, abdominal aortic aneurysm, emphysema and COPD was recently discharged from the [facility] for possible pneumonia and COPD exacerbation on 2 L and also EF of 30% to mcc came back, from home with chief complaint of rapid heart rate and shortness of breath with productive cough. At the time of admission patient denies any nausea, vomiting, chest pain, abdominal pain, fevers, chills, recent sick contact. Upon arrival patient 2.5 L oxygen, heart rate 128, blood pressure 100/56 with no fever Labs notable hemoglobin 13.3 WBC 6.1, PLT 314, Potassium 5.9, sodium 138, BUN 26, anion gap 18, magnesium 2, lactic acid 3.7 and subsequently 2.4, troponin 0.06, BMP near 8000 CXR: 1. No significant change as compared to the prior study. 2. Persistent trace right pleural effusion, spiculated masslike opacity in the right midlung, and soft tissue fullness surrounding the surgical clips in the right upper lobe. 3. Unchanged pleural-parenchymal opacity in the left midlung with elevation of the left hemidiaphragm 4. Cardiomegaly, unchanged In the ED received 2 L of normal saline and TRC nebs with solumedrol IV cefazolin and vancomycin EKG showed tachycardia questionable atrial flutter with a sinus tachycardia with RBBB, 130 CTA was done which revealed PE: 1. Compared to 07/28/2017, there is a new embolic filling defect within the branch to the superior segment of the left lower lobe. 2. Severe centrilobular emphysema. 3. Multilobar pulmonary abnormalities remain similar in appearance compared to 07/28/2017. Also, the pleural effusions (right larger than left) have not significantly changed in size compared to 07/28/2017. Patient was admitted to telemetry floor for management of following conditions: Acute on chronic hypoxic respiratory failure pulmonary embolism Patient was on 2 L oxygen at home, the new exacerbation and respiratory condition was most likely related to pulmonary embolism. We started patient on IV heparin and increased oxygen supplement. -O2 supplement -Continue monitoring in telemetry floor -Vital signs -IV heparin DCed - eliquise `10 BID for 7days and then continue with 5 - OT evaluation recommended Home PT Cardiac problems: A flutter, tachycardia, CHF, low blood pressure Patient had low ejection fraction of 30% during previous admission, increasing heart rate could correlate to low ejection fracture and CHF. We performed heart rate control with metoprolol rather than Cardizem considering heart failure Metoprolol increased slowly to control heart rate. -Metoprolol increased to 100 twice a day -Continue digoxin - Lasix resumed with increased BP Chronich medical problems: History of lung cancer, emphysema, GERD We will continue home medication, and continue to monitor - Continue omeprazole Full code, DVT prophylaxis IV heaprin, Tylenol for pain, heart healthy diet Problem List: 1. Pulmonary embolism 2. Atrial flutter 3. History of lung cancer Pain Ratin Pain Location: none Pain Goal: Pain 4 or less Pain Plan: Conitnue current plan Tomorrow's Labs & Rationales: CBC BEP Pat,Kanwardeep 08/31/17 1306: Attending MD Review Statement Attending Statement Attending MD Statement: examined this patient, discuss w/resident/PA/HASSOCK MAKER, agreed w/resident/PA/HASSOCK MAKER, reviewed EMR data (avail), discussed with nursing, discussed with case mgmt Attending Assessment/Plan: PT saw the pt and is recommending home with home PT. pt is ok with that plan/ Afib with RVR- rates better controlled after he got his medication. cont on metoprolol and digoxin. Currently on 3 L oxygen by [place] Hypernatremia- with sodium going up slowly to 146 today. Likey seconary to lasix. Switched to po lasix 20mg qd. recheck in am.
--- NOTE | 2017-08-31 08:40 | PN- Pulmonary ---
Subjective HPI/Critical Care Issues: Patient's respiratory status is at baseline. Unfortunately GUS was unable to be performed. Objective Current Medications: Current Medications Sig/Dominique Start time Last Medication Dose Route Stop Time Status Admin Albuterol Sulfate 3 ML BID 08/28 1000 AC 08/30 INH 1835 Apixaban 10 MG BID 08/30 2200 AC 08/31 PO 0631 Cholecalciferol 1,000 IU DAILY 08/27 1000 AC 08/31 PO 0812 Clopidogrel Bisulfate 75 MG DAILY 08/27 1000 AC 08/31 PO 0812 Digoxin 0.125 MG 1700 08/28 1700 AC 08/30 PO 1657 Furosemide 20 MG DAILY 08/31 1000 AC 08/31 PO 0813 Heparin Sodium 25,000 UNIT Q24H 08/26 1830 DC 08/30 (Porcine) IV 0429 Sodium Chloride 500 ML Lidocaine 0 .STK-MED ONE 08/30 0927 DC TOP Lisinopril 5 MG DAILY 08/29 1521 AC 08/31 PO 0812 Metoprolol Tartrate 100 MG BID 08/28 2200 AC 08/31 PO 0812 Omeprazole 40 MG DAILY AC 08/27 0700 AC 08/31 PO 0611 Vital Signs & I&O Last 24 Hrs of Vitals and I&O: Vital Signs Date Time Temp Pulse Resp B/P B/P Pulse O2 O2 Flow FiO2 Mean Ox Delivery Rate 08/31 0640 97.5 133 20 114/66 96 Nasal 2.0L Cannula 08/30 2204 98.0 81 20 102/50 97 Nasal 2.5L Cannula 08/30 2049 85 106/60 08/30 1837 96 Nasal 3.0L Cannula 08/30 1657 85 106/60 08/30 1502 97.7 85 20 93 Nasal 3.0L Cannula 08/30 1416 70 106/60 08/30 1359 96 Nasal 3.0L Cannula 08/30 1025 100 110/60 Intake & Output 08/31 1600 08/31 0800 08/31 0000 Intake Total 200 Output Total 125 250 Balance -125 -50 Intake, Oral 200 Output, Urine 125 250 Since saturation 2 L 9697% exam of his chest shows diminished breath sounds there are no wheezes or crackles cardiac exam shows an irregular rhythm Impression/Plan Impression/Plan Impression/Plan: 81-year-old gentleman with lung cancer COPD and cardiomyopathy admitted with increasing shortness of breath cardiac arrhythmia in the setting of pulmonary embolism . Respiratory status is stable Recommendations: Taper FiO2 to saturations of 92%. No further pulmonary suggestions patient can be seen in the office post discharge
[2017-08-31 08:43] LABS: ABSOLUTE BASOPHIL COUNT 0 /CUMM (0.0-0.2); ABSOLUTE EOSINOPHIL COUNT 0.1 /CUMM (0.0-0.7); ABSOLUTE GRANULOCYTE CT 2.9 /CUMM (1.4-6.5); ABSOLUTE LYMPH COUNT 0.8 /CUMM (1.2-3.4); ABSOLUTE MONOCYTE COUNT 0.8 /CUMM (0.10-0.60); BASOPHIL % 0 % (0.0-2.0); EOSINOPHIL % 2.2 % (0-5); GRANULOCYTE % 63.2 % (42.2-75.2); HEMATOCRIT 39.6 % (42-52); MEAN CORPUSCULAR HGB CONC 32.3 G/DL (33.0-37.0); MEAN CORPUSCULAR VOLUME 93.1 FL (80.0-94.0); MEAN PLATELET VOLUME 9.1 FL (7.4-10.4); RBC DISTRIBUTION WIDTH 15.1 % (11.5-14.5); RED BLOOD CELL CT 4.25 /CUMM (4.70-6.10)
--- NOTE | 2017-08-31 09:06 | Cons- Oncology ---
General Information and HPI Consulting Request Date of Consult: 08/31/17 Requested By: Adilia ULRICH,Kirsten Davidson Reason for Consult: Lung cancer, PE Source of Information: patient, old records Exam Limitations: no limitations History of Present Illness: Mr. 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 He was found to have elevated HR in the 120s. CTA was done on admission and was noted to have pulmonary embolism in the branch of the superior segment of the left lower lobe. He was started on heparin drip and now switched to apixaban. Doppler US was negative for DVT. Echocardiogram demonstrated decreased ejection fraction to 30-35%. He was also noted to have atrial flutter. Attempt at cardioversion was done yesterday and was unable to be performed secondary to hypoxia and bradycardia with anesthesia. Today he feels about the same without any new symptoms. He continues to have some shortness of breath. Allergies/Medications Allergies: Coded Allergies: animal dander (Severe, EYES REDDENED, HIVES 07/28/17) ceftriaxone (Severe, SHORTNESS OF BREATH 08/27/17) Penicillins (Intermediate, RASH 07/21/16) Home Med List: Acetaminophen (Masophen) 325 MG TABLET 2 TAB PO Q4H PRN PAIN/TEMP (Reported) Albuterol Sulfate (Proair Hfa) 90 MCG HFA.AER.AD 2 PUF INH Q4H PRN WHEEZE ( Reported) Cholecalciferol (Vitamin D3) (Vitamin D) 1,000 UNIT TABLET 1 TAB PO DAILY SUPPLEMENT (Reported) Clopidogrel Bisulfate (Clopidogrel) 75 MG TABLET 1 TAB PO DAILY BLOOD THINNER (Reported) Furosemide 20 MG TABLET 1 TAB PO DAILY CHF Lisinopril 2.5 MG TABLET 1 TAB PO DAILY HEART FAILURE Metoprolol Succ XL (Toprol XL) 25 MG TAB 1 TAB PO DAILY HEART/BP (Reported) Multivit-Min/FA/Lycopen/Lutein (Centrum Silver Tablet) 0.4 MG-300 MCG-250 MCG TABLET 1 TAB PO DAILY VITAMIN SUPPORT (Reported) Pantoprazole Sodium 40 MG TABLET.DR 1 TAB PO DAILY GI (Reported) Simethicone 80 MG TAB.CHEW 1 TAB PO Q6H PRN GAS (Reported) Current Medications: Current Medications Sig/Dominique Start time Last Medication Dose Route Stop Time Status Admin Albuterol Sulfate 3 ML BID 08/28 1000 AC 08/30 INH 1835 Apixaban 10 MG BID 08/30 2200 AC 08/31 PO 0631 Cholecalciferol 1,000 IU DAILY 08/27 1000 AC 08/31 PO 0812 Clopidogrel Bisulfate 75 MG DAILY 08/27 1000 AC 08/31 PO 0812 Digoxin 0.125 MG 1700 08/28 1700 AC 08/30 PO 1657 Furosemide 20 MG DAILY 08/31 1000 AC 08/31 PO 0813 Heparin Sodium 25,000 UNIT Q24H 08/26 1830 DC 08/30 (Porcine) IV 0429 Sodium Chloride 500 ML Lidocaine 0 .STK-MED ONE 08/30 0927 DC TOP Lisinopril 5 MG DAILY 08/29 1521 AC 08/31 PO 0812 Metoprolol Tartrate 100 MG BID 08/28 2200 AC 08/31 PO 0812 Omeprazole 40 MG DAILY AC 08/27 0700 AC 08/31 PO 0611 Review of Systems Review of Systems Constitutional: Reports: weakness. Denies: chills, fever, malaise. Cardiovascular: Reports: palpitations. Denies: chest pain. Respiratory: Reports: short of breath. Denies: cough. GI: Denies: abdominal pain. Genitourinary: Denies: dysuria. Neurological/Psychological: Reports: depressed. Denies: confusion. All Other Systems: Reviewed and Negative Past History Travel History Traveled to [place] past 21 day No Medical History Blood Transfusion Hx: No Neurological: NONE EENT: NONE Cardiovascular: aortic aneurysm, CAD, cardiomyopathy, PVD Respiratory: COPD, pneumonia Gastrointestinal: lower GI bleed Hepatic: NONE Renal: NONE Musculoskeletal: NONE Psychiatric: NONE Endocrine: NONE Blood Disorders: NONE Cancer(s): lung cancer INGREDIENT HANDLER/Reproductive: NONE Other Medical Hx: peripheral vascular disease, carotid artery stenosis Surgical History Surgical History: hernia repair-umbilical, PTX, CHEST TUBE LEFT CEA Family History Relations & Conditions If Any: MOTHER FH: diabetes mellitus BROTHER FH: COPD (chronic obstructive pulmonary disease) Psychosocial History Where Do You Live? Home Who Do You Live With? spouse Services at Home: None Smoking Status: Former Smoker Functional Ability ADLs Independent: dressing, eating, toileting, bathing. Ambulation: independent IADLs Independent: shopping, housework, finances, food prep, telephone, transportation , medication admin. Exam & Diagnostic Data Vital Signs and I&O Vital Signs Date Time Temp Pulse Resp B/P B/P Pulse O2 O2 Flow FiO2 Mean Ox Delivery Rate 08/31 0640 97.5 133 20 114/66 96 Nasal 2.0L Cannula 08/30 2204 98.0 81 20 102/50 97 Nasal 2.5L Cannula 08/30 2049 85 106/60 08/30 1837 96 Nasal 3.0L Cannula 08/30 1657 85 106/60 08/30 1502 97.7 85 20 93 Nasal 3.0L Cannula 08/30 1416 70 106/60 08/30 1359 96 Nasal 3.0L Cannula 08/30 1025 100 110/60 Intake & Output 08/31 1600 08/31 0800 08/31 0000 Intake Total 200 Output Total 125 250 Balance -125 -50 Intake, Oral 200 Output, Urine 125 250 Physical Exam General Appearance: alert, awake, comfortable, 3 liter nasal cannula Head: atraumatic Eyes: Bilateral: PERRL. Respiratory: no respiratory distress, decreased breath sounds, crackles Cardiovascular: tachycardia, systolic murmur Gastrointestinal: normal bowel sounds, soft, non-tender, distention Extremities: pedal edema Neurologic/Psych: awake, alert, oriented x 3 Skin: warm/dry Last 48 Hours of Lab Results: Laboratory Tests 08/31 08/30 08/30 08/29 08/29 0700 1641 0425 2010 1420 Chemistry Sodium (137 - 145 mmol/L) 146 H 143 Potassium (3.5 - 5.1 mmol/L) 4.3 4.4 Chloride (98 - 107 mmol/L) 103 104 Carbon Dioxide (22 - 30 mmol/L) 28 27 Anion Gap (5 - 16) 15 12 BUN (9 - 20 mg/dL) 24 H 24 H Creatinine (0.7 - 1.2 mg/dL) 0.8 0.9 Estimated GFR (>60 ml/min) > 60 > 60 BUN/Creatinine Ratio (7 - 25 %) 30.0 H 26.7 H Coagulation APTT (25 - 37 SEC) 116 *H 68 H > 120 *H 54 H Hematology CBC w Diff Pending NO MAN DIFF REQ WBC (4.8 - 10.8 /CUMM) Pending 4.9 RBC (4.70 - 6.10 /CUMM) Pending 4.08 L Hgb (14.0 - 18.0 G/DL) Pending 12.3 L Hct (42 - 52 %) Pending 37.4 L MCV (80.0 - 94.0 FL) Pending 91.7 MCH (27.0 - 31.0 PG) Pending 30.1 MCHC (33.0 - 37.0 G/DL) Pending 32.8 L RDW (11.5 - 14.5 %) Pending 15.3 H Plt Count (130 - 400 /CUMM) Pending 265 MPV (7.4 - 10.4 FL) Pending 8.2 Gran % (42.2 - 75.2 %) Pending 69.5 Lymphocytes % (20.5 - 51.1 %) Pending 14.2 L Monocytes % (1.7 - 9.3 %) Pending 14.7 H Eosinophils % (0 - 5 %) Pending 1.4 Basophils % (0.0 - 2.0 %) Pending 0.2 Absolute Granulocytes (1.4 - 6.5 /CUMM) Pending 3.4 Absolute Lymphocytes (1.2 - 3.4 /CUMM) Pending 0.7 L Absolute Monocytes (0.10 - 0.60 /CUMM) Pending 0.7 H Absolute Eosinophils (0.0 - 0.7 /CUMM) Pending 0.1 Absolute Basophils (0.0 - 0.2 /CUMM) Pending 0 Imaging/Other Studies: CTA 08/26/2017: 1. Compared to 07/28/2017, there is a new embolic filling defect within the branch to the superior segment of the left lower lobe. 2. Severe centrilobular emphysema. 3. Multilobar pulmonary abnormalities remain similar in appearance compared to 07/28/2017. Also, the pleural effusions (right larger than left) have not significantly changed in size compared to 07/28/2017. Echocardiogram 08/27/2017: 1. This was a technically difficult and limited examination. A followup examination might be useful when the patient's heart rate is better controlled. 2. Moderate aortic sclerosis is present with minimal to mild aortic insufficiency. 3. Mitral leaflet thickening is present with anular calcification and mild to moderate mitral insufficiency with left atrial enlargement. 4. A small pericardial effusion is present. 5. A left pleural effusion is present. 6. The left ventricular chamber size is upper normal with global hypokinesia which is worse in the inferoposterior , inferolateral and distal anteroapical segments. The ejection fraction is approximately 30-35%. Mild eccentric hypertrophy is present. 7. Enlargement of the right heart chambers and IVC are present with moderate tricuspid insufficiency, mild to moderate pulmonic insufficiency and an estimated RV systolic pressure of 48 mmHg. 8. A followup examination is recommended when the heart rate is slower to more accureately assess valvular function and the RV systolic pressure. Doppler US 08/27/2017: Normal triplex scan without evidence of deep venous thrombosis involving the lower extremities. Assessment/Plan Assessment: Mr. 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 On admission, he was noted to have a segmental pulmonary embolism in the left lower lobe. He was started on heparin drip and subsequently transitioned to apixaban. Doppler ultrasound of the lower extremity was negative for DVT. Echocardiogram demonstrated cardiomyopathy with EF of 30 to 35%. He also was noted to have atrial fibrillation and attempt at cardioversion was done yesterday. Procedure was aborted secondary to hypoxia and bradycardia. For now, he will be continue on the apixaban. With regard to his lung cancer, he is status post SBRT. Imaging is stable. He will follow up after discharge. Recommendations: Pulmonary embolism: -continue current anticoagulation Lung cancer: -follow up as outpatient CHF: -management as per cardiology and primary team Problem List: 1. Pulmonary embolism 2. Atrial flutter 3. CHF (congestive heart failure) 4. History of lung cancer Other Findings/Comments: Please call [phone] with any questions or concerns. Consult Acknowledgment - Thank you for your consult request.
[2017-08-31 09:53] LABS: PLATELET COUNT 237 /CUMM (130-400); WHITE BLOOD CELL COUNT 4.6 /CUMM (4.8-10.8)
[2017-08-31 15:22] VITALS: BP 122/62
--- NOTE | 2017-08-31 20:42 | PN- Cardiology ---
Subjective Subjective: Stable. Tachycardic with ambulation Objective Vital Signs and I&Os Vital Signs Date Time Temp Pulse Resp B/P B/P Pulse O2 O2 Flow FiO2 Mean Ox Delivery Rate 08/31 1835 92 Nasal 3.0L Cannula 08/31 1656 88 108/58 08/31 1600 Nasal 3.0L Cannula 08/31 1522 97.8 81 20 122/62 97 08/31 0640 97.5 133 20 114/66 96 Nasal 2.0L Cannula 08/30 2204 98.0 81 20 102/50 97 Nasal 2.5L Cannula 08/30 2049 85 106/60 Intake & Output 08/31 1600 08/31 0800 08/31 0000 08/30 1600 08/30 0800 08/30 0000 Intake Total 480 200 448 0 300 Output Total 125 250 400 350 Balance 480 -125 -50 448 -400 -50 Intake, IV 208 Intake, Oral 480 200 240 0 300 Output, Urine 125 250 400 350 Current Medications: Current Medications Sig/Dominique Start time Last Medication Dose Route Stop Time Status Admin Albuterol Sulfate 3 ML BID 08/28 1000 AC 08/30 INH 1835 Apixaban 10 MG BID 08/30 2200 AC 08/31 PO 0631 Cholecalciferol 1,000 IU DAILY 08/27 1000 AC 08/31 PO 0812 Clopidogrel Bisulfate 75 MG DAILY 08/27 1000 AC 08/31 PO 0812 Digoxin 0.125 MG 1700 08/28 1700 AC 08/31 PO 1656 Furosemide 20 MG DAILY 08/31 1000 AC 08/31 PO 0813 Lisinopril 5 MG DAILY 08/29 1521 AC 08/31 PO 0812 Metoprolol Tartrate 100 MG BID 08/28 2200 AC 08/31 PO 0812 Omeprazole 40 MG DAILY AC 08/27 0700 AC 08/31 PO 0611 Results Last 48 Hrs of Labs/Mics: Laboratory Tests 08/31/17 0700: Anion Gap 15, Estimated GFR > 60, BUN/Creatinine Ratio 30.0 H, Calcium 8.5, Magnesium 1.9, CBC w Diff NO MAN DIFF REQ, RBC 4.25 L, MCV 93.1, MCH 30.0, MCHC 32.3 L, RDW 15.1 H, MPV 9.1, Gran % 63.2, Lymphocytes % 16.9 L, Monocytes % 17.7 H, Eosinophils % 2.2, Basophils % 0, Absolute Granulocytes 2.9, Absolute Lymphocytes 0.8 L, Absolute Monocytes 0.8 H, Absolute Eosinophils 0.1, Absolute Basophils 0 08/30/17 1641: APTT 116 *H 08/30/17 0425: Anion Gap 12, Estimated GFR > 60, BUN/Creatinine Ratio 26.7 H, APTT 68 H, CBC w Diff NO MAN DIFF REQ, RBC 4.08 L, MCV 91.7, MCH 30.1, MCHC 32.8 L, RDW 15.3 H, MPV 8.2, Gran % 69.5, Lymphocytes % 14.2 L, Monocytes % 14.7 H, Eosinophils % 1.4, Basophils % 0.2, Absolute Granulocytes 3.4, Absolute Lymphocytes 0.7 L, Absolute Monocytes 0.7 H, Absolute Eosinophils 0.1, Absolute Basophils 0 Assessment/Plan Assessment/Plan Assessment: 1. Coronary artery disease 2. Chronic systolic heart failure, with LVEF 25-30% 3. Acute pulmonary embolism 4. Atrial flutter rate under control Recommendations: * Continue Eliquis. * Continue current dose of metoprolol for now * Continue current medications. * Cardioversion is several weeks barring any unforeseen issues. * Monitor on telemetry overnight. Continue telemetry? Yes
[2017-08-31 21:19] VITALS: BP 118/60
[2017-09-01 06:43] VITALS: BP 122/62
[2017-09-01 07:38] LABS: ABSOLUTE BASOPHIL COUNT 0 /CUMM (0.0-0.2); ABSOLUTE EOSINOPHIL COUNT 0.1 /CUMM (0.0-0.7); ABSOLUTE GRANULOCYTE CT 3.6 /CUMM (1.4-6.5); ABSOLUTE LYMPH COUNT 0.7 /CUMM (1.2-3.4); ABSOLUTE MONOCYTE COUNT 0.7 /CUMM (0.10-0.60); BASOPHIL % 0.4 % (0.0-2.0); EOSINOPHIL % 1.9 % (0-5); HEMATOCRIT 38.3 % (42-52); MEAN CORPUSCULAR HGB 30.3 PG (27.0-31.0); MEAN CORPUSCULAR HGB CONC 32.8 G/DL (33.0-37.0); MEAN CORPUSCULAR VOLUME 92.3 FL (80.0-94.0); MEAN PLATELET VOLUME 8.9 FL (7.4-10.4); PLATELET COUNT 237 /CUMM (130-400); RBC DISTRIBUTION WIDTH 15.6 % (11.5-14.5); RED BLOOD CELL CT 4.15 /CUMM (4.70-6.10); WHITE BLOOD CELL COUNT 5.2 /CUMM (4.8-10.8)
--- NOTE | 2017-09-01 08:09 | PN- Housestaff ---
See Addendum Subjective Follow-up For: Pulmonary embolism CHF A. fib/flutter Tele-Events Since Last Visit: Kevin barajas, Subjective: My visit Review of Systems Constitutional: Reports: see HPI. Objective Last 24 Hrs of Vital Signs/I&O Vital Signs Date Time Temp Pulse Resp B/P B/P Pulse O2 O2 Flow FiO2 Mean Ox Delivery Rate 09/01 0910 95 Nasal 1.0L Cannula 09/01 08 132 122/62 09/01 0818 132 122/62 09/01 0800 94 Nasal 2.0L Cannula 09/01 0643 98.0 85 18 122/62 93 Nasal Cannula 09/01 0018 98 Nasal 3.0L Cannula 09/01 0000 Nasal 2.0L Cannula 08/31 211 98.0 87 18 118/60 98 Nasal 3.0L Cannula 08/31 2113 102 118/60 08/31 1835 92 Nasal 3.0L Cannula 08/31 1656 88 108/58 08/31 1600 Nasal 3.0L Cannula 08/31 1522 97.8 81 20 122/62 97 Intake & Output 09/01 1600 09/01 0800 09/01 0000 Intake Total 300 Output Total 225 Balance -225 300 Intake, Oral 300 Number 0 Bowel Movements Output, Urine 225 Patient 178 lb 177 lb Weight Weight Chair scale Measurement Method Physical Exam General Appearance: Alert, Oriented X3, Cooperative, No Acute Distress Skin: No Significant Lesion Skin Temp/Moisture Exam: Warm/Dry HEENT: Atraumatic, EOMI, Mucous Membr. moist/pink Cardiovascular: Normal S1, Normal S2, Flutterm regular Lungs: Bilateral ronchi and wheezing, improved Abdomen: Soft, No Tenderness Extremities: No Clubbing (despite CHF), No Edema Current Medications: Current Medications Sig/Dominique Start time Last Medication Dose Route Stop Time Status Admin Albuterol Sulfate 3 ML BID 08/28 1000 AC 09/01 INH 0909 Apixaban 10 MG BID 08/30 2200 AC 09/01 PO 0818 Cholecalciferol 1,000 IU DAILY 08/27 1000 AC 09/01 PO 0819 Clopidogrel Bisulfate 75 MG DAILY 08/27 1000 AC 09/01 PO 0819 Digoxin 0.125 MG 1700 08/28 1700 AC 08/31 PO 1656 Furosemide 20 MG DAILY 08/31 1000 AC 09/01 PO 0818 Lisinopril 5 MG DAILY 08/29 1521 AC 09/01 PO 0819 Metoprolol Tartrate 100 MG BID 08/28 2200 AC 09/01 PO 0818 Omeprazole 40 MG DAILY AC 08/27 0700 AC 09/01 PO 0628 Last 24 Hrs of Lab/Yong Results Last 24 Hrs of Labs/Mics: Laboratory Tests 09/01/17 0635: Anion Gap 14, Estimated GFR > 60, BUN/Creatinine Ratio 28.8 H, CBC w Diff NO MAN DIFF REQ, RBC 4.15 L, MCV 92.3, MCH 30.3, MCHC 32.8 L, RDW 15.6 H, MPV 8.9, Gran % 70.0, Lymphocytes % 13.6 L, Monocytes % 14.1 H, Eosinophils % 1.9, Basophils % 0.4, Absolute Granulocytes 3.6, Absolute Lymphocytes 0.7 L, Absolute Monocytes 0.7 H, Absolute Eosinophils 0.1, Absolute Basophils 0 Assessment/Plan Assessment: 81-year-old with hx of smoker, advanced lung cancer with chemotherapy and CyberKnife crossing 2014 and [address] Pat, abdominal aortic aneurysm, emphysema and COPD was recently discharged from the [facility] for possible pneumonia and COPD exacerbation on 2 L and also EF of 30% to residential came back, from home with chief complaint of rapid heart rate and shortness of breath with productive cough. At the time of admission patient denies any nausea, vomiting, chest pain, abdominal pain, fevers, chills, recent sick contact. Upon arrival patient 2.5 L oxygen, heart rate 128, blood pressure 100/56 with no fever Labs notable hemoglobin 13.3 WBC 6.1, PLT 314, Potassium 5.9, sodium 138, BUN 26, anion gap 18, magnesium 2, lactic acid 3.7 and subsequently 2.4, troponin 0.06, BMP near 8000 CXR: 1. No significant change as compared to the prior study. 2. Persistent trace right pleural effusion, spiculated masslike opacity in the right midlung, and soft tissue fullness surrounding the surgical clips in the right upper lobe. 3. Unchanged pleural-parenchymal opacity in the left midlung with elevation of the left hemidiaphragm 4. Cardiomegaly, unchanged In the ED received 2 L of normal saline and TRC nebs with solumedrol IV cefazolin and vancomycin EKG showed tachycardia questionable atrial flutter with a sinus tachycardia with RBBB, 130 CTA was done which revealed PE: 1. Compared to 07/28/2017, there is a new embolic filling defect within the branch to the superior segment of the left lower lobe. 2. Severe centrilobular emphysema. 3. Multilobar pulmonary abnormalities remain similar in appearance compared to 07/28/2017. Also, the pleural effusions (right larger than left) have not significantly changed in size compared to 07/28/2017. Patient was admitted to telemetry floor for management of following conditions: Acute on chronic hypoxic respiratory failure Pulmonary embolism Patient was on 2 L oxygen at home, the new exacerbation and respiratory condition was most likely related to pulmonary embolism. We started patient on IV heparin and increased oxygen supplement. With stablization, Eliquise started after consulting Dr adams. Patient was on baseline O2 supplement of 2L. Eliquise `10mg BID was planned for total of 7days and then planned to continue with 5mg BID afterwards. OT evaluation recommended Home PT. With the stablization patient was discharged with recommendations to follow in outpatient. Cardiac problems: A flutter, tachycardia, CHF, low blood pressure Patient had low ejection fraction of 30% during previous admission, increasing heart rate could correlate to low ejection fracture and CHF. We performed heart rate control with metoprolol rather than Cardizem considering heart failure. Metoprolol increased slowly to control heart rate to a dose of 100mg BID. Digoxin was started and continued. Lasix resumed with increased BP Chronich medical problems: History of lung cancer, emphysema, GERD We will continued home medication, and continue to monitor - Continue omeprazole Full code, DVT prophylaxis IV heaprin and then changed Eliquise, Tylenol for pain, heart healthy diet Problem List: 1. Cancer of lung 2. Atrial flutter 3. Pulmonary embolism Pain Ratin Pain Location: None Pain Goal: Pain 4 or less Pain Plan: Continue current plan Tomorrow's Labs & Rationales: CBc BEP
[2017-09-01] MEDS ORDERED: LANOXIN125 MCG PO ×2 (08:17→13:52)
[2017-09-01] MEDS ORDERED: ELIQUIS5 M1 PO ×3 (08:17→13:52)
[2017-09-01] MEDS ORDERED: LISINOPRIL5 M1 PO ×2 (08:17→13:52)
[2017-09-01 08:19] VITALS: BP 122/62
--- NOTE | 2017-09-01 08:52 | Patient Discharge Instructions ---
Discharge Instructions General Discharge Information You were seen/treated for: Pulmonary embolism Atrial flutter You had these procedures: Attempt cardioversion, GUS Watch for these problems: Worsening of shortness of breathing, chest pain, dizziness, bleeding, cough, sputum or worsening of any other symptoms Special Instructions: * Important: Please note, the dose of your new medication (Apixiban) will decrease from 09/07/17. Please read instructions carefully and follow. Please follow with your PCP within one week of discharge. Please follow with your master yacht within 1 week of discharge for management of cardioversion in future. Please follow with your single needle tufting machine operator and oncologist regarding continuation of care for your lung cancer, COPD and pulmonary embolism. Please note some of your medications were changed, please follow instructions. Please come back to hospital if symptoms worsen. Diet Continue normal diet: No Recommended Diet: Heart Healthy Activity Full Activity/No Limits: No Activity Self Limited: Yes Acute Coronary Syndrome Inclusion Criteria At DC or during hospital stay patient has or had the following: ACS DIAGNOSIS No Discharge Core Measures Meds if any: Prescribed or Continued at Discharge Meds if any: NOT Prescribed or Continued at Discharge Congestive Heart Failure Inclusion Criteria At DC or during hospital stay patient has or had the following: CHF DIAGNOSIS Yes Discharge Core Measures Meds if any: Prescribed or Continued at Discharge YAYO/ARB for EF <40% Yes Meds if any: NOT Prescribed or Continued at Discharge Cerebrovascular accident Inclusion Criteria At DC or during hospital stay patient has or had the following: CVA/TIA Diagnosis No Discharge Core Measures Meds if any: Prescribed or Continued at Discharge Meds if any: NOT Prescribed or Continued at Discharge Venous thromboembolism Inclusion Criteria VTE Diagnosis Yes VTE Type Pulmonary Embolism VTE Confirmed by (Test) CT CHEST ANGIOGRAM Discharge Core Measures - Per Current guidelines, there needs to be overlap - treatment for the first 5 days of Warfarin therapy. - If discharged on Warfarin prior to 5 days of - overlap therapy, the patient will need to be - assessed for post discharge needs including - *Post discharge parental anticoagulation - *Warfarin and/or parental anticoagulation education - *Follow up date to check INR post discharge At least 5 days overlap therapy as Inpatient No (initial Heparin, now eliquise) Meds if any: Prescribed or Continued at Discharge Note: Overlap Therapy is Warfarin and Anticoagulant Meds if any: NOT Prescribed or Continued at Discharge
[2017-09-01] MEDS ORDERED: METOPROLOL TART50 M1 PO ×2 (12:01→13:52)
--- NOTE | 2017-09-01 13:35 | Discharge Summary ---
Visit Information Visit Dates Admission Date: 08/26/17 Discharge Date: 09/01/17 Hospital Course Course Attending Physician: Adilia ULRICH,Kirsten Davidson Primary Care Physician: Stalin Jimenez MD Hospital Course: 81-year-old with hx of smoking, advanced lung cancer with chemotherapy and 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 Pat, abdominal aortic aneurysm, emphysema and COPD was recently discharged from the [facility] for possible pneumonia and COPD exacerbation on 2 L and also EF of 30% to usp came back, from home with chief complaint of rapid heart rate and shortness of breath with productive cough. At the time of admission patient denies any nausea, vomiting, chest pain, abdominal pain, fevers, chills, recent sick contact. Upon arrival patient 2.5 L oxygen, heart rate 128, blood pressure 100/56 with no fever Labs notable hemoglobin 13.3 WBC 6.1, PLT 314, Potassium 5.9, sodium 138, BUN 26, anion gap 18, magnesium 2, lactic acid 3.7 and subsequently 2.4, troponin 0.06, BMP near 8000 CXR: 1. No significant change as compared to the prior study. 2. Persistent trace right pleural effusion, spiculated masslike opacity in the right midlung, and soft tissue fullness surrounding the surgical clips in the right upper lobe. 3. Unchanged pleural-parenchymal opacity in the left midlung with elevation of the left hemidiaphragm 4. Cardiomegaly, unchanged In the ED received 2 L of normal saline and TRC nebs with solumedrol IV cefazolin and vancomycin EKG showed tachycardia questionable atrial flutter with a sinus tachycardia with RBBB, 130 CTA was done which revealed PE: 1. Compared to 07/28/2017, there is a new embolic filling defect within the branch to the superior segment of the left lower lobe. 2. Severe centrilobular emphysema. 3. Multilobar pulmonary abnormalities remain similar in appearance compared to 07/28/2017. Also, the pleural effusions (right larger than left) have not significantly changed in size compared to 07/28/2017. Patient was admitted to telemetry floor for management of following conditions: Acute on chronic hypoxic respiratory failure Pulmonary embolism Patient was on 2 L oxygen at home, the new exacerbation and respiratory condition was most likely related to pulmonary embolism. We started patient on IV heparin and increased oxygen supplement. With stablization, Eliquise started after consulting Dr adams. Patient was on baseline O2 supplement of 2L. Eliquise `10mg BID was planned for total of 7days and then planned to continue with 5mg BID afterwards. OT evaluation recommended Home PT. With the stablization patient was discharged with recommendations to follow in outpatient. Cardiac problems: A flutter, tachycardia, CHF, low blood pressure Patient had low ejection fraction of 30% during previous admission, increasing heart rate could correlate to low ejection fracture and CHF. We performed heart rate control with metoprolol rather than Cardizem considering heart failure. Metoprolol increased slowly to control heart rate to a dose of 100mg BID. Digoxin was started and continued. Lasix resumed with increased BP Chronich medical problems: History of lung cancer, emphysema, GERD We will continued home medication, and continue to monitor we continueD omeprazole Stabilization of condition patient was discharged with recommendations below: Allergies: Coded Allergies: animal dander (Severe, EYES REDDENED, HIVES 07/28/17) ceftriaxone (Severe, SHORTNESS OF BREATH 08/27/17) Penicillins (Intermediate, RASH 07/21/16) Significant Procedures: Unsuccessful cardioversion Disposition Summary Disposition Principal Diagnosis: Pulmonary embolism Additional Diagnosis: Atrial fibrillation Discharge Disposition: home or self care Discharge Instructions General Discharge Information Code Status: Full Code Patient's Diet: Heart healthy Patient's Activity: Self-limited Follow-Up Instructions/Appts: * Important: Please note, the dose of your new medication (Apixiban) will decrease from 09/07/17. Please read instructions carefully and follow. Please follow with your PCP within one week of discharge. Please follow with your functional tester within 1 week of discharge for management of cardioversion in future. Please follow with your supervisor contact and service clerks and oncologist regarding continuation of care for your lung cancer, COPD and pulmonary embolism. Please note some of your medications were changed, please follow instructions. Please come back to hospital if symptoms worsen. Medications at Discharge Discharge Medications: Stop taking the following medications: Lisinopril (Lisinopril) 2.5 MG TABLET ORAL DAILY Qty = 30 Metoprolol Succ XL (Toprol XL) 25 MG TAB ORAL DAILY Continue taking these medications: Clopidogrel Bisulfate (Clopidogrel) 75 MG TABLET 1 Tablet ORAL DAILY Comments: Last Taken: 09/01/17 Time: 0820 AM Multivit-Min/FA/Lycopen/Lutein (Centrum Silver Tablet) 0.4 MG-300 MCG-250 MCG TABLET 1 Tablet ORAL DAILY Comments: NOT GIVEN WHILE IN HOSPITAL Pantoprazole Sodium (Pantoprazole Sodium) 40 MG TABLET.DR 1 Tablet ORAL DAILY Qty = 90 Comments: Last Taken: 09/01/17 Time: 0630 AM GIVEN PRILOSEC IN HOSPITAL. Cholecalciferol (Vitamin D3) (Vitamin D) 1,000 UNIT TABLET 1 Tablet ORAL DAILY Comments: Last Taken: 09/01/17 Time: 0820 AM Furosemide (Furosemide) 20 MG TABLET 1 Tablet ORAL DAILY Qty = 30 Comments: Last Taken: 09/01/17 Time: 0820 AM Acetaminophen (Masophen) 325 MG TABLET 2 Tablet ORAL Q4H as needed for PAIN/TEMP Comments: NOT GIVEN IN HOSPITAL. Simethicone (Simethicone) 80 MG TAB.CHEW 1 Tablet ORAL Q6H as needed for GAS Comments: NOT GIVEN IN HOSPITAL. Albuterol Sulfate (Proair Hfa) 90 MCG HFA.AER.AD 2 Puff Inhale through mouth Q4H as needed for WHEEZE Comments: GIVEN ALBUTEROL TREATMENTS IN HOSPITAL. Start taking the following new medications: Apixaban (Eliquis) 5 MG TABLET 0 ORAL SEE INSTRUCTIONS Qty = 60 Refills = 1 Instructions: .Please see instructions below: Comments: Please take: 2 pills, two times a day, till 09/06/17 1 pill, two times a day, afterward Last Taken: 09/01/17 Time: 0820 AM Digoxin (Lanoxin) 125 MCG TABLET 0.125 Milligram ORAL 5 PM Qty = 30 Refills = 1 Instructions: . Comments: Last Taken: 08/31/17 Time: 5PM Metoprolol Tartrate (Metoprolol Tartrate) 50 MG TABLET 100 Milligram ORAL TWICE DAILY Qty = 60 No Refills Instructions: . Comments: Last Taken: 09/01/17 Time: 0820 AM Lisinopril (Lisinopril) 5 MG TABLET 5 Milligram ORAL DAILY Qty = 30 Refills = 1 Instructions: . Comments: Last Taken: 09/01/17 Time: 0820 AM Copies To: Norberto ULRICH,Hank Anglin; Barbara ULRICH,Stalin Montoya; Myra ULRICH,Jaziel; Russ ULRICH,Anitra Vivas Attending MD Review Statement Documenting Attending: Adilia ULRICH,Kirsten Davidson Other Findings: Agree with the above assessment plan. Pt was seen by Dr Malcolm on the day of discharge. please see his note for more details.
--- NOTE | 2017-09-01 14:33 | PN- Cardiology ---
Subjective Subjective: stable with controlled rate Objective Vital Signs and I&Os Vital Signs Date Time Temp Pulse Resp B/P B/P Pulse O2 O2 Flow FiO2 Mean Ox Delivery Rate 09/01 0910 95 Nasal 1.0L Cannula 09/01 0819 132 122/62 09/01 0818 132 122/62 09/01 0800 94 Nasal 2.0L Cannula 09/01 0643 98.0 85 18 122/62 93 Nasal Cannula 09/01 0018 98 Nasal 3.0L Cannula 09/01 0000 Nasal 2.0L Cannula 08/31 2119 98.0 87 18 118/60 98 Nasal 3.0L Cannula 08/31 2113 102 118/60 08/31 1835 92 Nasal 3.0L Cannula 08/31 1656 88 108/58 08/31 1600 Nasal 3.0L Cannula 08/31 1522 97.8 81 20 122/62 97 Intake & Output 09/01 1600 09/01 0800 09/01 0000 08/31 1600 08/31 0800 08/31 0000 Intake Total 300 480 200 Output Total 225 125 250 Balance -225 300 480 -125 -50 Intake, Oral 300 480 200 Number 0 Bowel Movements Output, Urine 225 125 250 Patient 178 lb 177 lb Weight Weight Chair scale Measurement Method Physical Exam: General Appearance Alert, Oriented X3, Cooperative, No Acute Distress Skin Temp/Moisture Exam: Warm/Dry Cardiovascular irregular S1, S2 with 1-2/6 systolic murmur Lungs decreased breath should bilaterally in the bases with bilateral crackles up to middle of bnoth lungs Abdomen Normal Bowel Sounds, Soft Extremities No Edema Current Medications: Current Medications Sig/Dominique Start time Last Medication Dose Route Stop Time Status Admin Albuterol Sulfate 3 ML BID 08/28 1000 AC 09/01 INH 0909 Apixaban 10 MG BID 08/30 2200 AC 09/01 PO 0818 Cholecalciferol 1,000 IU DAILY 08/27 1000 AC 09/01 PO 0819 Clopidogrel Bisulfate 75 MG DAILY 08/27 1000 AC 09/01 PO 0819 Digoxin 0.125 MG 1700 08/28 1700 AC 08/31 PO 1656 Furosemide 20 MG DAILY 08/31 1000 AC 09/01 PO 0818 Lisinopril 5 MG DAILY 08/29 1521 AC 09/01 PO 0819 Metoprolol Tartrate 100 MG BID 08/28 2200 AC 09/01 PO 0818 Omeprazole 40 MG DAILY AC 08/27 0700 AC 09/01 PO 0628 Results Last 48 Hrs of Labs/Mics: Laboratory Tests 09/01/17 0635: Anion Gap 14, Estimated GFR > 60, BUN/Creatinine Ratio 28.8 H, CBC w Diff NO MAN DIFF REQ, RBC 4.15 L, MCV 92.3, MCH 30.3, MCHC 32.8 L, RDW 15.6 H, MPV 8.9, Gran % 70.0, Lymphocytes % 13.6 L, Monocytes % 14.1 H, Eosinophils % 1.9, Basophils % 0.4, Absolute Granulocytes 3.6, Absolute Lymphocytes 0.7 L, Absolute Monocytes 0.7 H, Absolute Eosinophils 0.1, Absolute Basophils 0 08/31/17 0700: Anion Gap 15, Estimated GFR > 60, BUN/Creatinine Ratio 30.0 H, Calcium 8.5, Magnesium 1.9, CBC w Diff NO MAN DIFF REQ, RBC 4.25 L, MCV 93.1, MCH 30.0, MCHC 32.3 L, RDW 15.1 H, MPV 9.1, Gran % 63.2, Lymphocytes % 16.9 L, Monocytes % 17.7 H, Eosinophils % 2.2, Basophils % 0, Absolute Granulocytes 2.9, Absolute Lymphocytes 0.8 L, Absolute Monocytes 0.8 H, Absolute Eosinophils 0.1, Absolute Basophils 0 08/30/17 1641: APTT 116 *H Assessment/Plan Assessment/Plan Assessment: 1. Coronary artery disease 2. Chronic systolic heart failure, with LVEF 25-30% 3. Acute pulmonary embolism 4. Atrial flutter rate under control Recommendations: * Continue Eliquis. * Continue current dose of metoprolol for now * Continue current medications. * Cardioversion is several weeks barring any unforeseen issues. * Pending discharge today. Followup with me in the office in 10 days. Continue telemetry? No
== END 2017-09-01 14:30 | disposition home health service (06) | DRG 175 ==
LOC: ERH 11:01 → 1NO 14:37 → ERHI 14:37 → 1NO 14:37 → ENRESERV 16:41 → ENTRNSPT 18:08 → EDTRNSPTSTS 18:15 → 1NO 18:29 → CMPTRNSPT 18:51 → 1NO 08-27 10:40 → ENPENDDIS 09-01 13:32 → ENTRNSPT 09-01 14:06 → 1NO 09-01 14:30 → CMPTRNSPT 09-01 15:17
PROVIDERS: Emergency Medicine; Hospitalist; Internal Medicine; Radiology Vascular & Interventional Radiology
DX: I26.99 Other pulmonary embolism without acute cor pulmonale (principal); J96.21 Acute and chronic respiratory failure with hypoxia; I95.9 Hypotension, unspecified; E87.5 Hyperkalemia; I42.9 Cardiomyopathy, unspecified; I48.92 Unspecified atrial flutter; I50.22 Chronic systolic (congestive) heart failure; Z99.81 Dependence on supplemental oxygen; Z87.891 Personal history of nicotine dependence; Z85.118 Personal history of other malignant neoplasm of bronchus and lung; Z92.21 Personal history of antineoplastic chemotherapy; I71.4 Abdominal aortic aneurysm, without rupture; J43.9 Emphysema, unspecified; I45.10 Unspecified right bundle-branch block; K21.9 Gastro-esophageal reflux disease without esophagitis; I73.9 Peripheral vascular disease, unspecified; I65.29 Occlusion and stenosis of unspecified carotid artery; R01.1 Cardiac murmur, unspecified
CPT/HCPCS: 1NP; 1NSP; 6020; 36415; 71045; 82436; 87040; 87070; 87449; 87450; 93005; 93010; 93306; 93970; 96374; 97110-GO; 97116-GO; 97161-GP; 99291; G0378; J0610; J0713; J1160; J1644; J1940; J2930; J3370; J7040; J7060

== ENCOUNTER 2017-09-06 20:28 | Inpatient (IN) | payer OTHER ==
[~2017-09-06] VITALS: Ht 182.9 cm; Wt 73.1 kg
[~2017-09-06 20:28] MED LIST changes: +ELIQUIS5 M1 PO; +LANOXIN125 MCG PO; +LISINOPRIL5 M1 PO; +MASOPHEN325 MG PO; +METOPROLOL TART50 M1 PO; +PROAIR HFA8.5 GM INH; +TOPROL XL25 M1 PO
--- NOTE | 2017-09-06 20:46 | ED DYSPNEA/ASTHMA COMPLAINT ---
History of Present Illness General Chief Complaint: Dyspnea (COPD, CHF, Other) Stated Complaint: BIBA DIFF BREATHING Source: patient, old records, EMS Exam Limitations: clinical condition Vital Signs & Intake/Output Vital Signs & Intake/Output Vital Signs Date Time Temp Pulse Resp B/P B/P Pulse O2 O2 Flow FiO2 Mean Ox Delivery Rate 09/07 0105 92 96 09/07 0055 96.2 92 22 114/56 95 BIPAP 40% 09/065 133 09/06 2335 133 09/06 2329 98.2 133 24 98 BIPAP 40% 09/06 2149 128 98 09/06 2135 94 BIPAP 40% 09/06 2132 97.9 137 28 99 BIPAP 40% 09/06 2051 128 96 09/06 2044 130/80 ED Intake and Output 09/07 0000 09/06 1200 Intake Total 0 Output Total Balance 0 Intake, Oral 0 Patient 178 lb Weight Weight Reported by Patient Measurement Method Allergies Coded Allergies: animal dander (Severe, EYES REDDENED, HIVES 07/28/17) ceftriaxone (Severe, SHORTNESS OF BREATH 08/27/17) Penicillins (Intermediate, RASH 07/21/16) Reconcile Medications Acetaminophen (Masophen) 325 MG TABLET 2 TAB PO Q4H PRN PAIN/TEMP (Reported) Albuterol Sulfate (Proair Hfa) 90 MCG HFA.AER.AD 2 PUF INH Q4H PRN WHEEZE ( Reported) Apixaban (Eliquis) 5 MG TABLET 0 PO SEE ADMIN CRITERIA BLOOD THINNER .Please see instructions below: Cholecalciferol (Vitamin D3) (Vitamin D) 1,000 UNIT TABLET 1 TAB PO DAILY SUPPLEMENT (Reported) Clopidogrel Bisulfate (Clopidogrel) 75 MG TABLET 1 TAB PO DAILY BLOOD THINNER (Reported) Digoxin (Lanoxin) 125 MCG TABLET 0.125 MG PO 1700 HEART HEALTH . Furosemide 20 MG TABLET 1 TAB PO DAILY CHF Lisinopril 5 MG TABLET 5 MG PO DAILY HEART HEALTH . Metoprolol Tartrate 50 MG TABLET 100 MG PO BID Heart rate . Multivit-Min/FA/Lycopen/Lutein (Centrum Silver Tablet) 0.4 MG-300 MCG-250 MCG TABLET 1 TAB PO DAILY VITAMIN SUPPORT (Reported) Pantoprazole Sodium 40 MG TABLET.DR 1 TAB PO DAILY GI (Reported) Simethicone 80 MG TAB.CHEW 1 TAB PO Q6H PRN GAS (Reported) Triage Nurses Notes Reviewed? yes Onset: Gradual Duration: getting worse Timing: recent history Severity: severe Prior Episodes/Possible Cause: frequent episodes, chronic episodes HPI: Patient is a 81-year-old male with a past medical history of advanced lung cancer with remote history of chemotherapy however CyberKnife crusting was administered IN 2014 and [address] Pat, abdominal aortic aneurysm, severe emphysema on 2 L of home O2 echocardiogram last obtained was approximately 30% EF with patient was admitted and discharged from [facility] 5 days ago for concerns of new onset atrial fibrillation and pulmonary embolism patient was administered IV heparin however was discharged with [facility] patient's manager french Dr. Solano patient was brought in by ambulance today for acute onset of a four-hour history of shortness of breath EMS state that patient was showing severe respiratory distress and did not tolerate CPAP on arrival Noted mottling on exam EMS states that they put Nitropaste on patient prior to arrival Patient denies any chest pain abdominal pain Patient does endorse nausea (Cristian Castillo) Past History Travel History Traveled to [facility] past 21 day No Medical History Any Pertinent Medical History? see below for history Neurological: NONE EENT: NONE Cardiovascular: aortic aneurysm, CAD, cardiomyopathy, PVD Respiratory: COPD, pneumonia Gastrointestinal: lower GI bleed Hepatic: NONE Renal: NONE Musculoskeletal: NONE Psychiatric: NONE Endocrine: NONE Blood Disorders: NONE Cancer(s): lung cancer SCRAP DEALER/Reproductive: NONE Other Medical Hx: peripheral vascular disease, carotid artery stenosis History of MRSA: No History of VRE: No History of CDIFF: No Influenza Vaccine: 04/30/17 Surgical History Surgical History: hernia repair-umbilical, PTX, CHEST TUBE LEFT CEA Psychosocial History Who do you live with Spouse Services at Home None What is your primary language Greek Family History Family History, If Any: MOTHER FH: diabetes mellitus BROTHER FH: COPD (chronic obstructive pulmonary disease) Hx Contributory? No (Cristian Castillo) Review of Systems Review of Systems Constitutional: Reports: see HPI. Denies: chills, fever. EENTM: Reports: no symptoms. Respiratory: Reports: see HPI, cough, orthopnea, short of breath. Cardiovascular: Reports: see HPI. Denies: chest pain, palpitations. GI: Reports: see HPI, nausea. Genitourinary: Reports: no symptoms. Musculoskeletal: Reports: no symptoms. Skin: Reports: no symptoms. Neurological/Psychological: Reports: no symptoms. Hematologic/Endocrine: Reports: no symptoms. Immunologic/Allergic: Reports: no symptoms. All Other Systems: Reviewed and Negative (Cristian Castillo) Physical Exam Physical Exam General Appearance: severe distress Head: atraumatic Eyes: Bilateral: normal appearance, PERRL. Ears, Nose, Throat: hearing grossly normal Neck: normal inspection Respiratory: crackles, respiratory distress Cardiovascular: tachycardia, irregularly irregular Peripheral Pulses: 2+ radial (R) Gastrointestinal: distention, tenderness Extremities: pedal edema Neurologic/Psych: no motor/sensory deficits, awake, alert Skin: MOTTLED SKIN OF ABDOMEN Core Measures ACS in differential dx? Yes CVA/TIA Diagnosis No Sepsis Present: No Sepsis Focused Exam Completed? No (Cristian Castillo) Progress Differential Diagnosis: asthma, AMI, bronchitis, costochondritis, CHF, COPD, musculoskeletal pain, pericarditis, pulmonary embolism, pneumonia, pneumothorax, unstable angina Plan of Care: Orders Procedure Date/time Status Heart Healthy Diet 09/07 B Active TROPONIN LEVEL 09/07 1200 Active EKG 09/07 1200 Active TROPONIN LEVEL 09/07 0600 Active CBC WITHOUT DIFFERENTIAL 09/07 06 Active BASIC ELECTROLYTES PLUS BUN&CR 09/07 0600 Active EKG 09/07 0600 Active LACTIC ACID 09/07 0300 Active STREP PNEUMO URINARY ANTIGEN 09/07 013 Active LEGIONELLA URINARY ANTIGEN 09/07 0137 Active Weight 09/07 0131 Active Intake & Output 09/07 0131 Active Huertas, Insertion/Removal/Asses 09/07 0131 Active CULTURE,URINE 09/07 0131 Active Lab Add-on Test 09/07 UNK Active Pathway - chart 09/06 2340 Active House Staff 09/06 2340 Active Patient Data 09/06 2340 Active Code Status 09/06 2340 Active TROPONIN LEVEL 09/06 2335 Complete LACTIC ACID 09/06 2334 Complete Patient Data 09/06 2319 Active Admit to inpatient 09/06 2307 Active Intake & Output 09/06 2138 Active BIPAP 09/06 2136 Active Add-on Test (ER Only) 09/06 2108 Active DIGOXIN 09/06 2057 Complete BIPAP 09/06 2051 Complete RAPID VIRAL INFLUENZA A 09/06 2034 Complete LOWER RESPIRATORY CULTURE 09/06 2034 Active Telemetry/Merchandise Processor 09/06 2033 Active BLOOD CULTURE 09/06 2033 Active TROPONIN LEVEL 09/06 2033 Complete LACTIC ACID 09/06 2033 Complete COMPREHENSIVE METABOLIC PANEL 09/06 2033 Complete CBC WITHOUT DIFFERENTIAL 09/06 2033 Complete B-TYPE NATRIURETIC PEP (BNP) 09/06 2033 Complete ARTERIAL BLOOD GAS (GEN) 09/06 2032 Complete EKG 09/06 2028 Active VTE Mechanical Prophylaxis 09/06 UNK Active Current Medications Sig/Dominique Start time Last Medication Dose Stop Time Status Admin Prednisone 10 MG ONCE ONE 09/10 1000 AC 09/10 1000 Prednisone 20 MG ONCE ONE 09/09 1000 AC 09/09 100 Prednisone 30 MG ONCE ONE 09/08 1000 AC 09/08 100 Digoxin 0.125 MG 1700 09/07 170 CAN (Lanoxin) Apixaban 5 MG BID 09/07 999 AC (Eliquis) Clopidogrel Bisulfate 75 MG DAILY 09/07 999 AC (Plavix) Furosemide 20 MG DAILY 09/07 1000 AC (Lasix) Metoprolol Tartrate 100 MG BID 09/07 999 AC (Lopressor) Moxifloxacin HCl 400 MG DAILY 09/07 999 CAN (Avelox) Moxifloxacin HCl 400 MG DAILY 09/07 1000 AC (Avelox) N/A 1 UNIT (No Carrier) Multivitamins 1 TAB DAILY 09/07 999 AC (Theragran Vitamins) Oseltamivir Phosphate 75 MG BID 09/07 999 AC (Tamiflu 75MG) 09/11 958 Pantoprazole Sodium 40 MG DAILY 09/07 999 AC (Protonix) Prednisone 40 MG ONCE ONE 09/07 1000 AC 09/07 100 Albuterol Sulfate 2 PUF Q4H PRN 09/07 0015 AC (Ventolin) Laboratory Tests 09/06/17 2336: Troponin I 0.07 09/06/17 2332: Lactic Acid 3.3 H 09/06/17 2130: Anion Gap 17 H, Estimated GFR > 60, BUN/Creatinine Ratio 19.0, Glucose 215 H, Lactic Acid 7.2 H, Calcium 8.4, Total Bilirubin 0.6, AST 52, ALT 50, Alkaline Phosphatase 120, Troponin I 0.05, Fmh-X-Iqtnntdqgta Pept 40172 H, Total Protein 6.5, Albumin 3.8, Globulin 2.7, Albumin/Globulin Ratio 1.4, Digoxin 1.1 09/06/17 2100: pH 7.40, pCO2 33 L, pO2 332 H, HCO3 20 L, ABG O2 Sat (Measured) 99.0, P-50 ( Temp Corrected) N, Carboxyhemoglobin 0.2 L, O2 Concentration % 100, Respiration Rate 24, O2 Delivery Method BIPAP, Vent Mode ST, Expiratory Pressure 6, Inspiratory Pressure 20, Phlebotomy Draw Site RIGHT BRACHIAL 09/06/172057: CBC w Diff NO MAN DIFF REQ, RBC 4.92, MCV 93.2, MCH 29.7, MCHC 31.9 L, RDW 16.6 H, MPV 9.2, Gran % 78.0 H, Lymphocytes % 12.0 L, Monocytes % 9.1, Eosinophils % 0.3, Basophils % 0.6, Absolute Granulocytes 8.0 H, Absolute Lymphocytes 1.2, Absolute Monocytes 0.9 H, Absolute Eosinophils 0, Absolute Basophils 0.1 Microbiology 09/07 136 URINE ROUT: Legionella Antigen - COLB 09/07 136 URINE ROUT: Streptococcus pneumoniae Antigen (M - COLB 09/07 130 URINE ROUT: Urine Culture - ORD 09/06 2343 BLOOD: Blood Culture - RECD 09/06 2339 NASOPHARYN: Influenza Virus A & B Rapid Smear - COMP INFLUENZA TYPE B 09/06 2331 BLOOD: Blood Culture - RECD 09/06 2034 LOWER RESP: Respiratory Culture - ORD 09/06 2034 LOWER RESP: Gram Stain - ORD Patient on initial examination was noted to have severe respiratory distress patient was immediately provided with BiPAP noted generalized mottling on skin crackles noted on auscultation initial blood pressure was 130/80 Patient on palpation of abdomen it was nontender no pulsatile mass Patient did have improvement of respiratory distress after initial BiPAP Discussed patient with Dr. Solano who was aware of patient's clinical presentation Metoprolol and digoxin was administered due to persistent atrial fibrillation at 130 bpm Due to significant concern of worsening CHF IV fluid will be restricted however it is noted the patient does have a lactic acidosis and IV fluids at this time could be detrimental to patient's critical condition CT scan currently is pending Discussed handOFF WITH DR HAYES Diagnostic Imaging: Viewed by Me: Radiology Read. Radiology Impression: SEE COMMENTS Initial ED EKG: AFIB (130 BPM) Comments: PATIENT: XIN LIM SR PRESENT AGE: 81 PATIENT ACCOUNT NO: [id number] : 33 LOCATION: [facility] ORDERING PHYSICIAN: David Hayes MD SERVICE DATE: 09/06/17 EXAM TYPE: RAD - XRY-PORTABLE CHEST XRAY EXAMINATION: XR PORTABLE CHEST CLINICAL INFORMATION: Pneumonia CHF lung cancer. COMPARISON: Multiple prior examinations most recent chest x-ray 08/29/2017 TECHNIQUE: Portable frontal view of the chest was obtained. FINDINGS: There is persistent bilateral consolidation and left pleural effusion unchanged. Surgical clips are present overlying the consolidation in the right upper lobe Cardiac silhouette mediastinum pulmonary vascularity are normal. IMPRESSION: Persistent bilateral consolidation in left pleural effusion essentially unchanged DICTATED BY: Josesito Madrid MD DATE/TIME DICTATED:09/06/172126 LICENSED NUCLEAR CONTROL ROOM OPERATOR:JOCE DATE/TIME TRANSCRIBED:09/06/172126 (Cristian Castillo) Diagnostic Imaging: Viewed by Me: CT Scan. Discussed w/RAD: Radiology Read, CT Scan. Radiology Impression: 1. Stable appearance of a left lower lobe segmental pulmonary embolism. No new pulmonary emboli. 2. Chronic changes in the lungs with increased opacities in the right middle lobe and left upper lobe, suspicious for multifocal pneumonia. Severe emphysema. 3. No acute inflammatory changes in the abdomen or pelvis. 4. Severe atherosclerotic disease of the abdominal arterial vasculature. Abdominal aortic ectasia. Lack of opacification of the left common iliac artery suspicious for occlusion or high-grade stenosis. This is not well evaluated on this study. VTE: Positive, unchanged from recent prior. CXR Impression: Persistent bilateral consolidation in left pleural effusion essentially unchanged Rhythm Strip: sinus tachycardia (Chintan ULRICH,David) Departure Departure Disposition: STILL A PATIENT Condition: Critical Clinical Impression Primary Impression: CHF (congestive heart failure) Secondary Impressions: COPD exacerbation, Respiratory failure Referrals: Barbara ULRICH,Stalin Montoya (PCP/Family) Departure Forms: Customer Survey General Discharge Information (Cristian Castillo) Admission Note Spoke With: Derick Navarro MD Documentation of Exam: Documentation of any treatments & extenuating circumstances including Concerns Regarding Discharge (functional status, medication knowledge or non-compliance, living conditions, etc.) that warrant an admission rather than observation: ICU monitoring BiPAP supplemental oxygen follow cultures serial lab exam IV antibiotics IV steroids beta agonist nebs medication adjustment pulmonary evaluation oncology evaluation cardiology evaluation continuing care discharge planning PA/EDGE BLACKER Co-Sign Statement Statement: ED Attending supervision documentation- x I saw and evaluated the patient. I have also reviewed all the pertinent lab results and diagnostic results. I agree with the findings and the plan of care as documented in the PA's/EDGE BLACKER's documentation. Severe respiratory distress with new pneumonia on CT much improved on BiPAP [] I have reviewed the ED Record and agree with the PA's/EDGE BLACKER's documentation. [] Additions or exceptions (if any) to the PAs/EDGE BLACKER's note and plan are summarized below: [] (Chintan ULRICH,David) Critical Care Note Critical Care Note Critical Care Time: 75-104 min (Cristian Castillo) Critical Care Note Critical Care Time: 30-74 min (35) (David Hayes MD)
[2017-09-06 21:15] LABS: ABSOLUTE BASOPHIL COUNT 0.1 /CUMM (0.0-0.2); ABSOLUTE EOSINOPHIL COUNT 0 /CUMM (0.0-0.7); ABSOLUTE LYMPH COUNT 1.2 /CUMM (1.2-3.4); ABSOLUTE MONOCYTE COUNT 0.9 /CUMM (0.10-0.60); BASOPHIL % 0.6 % (0.0-2.0); EOSINOPHIL % 0.3 % (0-5); MEAN CORPUSCULAR HGB 29.7 PG (27.0-31.0); MEAN CORPUSCULAR HGB CONC 31.9 G/DL (33.0-37.0); MEAN CORPUSCULAR VOLUME 93.2 FL (80.0-94.0); MEAN PLATELET VOLUME 9.2 FL (7.4-10.4); PLATELET COUNT 261 /CUMM (130-400); RBC DISTRIBUTION WIDTH 16.6 % (11.5-14.5); RED BLOOD CELL CT 4.92 /CUMM (4.70-6.10)
[2017-09-06 21:17] LABS: HEMATOCRIT 45.9 % (42-52); WHITE BLOOD CELL COUNT 10.3 /CUMM (4.8-10.8)
--- NOTE | 2017-09-06 21:35 | RADIOLOGY REPORT ---
EXAMINATION: XR PORTABLE CHEST CLINICAL INFORMATION: Pneumonia CHF lung cancer. COMPARISON: Multiple prior examinations most recent chest x-ray 08/29/2017 TECHNIQUE: Portable frontal view of the chest was obtained. FINDINGS: There is persistent bilateral consolidation and left pleural effusion unchanged. Surgical clips are present overlying the consolidation in the right upper lobe Cardiac silhouette mediastinum pulmonary vascularity are normal. IMPRESSION: Persistent bilateral consolidation in left pleural effusion essentially unchanged
--- NOTE | 2017-09-06 22:50 | CT SCAN REPORT ---
EXAMINATION: CT ANGIOGRAM OF THE CHEST WITH AND WITHOUT CONTRAST (CT PULMONARY ANGIOGRAM FOR PE) CT ABDOMEN AND PELVIS WITH CONTRAST CLINICAL INFORMATION: Shortness of breath. History of pulmonary embolism and lung cancer. Nausea and abdominal pain. COMPARISON: Chest CTA from 08/26/2017. CT abdomen pelvis 08/01/2017. TECHNIQUE: Prior to contrast administration, noncontrast localization images were obtained. Subsequently, multidetector volumetric imaging was performed from the thoracic inlet to below the diaphragms following the administration of 95 mL Optiray 350 intravenous contrast. This was followed by multidetector acquisition of the abdomen and pelvis. No contrast reaction reported Sagittal, coronal, and MIP oblique sagittal reformatted images were obtained on the CT workstation, uploaded to PACS, and reviewed. Total exam dose-length product 1115 mGy-cm FINDINGS: QUALITY OF STUDY/CONTRAST BOLUS: Satisfactory. PULMONARY ARTERIES: There is unchanged appearance of a left lower lobe segmental pulmonary embolism. This is seen on series 2 image 250. There is no new pulmonary embolism. THORACIC AORTA: No aneurysm or dissection. LUNG: The central airways are patent. Bronchial wall thickening is present. There is severe centrilobular emphysema. Moderate right and small left pleural effusions are present. No pneumothorax. Fiducial markers in the right upper lobe are again noted in an area of platelike opacity. This is unchanged. This may represent post radiation change. Associated volume loss of the right upper lobe. Persistent right lower lobe consolidation with air bronchograms, unchanged from recent prior. There is no right middle lobe consolidation. Architectural distortion at the left hilum is unchanged with peribronchial consolidation and air bronchograms. Increasing patchy opacity in the left anterior upper lobe. MEDIASTINUM: The heart is enlarged. Coronary artery calcifications are present. No pericardial effusion. Stable mild prominence of mediastinal lymph nodes.. No evidence of septal bowing or right heart strain. CHEST WALL/AXILLA: No axillary or internal mammary lymphadenopathy. LIVER, GALLBLADDER, AND BILIARY TREE: The liver is normal in size, shape, and attenuation. No focal hepatic lesion or biliary ductal dilatation is present. Trace perihepatic ascites. No gallstones. Small volume of pericholecystic fluid is nonspecific. No gallbladder wall thickening. PANCREAS: Fatty atrophy of the pancreatic parenchyma with no focal lesion. SPLEEN: Unremarkable. ADRENAL GLANDS: Unremarkable. KIDNEYS AND URETERS: The kidneys are normal in size, shape, and attenuation. No hydronephrosis, hydroureter, or calculi seen. No perinephric stranding. BLADDER: Unremarkable. GASTROINTESTINAL TRACT: The stomach is unremarkable. The small bowel is normal in caliber without obstruction. There is colonic diverticulosis without diverticulitis. Normal appendix. No free air. ABDOMINAL WALL: No significant hernia is appreciated. LYMPH NODES: Normal. VASCULAR: Ectasia of the infrarenal abdominal aorta measuring 3.3 cm. Diffuse atherosclerotic calcifications. Calcified and noncalcified plaque throughout the abdominal aorta. There is lack of opacification of the left common iliac artery which is not well assessed. There is flow noted in the left profunda femoral artery. PELVIC VISCERA: Unremarkable. OSSEOUS STRUCTURES: No acute or suspicious osseous abnormality. Multilevel degenerative changes throughout the spine. IMPRESSION: 1. Stable appearance of a left lower lobe segmental pulmonary embolism. No new pulmonary emboli. 2. Chronic changes in the lungs with increased opacities in the right middle lobe and left upper lobe, suspicious for multifocal pneumonia. Severe emphysema. 3. No acute inflammatory changes in the abdomen or pelvis. 4. Severe atherosclerotic disease of the abdominal arterial vasculature. Abdominal aortic ectasia. Lack of opacification of the left common iliac artery suspicious for occlusion or high-grade stenosis. This is not well evaluated on this study. VTE: Positive, unchanged from recent prior.
--- NOTE | 2017-09-06 23:21 | History & Physical ---
Jared ULRICH,[facility] 09/06/17 2321: General Information and HPI MD Statement: I have seen and personally examined XIN LIM SR and documented this H&P. The patient is a 81 year old M who presented with a patient stated chief complaint of shortness of breath. Source of Information: patient, family, old records Exam Limitations: no limitations History of Present Illness: Mr Lim is an 81 year old male with a past medical history significant for advanced lung cancer treated with chemotherapy and radiation therapy at [facility] in 2007 with subsequent Cyberknife treatments for lung nodule, recurrence vs new primaries in 2014 and 02/2017, 5 treatments each time, history of pneumothorax in 2013 treated with a thoracic vent by Dr. Joshua, h/o GI bleed, abdominal aortic aneurysm, emphysema and COPD on 2 L home O2, left CEA on plavix, recently admittted to [facility] for acute on chronic hypoxemic respiratory failure and found to have a PE (recently discharged home on Eliquis 09/01/2017) who presented to the emergency department on 09/06/2017 complaining of labored breathing and dyspnea. Much of the clinical history was obtained from the patient's Mrs. Lim who was at bedside. She states that since the patient has been discharged he has not been feeling all that great. At approximately 6:30 PM the patient began to experience worsening dyspnea and dyspnea on exertion. He also complained of extreme chills and asked to be taken to bed. Once he was placed in bed and covered with multiple blankets soon as he lay down he became extremely tachycardic and complained of air hunger. Following this brief period due to his condition his made the decision to call the ambulance and he was subsequently brought into the emergency department for additional workup and care. Patient was visited by visiting nurse on 09/06/2017 who reported no issues. Patient did also endorse a mild cough. Cough has been productive of mild sputum and some evidence of hemoptysis also present. Since the pateint has been discharged he has been maintained on 2 L of home oxygen. His reports good medication compliance. At the time of our presentation the patient denied any fever, chills, nausea, vomiting. Patient's primary care physician is Dr. Chapman. Patient's director report is Dr. Thornton Patient's instructor weaving and oncologist is Dr. Myra Sheriff. Patient's counter waitress/waiter is Dr. Solano. Allergies/Medications Allergies: Coded Allergies: animal dander (Severe, EYES REDDENED, HIVES 07/28/17) ceftriaxone (Severe, SHORTNESS OF BREATH 08/27/17) Penicillins (Intermediate, RASH 07/21/16) Home Med list Acetaminophen (Masophen) 325 MG TABLET 2 TAB PO Q4H PRN PAIN/TEMP (Reported) Albuterol Sulfate (Proair Hfa) 90 MCG HFA.AER.AD 2 PUF INH Q4H PRN WHEEZE ( Reported) Apixaban (Eliquis) 5 MG TABLET 0 PO SEE ADMIN CRITERIA BLOOD THINNER .Please see instructions below: Cholecalciferol (Vitamin D3) (Vitamin D) 1,000 UNIT TABLET 1 TAB PO DAILY SUPPLEMENT (Reported) Clopidogrel Bisulfate (Clopidogrel) 75 MG TABLET 1 TAB PO DAILY BLOOD THINNER (Reported) Digoxin (Lanoxin) 125 MCG TABLET 0.125 MG PO 1700 HEART HEALTH . Furosemide 20 MG TABLET 1 TAB PO DAILY CHF Lisinopril 5 MG TABLET 5 MG PO DAILY HEART HEALTH . Metoprolol Tartrate 50 MG TABLET 100 MG PO BID Heart rate . Multivit-Min/FA/Lycopen/Lutein (Centrum Silver Tablet) 0.4 MG-300 MCG-250 MCG TABLET 1 TAB PO DAILY VITAMIN SUPPORT (Reported) Pantoprazole Sodium 40 MG TABLET.DR 1 TAB PO DAILY GI (Reported) Simethicone 80 MG TAB.CHEW 1 TAB PO Q6H PRN GAS (Reported) Compliance With Home Meds: GOOD Past History Travel History Traveled to [place] past 21 day No Medical History Neurological: NONE EENT: NONE Cardiovascular: aortic aneurysm, AFIB, CAD, cardiomyopathy, PVD Respiratory: COPD, pneumonia Gastrointestinal: lower GI bleed Hepatic: NONE Renal: NONE Musculoskeletal: NONE Psychiatric: NONE Endocrine: NONE Blood Disorders: NONE Cancer(s): lung cancer [place] 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 Home Who Do You Live With? spouse Services at Home: None Primary Language: Barbadian Smoking Status: Former Smoker (> 50 pack years ) ETOH Use: denies use Illicit Drug Use: denies illicit drug use Living Will? no Functional Ability ADLs Independent: dressing, eating, toileting, bathing. Ambulation: independent IADLs Independent: shopping, housework, finances, food prep, telephone, transportation , medication admin. Review of Systems Review of Systems Constitutional: Reports: see HPI, chills. Respiratory: Reports: cough. GI: Reports: abdominal pain. Exam & Diagnostic Data Last 24 Hrs of Vital Signs/I&O Vital Signs Date Time Temp Pulse Resp B/P B/P Pulse O2 O2 Flow FiO2 Mean Ox Delivery Rate 09/07 0105 92 96 09/07 0055 96.2 92 22 114/56 95 BIPAP 40% 09/06 2334 133 09/06 2334 133 09/06 2329 98.2 133 24 98 BIPAP 40% 09/06 2149 128 98 09/06 2135 94 BIPAP 40% 09/06 2132 97.9 137 28 99 BIPAP 40% 09/06 2051 128 96 09/06 2044 130/80 Intake & Output 09/07 0800 09/07 0000 09/06 1600 Intake Total 0 Output Total Balance 0 Intake, Oral 0 Patient 80.739 kg Weight Weight Reported by Patient Measurement Method Physical Exam General Appearance Alert, Oriented X3, Mild Distress Skin No Rashes Skin Temp/Moisture Exam: Cool/Dry Sepsis Skin Exam (color): Normal for Ethnicity HEENT Atraumatic, PERRLA, Mucous Membr. moist/pink Neck Supple Lymphatic Cervical nl Cardiovascular Normal S1, Normal S2, Tachycardia , Irregular rate and rhythm Lungs Diminished BS on LL. Rhonchi noted on RL Abdomen Normal Bowel Sounds, Soft, No Tenderness Neurological Normal Speech, Cranial Nerves 3-12 NL Extremities Normal Pulses, Cold Extremities Last 24 Hrs of Labs/Yong: Laboratory Tests 09/06/172335: Troponin I 0.07 09/06/172331: Lactic Acid 3.3 H 09/06/172129: Anion Gap 17 H, Estimated GFR > 60, BUN/Creatinine Ratio 19.0, Glucose 215 H, Lactic Acid 7.2 H, Calcium 8.4, Total Bilirubin 0.6, AST 52, ALT 50, Alkaline Phosphatase 120, Troponin I 0.05, Ven-E-Rcljnqchcuc Pept 68963 H, Total Protein 6.5, Albumin 3.8, Globulin 2.7, Albumin/Globulin Ratio 1.4, Digoxin 1.1 09/06/17 2100: pH 7.40, pCO2 33 L, pO2 332 H, HCO3 20 L, ABG O2 Sat (Measured) 99.0, P-50 ( Temp Corrected) N, Carboxyhemoglobin 0.2 L, O2 Concentration % 100, Respiration Rate 24, O2 Delivery Method BIPAP, Vent Mode ST, Expiratory Pressure 6, Inspiratory Pressure 20, Phlebotomy Draw Site RIGHT BRACHIAL 09/06/172057: CBC w Diff NO MAN DIFF REQ, RBC 4.92, MCV 93.2, MCH 29.7, MCHC 31.9 L, RDW 16.6 H, MPV 9.2, Gran % 78.0 H, Lymphocytes % 12.0 L, Monocytes % 9.1, Eosinophils % 0.3, Basophils % 0.6, Absolute Granulocytes 8.0 H, Absolute Lymphocytes 1.2, Absolute Monocytes 0.9 H, Absolute Eosinophils 0, Absolute Basophils 0.1 Microbiology 09/07 013 URINE ROUT: Urine Culture - ORD 09/06 2343 BLOOD: Blood Culture - RECD 09/06 2339 NASOPHARYN: Influenza Virus A & B Rapid Smear - COMP INFLUENZA TYPE B 09/06 2331 BLOOD: Blood Culture - RECD 09/06 2034 LOWER RESP: Respiratory Culture - ORD 09/06 2034 LOWER RESP: Gram Stain - ORD Diagnostic Data EKG Results Sinus Tachycardia CXR Results SERVICE DATE: 09/06/17 EXAM TYPE: RAD - XRY-PORTABLE CHEST XRAY IMPRESSION: Persistent bilateral consolidation in left pleural effusion essentially unchanged Other Results SERVICE DATE: 09/06/17 EXAM TYPE: CAT - CT ABD & PELVIS W IV CONTRAST; CTA CHEST-PULMONARY EMBOLISM IMPRESSION: 1. Stable appearance of a left lower lobe segmental pulmonary embolism. No new pulmonary emboli. 2. Chronic changes in the lungs with increased opacities in the right middle lobe and left upper lobe, suspicious for multifocal pneumonia. Severe emphysema. 3. No acute inflammatory changes in the abdomen or pelvis. 4. Severe atherosclerotic disease of the abdominal arterial vasculature. Abdominal aortic ectasia. Lack of opacification of the left common iliac artery suspicious for occlusion or high-grade stenosis. This is not well evaluated on this study. VTE: Positive, unchanged from recent prior. DICTATED BY: uJan Justin MD Assessment/Plan Assessment: Mr Lim is an 81 year old male with a past medical history significant for advanced lung cancer treated with chemotherapy and radiation therapy at [facility] in 2007 with subsequent Cyberknife treatments for lung nodule, recurrence vs new primaries in 2014 and 02/2017, 5 treatments each time, history of pneumothorax in 2013 treated with a thoracic vent by Dr. Joshua, h/o GI bleed, abdominal aortic aneurysm, emphysema and COPD on 2 L home O2, left CEA on plavix, recently admittted to [facility] for acute on chronic hypoxemic respiratory failure and found to have a PE (recently discharged home on Eliquis 09/01/2017) who presented to the emergency department on 09/06/2017 complaining of labored breathing and dyspnea. In the emergency department the patient received a combination of digoxin, Lopressor, Lasix, Solu-Medrol, ciprofloxacin, vancomycin. Does not appear that the patient has any signs of volume overload however elevated proBNP is concerning. Given the findings of opacities on imaging studies we will continue the patient on antibiotics. It appears that his clinical status may be attributed to combination of the flu and a multifocal pneumonia. His initial lactic acidosis at the time of presentation is indeed concerning however subsequent lactic acid has trended down. Given the patient's previous ejection fraction of 30-35% we will need to use IV fluids sparingly if fluid resuscitation is warranted. Problem list. #Acute on chronic hypoxic respiratory failure. #Influenza confirmed with rapid flu. #Rule out ACS. #Questionable exacerbation of CHF. #History of lung cancer. #Hyperkalemia. #Lactic acidosis. Admit the patient to CRCU CRCU consultation in a.m. Continue antibiotics vancomycin and moxifloxacin (On the patient's last admission he received ceftriaxone and subsequently had a reaction to the medication.) If patient spikes or white cell increases consider ID consultation. Rapid steroid taper with 40 mg prednisone followed by 30 mg prednisone followed by 20 mg prednisone followed by 10 mg prednisone. Hold lisinopril in the setting of hyperkalemia. Patient may benefit from being considered for an ARB due to persistent cough-like symptoms. Obtained cardiology consultation with Dr. Solano in a.m. Obtain pulmonology consultation in a.m. Trend and additional lactic acid. Trend troponins and EKG to peak. Official heme/onc consultation in a.m. This has been placed. Continue Eliquis (transitioned to 5 mg twice a day as of 09/07/2017). If digoxin level come back and was is within normal limits may consider resuming digoxin. Inform Inform patient's radiation oncologist Dr. Slater @ [facility] ([phone], fax: [phone]) of this admission to the hospital and inquire whether results of imaging studies need to be sent to him. Diet is heart healthy. DVT prophylaxis with Eliquis. Patient is a full code. As Ranked By This Provider Problem List: 1. Respiratory failure 2. COPD (chronic obstructive pulmonary disease) 3. Atrial flutter 4. Pulmonary embolism 5. History of lung cancer 6. Lactic acidosis 7. CHF (congestive heart failure) 8. Hyperkalemia 9. Pneumonia 10. Influenza Core Measures/Misc (04/16) Acute Coronary Syndrome ACS Diagnosis: No Congestive Heart Failure Congestive Heart Failure Diagnosis Yes Cerebrovascular Accident CVA/TIA Diagnosis: No VTE (View Protocol) VTE Risk Factors Age>40 No Mechanical VTE Prophylaxis d/t N/A MechProphylax Ordered No VTE Pharm Prophylaxis d/t NA PharmProphylax ordered Sepsis (View protocol) Sepsis Present: No Ramon ULRICH, [facility] 09/07/17 0418: Attending MD Review Statement Attending Statement Attending MD Statement: examined this patient, discuss w/resident/PA/POLICY DIRECTOR, agreed w/resident/PA/POLICY DIRECTOR, discussed with family, reviewed images, amended to note Attending Assessment/Plan: 81 yo M h/o NSCLC s/p chemoradiation (2007) with recurrent malignant lung nodules requiring Cyberknife Rx (last in Feb 2017 at [facility]), left pneumothorax s/p thoracic vent (2013), COPD on 2L O2, CAD, PVD, cardiomyopathy with chronic systolic heart failure, (EF 30%), AAA, left CEA on plavix, recent admissions for pneumonia (May-Jun 2017), followed by readmission (08/26 09/01) for PE and Atrial flutter/fib now on Eliquis, returns to ER for evaluation of sudden onset of dyspnea. He was tachypneic, tremulous (chills) and reported ' feeling like 's..t''. Daughter reports he started having 'air hunger' and thats when they called 911. He does have cough productive of minimal ?pink/blood tinged phlegm. He was placed on Bipap on ER arrival, and reports feeling slightly better. He denies chest pain, palpitations or lightheadedness. Family reports compliance with medications. Vitals: afebrile, HR 120-130's --> 85-90's, BP 130/80 --> 114/56, sats 99% on Bipap FiO2 40%. Exam: AAO, on Bipap comfortable, MMM, PERRL, Neck supple, no JVD, Chest diminished breath sounds at bases, with right sided rhonchi+, Heart S1S2 irregular, systolic murmur+, LE: trace edema to right > left leg. Peripheral pulses not clearly palpable, but extremities seem well perfused. Difficult to obtain on doppler. Labs: no leukocytosis, K 5.2, AG 17, glucose 215, lactic acid 7.2 --> 3.3, trop 0.05, proBNP 70751, UA neg. Digoxin level 1.1. AB.40/33/332/20. CXR: Persistent bilateral consolidation and left pleural effusion unchanged. CTA chest/CT abd/pelvis: stable left lower lobe PE, no new PE. Severe emphysema. Increasing opacities in left upper lobe suspicious for pneumonia. Moderate right and small left pleural effusions+. Severe atherosclerotic disease of abdominal artery, lack of opacification of left common iliac artery suspicious for occlusion or high grade stenosis. EKG: appears aflutter/ fib although documented as sinus tachycardia, PVC's, RBBB. Echo (2018): EF 30-35%, elevated RVSP. Rapid flu positive for intluenza Type B. While in the ER, patient received IV lasix, solumedrol, nebs, digoxin, metoprolol, vanco and cipro. He was placed on Bipap with improvement in his tachypnea. Assessment and plan: 1. Acute on chronic hypoxic respiratory failure 2. Influenza Type B 3. Multifocal pneumonia with worsening left upper lobe consolidation 4. Elevated proBNP with b/l pleural effusions with possible acute exacerbation of chronic systolic heart failure 5. Afib/ flutter with rapid ventricular response that responded to IV digoxin and metoprolol 6. COPD with mild exacerbation 7. Bilateral pleural effusion (unchanged) 8. Left lower lobe PE stable on eliquis 9. History of non-small cell lung cancer with recurrent lung nodules 10. PVD, ?left common iliac artery occlusion or stenosis on CT - Admit to ICU - Vitals Q1 hour - Panculture, urine legionella and strep Ag - TRC nebs - Continue on Bipap overnight, no need to repeat ABG in AM - NPO while on Bipap - Tamiflu BID for 5 days - IV moxifloxacin (patient had reaction to ceftriaxone) - CRCU consult (patient's Pulm is Dr. Dumont) - Rapid prednisone taper - Strict I/O's, Huertas catheter, daily weights - IV lasix 20 daily - Serial EKG and troponin, no need to repeat Echo - Cardio consult (Dr. Solano) - Please inform Dr. Renteria about patient's admission. - Please contact Dr. Slater at [facility] to fax them patient's CT results reported patient was to get a CT this week to assess need for further Cyberknife treatments. - Hold lisinopril and resume once hyperkalemia resolves (K 5.2) - Trend lactic acid - Resume digoxin, metoprolol, plavix and PPI. - Please consult Vascular for evaluation of CT evidence of suspicion of left iliac artery stenosis. - Obtain arterial doppler in AM DVT ppx Eliquis. Full code. Please note patient received extra dose of eliquis overnight, as patient's confused and reported he did not take his evening dose. So we will hold off on AM dose, resume 5 mg eliquis from evening on 09/07. TTS > 55 mins
--- NOTE | 2017-09-07 01:43 | Admission Certification ---
Admission Certification Certification Statement - As attending physician, I certify that at the time of - admission, based on clinical presentation, severity of - symptoms, need for further diagnostic testing and - therapeutic interventions, and risk of adverse outcomes - without in-hospital treatment, in my clinical assessment, - this patient requires an acute hospital stay for a minimum - of two nights or longer. I have also considered psychsocial - factors such as support system, advanced age, financial - issues, cognitive issues, and failed out-patient treatments, - past re-admission history, safety of patient, and lack of - compliance as applicable. Specific rationale supporting this admission is: Acute on chronic hypoxic respiratory failure requiring Bipap, Influenza, Multifocal pneumonia, acute exacerbation of CHF.
--- NOTE | 2017-09-07 02:50 | Event Note ---
Event Note Event Note: S: At approximately 2:15 AM I was notified by the nurse that the patient stated that he took his second dose of Eliquis at lunchtime. She was curious to find out if her still should be given the 10 mg of Eliquis which had been ordered for this evening. During the HPI it was mentioned by the that the patient normally takes his Eliquis in the evening and had not received his 09/06/2017 evening dose. I subsequently called the patient's (despite being this late in the night) as she is very involved in the patient's care who confirmed that the patient normally takes his Eliquis at 830 p.m. After speaking to Mrs. Jenkins I called the nurse to ask her to go ahead and give the patient 10 mg of Eliquis. 20 minutes later the ED contacted me stating that Mrs. Jenkins wanted to speak to me. It appears that Mrs Jenkins had been confused and the patient had in fact received his evening dose of Eliquis. I subsequently called the nurse to see if this Eliquis can be held however it had already been administered. B: This is a paced patient was been admitted for acute hypoxemic respiratory failure. He is currently on Eliquis for pulmonary embolism. Dose of Eliquis was 10 mg twice a day till 09/07/2017 when he was to be transitioned to 5 mg twice a day. A/R: The patient has received a double amount of Eliquis (20 mg instead of 10 mg). We will continue to monitor. The patient was supposed receive 5 mg of Eliquis at 10 AM on 09/07/2017 will now get his Eliquis from the evening of 09/07/2017. Attending made aware.
[2017-09-07 05:59] LABS: ABSOLUTE BASOPHIL COUNT 0 /CUMM (0.0-0.2); ABSOLUTE EOSINOPHIL COUNT 0 /CUMM (0.0-0.7); ABSOLUTE GRANULOCYTE CT 13.7 /CUMM (1.4-6.5); ABSOLUTE LYMPH COUNT 0.3 /CUMM (1.2-3.4); ABSOLUTE MONOCYTE COUNT 0.5 /CUMM (0.10-0.60); BASOPHIL % 0 % (0.0-2.0); EOSINOPHIL % 0 % (0-5); GRANULOCYTE % 94.6 % (42.2-75.2); MEAN CORPUSCULAR HGB CONC 32.2 G/DL (33.0-37.0); MEAN CORPUSCULAR VOLUME 93.1 FL (80.0-94.0); MEAN PLATELET VOLUME 8.6 FL (7.4-10.4); PLATELET COUNT 149 /CUMM (130-400); RBC DISTRIBUTION WIDTH 16.7 % (11.5-14.5); RED BLOOD CELL CT 4.17 /CUMM (4.70-6.10); WHITE BLOOD CELL COUNT 14.5 /CUMM (4.8-10.8)
[2017-09-07 06:34] LABS: HEMATOCRIT 38.9 % (42-52)
--- NOTE | 2017-09-07 07:27 | Cons- CRCU ---
Fritz ULRICH,[facility] 09/07/17 0727: General Information and HPI Consulting Request Date of Consult: 09/07/17 Requested By: Dr Navarro Reason for Consult: Respiratory Distress Source of Information: patient, family, old records Exam Limitations: no limitations History of Present Illness: Mr Jenkins is an 81 year old male with a past medical history significant for advanced lung cancer treated with chemotherapy and radiation therapy at [facility] in 2007 with subsequent Cyberknife treatments for lung nodule, recurrence vs new primaries in 2014 and 02/2017, 5 treatments each time, history of pneumothorax in 2013 treated with a thoracic vent by Dr. Joshua, h/o GI bleed, abdominal aortic aneurysm, emphysema and COPD on 2 L home O2, left CEA on plavix, recently admittted to [facility] for acute on chronic hypoxemic respiratory failure and found to have a PE (recently discharged home on Eliquis 09/01/2017) who presented to the emergency department on 09/06/2017 complaining of labored breathing and dyspnea. Much of the clinical history was obtained from the patient's Mrs. Jenkins and records. She states that since the patient has been discharged he has not been feeling well. At approximately 6:30 PM yesterday the patient began to experience worsening dyspnea. He also complained of chills and requested to be assisted to bed. Once he laid down he became extremely tachycardic and difficulty breathing. Following this brief period due to his condition his made the decision to call the ambulance and he was subsequently brought into the emergency department for additional workup and care. Patient was visited by visiting nurse on 09/06/2017 who reported no issues. Since the pateint has been discharged he has been maintained on 2 L of home oxygen. His reports good medication compliance. Patient's primary care physician is Dr. Chapman. Patient's ui architect is Dr. Thornton Patient's riveter and oncologist is Dr. Myra Sheriff. Patient's fire marshal refinery is Dr. Solano. Allergies/Medications Allergies: Coded Allergies: animal dander (Severe, EYES REDDENED, HIVES 07/28/17) ceftriaxone (Severe, SHORTNESS OF BREATH 08/27/17) Penicillins (Intermediate, RASH 07/21/16) Home Med List: Acetaminophen (Masophen) 325 MG TABLET 2 TAB PO Q4H PRN PAIN/TEMP (Reported) Albuterol Sulfate (Proair Hfa) 90 MCG HFA.AER.AD 2 PUF INH Q4H PRN WHEEZE ( Reported) Apixaban (Eliquis) 5 MG TABLET 0 PO SEE ADMIN CRITERIA BLOOD THINNER .Please see instructions below: Cholecalciferol (Vitamin D3) (Vitamin D) 1,000 UNIT TABLET 1 TAB PO DAILY SUPPLEMENT (Reported) Clopidogrel Bisulfate (Clopidogrel) 75 MG TABLET 1 TAB PO DAILY BLOOD THINNER (Reported) Digoxin (Lanoxin) 125 MCG TABLET 0.125 MG PO 1700 HEART HEALTH . Furosemide 20 MG TABLET 1 TAB PO DAILY CHF Lisinopril 5 MG TABLET 5 MG PO DAILY HEART HEALTH . Metoprolol Tartrate 50 MG TABLET 100 MG PO BID Heart rate . Multivit-Min/FA/Lycopen/Lutein (Centrum Silver Tablet) 0.4 MG-300 MCG-250 MCG TABLET 1 TAB PO DAILY VITAMIN SUPPORT (Reported) Pantoprazole Sodium 40 MG TABLET.DR 1 TAB PO DAILY GI (Reported) Simethicone 80 MG TAB.CHEW 1 TAB PO Q6H PRN GAS (Reported) Review of Systems Review of Systems Constitutional: Denies: chills, fever. EENTM: Reports: no symptoms. Cardiovascular: Denies: chest pain. Respiratory: Reports: cough, short of breath, sputum production. GI: Reports: no symptoms. Musculoskeletal: Reports: no symptoms. Skin: Reports: no symptoms. Neurological/Psychological: Denies: headache, numbness, tingling. Past History Travel History Traveled to [place] past 21 day No Medical History Neurological: NONE EENT: NONE Cardiovascular: aortic aneurysm, AFIB, CAD, cardiomyopathy, PVD Respiratory: COPD, pneumonia Gastrointestinal: lower GI bleed Hepatic: NONE Renal: NONE Musculoskeletal: NONE Psychiatric: NONE Endocrine: NONE Blood Disorders: NONE Cancer(s): lung cancer DIVISION MERCHANDISE MANAGER/Reproductive: NONE Other Medical Hx: peripheral vascular disease, carotid artery stenosis Surgical History Surgical History: hernia repair-umbilical, PTX, CHEST TUBE LEFT CEA Family History Relations & Conditions If Any: MOTHER FH: diabetes mellitus BROTHER FH: COPD (chronic obstructive pulmonary disease) Psychosocial History Where Do You Live? Home Who Do You Live With? spouse Services at Home: None Primary Language: Burkinan Smoking Status: Former Smoker (> 50 pack years ) ETOH Use: denies use Illicit Drug Use: denies illicit drug use Living Will? no Functional Ability ADLs Independent: dressing, eating, toileting, bathing. Ambulation: independent IADLs Independent: shopping, housework, finances, food prep, telephone, transportation , medication admin. Exam & Diagnostic Data Last 24 Hrs of Vital Signs/I&O Vital Signs Date Time Temp Pulse Resp B/P B/P Pulse O2 O2 Flow FiO2 Mean Ox Delivery Rate 09/07 1406 98.0 64 18 99/56 94 Nasal 5.0L Cannula 09/07 1135 97.1 63 18 110/66 96 Nasal 4.0L Cannula 09/07 0938 97.0 69 20 121/56 09/07 0917 97.0 69 20 121/56 91 Nasal 5.0L Cannula 09/07 0906 65 98 09/07 0725 98.0 64 22 125/60 98 BIPAP 40% 09/07 0645 65 98 09/07 0555 98.3 64 20 107/55 99 BIPAP 40% 09/07 0443 72 24 115/55 99 BIPAP 40% 09/07 0330 84 98 09/07 0259 95.7 85 22 95/52 94 BIPAP 40% 09/07 0105 92 96 09/07 0055 96.2 92 22 114/56 95 BIPAP 40% 09/06 2335 133 09/06 2335 133 09/06 2330 98.2 133 24 98 BIPAP 40% 09/06 2150 128 98 09/06 2136 94 BIPAP 40% 09/06 2133 97.9 137 28 99 BIPAP 40% 09/06 2052 128 96 09/06 2045 130/80 Intake & Output 09/07 1600 08 0800 09/07 0000 Intake Total 240 550 0 Output Total 1000 1250 Balance -760 -700 0 Intake, IV 450 Intake, Oral 240 100 0 Output, Urine 1000 1250 Patient 178 lb Weight Weight Reported by Patient Measurement Method Physical Exam General Appearance: well developed/nourished, alert, awake, mild distress Head: atraumatic, normal appearance Eyes: Bilateral: normal appearance. Respiratory: chest non-tender, rhonchi, wheezing Cardiovascular: regular rate/rhythm Extremities: normal inspection, no edema Neurologic/Psych: awake, alert, oriented x 3 Cranial Nerves: normal hearing, normal speech Last 48 Hrs of Labs/Yong: Laboratory Tests 09/07/17 1234: Troponin I 0.08 09/07/17 0553: Anion Gap 9, Estimated GFR > 60, BUN/Creatinine Ratio 22.2, Troponin I 0.08, CBC w Diff NO MAN DIFF REQ, RBC 4.17 L, MCV 93.1, MCH 30.0, MCHC 32.2 L, RDW 16.7 H, MPV 8.6, Gran % 94.6 H, Lymphocytes % 2.1 L, Monocytes % 3.3, Eosinophils % 0, Basophils % 0, Absolute Granulocytes 13.7 H, Absolute Lymphocytes 0.3 L, Absolute Monocytes 0.5, Absolute Eosinophils 0, Absolute Basophils 0 09/07/17 0302: Lactic Acid 1.5 09/07/17 0300: Urine Color STRAW, Urine Clarity CLEAR, Urine pH 6.5, Ur Specific [place] 1.015, Urine Protein TRACE H, Urine Ketones NEG, Urine Nitrite NEG, Urine Bilirubin NEG, Urine Urobilinogen 0.2, Ur Leukocyte Esterase NEG, Ur Microscopic SEDIMENT EXAMINED, Urine RBC 25-50 H, Urine WBC RARE, Ur Epithelial Cells RARE, Hyaline Casts FEW H, Urine Mucus FEW, Urine Hemoglobin MOD H, Urine Glucose NEG 09/06/17 2336: Troponin I 0.07 09/06/17 2332: Lactic Acid 3.3 H 09/06/17 2130: Anion Gap 17 H, Estimated GFR > 60, BUN/Creatinine Ratio 19.0, Glucose 215 H, Lactic Acid 7.2 H, Calcium 8.4, Total Bilirubin 0.6, AST 52, ALT 50, Alkaline Phosphatase 120, Troponin I 0.05, Abn-P-Bjnywrzbzih Pept 35707 H, Total Protein 6.5, Albumin 3.8, Globulin 2.7, Albumin/Globulin Ratio 1.4, Digoxin 1.1 09/06/17 2100: pH 7.40, pCO2 33 L, pO2 332 H, HCO3 20 L, ABG O2 Sat (Measured) 99.0, P-50 ( Temp Corrected) N, Carboxyhemoglobin 0.2 L, O2 Concentration % 100, Respiration Rate 24, O2 Delivery Method BIPAP, Vent Mode ST, Expiratory Pressure 6, Inspiratory Pressure 20, Phlebotomy Draw Site RIGHT BRACHIAL 09/06/172057: CBC w Diff NO MAN DIFF REQ, RBC 4.92, MCV 93.2, MCH 29.7, MCHC 31.9 L, RDW 16.6 H, MPV 9.2, Gran % 78.0 H, Lymphocytes % 12.0 L, Monocytes % 9.1, Eosinophils % 0.3, Basophils % 0.6, Absolute Granulocytes 8.0 H, Absolute Lymphocytes 1.2, Absolute Monocytes 0.9 H, Absolute Eosinophils 0, Absolute Basophils 0.1 09/06/172034: Virus Culture Pending Microbiology 09/07 299 URINE ROUT: Legionella Antigen - COMP 09/07 299 URINE ROUT: Streptococcus pneumoniae Antigen (M - COMP 09/06 2340 NASOPHARYN: Influenza Virus A & B Rapid Smear - COMP INFLUENZA TYPE B Assessment/Plan Impression/Plan: Mr Jenkins is an 81 year old male with a past medical history significant for advanced lung cancer, abdominal aortic aneurysm, emphysema and COPD on 2 L home O2 who was brought to the ED for worsening respiratory distress. He was admitted to the ICU overnight for closer monitoring. Overnight he was on the BiPAP. He subjectively feels significantly better. He is now on 5L of O2 via NC. At this point his condition looks signifcanly improved and he is stable to be downgraded to telemetry. Assessment: 1. Acute on Chronic hypoxic respiratory failure 2. Multifocal pneumonia 3. Influenza Type B 4. CHF Exacerbation 5. Afib/ flutter with rapid ventricular response that responded to IV digoxin and metoprolol 6. History of lung cancer 7. 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 Lactic acidosis - resolved 10. History of PE on Eliquis Plan: * Continue oxygen supplementation to maintain target saturations >92%. Currently on 5L. * Continue Moxifloxacin and Oseltamivir for pneumonia * TRC/nebs as needed * Diuresis with IV lasix 40mg BID for CHF exacerbation. * Continue home dose digoxin and metoprolol. * Restart Lisinopril as blood pressure allows. * Continue Eliquis for PE * He has a chronic occlusion of left SFA. He has been evaluated by vascular surgery and no acute treatment is warranted. He can follow up with vascular surgery as an outpatient. * Diet: Heart Healthy diet * DVT Prophylaxis: Eliquis * Code: Full Code Consult Acknowledgment - Thank you for your consult request. Calos Castillo MD 09/07/17 1145: Assessment/Plan Other Findings/Comments: Calos Fox M.D. have examined this patient, reviewed available EMR data, personally reviewed images, discussed with resident/PA/DRAMATIC COACH, discussed management plan with housestaff and nursing staff, discussed managment plan all of healthcare providers, discussed management plan with patient and/or family, agreed with resident/PA/DRAMATIC COACH. The past history and parts of the chart have been autopopulated. Impression 81 year old man hx of PE/lung ca * influenza B * multifocal pneumonia Plan -has been started on Avelox - can continue at this time -tamiflu -cardiology and vascular consultations -Bipap prn -cont eliquis -Telemetry downgrade call if clinical condition changes DVT prophylaxis at all times TTS 40 min Consult Acknowledgment - Thank you for your consult request.
--- NOTE | 2017-09-07 09:04 | ULTRASOUND REPORT ---
EXAMINATION: US DUPLEX LOWER EXTREMITY ARTERY/GRAFT LIMITED, LEFT CLINICAL INFORMATION: Left iliac artery suspicious for occlusion/stenosis. COMPARISON: None TECHNIQUE: Real-time ultrasound and Doppler techniques (integrating B-mode 2-D vascular images, Doppler spectral analysis and color flow Doppler imaging) were utilized to interrogate the lower extremities. FINDINGS: Left lower extremity: Common femoral artery: 38.1 cm/sec; monophasic waveform Superficial femoral artery proximal: Occluded Superficial femoral artery mid portion: Occluded Superficial femoral artery distal: Occluded Profunda artery: 92 cm/sec; monophasic waveform Popliteal artery: 48 cm/sec; monophasic waveform Calf arteries: The patient was unable to remain still and the arteries were unable to be assessed. ADDITIONAL FINDINGS: None. IMPRESSION: Occlusion of the superficial femoral artery. Flow throughout the left lower extremity is monophasic. The profunda artery is patent and likely provides collateralized flow to the popliteal artery which is perfused. The calf arteries were unable to be assessed due to the patient's inability to comply with the exam with constant movement. Greater sensitivity and specificity can be obtained with pre-and post exercise PVRs with [place] calculations. Also consider dedicated CTA for further anatomical detail. This critical result was discussed with Dr. Coleman at 8:58 AM on 09/07/2017 and it was ascertained that the content and urgency of the report was understood at the time of direct communication.
--- NOTE | 2017-09-07 11:53 | Cons- Cardiology ---
General Information and HPI Consulting Request Date of Consult: 09/07/17 Requested By: Cate Beauchamp MD Reason for Consult: Respiratory failure History of Present Illness: The patient is an 81-year-old male who is followed in the office by Dr. Solano with history of lung cancer status post chemotherapy and radiation, coronary artery disease, cardiomyopathy who was recently hospitalized with acute pulmonary embolism. He developed atrial flutter during the prior hospitalization. The patient has been developing gradually worsening shortness of breath over the past few days. At 6:00 PM last night after laying down in bed he developed significant worsening of his shortness of breath with tachycardia. EMS was called and he was brought to the emergency department. He has had a cough productive of a small amount of sputum and occasional hemoptysis. Rapid flu test was positive for influenza type B. Shortness of breath is somewhat better today, however he continues to have significant shortness of breath. No significant chest pain. No palpitations. He continues to have orthopnea. No diaphoresis. No syncope. No nausea or vomiting. Allergies/Medications Allergies: Coded Allergies: animal dander (Severe, EYES REDDENED, HIVES 07/28/17) ceftriaxone (Severe, SHORTNESS OF BREATH 08/27/17) Penicillins (Intermediate, RASH 07/21/16) Home Med List: Acetaminophen (Masophen) 325 MG TABLET 2 TAB PO Q4H PRN PAIN/TEMP (Reported) Albuterol Sulfate (Proair Hfa) 90 MCG HFA.AER.AD 2 PUF INH Q4H PRN WHEEZE ( Reported) Apixaban (Eliquis) 5 MG TABLET 0 PO SEE ADMIN CRITERIA BLOOD THINNER .Please see instructions below: Cholecalciferol (Vitamin D3) (Vitamin D) 1,000 UNIT TABLET 1 TAB PO DAILY SUPPLEMENT (Reported) Clopidogrel Bisulfate (Clopidogrel) 75 MG TABLET 1 TAB PO DAILY BLOOD THINNER (Reported) Digoxin (Lanoxin) 125 MCG TABLET 0.125 MG PO 1700 HEART HEALTH . Furosemide 20 MG TABLET 1 TAB PO DAILY CHF Lisinopril 5 MG TABLET 5 MG PO DAILY HEART HEALTH . Metoprolol Tartrate 50 MG TABLET 100 MG PO BID Heart rate . Multivit-Min/FA/Lycopen/Lutein (Centrum Silver Tablet) 0.4 MG-300 MCG-250 MCG TABLET 1 TAB PO DAILY VITAMIN SUPPORT (Reported) Pantoprazole Sodium 40 MG TABLET.DR 1 TAB PO DAILY GI (Reported) Simethicone 80 MG TAB.CHEW 1 TAB PO Q6H PRN GAS (Reported) Current Medications: Current Medications Sig/Dominique Start time Last Medication Dose Route Stop Time Status Admin Albuterol Sulfate 2 PUF Q4H PRN 09/07 0015 AC INH Albuterol Sulfate 3 ML ONCE ONE 09/06 2044 DC 09/06 INH 09/06 Apixaban 5 MG BID 09/07 2200 AC PO Apixaban 5 MG BID 09/07 1000 DC PO Apixaban 10 MG ONCE ONE 09/07 0100 DC 09/07 PO 09/07 010 0225 Ciprofloxacin 400 MG ONCE ONE 09/06 2314 DC 09/06 IV 09/06 2315 235 Clopidogrel Bisulfate 75 MG DAILY 09/07 1000 AC 09/07 PO 09 Digoxin 0.125 MG 1700 09/07 1700 CAN PO Digoxin 0.125 MG ONCE ONE 09/06 2244 DC 09/06 IV 09/06 2245 233 Furosemide 20 MG DAILY 09/07 999 AC 09/07 IV 0938 Furosemide 0 .STK-MED ONE 09/07 934 DC IV Furosemide 0 .STK-MED ONE 09/06 2124 DC IV Furosemide 40 MG ONCE ONE 09/06 2044 DC 09/06 IV PUSH 09/06 Ipratropium [place] 2.5 ML ONCE ONE 09/06 2044 DC 09/06 INH 09/06 Methylprednisolone 0 .STK-MED ONE 09/06 2124 DC .ROUTE Methylprednisolone 125 MG ONCE ONE 09/06 2044 DC 09/06 IV 09/06 Metoprolol Tartrate 100 MG BID 09/07 999 AC 09/07 PO 0938 Metoprolol Tartrate 0 .STK-MED ONE 09/06 2337 DC IV Metoprolol Tartrate 5 MG ONCE ONE 09/06 2244 DC 09/06 IV 09/06 2245 233 Moxifloxacin HCl 400 MG DAILY 09/07 1000 CAN IV Moxifloxacin HCl 400 MG DAILY 09/07 1000 AC 09/07 N/A 1 UNIT IV 0938 Multivitamins 1 TAB DAILY 09/07 1000 AC 09/07 PO 0938 Ondansetron HCl 0 .STK-MED ONE 09/06 2124 DC .ROUTE Ondansetron HCl 4 MG ONCE ONE 09/06 2044 DC 09/06 IV 09/06 2045 2146 Oseltamivir Phosphate 75 MG BID 09/07 1000 AC 09/07 PO 09/11 0959 0938 Oseltamivir Phosphate 75 MG ONCE ONE 09/075 DC 09/07 PO 09/07 0046 0045 Pantoprazole Sodium 40 MG DAILY 09/07 1000 AC 09/07 IV 0938 Pantoprazole Sodium 0 .STK-MED ONE 09/07 0935 DC IV Prednisone 10 MG ONCE ONE 09/10 1000 AC PO 09/10 1001 Prednisone 20 MG ONCE ONE 09/09 1000 AC PO 09/09 1001 Prednisone 30 MG ONCE ONE 09/08 1000 AC PO 09/08 1001 Prednisone 40 MG ONCE ONE 09/07 1000 DC 09/07 PO 09/07 1001 0938 Vancomycin HCl 1,000 MG ONCE ONE 09/06 2315 DC 09/07 Dextrose/Water 250 ML IV 09/07 0014 0050 Review of Systems Review of Systems: No rash. No tremor. No melena. All other systems were reviewed, and were noted to be negative. 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 Home Who Do You Live With? spouse Services at Home: None Primary Language: Algerian Smoking Status: Former Smoker (> 50 pack years ) ETOH Use: denies use Illicit Drug Use: denies illicit drug use Living Will? no Functional Ability ADLs Independent: dressing, eating, toileting, bathing. Ambulation: independent IADLs Independent: shopping, housework, finances, food prep, telephone, transportation , medication admin. Exam & Diagnostic Data Vital Signs and I&O Vital Signs Date Time Temp Pulse Resp B/P B/P Pulse O2 O2 Flow FiO2 Mean Ox Delivery Rate 09/07 1135 97.1 63 18 110/66 96 Nasal 4.0L Cannula 09/07 0838 97.0 69 20 121/56 09/07 0917 97.0 69 20 121/56 91 Nasal 5.0L Cannula 09/07 0906 65 98 09/07 0725 98.0 64 22 125/60 98 BIPAP 40% 09/07 0645 65 98 09/07 0555 98.3 64 20 107/55 99 BIPAP 40% 09/07 0443 72 24 115/55 99 BIPAP 40% 09/07 0330 84 98 09/07 0259 95.7 85 22 95/52 94 BIPAP 40% 09/07 0105 92 96 09/07 0055 96.2 92 22 114/56 95 BIPAP 40% 09/06 2335 133 09/06 2335 133 09/06 2330 98.2 133 24 98 BIPAP 40% 09/06 2150 128 98 09/06 2135 94 BIPAP 40% 09/06 2132 97.9 137 28 99 BIPAP 40% 09/06 2051 128 96 09/06 2044 130/80 Intake & Output 09/07 1600 09/07 0809/07 0000 09/06 1600 09/06 0800 09/06 0000 Intake Total 550 0 Output Total 1250 Balance -700 0 Intake, IV 450 Intake, Oral 100 0 Output, Urine 1250 Patient 178 lb Weight Weight Reported by Patient Measurement Method Physical Exam: Gen: The patient is in no acute distress HEENT: Normal nose, ears, and oropharynx. Pupils equal bilaterally. Conjunctiva normal. Neck: Supple with no JVD, no masses, and no thyromegaly Lungs: Bilateral rhonchi with normal respiratory effort Heart: Irregular S1, S2, 1 out of 6 systolic murmur. Trace peripheral edema, 2+ pulses in the lower extremities bilaterally Abdomen: Soft, nontender, no masses. No hepatomegaly. No splenomegaly Extremities: No clubbing or cyanosis. Normal muscle strength in the upper and lower extremities Skin: Normal skin turgor with no skin ulcers or lesions noted. Neuro: Cranial nerves intact. Sensation intact Psych: Alert and oriented - 3 with appropriate affect Labs/Yong Results: Laboratory Tests 09/07 09/07 0553 0302 Chemistry Sodium (137 - 145 mmol/L) 137 Potassium (3.5 - 5.1 mmol/L) 4.5 Chloride (98 - 107 mmol/L) 97 L Carbon Dioxide (22 - 30 mmol/L) 31 H Anion Gap (5 - 16) 9 BUN (9 - 20 mg/dL) 20 Creatinine (0.7 - 1.2 mg/dL) 0.9 Estimated GFR (>60 ml/min) > 60 BUN/Creatinine Ratio (7 - 25 %) 22.2 Lactic Acid (0.7 - 2.1 mmol/L) 1.5 Troponin I (<0.11 ng/ml) 0.08 Hematology CBC w Diff NO MAN DIFF REQ WBC (4.8 - 10.8 /CUMM) 14.5 H RBC (4.70 - 6.10 /CUMM) 4.17 L Hgb (14.0 - 18.0 G/DL) 12.5 L Hct (42 - 52 %) 38.9 L MCV (80.0 - 94.0 FL) 93.1 MCH (27.0 - 31.0 PG) 30.0 MCHC (33.0 - 37.0 G/DL) 32.2 L RDW (11.5 - 14.5 %) 16.7 H Plt Count (130 - 400 /CUMM) 149 MPV (7.4 - 10.4 FL) 8.6 Gran % (42.2 - 75.2 %) 94.6 H Lymphocytes % (20.5 - 51.1 %) 2.1 L Monocytes % (1.7 - 9.3 %) 3.3 Eosinophils % (0 - 5 %) 0 Basophils % (0.0 - 2.0 %) 0 Absolute Granulocytes (1.4 - 6.5 /CUMM) 13.7 H Absolute Lymphocytes (1.2 - 3.4 /CUMM) 0.3 L Absolute Monocytes (0.10 - 0.60 /CUMM) 0.5 Absolute Eosinophils (0.0 - 0.7 /CUMM) 0 Absolute Basophils (0.0 - 0.2 /CUMM) 0 09/07 09/06 09/06 0300 2336 2332 Chemistry Lactic Acid (0.7 - 2.1 mmol/L) 3.3 H Troponin I (<0.11 ng/ml) 0.07 Urines Urine Color (YEL,AMB,STR) STRAW Urine Clarity (CLEAR) CLEAR Urine pH (5.0 - 8.0) 6.5 Ur Specific [place] (1.001 - 1.035) 1.015 Urine Protein (NEG,<30 MG/DL) TRACE H Urine Ketones (NEG) NEG Urine Nitrite (NEG) NEG Urine Bilirubin (NEG) NEG Urine Urobilinogen (0.1 - 1.0 EU/dl) 0.2 Ur Leukocyte Esterase (NEG) NEG Ur Microscopic SEDIMENT EXAMINED Urine RBC (0 - 5 /HPF) 25-50 H Urine WBC (0 - 2 /HPF) RARE Ur Epithelial Cells (NONE,FEW) RARE Hyaline Casts (0/LPF) FEW H Urine Mucus (FEW,NONE) FEW Urine Hemoglobin (NEG) MOD H Urine Glucose (N MG/DL) NEG 09/06 09/06 2130 2100 Blood Gas pH (7.35 - 7.45 PH) 7.40 pCO2 (35 - 45 TORR) 33 L pO2 (80 - 100 TORR) 332 H HCO3 (21 - 28 MEQ/L) 20 L ABG O2 Sat (Measured) (>96.0 %) 99.0 P-50 (Temp Corrected) N Carboxyhemoglobin (1.5 - 5.0 %) 0.2 L O2 Concentration % 100 Respiration Rate (BPM) 24 O2 Delivery Method BIPAP Vent Mode ST Expiratory Pressure (CM H2O P) 6 Inspiratory Pressure (CM H2O P) 20 Chemistry Sodium (137 - 145 mmol/L) 137 Potassium (3.5 - 5.1 mmol/L) 5.2 H Chloride (98 - 107 mmol/L) 93 L Carbon Dioxide (22 - 30 mmol/L) 27 Anion Gap (5 - 16) 17 H BUN (9 - 20 mg/dL) 19 Creatinine (0.7 - 1.2 mg/dL) 1.0 Estimated GFR (>60 ml/min) > 60 BUN/Creatinine Ratio (7 - 25 %) 19.0 Glucose (65 - 99 mg/dL) 215 H Lactic Acid (0.7 - 2.1 mmol/L) 7.2 H Calcium (8.4 - 10.2 mg/dL) 8.4 Total Bilirubin (0.2 - 1.3 mg/dL) 0.6 AST (17 - 59 U/L) 52 ALT (21 - 72 U/L) 50 Alkaline Phosphatase (< 127 U/L) 120 Troponin I (<0.11 ng/ml) 0.05 [id number]-M-[id number] Pept (<125 pg/mL) 00675 H Total Protein (6.3 - 8.2 g/dL) 6.5 Albumin (3.5 - 5.0 g/dL) 3.8 Globulin (1.9 - 4.2 gm/dL) 2.7 Albumin/Globulin Ratio (1.1 - 2.2 %) 1.4 Miscellaneous Phlebotomy Draw Site RIGHT BRACHIAL Toxicology Digoxin (0.8 - 2.0 ng/mL) 1.1 09/06 Hematology CBC w Diff NO MAN DIFF REQ WBC (4.8 - 10.8 /CUMM) 10.3 RBC (4.70 - 6.10 /CUMM) 4.92 Hgb (14.0 - 18.0 G/DL) 14.6 Hct (42 - 52 %) 45.9 MCV (80.0 - 94.0 FL) 93.2 MCH (27.0 - 31.0 PG) 29.7 MCHC (33.0 - 37.0 G/DL) 31.9 L RDW (11.5 - 14.5 %) 16.6 H Plt Count (130 - 400 /CUMM) 261 MPV (7.4 - 10.4 FL) 9.2 Gran % (42.2 - 75.2 %) 78.0 H Lymphocytes % (20.5 - 51.1 %) 12.0 L Monocytes % (1.7 - 9.3 %) 9.1 Eosinophils % (0 - 5 %) 0.3 Basophils % (0.0 - 2.0 %) 0.6 Absolute Granulocytes (1.4 - 6.5 /CUMM) 8.0 H Absolute Lymphocytes (1.2 - 3.4 /CUMM) 1.2 Absolute Monocytes (0.10 - 0.60 /CUMM) 0.9 H Absolute Eosinophils (0.0 - 0.7 /CUMM) 0 Absolute Basophils (0.0 - 0.2 /CUMM) 0.1 Serology Virus Culture Pending Diagnostic Data EKG Results EKG tracing is independently reviewed, and reveals atrial flutter with ventricular response of 44, right bundle branch block CXR Results Persistent bilateral consolidation in left pleural effusion essentially unchanged Other Results CTA chest: 1. Stable appearance of a left lower lobe segmental pulmonary embolism. No new pulmonary emboli. 2. Chronic changes in the lungs with increased opacities in the right middle lobe and left upper lobe, suspicious for multifocal pneumonia. Severe emphysema. 3. No acute inflammatory changes in the abdomen or pelvis. 4. Severe atherosclerotic disease of the abdominal arterial vasculature. Abdominal aortic ectasia. Lack of opacification of the left common iliac artery suspicious for occlusion or high-grade stenosis. This is not well evaluated on this study. Lower extremity arterial Doppler study: Occlusion of the superficial femoral artery. Flow throughout the left lower Echocardiogram 08/30/17: 1. This was a technically difficult and limited examination. A followup examination might be useful when the patient's heart rate is better controlled. 2. Moderate aortic sclerosis is present with minimal to mild aortic insufficiency. 3. Mitral leaflet thickening is present with anular calcification and mild to moderate mitral insufficiency with left atrial enlargement. 4. A small pericardial effusion is present. 5. A left pleural effusion is present. 6. The left ventricular chamber size is upper normal with global hypokinesia which is worse in the inferoposterior , inferolateral and distal anteroapical segments. The ejection fraction is approximately 30-35%. Mild eccentric hypertrophy is present. 7. Enlargement of the right heart chambers and IVC are present with moderate tricuspid insufficiency, mild to moderate pulmonic insufficiency and an estimated RV systolic pressure of 48 mmHg. 8. A followup examination is recommended when the heart rate is slower to more accureately assess valvular function and the RV systolic pressure. extremity is monophasic. The profunda artery is patent and likely provides collateralized flow to the popliteal artery which is perfused. The calf arteries were unable to be assessed due to the patient's inability to comply with the exam with constant movement. Greater sensitivity and specificity can be obtained with pre-and post exercise PVRs with [place] calculations. Also consider dedicated CTA for further anatomical detail. This critical result was discussed with Dr. Coleman at 8:58 AM on 09/07/2017 and it was ascertained that the content and urgency of the report was understood at the time of direct communication. Assessment/Plan Assessment/Plan 81-year-old male with history of coronary artery disease, lung cancer, and cardiomyopathy recently admitted with acute pulmonary embolism and atrial flutter. Now readmitted with respiratory failure. Positive influenza rapid test. CT scan consistent with possible multifocal pneumonia. Bilateral pleural effusions noted. Elevated proBNP and orthopnea suggest possible component of acute HFrEF as a contributing factor to symptoms. Lower external Doppler study reveals occlusion of the superficial femoral artery with patent profunda artery. Recommendations: * Agree with IV antibiotic therapy and Tamiflu * Continue metoprolol for rate control * Continue Eliquis. Of note, the patient was given an extra dose last night, and this morning's dose was therefore held * Given presence of orthopnea, bilateral pleural effusions, and elevated proBNP, I am concerned about possible acute HFrEF exacerbation as a contributing factor. Would recommend IV Lasix 40 mg every 12 hours. Follow input and output. * Continue other cardiac medications Consult Acknowledgment - Thank you for your consult request.
--- NOTE | 2017-09-07 14:01 | Cons- Vascular Surgery ---
General Information and HPI Consulting Request Date of Consult: 09/07/17 Requested By: Cate Beauchamp MD Reason for Consult: OCCLUDED SFA History of Present Illness: PT PRESENTED TO THE ER TODAY FOUND TO BE IN RESP DISTRESS WITH A POSITIVE RAPID FLU TEST. A CTA WAS ORDERED AND WAS SUSPICIOUS FOR A LEFT COMMON ILIAC OCCLUSION OR HIGHGRADE STENOSIS. tHEN AN EXTREMITIY US WAS ORDERED WHICH SHOWED AN OCCLUDED SFA AND A PATENT PROFUNDA AND PATENT POPLITEAL WITH MONOPHASIC FLOW. PT DENIES PAIN OR NUMBNESS IN HIS EXTREMITIES. SAYS HE HAS PAIN AFTER WALKING FOR A BIT BUT THAT IS NOT NEW. HE SAW A VASCULAR SURGEON 10 YEARS AGO FOR A CEA BUT STOPPED SEEING HIM BECAUSE HE WAS TOO FAR AWAY. Allergies/Medications Allergies: Coded Allergies: animal dander (Severe, EYES REDDENED, HIVES 07/28/17) ceftriaxone (Severe, SHORTNESS OF BREATH 08/27/17) Penicillins (Intermediate, RASH 07/21/16) Home Med List: Acetaminophen (Masophen) 325 MG TABLET 2 TAB PO Q4H PRN PAIN/TEMP (Reported) Albuterol Sulfate (Proair Hfa) 90 MCG HFA.AER.AD 2 PUF INH Q4H PRN WHEEZE ( Reported) Apixaban (Eliquis) 5 MG TABLET 0 PO SEE ADMIN CRITERIA BLOOD THINNER .Please see instructions below: Cholecalciferol (Vitamin D3) (Vitamin D) 1,000 UNIT TABLET 1 TAB PO DAILY SUPPLEMENT (Reported) Clopidogrel Bisulfate (Clopidogrel) 75 MG TABLET 1 TAB PO DAILY BLOOD THINNER (Reported) Digoxin (Lanoxin) 125 MCG TABLET 0.125 MG PO 1700 HEART [place] . Furosemide 20 MG TABLET 1 TAB PO DAILY CHF Lisinopril 5 MG TABLET 5 MG PO DAILY [facility] . Metoprolol Tartrate 50 MG TABLET 100 MG PO BID Heart rate . Multivit-Min/FA/Lycopen/Lutein (Centrum Silver Tablet) 0.4 MG-300 MCG-250 MCG TABLET 1 TAB PO DAILY VITAMIN SUPPORT (Reported) Pantoprazole Sodium 40 MG TABLET.DR 1 TAB PO DAILY GI (Reported) Simethicone 80 MG TAB.CHEW 1 TAB PO Q6H PRN GAS (Reported) Past History Medical History Neurological: NONE EENT: NONE Cardiovascular: aortic aneurysm, AFIB, CAD, cardiomyopathy, PVD Respiratory: COPD, pneumonia Gastrointestinal: lower GI bleed Hepatic: NONE Renal: NONE Musculoskeletal: NONE Psychiatric: NONE Endocrine: NONE Blood Disorders: NONE Cancer(s): lung cancer PMP/Reproductive: NONE Other Medical Hx: peripheral vascular disease, carotid artery stenosis Surgical History Pertinent Surgical History: hernia repair-umbilical, PTX, CHEST TUBE LEFT CEA, CEA Family History Relations & Conditions If Any: MOTHER FH: diabetes mellitus BROTHER FH: COPD (chronic obstructive pulmonary disease) Psychosocial History Where Do You Live? Home Who Do You Live With? spouse Services at Home: None Primary Language: German Smoking Status: Former Smoker (> 50 pack years ) ETOH Use: denies use Illicit Drug Use: denies illicit drug use Living Will? no Functional Ability ADLs Independent: dressing, eating, toileting, bathing. Ambulation: independent IADLs Independent: shopping, housework, finances, food prep, telephone, transportation , medication admin. Review of Systems Review of Systems: PER HPI Exam & Diagnostic Data Vital Signs and I&O Vital Signs Date Time Temp Pulse Resp B/P B/P Pulse O2 O2 Flow FiO2 Mean Ox Delivery Rate 09/07 1135 97.1 63 18 110/66 96 Nasal 4.0L Cannula 09/07 0938 97.0 69 20 121/56 09/07 0917 97.0 69 20 121/56 91 Nasal 5.0L Cannula 09/07 0906 65 98 09/07 0725 98.0 64 22 125/60 98 BIPAP 40% 09/07 0645 65 98 09/07 0555 98.3 64 20 107/55 99 BIPAP 40% 09/07 0443 72 24 115/55 99 BIPAP 40% 09/07 0330 84 98 09/07 0259 95.7 85 22 95/52 94 BIPAP 40% 09/07 0105 92 96 09/07 0055 96.2 92 22 114/56 95 BIPAP 40% 09/06 2335 133 09/06 2335 133 09/06 2330 98.2 133 24 98 BIPAP 40% 09/06 2149 128 98 09/06 2135 94 BIPAP 40% 09/06 2132 97.9 137 28 99 BIPAP 40% 09/06 2051 128 96 09/06 2044 130/80 Intake & Output 09/07 1600 09/07 0800 09/07 0000 09/06 1600 09/06 0000 Intake Total 550 0 Output Total 1250 Balance -700 0 Intake, IV 450 Intake, Oral 100 0 Output, Urine 1250 Patient 178 lb Weight Weight Reported by Patient Measurement Method Physical Exam General Appearance: mild distress (MILD RESP DISTRESS) Head: atraumatic, normal appearance Eyes: Bilateral: EOMI, pale conjunctivae. Ears, Nose, Throat: normal pharynx (MMM) Neck: supple Respiratory: normal breath sounds (CLEAR) Cardiovascular: regular rate/rhythm Peripheral Pulses: 0 tibialis posterior (R) (NO PT OR DP SIGNALS BILAT), 0 tibialis posterior (L), 0 dorsalis pedis (R), 0 dorsalis pedis (L) Gastrointestinal: soft, non-tender Extremities: no edema, calf tenderness, pedal edema (SKIN WARM AND DRY) Last 24 Hours of Labs: Laboratory Tests 09/07 09/07 09/07 1234 0553 0302 Chemistry Sodium (137 - 145 mmol/L) 137 Potassium (3.5 - 5.1 mmol/L) 4.5 Chloride (98 - 107 mmol/L) 97 L Carbon Dioxide (22 - 30 mmol/L) 31 H Anion Gap (5 - 16) 9 BUN (9 - 20 mg/dL) 20 Creatinine (0.7 - 1.2 mg/dL) 0.9 Estimated GFR (>60 ml/min) > 60 BUN/Creatinine Ratio (7 - 25 %) 22.2 Lactic Acid (0.7 - 2.1 mmol/L) 1.5 Troponin I (<0.11 ng/ml) 0.08 0.08 Hematology CBC w Diff NO MAN DIFF REQ WBC (4.8 - 10.8 /CUMM) 14.5 H RBC (4.70 - 6.10 /CUMM) 4.17 L Hgb (14.0 - 18.0 G/DL) 12.5 L Hct (42 - 52 %) 38.9 L MCV (80.0 - 94.0 FL) 93.1 MCH (27.0 - 31.0 PG) 30.0 MCHC (33.0 - 37.0 G/DL) 32.2 L RDW (11.5 - 14.5 %) 16.7 H Plt Count (130 - 400 /CUMM) 149 MPV (7.4 - 10.4 FL) 8.6 Gran % (42.2 - 75.2 %) 94.6 H Lymphocytes % (20.5 - 51.1 %) 2.1 L Monocytes % (1.7 - 9.3 %) 3.3 Eosinophils % (0 - 5 %) 0 Basophils % (0.0 - 2.0 %) 0 Absolute Granulocytes (1.4 - 6.5 /CUMM) 13.7 H Absolute Lymphocytes (1.2 - 3.4 /CUMM) 0.3 L Absolute Monocytes (0.10 - 0.60 /CUMM) 0.5 Absolute Eosinophils (0.0 - 0.7 /CUMM) 0 Absolute Basophils (0.0 - 0.2 /CUMM) 0 09/07 09/06 09/06 0300 2336 2332 Chemistry Lactic Acid (0.7 - 2.1 mmol/L) 3.3 H Troponin I (<0.11 ng/ml) 0.07 Urines Urine Color (YEL,AMB,STR) STRAW Urine Clarity (CLEAR) CLEAR Urine pH (5.0 - 8.0) 6.5 Ur Specific [place] (1.001 - 1.035) 1.015 Urine Protein (NEG,<30 MG/DL) TRACE H Urine Ketones (NEG) NEG Urine Nitrite (NEG) NEG Urine Bilirubin (NEG) NEG Urine Urobilinogen (0.1 - 1.0 EU/dl) 0.2 Ur Leukocyte Esterase (NEG) NEG Ur Microscopic SEDIMENT EXAMINED Urine RBC (0 - 5 /HPF) 25-50 H Urine WBC (0 - 2 /HPF) RARE Ur Epithelial Cells (NONE,FEW) RARE Hyaline Casts (0/LPF) FEW H Urine Mucus (FEW,NONE) FEW Urine Hemoglobin (NEG) MOD H Urine Glucose (N MG/DL) NEG 09/06 09/06 2130 2100 Blood Gas pH (7.35 - 7.45 PH) 7.40 pCO2 (35 - 45 TORR) 33 L pO2 (80 - 100 TORR) 332 H HCO3 (21 - 28 MEQ/L) 20 L ABG O2 Sat (Measured) (>96.0 %) 99.0 P-50 (Temp Corrected) N Carboxyhemoglobin (1.5 - 5.0 %) 0.2 L O2 Concentration % 100 Respiration Rate (BPM) 24 O2 Delivery Method BIPAP Vent Mode ST Expiratory Pressure (CM H2O P) 6 Inspiratory Pressure (CM H2O P) 20 Chemistry Sodium (137 - 145 mmol/L) 137 Potassium (3.5 - 5.1 mmol/L) 5.2 H Chloride (98 - 107 mmol/L) 93 L Carbon Dioxide (22 - 30 mmol/L) 27 Anion Gap (5 - 16) 17 H BUN (9 - 20 mg/dL) 19 Creatinine (0.7 - 1.2 mg/dL) 1.0 Estimated GFR (>60 ml/min) > 60 BUN/Creatinine Ratio (7 - 25 %) 19.0 Glucose (65 - 99 mg/dL) 215 H Lactic Acid (0.7 - 2.1 mmol/L) 7.2 H Calcium (8.4 - 10.2 mg/dL) 8.4 Total Bilirubin (0.2 - 1.3 mg/dL) 0.6 AST (17 - 59 U/L) 52 ALT (21 - 72 U/L) 50 Alkaline Phosphatase (< 127 U/L) 120 Troponin I (<0.11 ng/ml) 0.05 [id number] Pept (<125 pg/mL) 04385 H Total Protein (6.3 - 8.2 g/dL) 6.5 Albumin (3.5 - 5.0 g/dL) 3.8 Globulin (1.9 - 4.2 gm/dL) 2.7 Albumin/Globulin Ratio (1.1 - 2.2 %) 1.4 Miscellaneous Phlebotomy Draw Site RIGHT BRACHIAL Toxicology Digoxin (0.8 - 2.0 ng/mL) 1.1 09/06 Hematology CBC w Diff NO MAN DIFF REQ WBC (4.8 - 10.8 /CUMM) 10.3 RBC (4.70 - 6.10 /CUMM) 4.92 Hgb (14.0 - 18.0 G/DL) 14.6 Hct (42 - 52 %) 45.9 MCV (80.0 - 94.0 FL) 93.2 MCH (27.0 - 31.0 PG) 29.7 MCHC (33.0 - 37.0 G/DL) 31.9 L RDW (11.5 - 14.5 %) 16.6 H Plt Count (130 - 400 /CUMM) 261 MPV (7.4 - 10.4 FL) 9.2 Gran % (42.2 - 75.2 %) 78.0 H Lymphocytes % (20.5 - 51.1 %) 12.0 L Monocytes % (1.7 - 9.3 %) 9.1 Eosinophils % (0 - 5 %) 0.3 Basophils % (0.0 - 2.0 %) 0.6 Absolute Granulocytes (1.4 - 6.5 /CUMM) 8.0 H Absolute Lymphocytes (1.2 - 3.4 /CUMM) 1.2 Absolute Monocytes (0.10 - 0.60 /CUMM) 0.9 H Absolute Eosinophils (0.0 - 0.7 /CUMM) 0 Absolute Basophils (0.0 - 0.2 /CUMM) 0.1 Serology Virus Culture Pending Imaging Results: CTA SHOWS: 1. Stable appearance of a left lower lobe segmental pulmonary embolism. No new pulmonary emboli. 2. Chronic changes in the lungs with increased opacities in the right middle lobe and left upper lobe, suspicious for multifocal pneumonia. Severe emphysema. 3. No acute inflammatory changes in the abdomen or pelvis. 4. Severe atherosclerotic disease of the abdominal arterial vasculature. Abdominal aortic ectasia. Lack of opacification of the left common iliac artery suspicious for occlusion or high-grade stenosis. This is not well evaluated on this study. US-DUPLEX SCAN LOWER EXT ARTERIES SHOWS: Occlusion of the superficial femoral artery. Flow throughout the left lower extremity is monophasic. The profunda artery is patent and likely provides collateralized flow to the popliteal artery which is perfused. The calf arteries were unable to be assessed due to the patient's inability to comply with the exam with constant movement. Greater sensitivity and specificity can be obtained with pre-and post exercise PVRs with BENT[place] calculations. Also consider dedicated CTA for further anatomical detail. Assessment/Plan Assessment/Plan This is a 81yo M with history of CAD, PAD, lung ca, and cardiomyopathy recently admitted with acute pulmonary embolism and atrial flutter. Now readmitted with respiratory failure. Positive influenza rapid test. CT scan consistent with possible multifocal pneumonia. Bilateral pleural effusions noted. Lower external Doppler study reveals occlusion of the left SFA with patent profunda artery likely providing collateral flow to the popliteal. This appears to be a chronic issue for him as a vasculopath. PLan- Rec heel protection while in hospital Rec follow-up with Dr. Diez as an outpatient as this is not an acute. No surgical intervention is needed at this time This was discussed with Dr. Diez and he agrees with the above plan Consult Acknowledgment - Thank you for your consult request.
[2017-09-07 15:41] VITALS: BP 112/58
[2017-09-07 22:11] VITALS: BP 110/60
[2017-09-08 06:34] VITALS: BP 88/42
[2017-09-08 07:12] VITALS: BP 102/64
--- NOTE | 2017-09-08 07:29 | PN- Housestaff ---
See Addendum Subjective Follow-up For: Acute on chronic hypoxic respiratory failure Multifocal pneumonia Influenza Hisotry of PE Aflutter/afib Tele-Events Since Last Visit: SR 94-99 Subjective: Patient visited today, was sitting at bed comfortably in no acute distress, was alert and oriented. Droplet isolation On 5L o2, baseline 2L. reported improved SOB. No fever or chills, no chest pain, no other events. Review of Systems Constitutional: Reports: see HPI. Objective Last 24 Hrs of Vital Signs/I&O Vital Signs Date Time Temp Pulse Resp B/P B/P Pulse O2 O2 Flow FiO2 Mean Ox Delivery Rate 09/08 936 101 102/64 09/08 0800 96 Nasal 5.0L Cannula 09/08 0712 102/64 09/08 0634 97.6 61 20 88/42 94 09/07 2211 98.2 86 18 110/60 94 09/07 2143 Nasal 5.0L Cannula 09/07 2107 98 112/58 09/07 2011 98 112/58 09/07 1999 93 Nasal 4.0L Cannula 09/07 1600 96 Nasal 5.0L Cannula 09/07 1600 92 Nasal 4.0L Cannula 09/07 1541 97.7 63 22 112/58 91 Nasal 4.0L Cannula Intake & Output 09/08 1600 09/08 0800 09/08 0000 Intake Total 450 250 Output Total 800 Balance -350 250 Intake, IV 10 Intake, Oral 450 240 Output, Urine 800 Physical Exam General Appearance: Alert, Oriented X3, Cooperative, No Acute Distress Skin: No Significant Lesion Skin Temp/Moisture Exam: Warm/Dry Sepsis Skin Exam (color): Normal for Ethnicity HEENT: Atraumatic, EOMI, Mucous Membr. moist/pink Cardiovascular: Regular Rate, Normal S1, Normal S2, tachycardic Lungs: bilateral Ronchi Abdomen: Soft, No Tenderness Current Medications: Current Medications Sig/Dominique Start time Last Medication Dose Route Stop Time Status Admin Albuterol Sulfate 2 PUF Q4H PRN 09/07 0015 AC INH Apixaban 5 MG BID 09/07 2199 AC 09/08 PO 0937 Clopidogrel Bisulfate 75 MG DAILY 09/07 1000 AC 09/08 PO 0936 Digoxin 0.125 MG 1700 09/07 1700 AC 09/07 IV 2011 Furosemide 40 MG 7:30 AM, & 4:30 PM 09/07 1630 AC 09/08 IV 0654 Metoprolol Tartrate 100 MG BID 09/07 1000 AC 09/08 PO 0937 Moxifloxacin HCl 400 MG DAILY 09/08 1000 AC 09/08 PO 0936 Moxifloxacin HCl 400 MG DAILY 09/07 1000 DC 09/07 N/A 1 UNIT IV 0938 Multivitamins 1 TAB DAILY 09/07 1000 AC 09/08 PO 0936 Oseltamivir Phosphate 75 MG BID 09/07 1000 AC 09/08 PO 09/11 0959 0936 Pantoprazole Sodium 40 MG DAILY 09/07 1000 AC 09/08 IV 0936 Prednisone 10 MG ONCE ONE 09/10 1000 AC PO 09/10 1001 Prednisone 20 MG ONCE ONE 09/09 1000 AC PO 09/09 1001 Prednisone 30 MG ONCE ONE 09/08 1000 DC 09/08 PO 09/08 1001 0936 Last 24 Hrs of Lab/Yong Results Last 24 Hrs of Labs/Mics: Laboratory Tests 09/08/17 0730: Anion Gap 11, Estimated GFR > 60, BUN/Creatinine Ratio 31.1 H, CBC w Diff NO MAN DIFF REQ, RBC 4.51 L, MCV 92.7, MCH 29.9, MCHC 32.3 L, RDW 16.2 H, MPV 9.0, Gran % 84.4 H, Lymphocytes % 8.6 L, Monocytes % 6.9, Eosinophils % 0, Basophils % 0.1, Absolute Granulocytes 10.8 H, Absolute Lymphocytes 1.1 L, Absolute Monocytes 0.9 H, Absolute Eosinophils 0, Absolute Basophils 0 Assessment/Plan Assessment: Mr Jenkins is an 81 year old male with a past medical history significant for advanced lung cancer, abdominal aortic aneurysm, emphysema and COPD on 2 L home O2 who was brought to the ED for worsening respiratory distress. He was planned to be admitted to ICU closer monitoring. Overnight he was on the BiPAP. He subjectively feels significantly better. With improvement he was downgraded to telemetry. Assessment: 1. Acute on Chronic hypoxic respiratory failure 2. Multifocal pneumonia 3. Influenza Type B 4. CHF Exacerbation 5. Afib/ flutter with rapid ventricular response that responded to IV digoxin and metoprolol 6. History of lung cancer 7. 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 Lactic acidosis - resolved 10. History of PE on Eliquis Plan: * Continue oxygen supplementation to maintain target saturations >92%. Currently on 5L. * Continue Moxifloxacin Po and Vanc IV * Continue Dolores flu for Flu * TRC/nebs as needed * Diuresis with IV lasix 40mg BID for CHF exacerbation. * Continue home dose digoxin and metoprolol. * Restart Lisinopril as blood pressure allows. * Continue Eliquis for PE * He has a chronic occlusion of left SFA. He has been evaluated by vascular surgery and no acute treatment is warranted. He can follow up with vascular surgery as an outpatient. * Diet: Heart Healthy diet * DVT Prophylaxis: Eliquis * Code: Full Code Problem List: 1. Influenza 2. Respiratory failure 3. COPD (chronic obstructive pulmonary disease) 4. Cancer of lung 5. Atrial flutter Pain Ratin Pain Location: None Pain Goal: Pain 4 or less Pain Plan: Continue current pLAN Tomorrow's Labs & Rationales: CBC BEP
--- NOTE | 2017-09-08 08:12 | PN- Cardiology ---
Subjective Subjective: The patient reports that he is feeling somewhat better. Shortness of breath is improving. No chest pain. No palpitations. He remains in atrial flutter. Ventricular rate has mostly been under control. Objective Vital Signs and I&Os Vital Signs Date Time Temp Pulse Resp B/P B/P Pulse O2 O2 Flow FiO2 Mean Ox Delivery Rate 09/08 633 97.6 61 20 88/42 94 09/07 2211 98.2 86 18 110/60 94 09/07 2143 Nasal 5.0L Cannula 09/07 210 98 112/58 09/07 2011 98 112/58 09/07 1999 93 Nasal 4.0L Cannula 09/07 1600 96 Nasal 5.0L Cannula 09/07 1600 92 Nasal 4.0L Cannula 09/07 1541 97.7 63 22 112/58 91 Nasal 4.0L Cannula 09/07 1406 98.0 64 18 99/56 94 Nasal 5.0L Cannula 09/07 1135 97.1 63 18 110/66 96 Nasal 4.0L Cannula 09/07 0938 97.0 69 20 121/56 09/07 0917 97.0 69 20 121/56 91 Nasal 5.0L Cannula 09/07 0906 65 98 Intake & Output 09/08 1600 09/08 0800 09/08 0000 09/07 1600 09/07 0800 09/07 0000 Intake Total 250 240 550 0 Output Total 1000 1250 Balance 250 -760 -700 0 Intake, IV 10 450 Intake, Oral 240 240 100 0 Output, Urine 1000 1250 Patient 178 lb Weight Weight Reported by Patient Measurement Method Physical Exam: Gen: The patient is in no acute distress HEENT: Normal nose, ears, and oropharynx. Pupils equal bilaterally. Conjunctiva normal. Neck: Supple with no JVD, no masses, and no thyromegaly Lungs: Bilateral rhonchi with normal respiratory effort Heart: Irregular S1, S2, 1 out of 6 systolic murmur. Trace peripheral edema, 2+ pulses in the lower extremities bilaterally Abdomen: Soft, nontender, no masses. No hepatomegaly. No splenomegaly Extremities: No clubbing or cyanosis. Normal muscle strength in the upper and lower extremities Skin: Normal skin turgor with no skin ulcers or lesions noted. Neuro: Cranial nerves intact. Sensation intact Current Medications: Current Medications Sig/Dominique Start time Last Medication Dose Route Stop Time Status Admin Albuterol Sulfate 2 PUF Q4H PRN 09/07 0015 AC INH Apixaban 5 MG BID 09/07 2200 AC 09/07 PO 210 Clopidogrel Bisulfate 75 MG DAILY 09/07 1000 AC 09/07 PO 0938 Digoxin 0.125 MG 1700 09/07 1700 AC 09/07 IV 2012 Furosemide 40 MG 7:30 AM, & 4:30 PM 09/07 1630 AC 09/08 IV 0654 Furosemide 20 MG DAILY 09/07 1000 DC 09/07 IV 0938 Furosemide 0 .STK-MED ONE 09/07 0935 DC IV Metoprolol Tartrate 100 MG BID 09/07 1000 AC 09/07 PO 210 Moxifloxacin HCl 400 MG DAILY 09/08 1000 AC PO Moxifloxacin HCl 400 MG DAILY 09/07 1000 DC 09/07 N/A 1 UNIT IV 0938 Multivitamins 1 TAB DAILY 09/07 1000 AC 09/07 PO 0938 Oseltamivir Phosphate 75 MG BID 09/07 1000 AC 09/07 PO 09/11 0959 2106 Pantoprazole Sodium 40 MG DAILY 09/07 1000 AC 09/07 IV 0938 Pantoprazole Sodium 0 .STK-MED ONE 09/07 0935 DC IV Prednisone 10 MG ONCE ONE 09/10 1000 AC PO 09/10 1001 Prednisone 20 MG ONCE ONE 09/09 1000 AC PO 09/09 1001 Prednisone 30 MG ONCE ONE 09/08 1000 AC PO 09/08 1001 Prednisone 40 MG ONCE ONE 09/07 1000 DC 09/07 PO 09/07 1001 0938 Results Last 48 Hrs of Labs/Mics: Laboratory Tests 09/08/17 0730: Sodium Pending, Potassium Pending, Chloride Pending, Carbon Dioxide Pending, Anion Gap Pending, BUN Pending, Creatinine Pending, BUN/Creatinine Ratio Pending , CBC w Diff Pending, WBC Pending, RBC Pending, Hgb Pending, Hct Pending, MCV Pending, MCH Pending, MCHC Pending, RDW Pending, Plt Count Pending, MPV Pending 09/07/17 1234: Troponin I 0.08 09/07/17 0553: Anion Gap 9, Estimated GFR > 60, BUN/Creatinine Ratio 22.2, Troponin I 0.08, CBC w Diff NO MAN DIFF REQ, RBC 4.17 L, MCV 93.1, MCH 30.0, MCHC 32.2 L, RDW 16.7 H, MPV 8.6, Gran % 94.6 H, Lymphocytes % 2.1 L, Monocytes % 3.3, Eosinophils % 0, Basophils % 0, Absolute Granulocytes 13.7 H, Absolute Lymphocytes 0.3 L, Absolute Monocytes 0.5, Absolute Eosinophils 0, Absolute Basophils 0 09/07/17 0302: Lactic Acid 1.5 09/07/17 0300: Urine Color STRAW, Urine Clarity CLEAR, Urine pH 6.5, Ur Specific [place] 1.015, Urine Protein TRACE H, Urine Ketones NEG, Urine Nitrite NEG, Urine Bilirubin NEG, Urine Urobilinogen 0.2, Ur Leukocyte Esterase NEG, Ur Microscopic SEDIMENT EXAMINED, Urine RBC 25-50 H, Urine WBC RARE, Ur Epithelial Cells RARE, Hyaline Casts FEW H, Urine Mucus FEW, Urine Hemoglobin MOD H, Urine Glucose NEG 09/06/17 2336: Troponin I 0.07 09/06/17 2332: Lactic Acid 3.3 H 09/06/17 2130: Anion Gap 17 H, Estimated GFR > 60, BUN/Creatinine Ratio 19.0, Glucose 215 H, Lactic Acid 7.2 H, Calcium 8.4, Total Bilirubin 0.6, AST 52, ALT 50, Alkaline Phosphatase 120, Troponin I 0.05, Gjz-H-Gozvancpllj Pept 38527 H, Total Protein 6.5, Albumin 3.8, Globulin 2.7, Albumin/Globulin Ratio 1.4, Digoxin 1.1 09/06/17 2100: pH 7.40, pCO2 33 L, pO2 332 H, HCO3 20 L, ABG O2 Sat (Measured) 99.0, P-50 ( Temp Corrected) N, Carboxyhemoglobin 0.2 L, O2 Concentration % 100, Respiration Rate 24, O2 Delivery Method BIPAP, Vent Mode ST, Expiratory Pressure 6, Inspiratory Pressure 20, Phlebotomy Draw Site RIGHT BRACHIAL 09/06/172057: CBC w Diff NO MAN DIFF REQ, RBC 4.92, MCV 93.2, MCH 29.7, MCHC 31.9 L, RDW 16.6 H, MPV 9.2, Gran % 78.0 H, Lymphocytes % 12.0 L, Monocytes % 9.1, Eosinophils % 0.3, Basophils % 0.6, Absolute Granulocytes 8.0 H, Absolute Lymphocytes 1.2, Absolute Monocytes 0.9 H, Absolute Eosinophils 0, Absolute Basophils 0.1 09/06/172034: Virus Culture Pending Microbiology 09/07 299 URINE ROUT: Legionella Antigen - COMP 09/07 299 URINE ROUT: Streptococcus pneumoniae Antigen (M - COMP 09/06 2340 NASOPHARYN: Influenza Virus A & B Rapid Smear - COMP INFLUENZA TYPE B Assessment/Plan Assessment/Plan Assessment: 1. CAD 2. Lung cancer 3. Pneumonia 4. Influenza infection 5. Atrial flutter 6. Possible acute on chronic HFrEF 7. Occluded left superficial femoral artery Plan: * Continue IV Lasix * Monitor input and output with daily weights * Continue digoxin and metoprolol for rate control * Outpatient vascular follow-up to be arranged Continue telemetry? Yes
[2017-09-08 08:13] LABS: ABSOLUTE BASOPHIL COUNT 0 /CUMM (0.0-0.2); ABSOLUTE EOSINOPHIL COUNT 0 /CUMM (0.0-0.7); ABSOLUTE GRANULOCYTE CT 10.8 /CUMM (1.4-6.5); ABSOLUTE LYMPH COUNT 1.1 /CUMM (1.2-3.4); ABSOLUTE MONOCYTE COUNT 0.9 /CUMM (0.10-0.60); BASOPHIL % 0.1 % (0.0-2.0); EOSINOPHIL % 0 % (0-5); GRANULOCYTE % 84.4 % (42.2-75.2); HEMATOCRIT 41.8 % (42-52); MEAN CORPUSCULAR HGB 29.9 PG (27.0-31.0); MEAN CORPUSCULAR HGB CONC 32.3 G/DL (33.0-37.0); MEAN CORPUSCULAR VOLUME 92.7 FL (80.0-94.0); PLATELET COUNT 177 /CUMM (130-400); RBC DISTRIBUTION WIDTH 16.2 % (11.5-14.5); RED BLOOD CELL CT 4.51 /CUMM (4.70-6.10); WHITE BLOOD CELL COUNT 12.8 /CUMM (4.8-10.8)
--- NOTE | 2017-09-08 08:18 | PN- Pulmonary ---
Subjective HPI/Critical Care Issues: Patient's shortness of breath appears improved. Objective Current Medications: Current Medications Sig/Dominique Start time Last Medication Dose Route Stop Time Status Admin Albuterol Sulfate 2 PUF Q4H PRN 09/07 0015 AC INH Apixaban 5 MG BID 09/07 2200 AC 09/07 PO 2106 Clopidogrel Bisulfate 75 MG DAILY 09/07 1000 AC 09/07 PO 0938 Digoxin 0.125 MG 1700 09/07 1700 AC 09/07 IV 2012 Furosemide 40 MG 7:30 AM, & 4:30 PM 09/07 1630 AC 09/08 IV 0654 Furosemide 20 MG DAILY 09/07 1000 DC 09/07 IV 0938 Furosemide 0 .STK-MED ONE 09/07 0935 DC IV Metoprolol Tartrate 100 MG BID 09/07 1000 AC 09/07 PO 2107 Moxifloxacin HCl 400 MG DAILY 09/08 1000 AC PO Moxifloxacin HCl 400 MG DAILY 09/07 1000 DC 09/07 N/A 1 UNIT IV 0938 Multivitamins 1 TAB DAILY 09/07 1000 AC 09/07 PO 0938 Oseltamivir Phosphate 75 MG BID 09/07 1000 AC 09/07 PO 09/11 0959 2106 Pantoprazole Sodium 40 MG DAILY 09/07 1000 AC 09/07 IV 0938 Pantoprazole Sodium 0 .STK-MED ONE 09/07 0935 DC IV Prednisone 10 MG ONCE ONE 09/10 1000 AC PO 09/10 1001 Prednisone 20 MG ONCE ONE 09/09 1000 AC PO 09/09 1001 Prednisone 30 MG ONCE ONE 09/08 1000 AC PO 09/08 1001 Prednisone 40 MG ONCE ONE 09/07 1000 DC 09/07 PO 09/07 1001 0938 Vital Signs & I&O Last 24 Hrs of Vitals and I&O: Vital Signs Date Time Temp Pulse Resp B/P B/P Pulse O2 O2 Flow FiO2 Mean Ox Delivery Rate 09/08 0712 102/64 09/08 0634 97.6 61 20 88/42 94 09/07 2211 98.2 86 18 110/60 94 09/07 2143 Nasal 5.0L Cannula 09/07 2106 98 112/58 09/07 2011 98 112/58 09/07 1999 93 Nasal 4.0L Cannula 09/07 1600 96 Nasal 5.0L Cannula 09/07 1600 92 Nasal 4.0L Cannula 09/07 1541 97.7 63 22 112/58 91 Nasal 4.0L Cannula 09/07 1406 98.0 64 18 99/56 94 Nasal 5.0L Cannula 09/07 1135 97.1 63 18 110/66 96 Nasal 4.0L Cannula 09/07 0938 97.0 69 20 121/56 09/07 0917 97.0 69 20 121/56 91 Nasal 5.0L Cannula 09/07 0906 65 98 Intake & Output 09/08 1600 09/08 0800 09/08 0000 Intake Total 450 250 Output Total 800 Balance -350 250 Intake, IV 10 Intake, Oral 450 240 Output, Urine 800 Oxygen saturation 5 L 94% exam of his chest shows diminished breath sounds there are occasional rhonchi there are no wheezes cardiac exam shows a regular rhythm there is no edema Impression/Plan Impression/Plan Impression/Plan: 81-year-old with lung cancer COPD cardiomyopathy admitted with increased shortness of breath and influenza possibly complicated by healthcare associated pneumonia. Shortness breath appears improved. Recommendations: Slow steroid taper. Complete course of antibiotics. Avoid over diuresis. Taper FiO2 his saturations allow. Vascular surgery evaluation regarding vascular occlusion
[2017-09-08 15:28] VITALS: BP 110/68
--- NOTE | 2017-09-08 16:30 | PN- Vascular Surgery ---
Surgical Brief Attending Note Brief Attending Note: Agree with consult from surgical PA. Chronic PAD without evidence of rest pain or ulceration. Rec: Treatment for pulmonary issues Elective out patient follow up for PAD. No interventions at this time.
[2017-09-08 22:30] VITALS: BP 120/50
[2017-09-09 06:35] VITALS: BP 108/52
[2017-09-09 08:25] LABS: ABSOLUTE BASOPHIL COUNT 0 /CUMM (0.0-0.2); ABSOLUTE EOSINOPHIL COUNT 0 /CUMM (0.0-0.7); ABSOLUTE GRANULOCYTE CT 7.5 /CUMM (1.4-6.5); ABSOLUTE LYMPH COUNT 0.9 /CUMM (1.2-3.4); ABSOLUTE MONOCYTE COUNT 0.6 /CUMM (0.10-0.60); BASOPHIL % 0.1 % (0.0-2.0); EOSINOPHIL % 0.1 % (0-5); HEMATOCRIT 39.4 % (42-52); MEAN CORPUSCULAR HGB CONC 32.3 G/DL (33.0-37.0); MEAN CORPUSCULAR VOLUME 92.6 FL (80.0-94.0); PLATELET COUNT 165 /CUMM (130-400); RBC DISTRIBUTION WIDTH 15.6 % (11.5-14.5); RED BLOOD CELL CT 4.26 /CUMM (4.70-6.10)
--- NOTE | 2017-09-09 09:16 | PN- Housestaff ---
See Addendum Subjective Follow-up For: Acute on chronic hypoxic respiratory failure Multifocal pneumonia Influenza Hisotry of PE Aflutter/afib Subjective: Patient was seen and examined today. Patient states that he is doing well. Patient denies any shortness of breath, chest pain, palpitations, fever, chills, nausea/vomiting, constipation/diarrhea. Patient reports that he has not been eating well. States that he does not find food appetizing. Patient also notes that overnight he did not sleep much as there was a lot of commotion outside of the store. No acute events overnight. Review of Systems Constitutional: Reports: see HPI. Cardiovascular: Reports: no symptoms. Respiratory: Reports: see HPI. Gastrointestinal: Reports: no symptoms. Genitourinary: Reports: no symptoms. Musculoskeletal: Reports: no symptoms. Objective Last 24 Hrs of Vital Signs/I&O Vital Signs Date Time Temp Pulse Resp B/P B/P Pulse O2 O2 Flow FiO2 Mean Ox Delivery Rate 09/09 1441 98.0 64 18 102/80 96 09/09 1026 98.0 76 18 110/52 09/09 0800 95 Nasal 5.0L Cannula 09/09 0635 97.9 62 20 108/52 96 Nasal Cannula 09/08 2230 98.6 88 20 120/50 94 Nasal Cannula 09/08 2200 Nasal 5.0L Cannula 09/08 2052 117 120/50 09/08 3783 576 0082/68 Intake & Output 09/09 1600 09/09 0800 09/09 0000 Intake Total 50 240 Output Total 225 350 Balance -175 -110 Intake, Oral 50 240 Number 0 0 Bowel Movements Output, Urine 225 350 Patient 162 lb Weight Weight Chair scale Measurement Method Physical Exam General Appearance: Alert, Oriented X3, Cooperative Skin Temp/Moisture Exam: Warm/Dry HEENT: Atraumatic, PERRLA, EOMI, Mucous Membr. moist/pink Cardiovascular: Regular Rate, Normal S1, Normal S2 Lungs: prolonged expiratory wheezing heard bilaterally Abdomen: Normal Bowel Sounds, Soft, No Tenderness Extremities: No Clubbing, No Cyanosis, No Edema, Normal Pulses, No Tenderness/ Swelling Current Medications: Current Medications Sig/Dominique Start time Last Medication Dose Route Stop Time Status Admin Albuterol Sulfate 2 PUF Q4H PRN 09/07 0015 AC INH Apixaban 5 MG BID 09/07 2199 AC 09/09 PO 0824 Clopidogrel Bisulfate 75 MG DAILY 09/07 1000 AC 09/09 PO 0824 Digoxin 0.125 MG 1700 09/07 1700 AC 09/08 IV 1652 Furosemide 40 MG 7:30 AM, & 4:30 PM 09/07 1630 AC 09/09 IV 0823 Metoprolol Tartrate 100 MG BID 09/07 1000 AC 09/09 PO 1026 Moxifloxacin HCl 400 MG DAILY 09/08 1000 AC 09/09 PO 0825 Multivitamins 1 TAB DAILY 09/07 1000 AC 09/09 PO 0824 Oseltamivir Phosphate 75 MG BID 09/07 1000 AC 09/09 PO 09/11 0959 0823 Pantoprazole Sodium 40 MG DAILY 09/07 1000 AC 09/09 IV 0823 Prednisone 10 MG ONCE ONE 09/10 1000 AC PO 09/10 1001 Prednisone 20 MG ONCE ONE 09/09 1000 DC 09/09 PO 09/09 1001 1026 Last 24 Hrs of Lab/Yong Results Last 24 Hrs of Labs/Mics: Laboratory Tests 09/09/17 0639: Anion Gap 8, Estimated GFR > 60, BUN/Creatinine Ratio 41.4 H, Phosphorus 3.2, Magnesium 1.8, CBC w Diff NO MAN DIFF REQ, RBC 4.26 L, MCV 92.6, MCH 30.0, MCHC 32.3 L, RDW 15.6 H, MPV 9.0, Gran % 83.0 H, Lymphocytes % 9.9 L, Monocytes % 6.9, Eosinophils % 0.1, Basophils % 0.1, Absolute Granulocytes 7.5 H, Absolute Lymphocytes 0.9 L, Absolute Monocytes 0.6, Absolute Eosinophils 0, Absolute Basophils 0 Assessment/Plan Assessment: Mr Jenkins is an 81 year old male with a past medical history significant for advanced lung cancer, abdominal aortic aneurysm, emphysema and COPD on 2 L home O2 who was brought to the ED for worsening respiratory distress. Today patient feels his breathing has improved. Patient's oxygen was weaned down and is currently tolerating 3 L nasal cannula saturating in the mid 90s. Patient seen by pulmonology. Patient currently on a slow prednisone taper. Patient seen by vascular surgeryno immediate intervention recommended. Patient should follow up outpatient for further evaluation of PVD. Assessment: 1. Acute on Chronic hypoxic respiratory failure 2. Multifocal pneumonia 3. Influenza Type B 4. CHF Exacerbation 5. Afib/ flutter with rapid ventricular response that responded to IV digoxin and metoprolol 6. History of lung cancer 7. 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 Lactic acidosis - resolved 10. History of PE on Eliquis Plan: * Continue oxygen supplementation to maintain target saturations >92%. Currently on 3L. Continue to wean off as tolerated. * Continue Moxifloxacin Po * Continue Dolores flu for Flu * TRC/nebs as needed * Continue diuresis with IV lasix 40mg BID for CHF exacerbation. * Continue home dose digoxin and metoprolol. * Blood pressure was borderline low. Lisinopril held today. Restart Lisinopril as blood pressure allows. * Continue Eliquis for PE * He has a chronic occlusion of left SFA. He has been evaluated by vascular surgery and no acute treatment is warranted. He can follow up with vascular surgery as an outpatient. * Diet: Heart Healthy diet, asked dietary to bring patient Ensure with each meal. * DVT Prophylaxis: Eliquis * Code: Full Code Problem List: 1. Influenza 2. Respiratory failure 3. COPD (chronic obstructive pulmonary disease) Pain Ratin Pain Location: n/a Pain Goal: Remain pain free Pain Plan: per pain pathway Tomorrow's Labs & Rationales: cbc bep
--- NOTE | 2017-09-09 10:27 | PN- Pulmonary ---
Subjective HPI/Critical Care Issues: Patient feels more comfortable with diminished shortness of breath Objective Current Medications: Current Medications Sig/Dominique Start time Last Medication Dose Route Stop Time Status Admin Albuterol Sulfate 2 PUF Q4H PRN 09/07 0015 AC INH Apixaban 5 MG BID 09/07 2200 AC 09/09 PO 0824 Clopidogrel Bisulfate 75 MG DAILY 09/07 1000 AC 09/09 PO 0824 Digoxin 0.125 MG 1700 09/07 1700 AC 09/08 IV 1652 Furosemide 40 MG 7:30 AM, & 4:30 PM 09/07 1630 AC 09/09 IV 0823 Metoprolol Tartrate 100 MG BID 09/07 1000 AC 09/08 PO 205 Moxifloxacin HCl 400 MG DAILY 09/08 1000 AC 09/09 PO 0825 Multivitamins 1 TAB DAILY 09/07 1000 AC 09/09 PO 0824 Oseltamivir Phosphate 75 MG BID 09/07 1000 AC 09/09 PO 09/11 0959 0823 Pantoprazole Sodium 40 MG DAILY 09/07 1000 AC 09/09 IV 0823 Prednisone 10 MG ONCE ONE 09/10 1000 AC PO 09/10 1001 Prednisone 20 MG ONCE ONE 09/09 1000 DC PO 09/09 1001 Vital Signs & I&O Last 24 Hrs of Vitals and I&O: Vital Signs Date Time Temp Pulse Resp B/P B/P Pulse O2 O2 Flow FiO2 Mean Ox Delivery Rate 09/09 0635 97.9 62 20 108/52 96 Nasal Cannula 09/08 2230 98.6 88 20 120/50 94 Nasal Cannula 09/08 2200 Nasal 5.0L Cannula 09/08 205 117 120/50 09/08 2090 196 4236/68 09/08 1528 97.8 63 20 110/68 93 Nasal 5.0L Cannula Intake & Output 09/09 1600 09/09 0800 09/09 0000 Intake Total 50 240 Output Total 225 350 Balance -175 -110 Intake, Oral 50 240 Number 0 0 Bowel Movements Output, Urine 225 350 And saturation 5 L 96% exam of his chest shows diminished breath sounds are no wheezes cardiac exam shows irregular S1 and S2 without murmurs Impression/Plan Impression/Plan Impression/Plan: 81-year-old with lung cancer COPD cardiomyopathy admitted with increased shortness of breath and influenza possibly complicated by healthcare associated pneumonia. Shortness breath appears improved. Oxygenation is improved. Recommendations: Slow steroid taper. Complete course of antibiotics. Avoid over diuresis. Taper FiO2 his saturations allow. Vascular surgery evaluation recommended no intervention.
[2017-09-09 14:41] VITALS: BP 102/80
--- NOTE | 2017-09-09 20:39 | PN- Cardiology ---
Subjective Subjective: No complaints. Feels as though his breathing has continued to improve. Objective Vital Signs and I&Os Vital Signs Date Time Temp Pulse Resp B/P B/P Pulse O2 O2 Flow FiO2 Mean Ox Delivery Rate 09/09 191 130 102/80 09/09 1722 94 Nasal 3.0L Cannula 09/09 1700 96 Nasal 4.0L Cannula 09/09 1441 98.0 64 18 102/80 96 09/09 1026 98.0 76 18 110/52 09/09 0800 95 Nasal 5.0L Cannula 09/09 0635 97.9 62 20 108/52 96 Nasal Cannula 09/08 2230 98.6 88 20 120/50 94 Nasal Cannula 09/08 2200 Nasal 5.0L Cannula 09/08 2052 117 120/50 Intake & Output 09/09 1600 09/09 0800 09/09 0000 09/08 1600 09/08 0809/08 0000 Intake Total 960 50 240 410 450 250 Output Total 725 225 350 900 800 Balance 235 -175 -110 -490 -350 250 Intake, IV 10 10 Intake, Oral 960 50 240 400 450 240 Number 0 0 Bowel Movements Output, Urine 725 225 350 900 800 Patient 162 lb Weight Weight Chair scale Measurement Method Physical Exam: Well-developed, well-nourished elderly male in no acute distress with nasal oxygen in place. Vital signs: See above. Neck: No JVD, no bruits. Lungs: Bilateral rhonchi. Heart: S1, S2 with grade 1/6 systolic murmur. Abdomen: Soft, nontender, positive bowel sounds. Extremities: Trace bilateral lower extremity edema. Current Medications: Current Medications Sig/Dominique Start time Last Medication Dose Route Stop Time Status Admin Albuterol Sulfate 2 PUF Q4H PRN 09/07 0015 AC INH Apixaban 5 MG BID 09/07 2199 AC 09/09 PO 0824 Clopidogrel Bisulfate 75 MG DAILY 09/07 999 AC 09/09 PO 0824 Digoxin 0.125 MG 1700 09/07 1700 AC 09/09 IV 191 Furosemide 40 MG 7:30 AM, & 4:30 PM 09/07 1630 AC 09/09 IV 191 Metoprolol Tartrate 100 MG BID 09/07 999 AC 09/09 PO 102 Moxifloxacin HCl 400 MG DAILY 09/08 999 AC 09/09 PO 08 Multivitamins 1 TAB DAILY 09/07 1000 AC 09/09 PO 0824 Oseltamivir Phosphate 75 MG BID 09/07 1000 AC 09/09 PO 09/11 0959 0823 Pantoprazole Sodium 40 MG DAILY 09/07 1000 AC 09/09 IV 0823 Prednisone 10 MG ONCE ONE 09/10 1000 AC PO 09/10 1001 Prednisone 20 MG ONCE ONE 09/09 1000 DC 09/09 PO 09/09 1001 1026 Results Last 48 Hrs of Labs/Mics: Laboratory Tests 09/09/17 0639: Anion Gap 8, Estimated GFR > 60, BUN/Creatinine Ratio 41.4 H, Phosphorus 3.2, Magnesium 1.8, CBC w Diff NO MAN DIFF REQ, RBC 4.26 L, MCV 92.6, MCH 30.0, MCHC 32.3 L, RDW 15.6 H, MPV 9.0, Gran % 83.0 H, Lymphocytes % 9.9 L, Monocytes % 6.9, Eosinophils % 0.1, Basophils % 0.1, Absolute Granulocytes 7.5 H, Absolute Lymphocytes 0.9 L, Absolute Monocytes 0.6, Absolute Eosinophils 0, Absolute Basophils 0 09/08/17 0730: Anion Gap 11, Estimated GFR > 60, BUN/Creatinine Ratio 31.1 H, CBC w Diff NO MAN DIFF REQ, RBC 4.51 L, MCV 92.7, MCH 29.9, MCHC 32.3 L, RDW 16.2 H, MPV 9.0, Gran % 84.4 H, Lymphocytes % 8.6 L, Monocytes % 6.9, Eosinophils % 0, Basophils % 0.1, Absolute Granulocytes 10.8 H, Absolute Lymphocytes 1.1 L, Absolute Monocytes 0.9 H, Absolute Eosinophils 0, Absolute Basophils 0 Assessment/Plan Assessment/Plan [id number]-o-w-m w/ hx lung cancer, COPD, cardiomyopathy admitted w/ increased SOB and influenza possibly complicated by healthcare associated pneumonia. SOB and oxygenation improved. Continue antimicrobial therapy and steroid tapering as per pulmonary medicine. Vascular surgery consultation reviewed and no intervention at this time. Continue telemetry? Yes
[2017-09-09 22:00] VITALS: BP 122/64
[2017-09-10 06:27] VITALS: BP 128/70
[2017-09-10 07:42] LABS: ABSOLUTE BASOPHIL COUNT 0 /CUMM (0.0-0.2); ABSOLUTE EOSINOPHIL COUNT 0 /CUMM (0.0-0.7); ABSOLUTE GRANULOCYTE CT 6.1 /CUMM (1.4-6.5); ABSOLUTE MONOCYTE COUNT 0.6 /CUMM (0.10-0.60); BASOPHIL % 0 % (0.0-2.0); EOSINOPHIL % 0.2 % (0-5); GRANULOCYTE % 78.1 % (42.2-75.2); MEAN CORPUSCULAR HGB 29.9 PG (27.0-31.0); MEAN CORPUSCULAR HGB CONC 32.2 G/DL (33.0-37.0); MEAN PLATELET VOLUME 8.7 FL (7.4-10.4); PLATELET COUNT 179 /CUMM (130-400); RBC DISTRIBUTION WIDTH 15.7 % (11.5-14.5); RED BLOOD CELL CT 4.52 /CUMM (4.70-6.10); WHITE BLOOD CELL COUNT 7.8 /CUMM (4.8-10.8)
--- NOTE | 2017-09-10 09:55 | PN- Pulmonary ---
Subjective HPI/Critical Care Issues: Patient continues to improve with decreased shortness of breath. Note he appears to have a degree of prerenal azotemia and worsening alkalosis. Objective Current Medications: Current Medications Sig/Dominique Start time Last Medication Dose Route Stop Time Status Admin Albuterol Sulfate 2 PUF Q4H PRN 09/07 0015 AC INH Apixaban 5 MG BID 09/07 2200 AC 09/09 PO 203 Clopidogrel Bisulfate 75 MG DAILY 09/07 1000 AC 09/09 PO 0824 Digoxin 0.125 MG 1700 09/07 1700 AC 09/09 IV 1915 Furosemide 40 MG 7:30 AM, & 4:30 PM 09/07 1630 AC 09/10 IV 0951 Metoprolol Tartrate 100 MG BID 09/07 1000 AC 09/09 PO 203 Moxifloxacin HCl 400 MG DAILY 09/08 1000 AC 09/09 PO 0825 Multivitamins 1 TAB DAILY 09/07 1000 AC 09/09 PO 0824 Oseltamivir Phosphate 75 MG BID 09/07 1000 AC 09/09 PO 09/11 0959 2032 Pantoprazole Sodium 40 MG DAILY 09/07 1000 AC 09/09 IV 0823 Prednisone 10 MG ONCE ONE 09/10 1000 AC PO 09/10 1001 Prednisone 20 MG ONCE ONE 09/09 1000 DC 09/09 PO 09/09 1001 1026 Vital Signs & I&O Last 24 Hrs of Vitals and I&O: Vital Signs Date Time Temp Pulse Resp B/P B/P Pulse O2 O2 Flow FiO2 Mean Ox Delivery Rate 09/10 0627 97.6 65 18 128/70 99 Nasal Cannula 09/09 2199 97.4 113 22 122/64 94 Nasal 3.0L Cannula 09/09 2122 94 Nasal 3.0L Cannula 09/09 2031 113 122/64 09/09 1915 130 102/80 09/09 1722 94 Nasal 3.0L Cannula 09/09 1700 96 Nasal 4.0L Cannula 09/09 1441 98.0 64 18 102/80 96 09/09 1026 98.0 76 18 110/52 Intake & Output 09/10 1600 09/10 0800 09/10 0000 Intake Total 0 240 Output Total 350 Balance 0 -110 Intake, Oral 0 240 Number 0 Bowel Movements Output, Urine 350 Since saturation 3 L 99% exam for chest shows decreased breath sounds are no wheezes cardiac exam shows regular S1 and S2 without murmurs Impression/Plan Impression/Plan Impression/Plan: 81-year-old with lung cancer COPD cardiomyopathy admitted with increased shortness of breath and influenza possibly complicated by healthcare associated pneumonia. Shortness breath appears improved. Oxygenation is improved. Evaluate what appears to be increasing alkalosis versus hypercarbia with arterial blood gas, Recommendations: Slow steroid taper. Complete course of antibiotics. Avoid over diuresis. Taper FiO2 his saturations allow. Vascular surgery evaluation recommended no intervention. Note bicarbonate has increased to 41 with degree of prerenal azotemia.
--- NOTE | 2017-09-10 10:10 | PN- Housestaff ---
See Addendum Subjective Follow-up For: Acute on chronic hypoxic respiratory failure Multifocal pneumonia Influenza Hisotry of PE Aflutter/afib Tele-Events Since Last Visit: A letter, [place] [id number] Subjective: Patient visited today, old gentleman was lying in bed comfortably in no acute distress, was alert and oriented. was at the bedside, discussed the plan of care with her. No fever or chills, no chest pain, no other events. Shortness of breathing was getting better, currently on 3 L O2 (baseline 2 L) PTOT worked with patient. We will continue fluid treatment with Tamiflu. Review of Systems Constitutional: Reports: see HPI. Objective Last 24 Hrs of Vital Signs/I&O Vital Signs Date Time Temp Pulse Resp B/P B/P Pulse O2 O2 Flow FiO2 Mean Ox Delivery Rate 09/10 1649 98.0 88 18 118/58 09/10 1414 97.6 65 20 122/68 95 Nasal 3.0L Cannula 09/10 1003 98.2 16 18 128/70 09/10 0627 97.6 65 18 128/70 99 Nasal Cannula 09/09 2200 97.4 113 22 122/64 94 Nasal 3.0L Cannula 09/09 2123 94 Nasal 3.0L Cannula 09/09 203 113 122/64 09/09 1915 130 102/80 Intake & Output 09/10 1600 09/10 0800 09/10 0000 Intake Total 0 240 Output Total 350 Balance 0 -110 Intake, Oral 0 240 Number 0 Bowel Movements Output, Urine 350 Physical Exam General Appearance: Alert, Oriented X3, Cooperative, No Acute Distress Skin: No Significant Lesion Skin Temp/Moisture Exam: Warm/Dry Sepsis Skin Exam (color): Normal for Ethnicity HEENT: Atraumatic, EOMI, Mucous Membr. moist/pink Cardiovascular: Normal S1, Normal S2, relatively tachycardic Lungs: bilateral rhonchi and crackles Abdomen: Soft, No Tenderness Neurological: Normal Speech Extremities: No Edema Current Medications: Current Medications Sig/Dominique Start time Last Medication Dose Route Stop Time Status Admin Albuterol Sulfate 2 PUF Q4H PRN 09/07 0015 AC INH Apixaban 5 MG BID 09/07 2200 AC 09/10 PO 1003 Clopidogrel Bisulfate 75 MG DAILY 09/07 1000 AC 09/10 PO 1002 Digoxin 0.125 MG 1700 09/07 1700 AC 09/10 IV 1649 Furosemide 40 MG 7:30 AM, & 4:30 PM 09/07 1630 AC 09/10 IV 1648 Metoprolol Tartrate 100 MG BID 09/07 1000 AC 09/10 PO 1003 Moxifloxacin HCl 400 MG DAILY 09/08 1000 AC 09/10 PO 1003 Multivitamins 1 TAB DAILY 09/07 1000 AC 09/10 PO 1002 Oseltamivir Phosphate 75 MG BID 09/07 1000 AC 09/10 PO 09/11 0959 1005 Pantoprazole Sodium 40 MG DAILY 09/07 1000 AC 09/10 IV 0956 Prednisone 10 MG ONCE ONE 09/10 1000 DC 09/10 PO 09/10 1001 1003 Last 24 Hrs of Lab/Yong Results Last 24 Hrs of Labs/Mics: Laboratory Tests 09/10/17 0647: Anion Gap 10, Estimated GFR > 60, BUN/Creatinine Ratio 38.8 H, CBC w Diff NO MAN DIFF REQ, RBC 4.52 L, MCV 93.0, MCH 29.9, MCHC 32.2 L, RDW 15.7 H, MPV 8.7, Gran % 78.1 H, Lymphocytes % 13.4 L, Monocytes % 8.3, Eosinophils % 0.2, Basophils % 0, Absolute Granulocytes 6.1, Absolute Lymphocytes 1.0 L, Absolute Monocytes 0.6, Absolute Eosinophils 0, Absolute Basophils 0 Assessment/Plan Assessment: Mr Jenkins is an 81 year old male with a past medical history significant for advanced lung cancer, abdominal aortic aneurysm, emphysema and COPD on 2 L home O2 who was brought to the ED for worsening respiratory distress. Today patient feels his breathing has improved. Patient's oxygen was weaned down and is currently tolerating 3 L nasal cannula saturating in the mid 90s. Patient seen by pulmonology. Patient currently on a slow prednisone taper. Patient seen by vascular surgeryno immediate intervention recommended. Patient should follow up outpatient for further evaluation of PVD. Assessment: 1. Acute on Chronic hypoxic respiratory failure 2. Multifocal pneumonia 3. Influenza Type B 4. CHF Exacerbation 5. Afib/ flutter with rapid ventricular response that responded to IV digoxin and metoprolol 6. History of lung cancer 7. 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 Lactic acidosis - resolved 10. History of PE on Eliquis Plan: * Continue oxygen supplementation to maintain target saturations >92%. Currently on 3L. Continue to wean off as tolerated. * Continue Moxifloxacin Po * Continue Dolores flu for Flu * TRC/nebs as needed * Continue diuresis with IV lasix 40mg BID for CHF exacerbation. * Continue home dose digoxin and metoprolol. * Blood pressure was borderline low. Lisinopril held today. Restart Lisinopril as blood pressure allows. * Continue Eliquis for PE * He has a chronic occlusion of left SFA. He has been evaluated by vascular surgery and no acute treatment is warranted. He can follow up with vascular surgery as an outpatient. * Diet: Heart Healthy diet, asked dietary to bring patient Ensure with each meal. * Patient improving, we will continue Tamiflu * Vascular surgery recommended no intervention * DVT Prophylaxis: Eliquis * Code: Full Code Problem List: 1. Influenza 2. Respiratory failure 3. Atrial flutter Pain Ratin Pain Location: None Pain Goal: Pain 4 or less Pain Plan: Continue current plan Tomorrow's Labs & Rationales: CBc BEP
[2017-09-10 14:14] VITALS: BP 122/68
--- NOTE | 2017-09-10 19:51 | PN- Cardiology ---
Subjective Subjective: Feels as though he continues to slowly improve. Objective Vital Signs and I&Os Vital Signs Date Time Temp Pulse Resp B/P B/P Pulse O2 O2 Flow FiO2 Mean Ox Delivery Rate 09/10 1649 98.0 88 18 118/58 09/10 1414 97.6 65 20 122/68 95 Nasal 3.0L Cannula 09/10 1003 98.2 16 18 128/70 09/10 0627 97.6 65 18 128/70 99 Nasal Cannula 09/09 2200 97.4 113 22 122/64 94 Nasal 3.0L Cannula 09/093 94 Nasal 3.0L Cannula 09/09 2031 113 122/64 Intake & Output 09/10 1600 09/10 0800 09/10 0000 09/09 1600 09/09 0000 Intake Total 0 240 960 50 240 Output Total 350 725 225 350 Balance 0 -110 235 -175 -110 Intake, Oral 0 240 960 50 240 Number 0 0 0 Bowel Movements Output, Urine 350 725 225 350 Patient 162 lb Weight Weight Chair scale Measurement Method Physical Exam: Well-developed, well-nourished elderly male in no acute distress with nasal oxygen in place. Vital signs: See above. Neck: No JVD, no bruits. Lungs: Bilateral rhonchi. Heart: S1, S2 with grade 1/6 systolic murmur. Abdomen: Soft, nontender, positive bowel sounds. Extremities: Trace bilateral lower extremity edema. Current Medications: Current Medications Sig/Dominique Start time Last Medication Dose Route Stop Time Status Admin Albuterol Sulfate 2 PUF Q4H PRN 09/07 0015 AC INH Apixaban 5 MG BID 09/07 2199 AC 09/10 PO 1003 Clopidogrel Bisulfate 75 MG DAILY 09/07 1000 AC 09/10 PO 1002 Digoxin 0.125 MG 1700 09/07 1700 AC 09/10 IV 1649 Furosemide 40 MG 7:30 AM, & 4:30 PM 09/07 1630 AC 09/10 IV 1648 Metoprolol Tartrate 100 MG BID 09/07 1000 AC 09/10 PO 1003 Moxifloxacin HCl 400 MG DAILY 09/08 1000 AC 09/10 PO 1003 Multivitamins 1 TAB DAILY 09/07 1000 AC 09/10 PO 1002 Oseltamivir Phosphate 75 MG BID 09/07 999 AC 09/10 PO 09/11 0959 1005 Pantoprazole Sodium 40 MG DAILY 09/07 1000 AC 09/10 IV 0956 Prednisone 10 MG ONCE ONE 09/10 1000 DC 09/10 PO 09/10 1001 1003 Results Last 48 Hrs of Labs/Mics: Laboratory Tests 09/10/17 0647: Anion Gap 10, Estimated GFR > 60, BUN/Creatinine Ratio 38.8 H, CBC w Diff NO MAN DIFF REQ, RBC 4.52 L, MCV 93.0, MCH 29.9, MCHC 32.2 L, RDW 15.7 H, MPV 8.7, Gran % 78.1 H, Lymphocytes % 13.4 L, Monocytes % 8.3, Eosinophils % 0.2, Basophils % 0, Absolute Granulocytes 6.1, Absolute Lymphocytes 1.0 L, Absolute Monocytes 0.6, Absolute Eosinophils 0, Absolute Basophils 0 09/09/17 0639: Anion Gap 8, Estimated GFR > 60, BUN/Creatinine Ratio 41.4 H, Phosphorus 3.2, Magnesium 1.8, CBC w Diff NO MAN DIFF REQ, RBC 4.26 L, MCV 92.6, MCH 30.0, MCHC 32.3 L, RDW 15.6 H, MPV 9.0, Gran % 83.0 H, Lymphocytes % 9.9 L, Monocytes % 6.9, Eosinophils % 0.1, Basophils % 0.1, Absolute Granulocytes 7.5 H, Absolute Lymphocytes 0.9 L, Absolute Monocytes 0.6, Absolute Eosinophils 0, Absolute Basophils 0 Assessment/Plan Assessment/Plan 81-y-o-w-m w/ hx lung cancer, COPD, cardiomyopathy admitted w/ increased SOB and influenza possibly complicated by healthcare associated pneumonia. SOB and oxygenation improved. Continue antimicrobial therapy and steroid tapering as per pulmonary medicine. Vascular surgery consultation reviewed and no intervention at this time.
[2017-09-10 20:30] VITALS: BP 100/50
[2017-09-10 21:57] VITALS: BP 110/54
[2017-09-11 07:21] VITALS: BP 100/56
--- NOTE | 2017-09-11 07:47 | PN- Pulmonary ---
Subjective HPI/Critical Care Issues: Shortness of breath continues to improve Objective Current Medications: Current Medications Sig/Dominique Start time Last Medication Dose Route Stop Time Status Admin Albuterol Sulfate 2 PUF Q4H PRN 09/07 0015 AC INH Apixaban 5 MG BID 09/07 2200 AC 09/10 PO 2134 Clopidogrel Bisulfate 75 MG DAILY 09/07 1000 AC 09/10 PO 1002 Digoxin 0.125 MG 1700 09/07 1700 AC 09/10 IV 1649 Furosemide 40 MG 7:30 AM, & 4:30 PM 09/07 1630 AC 09/10 IV 1648 Metoprolol Tartrate 100 MG BID 09/07 1000 AC 09/10 PO 2134 Moxifloxacin HCl 400 MG DAILY 09/08 1000 AC 09/10 PO 1003 Multivitamins 1 TAB DAILY 09/07 1000 AC 09/10 PO 1002 Oseltamivir Phosphate 75 MG BID 09/07 1000 AC 09/10 PO 09/11 0959 2134 Pantoprazole Sodium 40 MG DAILY 09/07 1000 AC 09/10 IV 0956 Prednisone 10 MG ONCE ONE 09/10 1000 DC 09/10 PO 09/10 1001 1003 Vital Signs & I&O Last 24 Hrs of Vitals and I&O: Vital Signs Date Time Temp Pulse Resp B/P B/P Pulse O2 O2 Flow FiO2 Mean Ox Delivery Rate 09/11 0721 97.8 66 20 100/56 98 Nasal Cannula 09/11 0000 Nasal 3.0L Cannula 09/107 97.9 62 22 110/54 97 Nasal 3.0L Cannula 09/10 2134 98 116/50 09/10 2030 100/50 09/10 1649 98.0 88 18 118/58 09/10 1414 97.6 65 20 122/68 95 Nasal 3.0L Cannula 09/10 1003 98.2 16 18 128/70 09/10 0800 94 Nasal 3.0L Cannula Intake & Output 09/11 0800 09/11 0000 09/10 1600 Intake Total 50 60 960 Output Total Balance 50 60 960 Intake, Oral 50 60 960 Patient 162 lb Weight Oxygen saturation 3 L 98% exam of his chest shows diminished breath sounds are no wheezes cardiac exam shows regular S1 and S2 without murmurs Impression/Plan Impression/Plan Impression/Plan: 81-year-old with lung cancer COPD cardiomyopathy admitted with increased shortness of breath and influenza possibly complicated by healthcare associated pneumonia. Shortness breath appears improved. Oxygenation is improved. Evaluate what appears to be increasing alkalosis versus hypercarbia with arterial blood gas, follow-up on prior recommendations Recommendations: Slow steroid taper. Complete course of antibiotics. Avoid over diuresis. Taper FiO2 his saturations allow. Vascular surgery evaluation recommended no intervention. Note bicarbonate has increased to 41 with degree of prerenal azotemia. Repeat labs if bicarbonate is still elevated obtain blood gas
[2017-09-11 08:05] LABS: ABSOLUTE BASOPHIL COUNT 0 /CUMM (0.0-0.2); ABSOLUTE EOSINOPHIL COUNT 0.1 /CUMM (0.0-0.7); ABSOLUTE GRANULOCYTE CT 4.5 /CUMM (1.4-6.5); ABSOLUTE LYMPH COUNT 1.2 /CUMM (1.2-3.4); ABSOLUTE MONOCYTE COUNT 0.6 /CUMM (0.10-0.60); BASOPHIL % 0.4 % (0.0-2.0); EOSINOPHIL % 1.7 % (0-5); GRANULOCYTE % 70.2 % (42.2-75.2); HEMATOCRIT 44.4 % (42-52); MEAN CORPUSCULAR HGB 29.9 PG (27.0-31.0); MEAN CORPUSCULAR HGB CONC 32.6 G/DL (33.0-37.0); MEAN CORPUSCULAR VOLUME 91.6 FL (80.0-94.0); MEAN PLATELET VOLUME 8.6 FL (7.4-10.4); PLATELET COUNT 187 /CUMM (130-400); RBC DISTRIBUTION WIDTH 15.4 % (11.5-14.5); RED BLOOD CELL CT 4.84 /CUMM (4.70-6.10); WHITE BLOOD CELL COUNT 6.5 /CUMM (4.8-10.8)
--- NOTE | 2017-09-11 08:12 | PN- Housestaff ---
See Addendum Subjective Follow-up For: Acute on chronic hypoxic respiratory failure Multifocal pneumonia Influenza Hisotry of PE Aflutter/afib Tele-Events Since Last Visit: a flutter, 63-70, BBB, PVCs, 10 beat Vtach Subjective: Patient visited today, old gentleman was sitting at bedsidein no acute distress, was alert and oriented. He was eating breakfast, generally looked much improved compared to previous days, however he noted no improvement. No fever or chills, no chest pain, no other events. currently on 3 L O2 (baseline 2 L) which is same as yesterday. Planned to wean off ABG showed contracion alkalosis, with pre-renal azotemia, changed lasix to PO BP was low, administered 250 bolus NS after communication with cardio, after improvement of BP metoprolol was administered. Review of Systems Constitutional: Reports: see HPI. Objective Last 24 Hrs of Vital Signs/I&O Vital Signs Date Time Temp Pulse Resp B/P B/P Pulse O2 O2 Flow FiO2 Mean Ox Delivery Rate 09/11 1625 65 118/70 09/11 1600 Nasal 3.0L Cannula 09/11 1433 98.5 90 20 110/56 94 Nasal 3.0L Cannula 09/11 1428 90 110/56 09/11 1017 134 90/50 09/11 0837 116/60 09/11 0800 Nasal 3.0L Cannula 09/11 0721 97.8 66 20 100/56 98 Nasal Cannula 09/11 0000 Nasal 3.0L Cannula 09/10 2157 97.9 62 22 110/54 97 Nasal 3.0L Cannula 09/10 2134 98 116/50 09/10 2030 100/50 Intake & Output 09/11 1600 09/11 0800 09/11 0000 Intake Total 560 50 60 Output Total 650 Balance -90 50 60 Intake, Oral 560 50 60 Number 1 Bowel Movements Output, Urine 650 Patient 157 lb 162 lb Weight Weight Chair scale Measurement Method Physical Exam General Appearance: Alert, Oriented X3, Cooperative, No Acute Distress, occasionally coughs Skin Temp/Moisture Exam: Warm/Dry Sepsis Skin Exam (color): Normal for Ethnicity HEENT: Atraumatic, EOMI, Mucous Membr. moist/pink Cardiovascular: Normal S1, Normal S2, Tachicardic Lungs: Ronchi and crackles, bilateral Abdomen: Soft, No Tenderness Extremities: No Edema Current Medications: Current Medications Sig/Dominique Start time Last Medication Dose Route Stop Time Status Admin Albuterol Sulfate 2 PUF Q4H PRN 09/07 0015 AC INH Apixaban 5 MG BID 09/07 2200 AC 09/11 PO 1010 Clopidogrel Bisulfate 75 MG DAILY 09/07 1000 AC 09/11 PO 1010 Digoxin 0.125 MG 1700 09/07 1700 AC 09/11 IV 1625 Furosemide 40 MG 7:30 AM, & 4:30 PM 09/11 1630 AC 09/11 PO 1624 Furosemide 40 MG 7:30 AM, & 4:30 PM 09/07 1630 DC 09/11 IV 0830 Metoprolol Tartrate 100 MG BID 09/07 1000 AC 09/11 PO 1428 Moxifloxacin HCl 400 MG DAILY 09/08 1000 AC 09/11 PO 1010 Multivitamins 1 TAB DAILY 09/07 1000 AC 09/11 PO 1010 Oseltamivir Phosphate 75 MG BID 09/07 1000 AC 09/11 PO 09/12 0959 1010 Pantoprazole Sodium 40 MG DAILY 09/07 1000 AC 09/11 IV 0830 Sodium Chloride 250 ML BOLUS ONE 09/11 1315 DC 09/11 IV 09/11 1414 1321 Last 24 Hrs of Lab/Yong Results Last 24 Hrs of Labs/Mics: Laboratory Tests 09/11/17 1210: pH 7.52 H, pCO2 44, pO2 89, HCO3 35 H, ABG O2 Sat (Measured) 95.0 L, P-50 ( Temp Corrected) N, Carboxyhemoglobin 1.1 L, O2 Concentration % 3L, Temperature 97.8, O2 Delivery Method N/C, Phlebotomy Draw Site LEFT RADIAL 09/11/17 0611: Anion Gap 11, Estimated GFR > 60, BUN/Creatinine Ratio 35.0 H, Calcium 8.6, Phosphorus 4.3, Magnesium 1.9, Albumin 3.2 L, CBC w Diff NO MAN DIFF REQ, RBC 4.84, MCV 91.6, MCH 29.9, MCHC 32.6 L, RDW 15.4 H, MPV 8.6, Gran % 70.2, Lymphocytes % 19.0 L, Monocytes % 8.7, Eosinophils % 1.7, Basophils % 0.4, Absolute Granulocytes 4.5, Absolute Lymphocytes 1.2, Absolute Monocytes 0.6, Absolute Eosinophils 0.1, Absolute Basophils 0 Assessment/Plan Assessment: Mr Jenkins is an 81 year old male with a past medical history significant for advanced lung cancer, abdominal aortic aneurysm, emphysema and COPD on 2 L home O2 who was brought to the ED for worsening respiratory distress. Today patient feels his breathing has improved. Patient's oxygen was weaned down and is currently tolerating 3 L nasal cannula saturating in the mid 90s. Patient seen by pulmonology. Patient currently on a slow prednisone taper. Patient seen by vascular surgeryno immediate intervention recommended. Patient should follow up outpatient for further evaluation of PVD. Assessment: 1. Acute on Chronic hypoxic respiratory failure 2. Multifocal pneumonia 3. Influenza Type B 4. CHF Exacerbation 5. Afib/ flutter with rapid ventricular response that responded to IV digoxin and metoprolol 6. History of lung cancer 7. 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 Lactic acidosis - resolved 10. History of PE on Eliquis Plan: * Continue oxygen supplementation to maintain target saturations >92%. * still on 3L. Continue to wean off as tolerated. * Continue Moxifloxacin Po * Continue Dolores flu for Flu, last dose will finish today * TRC/nebs as needed * Initially treated with IV lasix 40mg BID for CHF exacerbation, with improvement and contraction alkalosis changed to PO lasix * Continue home dose digoxin and metoprolol. * Blood pressure was borderline low. Lisinopril held today. Restart Lisinopril as blood pressure allows. * Continue Eliquis for PE * He has a chronic occlusion of left SFA. He has been evaluated by vascular surgery and no acute treatment is warranted. He can follow up with vascular surgery as an outpatient. * Diet: Heart Healthy diet, asked dietary to bring patient Ensure with each meal. * Patient improving * Vascular surgery recommended no intervention * DVT Prophylaxis: Eliquis * Code: Full Code Problem List: 1. Influenza 2. Pneumonia Pain Ratin Pain Location: None Pain Goal: Pain 4 or less Pain Plan: Continue current plan Tomorrow's Labs & Rationales: BEP
[2017-09-11 08:37] VITALS: BP 116/60
[2017-09-11 10:17] VITALS: BP 90/50
--- NOTE | 2017-09-11 11:00 | PN- Cardiology ---
Subjective Subjective: Shortness of breath is improving. No chest pain. No palpitations. No diaphoresis. He remains in atrial flutter. Ventricular rate was controlled yesterday, is mildly elevated this morning. Objective Vital Signs and I&Os Vital Signs Date Time Temp Pulse Resp B/P B/P Pulse O2 O2 Flow FiO2 Mean Ox Delivery Rate 09/11 1017 134 90/50 09/11 0837 116/60 09/11 0800 Nasal 3.0L Cannula 09/11 0721 97.8 66 20 100/56 98 Nasal Cannula 09/11 0000 Nasal 3.0L Cannula 09/10 2157 97.9 62 22 110/54 97 Nasal 3.0L Cannula 09/10 2134 98 116/50 09/10 2030 100/50 09/10 1649 98.0 88 18 118/58 09/10 1414 97.6 65 20 122/68 95 Nasal 3.0L Cannula Intake & Output 09/11 1600 09/11 0800 09/11 0000 09/10 1600 09/10 0800 09/10 0000 Intake Total 50 60 960 0 240 Output Total 350 Balance 50 60 960 0 -110 Intake, Oral 50 60 960 0 240 Number 0 Bowel Movements Output, Urine 350 Patient 157 lb 162 lb Weight Weight Chair scale Measurement Method Physical Exam: Gen: The patient is in no acute distress HEENT: Normal nose, ears, and oropharynx. Pupils equal bilaterally. Conjunctiva normal. Neck: Supple with no JVD, no masses, and no thyromegaly Lungs: Bilateral rhonchi with normal respiratory effort Heart: Irregular S1, S2, 1 out of 6 systolic murmur. Trace peripheral edema, 2+ pulses in the lower extremities bilaterally Abdomen: Soft, nontender, no masses. No hepatomegaly. No splenomegaly Extremities: No clubbing or cyanosis. Normal muscle strength in the upper and lower extremities Skin: Normal skin turgor with no skin ulcers or lesions noted. Neuro: Cranial nerves intact. Sensation intact Current Medications: Current Medications Sig/Dominique Start time Last Medication Dose Route Stop Time Status Admin Albuterol Sulfate 2 PUF Q4H PRN 09/07 0015 AC INH Apixaban 5 MG BID 09/07 2200 AC 09/11 PO 1010 Clopidogrel Bisulfate 75 MG DAILY 09/07 1000 AC 09/11 PO 1010 Digoxin 0.125 MG 1700 09/07 1700 AC 09/10 IV 1649 Furosemide 40 MG 7:30 AM, & 4:30 PM 09/07 1630 AC 09/11 IV 0830 Metoprolol Tartrate 100 MG BID 09/07 1000 AC 09/10 PO 2134 Moxifloxacin HCl 400 MG DAILY 09/08 1000 AC 09/11 PO 1010 Multivitamins 1 TAB DAILY 09/07 1000 AC 09/11 PO 1010 Oseltamivir Phosphate 75 MG BID 09/07 1000 AC 09/11 PO 09/12 0959 1010 Pantoprazole Sodium 40 MG DAILY 09/07 1000 AC 09/11 IV 0830 Results Last 48 Hrs of Labs/Mics: Laboratory Tests 09/11/17 0611: Anion Gap 11, Estimated GFR > 60, BUN/Creatinine Ratio 35.0 H, Calcium 8.6, Phosphorus 4.3, Magnesium 1.9, Albumin 3.2 L, CBC w Diff NO MAN DIFF REQ, RBC 4.84, MCV 91.6, MCH 29.9, MCHC 32.6 L, RDW 15.4 H, MPV 8.6, Gran % 70.2, Lymphocytes % 19.0 L, Monocytes % 8.7, Eosinophils % 1.7, Basophils % 0.4, Absolute Granulocytes 4.5, Absolute Lymphocytes 1.2, Absolute Monocytes 0.6, Absolute Eosinophils 0.1, Absolute Basophils 0 09/10/17 0647: Anion Gap 10, Estimated GFR > 60, BUN/Creatinine Ratio 38.8 H, CBC w Diff NO MAN DIFF REQ, RBC 4.52 L, MCV 93.0, MCH 29.9, MCHC 32.2 L, RDW 15.7 H, MPV 8.7, Gran % 78.1 H, Lymphocytes % 13.4 L, Monocytes % 8.3, Eosinophils % 0.2, Basophils % 0, Absolute Granulocytes 6.1, Absolute Lymphocytes 1.0 L, Absolute Monocytes 0.6, Absolute Eosinophils 0, Absolute Basophils 0 Assessment/Plan Assessment/Plan Assessment: 1. CAD 2. Lung cancer 3. Pneumonia 4. Influenza infection 5. Atrial flutter 6. Possible acute on chronic HFrEF 7. Occluded left superficial femoral artery Plan: * Change Lasix to 40 mg p.o. twice daily * Continue digoxin and metoprolol for rate control. * If ventricular response remains elevated, and blood pressure is adequate, would increase metoprolol to 100 mg p.o. every 8 hours Continue telemetry? Yes
[2017-09-11 14:33] VITALS: BP 110/56
[2017-09-11 22:20] VITALS: BP 102/46
[2017-09-12 05:42] VITALS: BP 118/52
--- NOTE | 2017-09-12 07:15 | PN- Housestaff ---
See Addendum Subjective Follow-up For: chronic hypoxic respiratory failure Multifocal pneumonia Influenza Aflutter/afib Tele-Events Since Last Visit: Aflutter HR 65-68 Subjective: Patient reports he still feel weak. He denies lightheadedness, SOB, CP, palpitations, nausea. Review of Systems Constitutional: Reports: see HPI. Objective Last 24 Hrs of Vital Signs/I&O Vital Signs Date Time Temp Pulse Resp B/P B/P Pulse O2 O2 Flow FiO2 Mean Ox Delivery Rate 09/12 1628 90 120/62 09/12 1600 Nasal 3.0L Cannula 09/12 1434 97.4 74 20 118/60 96 Nasal 3.0L Cannula 09/12 0800 94 Nasal 3.0L Cannula 09/12 0542 98.7 66 20 118/52 97 09/11 2318 Nasal 3.0L Cannula 09/11 2223 60 102/46 09/11 2220 98.2 60 20 102/46 95 Nasal 3.0L Cannula Intake & Output 09/12 1600 09/12 0800 09/12 0000 Intake Total 400 300 300 Output Total 550 525 350 Balance -150 -225 -50 Intake, Oral 400 300 300 Output, Urine 550 525 350 Patient 159 lb 163 lb Weight Weight Bed scale Measurement Method Physical Exam General Appearance: Alert, Oriented X3, Cooperative Cardiovascular: Normal S1, Normal S2, No Murmurs Lungs: Clear to Auscultation, Normal Air Movement Abdomen: Normal Bowel Sounds, Soft, No Tenderness Extremities: No Edema, Motor strength 3/5 throughout Current Medications: Current Medications Sig/Dominique Start time Last Medication Dose Route Stop Time Status Admin Acetazolamide 250 MG 1445 09/12 1445 DC 09/12 PO 09/12 1446 1624 Albuterol Sulfate 2 PUF Q4H PRN 09/07 0015 AC INH Apixaban 5 MG BID 09/07 2200 AC 09/12 PO 0840 Clopidogrel Bisulfate 75 MG DAILY 09/07 1000 AC 09/12 PO 0840 Digoxin 0.125 MG 1700 09/07 1700 AC 09/12 IV 1628 Furosemide 40 MG 7:30 AM, & 4:30 PM 09/11 1630 AC 09/12 PO 1624 Metoprolol Tartrate 100 MG BID 09/07 1000 AC 09/12 PO 0840 Moxifloxacin HCl 400 MG DAILY 09/08 1000 DC 09/12 PO 0841 Multivitamins 1 TAB DAILY 09/07 1000 AC 09/12 PO 0840 Oseltamivir Phosphate 75 MG BID 09/07 1000 DC 09/12 PO 09/12 0959 0906 Pantoprazole Sodium 40 MG DAILY 09/07 1000 AC 09/12 IV 0841 Last 24 Hrs of Lab/Yong Results Last 24 Hrs of Labs/Mics: Laboratory Tests 09/12/17 0650: Anion Gap 11, Estimated GFR > 60, BUN/Creatinine Ratio 31.3 H Assessment/Plan Assessment: Mr Jenkins is an 81 year old male with a past medical history significant for advanced lung cancer, abdominal aortic aneurysm, emphysema and COPD on 2 L home O2 who was brought to the ED for worsening respiratory distress. Active issues: 1. Acute on Chronic hypoxic respiratory failure 2. Multifocal pneumonia 3. Influenza Type B 4. CHF Exacerbation 5. Afib/ flutter with rapid ventricular response that responded to IV digoxin and metoprolol 6. History of lung cancer 7. 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 Lactic acidosis - resolved 10. History of PE on Eliquis Plan: * Continue oxygen supplementation to maintain target saturations >92%, wean off as tolerated * Continue Moxifloxacin * Continue Tamiflu for Flu, last dose will finish today * TRC/nebs as needed * continue PO lasix BID * Continue home dose digoxin and metoprolol * Continue Eliquis for PE * He has a chronic occlusion of left SFA. He has been evaluated by vascular surgery and no acute treatment is warranted. He can follow up with vascular surgery as an outpatient. * Vascular surgery recommendations appreciated * Pulmonology recommendations appreciated * Diamox x 1 dose Diet: Heart Healthy DVT Prophylaxis: Eliquis Code: Full Problem List: 1. Atrial flutter 2. Respiratory failure 3. Influenza 4. Pneumonia Pain Ratin Pain Location: NA Pain Goal: Remain pain free Pain Plan: NA Tomorrow's Labs & Rationales: None
--- NOTE | 2017-09-12 07:53 | PN- Pulmonary ---
Subjective HPI/Critical Care Issues: Patient shortness of breath is improved. He has a contraction metabolic alkalosis Objective Current Medications: Current Medications Sig/Dominique Start time Last Medication Dose Route Stop Time Status Admin Albuterol Sulfate 2 PUF Q4H PRN 09/07 0015 AC INH Apixaban 5 MG BID 09/07 2200 AC 09/11 PO 2217 Clopidogrel Bisulfate 75 MG DAILY 09/07 1000 AC 09/11 PO 1010 Digoxin 0.125 MG 1700 09/07 1700 AC 09/11 IV 1625 Furosemide 40 MG 7:30 AM, & 4:30 PM 09/11 1630 AC 09/11 PO 1624 Furosemide 40 MG 7:30 AM, & 4:30 PM 09/07 1630 DC 09/11 IV 0830 Metoprolol Tartrate 100 MG BID 09/07 1000 AC 09/11 PO 2223 Moxifloxacin HCl 400 MG DAILY 09/08 1000 AC 09/11 PO 1010 Multivitamins 1 TAB DAILY 09/07 1000 AC 09/11 PO 1010 Oseltamivir Phosphate 75 MG BID 09/07 1000 AC 09/11 PO 09/12 0959 2217 Pantoprazole Sodium 40 MG DAILY 09/07 1000 AC 09/11 IV 0830 Sodium Chloride 250 ML BOLUS ONE 09/11 1315 DC 09/11 IV 09/11 1414 1321 Vital Signs & I&O Last 24 Hrs of Vitals and I&O: Vital Signs Date Time Temp Pulse Resp B/P B/P Pulse O2 O2 Flow FiO2 Mean Ox Delivery Rate 09/12 0542 98.7 66 20 118/52 97 09/11 2318 Nasal 3.0L Cannula 09/11 2223 60 102/46 09/11 2220 98.2 60 20 102/46 95 Nasal 3.0L Cannula 09/11 1625 65 118/70 09/11 1600 Nasal 3.0L Cannula 09/11 1433 98.5 90 20 110/56 94 Nasal 3.0L Cannula 09/11 1428 90 110/56 09/11 1017 134 90/50 09/11 0837 116/60 09/11 0800 Nasal 3.0L Cannula Intake & Output 09/12 0800 09/12 0000 09/11 1600 Intake Total 300 300 560 Output Total 525 350 650 Balance -225 -50 -90 Intake, Oral 300 300 560 Number 1 Bowel Movements Output, Urine 525 350 650 Patient 159 lb 163 lb 157 lb Weight Weight Bed scale Chair scale Measurement Method Oxygen saturation 3 L 97% exam of his chest shows decreased breath sounds no wheezes or crackles cardiac exam shows regular S1 and S2 without murmurs Impression/Plan Impression/Plan Impression/Plan: 81-year-old with lung cancer COPD cardiomyopathy admitted with increased shortness of breath and influenza possibly complicated by healthcare associated pneumonia. Shortness breath appears improved. Oxygenation is improved. Metabolic alkalosis Recommendations: Slow steroid taper. Complete course of antibiotics. Avoid over diuresis. Taper FiO2 his saturations allow. Vascular surgery evaluation recommended no intervention. Note bicarbonate has increased to 41 with degree of prerenal azotemia. Give Diamox 250 mg IV 1 dose and maintain potassium at least 4
[2017-09-12] MEDS ORDERED: ELIQUIS5 M1 PO (13:22)
--- NOTE | 2017-09-12 13:25 | Patient Discharge Instructions ---
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 we held laschuckie in hospital, please ask your concrete mixer loader truck mounted for further need. If patient has > 3lbs weight gain or low oxygen levels inform the Cardiologsit Diet Continue normal diet: Yes Activity Other activity limits: As tolerated Acute Coronary Syndrome Inclusion Criteria At DC or during hospital stay patient has or had the following: ACS DIAGNOSIS No Discharge Core Measures Meds if any: Prescribed or Continued at Discharge Meds if any: NOT Prescribed or Continued at Discharge Congestive Heart Failure Inclusion Criteria At DC or during hospital stay patient has or had the following: CHF DIAGNOSIS No Discharge Core Measures Meds if any: Prescribed or Continued at Discharge Meds if any: NOT Prescribed or Continued at Discharge Cerebrovascular accident Inclusion Criteria At DC or during hospital stay patient has or had the following: CVA/TIA Diagnosis No Discharge Core Measures Meds if any: Prescribed or Continued at Discharge Meds if any: NOT Prescribed or Continued at Discharge Venous thromboembolism Inclusion Criteria VTE Diagnosis No VTE Type NONE VTE Confirmed by (Test) NONE Discharge Core Measures - Per Current guidelines, there needs to be overlap - treatment for the first 5 days of Warfarin therapy. - If discharged on Warfarin prior to 5 days of - overlap therapy, the patient will need to be - assessed for post discharge needs including - *Post discharge parental anticoagulation - *Warfarin and/or parental anticoagulation education - *Follow up date to check INR post discharge At least 5 days overlap therapy as Inpatient No Meds if any: Prescribed or Continued at Discharge Note: Overlap Therapy is Warfarin and Anticoagulant Meds if any: NOT Prescribed or Continued at Discharge
[2017-09-12 14:34] VITALS: BP 118/60
--- NOTE | 2017-09-12 14:34 | PN- Cardiology ---
Subjective Subjective: Shortness of breath is improving. No chest pain. No palpitations. No diaphoresis. The patient remains in atrial flutter with ventricular rate well controlled on current medications Objective Vital Signs and I&Os Vital Signs Date Time Temp Pulse Resp B/P B/P Pulse O2 O2 Flow FiO2 Mean Ox Delivery Rate 09/12 0800 94 Nasal 3.0L Cannula 09/12 0542 98.7 66 20 118/52 97 09/11 2318 Nasal 3.0L Cannula 09/11 2223 60 102/46 09/11 2220 98.2 60 20 102/46 95 Nasal 3.0L Cannula 09/11 1625 65 118/70 09/11 1600 Nasal 3.0L Cannula 09/11 1433 98.5 90 20 110/56 94 Nasal 3.0L Cannula Intake & Output 09/12 1600 09/12 0800 09/12 0000 09/11 1600 09/11 0800 09/11 0000 Intake Total 300 300 560 50 60 Output Total 525 350 650 Balance -225 -50 -90 50 60 Intake, Oral 300 300 560 50 60 Number 1 Bowel Movements Output, Urine 525 350 650 Patient 159 lb 163 lb 157 lb 162 lb Weight Weight Bed scale Chair scale Measurement Method Physical Exam: Gen: The patient is in no acute distress HEENT: Normal nose, ears, and oropharynx. Pupils equal bilaterally. Conjunctiva normal. Neck: Supple with no JVD, no masses, and no thyromegaly Lungs: Bilateral rhonchi with normal respiratory effort Heart: Irregular S1, S2, 1 out of 6 systolic murmur. Trace peripheral edema, 2+ pulses in the lower extremities bilaterally Abdomen: Soft, nontender, no masses. No hepatomegaly. No splenomegaly Extremities: No clubbing or cyanosis. Normal muscle strength in the upper and lower extremities Skin: Normal skin turgor with no skin ulcers or lesions noted. Neuro: Cranial nerves intact. Sensation intact Current Medications: Current Medications Sig/Dominique Start time Last Medication Dose Route Stop Time Status Admin Albuterol Sulfate 2 PUF Q4H PRN 09/07 0015 AC INH Apixaban 5 MG BID 09/070 AC 09/12 PO 0840 Clopidogrel Bisulfate 75 MG DAILY 09/07 1000 AC 09/12 PO 0840 Digoxin 0.125 MG 1700 09/07 1700 AC 09/11 IV 1625 Furosemide 40 MG 7:30 AM, & 4:30 PM 09/11 1630 AC 09/12 PO 0840 Metoprolol Tartrate 100 MG BID 09/07 1000 AC 09/12 PO 0840 Moxifloxacin HCl 400 MG DAILY 09/08 1000 DC 09/12 PO 0841 Multivitamins 1 TAB DAILY 09/07 1000 AC 09/12 PO 0840 Oseltamivir Phosphate 75 MG BID 09/07 1000 DC 09/12 PO 09/12 0959 0906 Pantoprazole Sodium 40 MG DAILY 09/07 1000 AC 09/12 IV 0841 Results Last 48 Hrs of Labs/Mics: Laboratory Tests 09/12/17 0650: Anion Gap 11, Estimated GFR > 60, BUN/Creatinine Ratio 31.3 H 09/11/17 1210: pH 7.52 H, pCO2 44, pO2 89, HCO3 35 H, ABG O2 Sat (Measured) 95.0 L, P-50 ( Temp Corrected) N, Carboxyhemoglobin 1.1 L, O2 Concentration % 3L, Temperature 97.8, O2 Delivery Method N/C, Phlebotomy Draw Site LEFT RADIAL 09/11/17 0611: Anion Gap 11, Estimated GFR > 60, BUN/Creatinine Ratio 35.0 H, Calcium 8.6, Phosphorus 4.3, Magnesium 1.9, Albumin 3.2 L, CBC w Diff NO MAN DIFF REQ, RBC 4.84, MCV 91.6, MCH 29.9, MCHC 32.6 L, RDW 15.4 H, MPV 8.6, Gran % 70.2, Lymphocytes % 19.0 L, Monocytes % 8.7, Eosinophils % 1.7, Basophils % 0.4, Absolute Granulocytes 4.5, Absolute Lymphocytes 1.2, Absolute Monocytes 0.6, Absolute Eosinophils 0.1, Absolute Basophils 0 Assessment/Plan Assessment/Plan Assessment: 1. CAD 2. Lung cancer 3. Pneumonia 4. Influenza infection 5. Atrial flutter 6. Acute on chronic HFrEF 7. Occluded left superficial femoral artery Plan: * Continue p.o. Lasix * Continue digoxin and metoprolol for rate control * Continue other cardiac medications. Continue telemetry? Yes
[2017-09-12 22:14] VITALS: BP 120/50
[2017-09-13 07:00] VITALS: BP 120/56
--- NOTE | 2017-09-13 07:19 | PN- Housestaff ---
See Addendum Subjective Follow-up For: chronic hypoxic respiratory failure Multifocal pneumonia - resolved Influenza - resolved Aflutter/afib Tele-Events Since Last Visit: Aflutter HR 66-70 Subjective: Patient had 3 runs of nonsustained vtach this a.m. and 27 runs this afternoon. Patient was asymptomatic. Patient reports he is willing to participate in PT today. He denies weakness, lightheadedness, SOB, CP, palpitations, nausea. Review of Systems Constitutional: Reports: see HPI. Objective Last 24 Hrs of Vital Signs/I&O Vital Signs Date Time Temp Pulse Resp B/P B/P Pulse O2 O2 Flow FiO2 Mean Ox Delivery Rate 09/13 0822 132 120/56 09/13 0800 95 Nasal 2.0L Cannula 09/13 0700 97.8 68 18 120/56 94 Room Air 09/13 0000 94 Nasal 3.0L Cannula 09/12 2214 97.8 68 18 120/50 98 09/12 2101 90 118/60 09/12 1628 90 120/62 09/12 1600 Nasal 3.0L Cannula 09/12 1434 97.4 74 20 118/60 96 Nasal 3.0L Cannula Intake & Output 09/13 1600 09/13 0800 09/13 0000 Intake Total 100 480 Output Total 350 Balance -250 480 Intake, Oral 100 480 Output, Urine 350 Patient 160 lb Weight Weight Bed scale Measurement Method Physical Exam General Appearance: Alert, Oriented X3, Cooperative, No Acute Distress Cardiovascular: Regular Rate, Normal S1, Normal S2 Lungs: Clear to Auscultation, Normal Air Movement Abdomen: Normal Bowel Sounds, Soft, No Tenderness Extremities: No Edema, Motor 5/5 throughout Current Medications: Current Medications Sig/Dominique Start time Last Medication Dose Route Stop Time Status Admin Acetazolamide 250 MG ONCE ONE 09/13 1115 DC PO 09/13 1116 Acetazolamide 250 MG 1445 09/12 1445 DC 09/12 PO 09/12 1446 1624 Albuterol Sulfate 2 PUF Q4H PRN 09/07 0015 AC INH Apixaban 5 MG BID 09/07 2200 AC 09/13 PO 0821 Clopidogrel Bisulfate 75 MG DAILY 09/07 1000 AC 09/13 PO 0822 Digoxin 0.125 MG 1700 09/13 1700 AC PO Digoxin 0.125 MG 1700 09/07 1700 DC 09/12 IV 1628 Furosemide 40 MG 7:30 AM, & 4:30 PM 09/11 1630 AC 09/13 PO 0802 Metoprolol Tartrate 100 MG BID 09/07 1000 AC 09/13 PO 08 Multivitamins 1 TAB DAILY 09/07 1000 AC 09/13 PO 0822 Pantoprazole Sodium 40 MG DAILY 09/07 1000 AC 09/13 IV 0822 Last 24 Hrs of Lab/Yong Results Last 24 Hrs of Labs/Mics: Laboratory Tests 09/13/17 1550: Troponin I 0.03 09/13/17 1550: Anion Gap 13, Estimated GFR > 60, BUN/Creatinine Ratio 27.3 H, CBC w Diff NO MAN DIFF REQ, RBC 5.27, MCV 91.3, MCH 29.9, MCHC 32.7 L, RDW 15.8 H, MPV 8.6, Gran % 73.6, Lymphocytes % 14.3 L, Monocytes % 10.2 H, Eosinophils % 1.9, Basophils % 0, Absolute Granulocytes 6.2, Absolute Lymphocytes 1.2, Absolute Monocytes 0.9 H, Absolute Eosinophils 0.2, Absolute Basophils 0 Assessment/Plan Assessment: Mr Jenkins is an 81 year old male with a past medical history significant for advanced lung cancer, abdominal aortic aneurysm, emphysema and COPD on 2 L home O2 who was brought to the ED for worsening respiratory distress. Active issues: 1. Acute on Chronic hypoxic respiratory failure 2. Multifocal pneumonia 3. Influenza Type B 4. CHF Exacerbation 5. Afib/ flutter with rapid ventricular response that responded to IV digoxin and metoprolol 6. History of lung cancer 7. 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 Lactic acidosis - resolved 10. History of PE on Eliquis Plan: * Completed Moxifloxacin * Completed Tamiflu * TRC/nebs as needed * Hold lasix due to contraction alkalosis until further evaluation by Cardio as an outpatient * Continue home dose digoxin and metoprolol * Continue Eliquis for PE * He has a chronic occlusion of left SFA. He has been evaluated by vascular surgery and no acute treatment is warranted. He can follow up with vascular surgery as an outpatient. * Vascular surgery recommendations appreciated * Pulmonology recommendations appreciated * Diamox x 1 dose Diet: Heart Healthy DVT Prophylaxis: Eliquis Code: Full Possible dc tomorrow Problem List: 1. Pneumonia 2. Influenza Pain Ratin Pain Location: NA Pain Goal: Remain pain free Pain Plan: NA Tomorrow's Labs & Rationales: None
--- NOTE | 2017-09-13 07:54 | PN- Pulmonary ---
Subjective HPI/Critical Care Issues: Patient's respiratory status appears improved shortness of breath is better continues with a contraction metabolic alkalosis Objective Current Medications: Current Medications Sig/Dominique Start time Last Medication Dose Route Stop Time Status Admin Acetazolamide 250 MG 1445 09/12 1445 DC 09/12 PO 09/12 1446 1624 Albuterol Sulfate 2 PUF Q4H PRN 09/07 0015 AC INH Apixaban 5 MG BID 09/07 2200 AC 09/12 PO 2101 Clopidogrel Bisulfate 75 MG DAILY 09/07 1000 AC 09/12 PO 0840 Digoxin 0.125 MG 1700 09/07 1700 AC 09/12 IV 1628 Furosemide 40 MG 7:30 AM, & 4:30 PM 09/11 1630 AC 09/12 PO 1624 Metoprolol Tartrate 100 MG BID 09/07 1000 AC 09/12 PO 2101 Moxifloxacin HCl 400 MG DAILY 09/08 1000 DC 09/12 PO 0841 Multivitamins 1 TAB DAILY 09/07 1000 AC 09/12 PO 0840 Oseltamivir Phosphate 75 MG BID 09/07 1000 DC 09/12 PO 09/12 0959 0906 Pantoprazole Sodium 40 MG DAILY 09/07 1000 AC 09/12 IV 0841 Vital Signs & I&O Last 24 Hrs of Vitals and I&O: Vital Signs Date Time Temp Pulse Resp B/P B/P Pulse O2 O2 Flow FiO2 Mean Ox Delivery Rate 09/13 0700 97.8 68 18 120/56 94 Room Air 09/13 0000 94 Nasal 3.0L Cannula 09/12 2214 97.8 68 18 120/50 98 09/12 2101 90 118/60 09/12 1628 90 120/62 09/12 1600 Nasal 3.0L Cannula 09/12 1434 97.4 74 20 118/60 96 Nasal 3.0L Cannula 09/12 0800 94 Nasal 3.0L Cannula Intake & Output 09/13 0800 09/13 0000 09/12 1600 Intake Total 480 400 Output Total 550 Balance 480 -150 Intake, Oral 480 400 Output, Urine 550 Patient 160 lb Weight Weight Bed scale Measurement Method Oxygen saturation 3 L 94-98% exam of his chest shows diminished breath sounds there are no wheezes cardiac exam shows regular S1 and S2 without murmurs Impression/Plan Impression/Plan Impression/Plan: 81-year-old with lung cancer COPD cardiomyopathy admitted with increased shortness of breath and influenza possibly complicated by healthcare associated pneumonia. Shortness breath appears improved. Oxygenation is improved. Metabolic alkalosis persists. Recommendations: Slow steroid taper. Complete course of antibiotics. Avoid over diuresis. Taper FiO2 his saturations allow. Vascular surgery evaluation recommended no intervention. Note bicarbonate has increased to 41 with degree of prerenal azotemia. Give Diamox 250 mg IV 1 dose and maintain potassium at least 4 in view of persistent metabolic contraction alkalosis may want to decrease Lasix
--- NOTE | 2017-09-13 12:38 | PN- Cardiology ---
Objective Vital Signs and I&Os Vital Signs Date Time Temp Pulse Resp B/P B/P Pulse O2 O2 Flow FiO2 Mean Ox Delivery Rate 09/13 08 132 120/56 09/13 0800 95 Nasal 2.0L Cannula 09/13 0700 97.8 68 18 120/56 94 Room Air 09/13 0000 94 Nasal 3.0L Cannula 09/12 2214 97.8 68 18 120/50 98 09/12 2101 90 118/60 09/12 1628 90 120/62 09/12 1600 Nasal 3.0L Cannula 09/12 1434 97.4 74 20 118/60 96 Nasal 3.0L Cannula Intake & Output 09/13 1600 09/13 0800 09/13 0000 09/12 1600 09/12 0800 09/12 0000 Intake Total 100 480 400 300 300 Output Total 350 550 525 350 Balance -250 480 -150 -225 -50 Intake, Oral 100 480 400 300 300 Output, Urine 350 550 525 350 Patient 160 lb 159 lb 163 lb Weight Weight Bed scale Bed scale Measurement Method Current Medications: Current Medications Sig/Dominique Start time Last Medication Dose Route Stop Time Status Admin Acetazolamide 250 MG ONCE ONE 09/13 1115 DC PO 09/13 1116 Acetazolamide 250 MG 1445 09/12 1445 DC 09/12 PO 09/12 1446 1624 Albuterol Sulfate 2 PUF Q4H PRN 09/07 0015 AC INH Apixaban 5 MG BID 09/07 2200 AC 09/13 PO 0821 Clopidogrel Bisulfate 75 MG DAILY 09/07 1000 AC 09/13 PO 0822 Digoxin 0.125 MG 1700 09/13 1700 AC PO Digoxin 0.125 MG 1700 09/07 1700 DC 09/12 IV 1628 Furosemide 40 MG 7:30 AM, & 4:30 PM 09/11 1630 AC 09/13 PO 0802 Metoprolol Tartrate 100 MG BID 09/07 1000 AC 09/13 PO 0822 Multivitamins 1 TAB DAILY 09/07 1000 AC 09/13 PO 0822 Pantoprazole Sodium 40 MG DAILY 09/07 1000 AC 09/13 IV 0822 Results Last 48 Hrs of Labs/Mics: Laboratory Tests 09/12/17 0650: Anion Gap 11, Estimated GFR > 60, BUN/Creatinine Ratio 31.3 H Assessment/Plan Assessment/Plan Assessment: 1. CAD 2. Lung cancer 3. Pneumonia 4. Influenza infection 5. Atrial flutter 6. Acute on chronic HFrEF 7. Occluded left superficial femoral artery Plan: * Lasix currently on hold * Continue digoxin and metoprolol for rate control * Continue other cardiac medications. * When the patient is discharged, the patient should see me in the office in about one week. I would consider leaving his Lasix on hold at the time of discharge. This can be reinstituted in several days when I see him in the office. * Diamox as per pulmonary. Continue telemetry? No
[2017-09-13 14:16] VITALS: BP 102/58
[2017-09-13 15:01] VITALS: BP 112/60
--- NOTE | 2017-09-13 15:45 | Event Note ---
Event Note Event Note: 14:11:52 patient was found to have a 10 seconds 27 beat run of ventricular tachycardia. BP 102/58. Patient asymptomatic laying in bed resting. at bedside. CBC, BEP,TROP/ECG ordered stat. Environmental Officer and attending made aware. ECG shows RBBB and LBBB. Labs wnl. Plan: * Continue to monitor on telemetry * Vitals q shift
[2017-09-13 16:22] LABS: ABSOLUTE BASOPHIL COUNT 0 /CUMM (0.0-0.2); ABSOLUTE EOSINOPHIL COUNT 0.2 /CUMM (0.0-0.7); ABSOLUTE GRANULOCYTE CT 6.2 /CUMM (1.4-6.5); ABSOLUTE LYMPH COUNT 1.2 /CUMM (1.2-3.4); ABSOLUTE MONOCYTE COUNT 0.9 /CUMM (0.10-0.60); BASOPHIL % 0 % (0.0-2.0); EOSINOPHIL % 1.9 % (0-5); GRANULOCYTE % 73.6 % (42.2-75.2); HEMATOCRIT 48.1 % (42-52); MEAN CORPUSCULAR HGB 29.9 PG (27.0-31.0); MEAN CORPUSCULAR HGB CONC 32.7 G/DL (33.0-37.0); MEAN CORPUSCULAR VOLUME 91.3 FL (80.0-94.0); MEAN PLATELET VOLUME 8.6 FL (7.4-10.4); PLATELET COUNT 192 /CUMM (130-400); RBC DISTRIBUTION WIDTH 15.8 % (11.5-14.5); RED BLOOD CELL CT 5.27 /CUMM (4.70-6.10); WHITE BLOOD CELL COUNT 8.4 /CUMM (4.8-10.8)
[2017-09-13 21:00] VITALS: BP 104/70
[2017-09-14 06:45] VITALS: BP 104/54
--- NOTE | 2017-09-14 07:31 | PN- Housestaff ---
See Addendum Subjective Follow-up For: chronic hypoxic respiratory failure Multifocal pneumonia - resolved Influenza - resolved Aflutter/afib Nonsustained Vtach Tele-Events Since Last Visit: Flutter, PVCs/multifocal PVCs, 4 beat run HR 67-73 Subjective: Patient reports hemoptysis that spontaneously resolved. at bedside reports he has a history of hemoptysis. He denies weakness, lightheadedness, SOB, CP, palpitations, nausea or vomiting. Review of Systems Constitutional: Reports: see HPI. Objective Last 24 Hrs of Vital Signs/I&O Vital Signs Date Time Temp Pulse Resp B/P B/P Pulse O2 O2 Flow FiO2 Mean Ox Delivery Rate 09/14 1422 97.2 50 20 102/70 97 Nasal Cannula 09/14 1148 97 Nasal 2.0L Cannula 09/14 0945 81 120/58 09/14 0800 92 Nasal 2.0L Cannula 09/14 0645 97.4 69 16 104/54 92 Nasal 4.0L Cannula 09/14 0000 Nasal 2.0L Cannula 09/13 2106 130 104/70 09/13 2100 98.0 136 20 104/70 97 Nasal 2.0L Cannula 09/13 1600 Nasal 2.0L Cannula 09/13 1600 72 110/60 Intake & Output 09/14 1600 09/14 0800 09/14 0000 Intake Total 560 325 580 Output Total Balance 560 325 580 Intake, Oral 560 325 580 Patient 161 lb Weight Weight Bed scale Measurement Method Physical Exam General Appearance: Alert, Oriented X3, Cooperative, No Acute Distress Cardiovascular: Normal S1, Normal S2, irregular Lungs: Clear to Auscultation, Normal Air Movement Abdomen: Normal Bowel Sounds, Soft, No Tenderness Extremities: No Edema Current Medications: Current Medications Sig/Dominique Start time Last Medication Dose Route Stop Time Status Admin Albuterol Sulfate 2 PUF Q4H PRN 09/07 0015 AC INH Apixaban 5 MG BID 09/07 2200 AC 09/14 PO 0944 Clopidogrel Bisulfate 75 MG DAILY 09/07 1000 AC 09/14 PO 1142 Digoxin 0.125 MG 1700 09/13 1700 DC 09/13 PO 1600 Furosemide 40 MG 7:30 AM, & 4:30 PM 09/11 1630 DC 09/13 PO 1557 Metoprolol Tartrate 100 MG BID 09/07 1000 AC 09/14 PO 0945 Multivitamins 1 TAB DAILY 09/07 1000 AC 09/14 PO 1142 Pantoprazole Sodium 40 MG DAILY 09/07 1000 AC 09/14 IV 0945 Patient Medication 1 ED ONE ONE 09/14 1415 [facility] ED 09/14 1416 Last 24 Hrs of Lab/Yong Results Last 24 Hrs of Labs/Mics: Laboratory Tests 09/13/17 1550: Troponin I 0.03 09/13/17 1550: Anion Gap 13, Estimated GFR > 60, BUN/Creatinine Ratio 27.3 H, CBC w Diff NO MAN DIFF REQ, RBC 5.27, MCV 91.3, MCH 29.9, MCHC 32.7 L, RDW 15.8 H, MPV 8.6, Gran % 73.6, Lymphocytes % 14.3 L, Monocytes % 10.2 H, Eosinophils % 1.9, Basophils % 0, Absolute Granulocytes 6.2, Absolute Lymphocytes 1.2, Absolute Monocytes 0.9 H, Absolute Eosinophils 0.2, Absolute Basophils 0 Assessment/Plan Assessment: Mr Jenkins is an 81 year old male with a past medical history significant for advanced lung cancer, abdominal aortic aneurysm, emphysema and COPD on 2 L home O2 who was brought to the ED for worsening respiratory distress. Active issues: 1. Acute on Chronic hypoxic respiratory failure 2. Multifocal pneumonia - resolved 3. Influenza Type B - resolved 4. ?CHF Exacerbation 5. Afib/ flutter with rapid ventricular response 6. History of lung cancer 7. Leukocytosis - resolved 8. Chronic occlusion of superficial femoral artery 9. Lactic acidosis - resolved 10. History of PE on Eliquis 11. Nonsustained Vtach Plan: * Completed Moxifloxacin * Completed Tamiflu * TRC/nebs as needed * Hold lasix due to contraction alkalosis until further evaluation by Cardio as an outpatient * Continue home dose digoxin and metoprolol * Continue Eliquis for PE * He has a chronic occlusion of left SFA. He has been evaluated by vascular surgery and no acute treatment is warranted. He can follow up with vascular surgery as an outpatient. * Vascular surgery recommendations appreciated * Pulmonology recommendations appreciated * Check dig level for ? toxicity. Hold Digoxin. If subtherapeutic resume dig. Diet: Heart Healthy DVT Prophylaxis: Eliquis Code: Full Possible dc tomorrow Problem List: 1. Pneumonia 2. Influenza Pain Ratin Pain Location: NA Pain Goal: Remain pain free Pain Plan: NA Tomorrow's Labs & Rationales: None
[2017-09-14 14:22] VITALS: BP 102/70
--- NOTE | 2017-09-14 16:21 | PN- Cardiology ---
Subjective Subjective: the patient continues to feel weak, his respiratory status is stable, he has not been eating well the last 24 hours. Objective Vital Signs and I&Os Vital Signs Date Time Temp Pulse Resp B/P B/P Pulse O2 O2 Flow FiO2 Mean Ox Delivery Rate 09/14 1422 97.2 50 20 102/70 97 Nasal Cannula 09/14 1148 97 Nasal 2.0L Cannula 09/14 0945 81 120/58 09/14 0800 92 Nasal 2.0L Cannula 09/14 0645 97.4 69 16 104/54 92 Nasal 4.0L Cannula 09/14 0000 Nasal 2.0L Cannula 09/13 2106 130 104/70 09/13 2100 98.0 136 20 104/70 97 Nasal 2.0L Cannula Intake & Output 09/14 1600 09/14 0800 09/14 0000 09/13 1600 09/13 0800 09/13 0000 Intake Total 560 325 580 450 100 480 Output Total 250 350 Balance 560 325 580 200 -250 480 Intake, Oral 560 325 580 450 100 480 Output, Urine 250 350 Patient 161 lb 160 lb Weight Weight Bed scale Bed scale Measurement Method Physical Exam: Gen: The patient is in no acute distress HEENT: Normal nose, ears, and oropharynx. Pupils equal bilaterally. Conjunctiva normal. Neck: Supple with no JVD, no masses, and no thyromegaly Lungs: Bilateral rhonchi with normal respiratory effort Heart: Irregular S1, S2, 1 out of 6 systolic murmur. Trace peripheral edema, 2+ pulses in the lower extremities bilaterally Abdomen: Soft, nontender, no masses. No hepatomegaly. No splenomegaly Extremities: No clubbing or cyanosis. Normal muscle strength in the upper and lower extremities Skin: Normal skin turgor with no skin ulcers or lesions noted. Neuro: Cranial nerves intact. Sensation intact Current Medications: Current Medications Sig/Dominique Start time Last Medication Dose Route Stop Time Status Admin Albuterol Sulfate 2 PUF Q4H PRN 09/07 0015 AC INH Apixaban 5 MG BID 09/07 2200 AC 09/14 PO 0944 Clopidogrel Bisulfate 75 MG DAILY 09/07 1000 AC 09/14 PO 1142 Digoxin 0.125 MG 1700 09/13 1700 DC 09/13 PO 1600 Furosemide 40 MG 7:30 AM, & 4:30 PM 09/11 1630 DC 09/13 PO 1557 Metoprolol Tartrate 100 MG BID 09/07 1000 AC 09/14 PO 0945 Multivitamins 1 TAB DAILY 09/07 1000 AC 09/14 PO 1142 Pantoprazole Sodium 40 MG DAILY 09/07 1000 AC 09/14 IV 0945 Patient Medication 1 ED ONE ONE 09/14 1415 [facility] Teaching ED 09/14 1416 Results Last 48 Hrs of Labs/Mics: Laboratory Tests 09/14/17 1615: Digoxin Pending 09/13/17 1550: Troponin I 0.03 09/13/17 1550: Anion Gap 13, Estimated GFR > 60, BUN/Creatinine Ratio 27.3 H, CBC w Diff NO MAN DIFF REQ, RBC 5.27, MCV 91.3, MCH 29.9, MCHC 32.7 L, RDW 15.8 H, MPV 8.6, Gran % 73.6, Lymphocytes % 14.3 L, Monocytes % 10.2 H, Eosinophils % 1.9, Basophils % 0, Absolute Granulocytes 6.2, Absolute Lymphocytes 1.2, Absolute Monocytes 0.9 H, Absolute Eosinophils 0.2, Absolute Basophils 0 Assessment/Plan Assessment/Plan Assessment: 1. CAD 2. Lung cancer 3. Pneumonia 4. Influenza infection 5. Atrial flutter 6. Acute on chronic HFrEF 7. peripheral arterial disease with chronically Occluded left superficial femoral artery Plan: * Lasix currently on hold * Continue digoxin and metoprolol for rate control * Continue other cardiac medications. * When the patient is discharged, the patient should see me in the office in about one week. I would consider leaving his Lasix on hold at the time of discharge. This can be reinstituted in several days when I see him in the office. * electro-lytes improved following 1 dose of Diamox. Digoxin level pending. Continue telemetry? Yes
[2017-09-14 22:00] VITALS: BP 112/58
[2017-09-15 06:56] VITALS: BP 120/56
--- NOTE | 2017-09-15 07:30 | PN- Housestaff ---
See Addendum Subjective Follow-up For: chronic hypoxic respiratory failure Multifocal pneumonia - resolved Influenza - resolved Aflutter/afib Nonsustained Vtach - resolved Subjective: Patient anticipates to go home today. He has no complaints No acute events overnight. Review of Systems Constitutional: Reports: see HPI. Objective Last 24 Hrs of Vital Signs/I&O Vital Signs Date Time Temp Pulse Resp B/P B/P Pulse O2 O2 Flow FiO2 Mean Ox Delivery Rate 09/15 0913 62 120/56 09/15 0800 93 Nasal 2.0L Cannula 09/15 0656 97.4 61 20 120/56 93 Nasal 2.0L Cannula 09/14 2200 97.7 69 18 112/58 95 Nasal 2.0L Cannula 09/14 2123 95 Nasal 2.0L Cannula 09/14 2029 69 112/58 09/14 1600 97 Nasal 2.0L Cannula 09/14 1422 97.2 50 20 102/70 97 Nasal Cannula 09/14 1148 97 Nasal 2.0L Cannula Intake & Output 09/15 1600 09/15 0800 09/15 0000 Intake Total Output Total Balance Patient 161 lb Weight Weight Bed scale Measurement Method Physical Exam General Appearance: Alert, Oriented X3, Cooperative, No Acute Distress Cardiovascular: Regular Rate, Normal S1, Normal S2 Lungs: Clear to Auscultation, Normal Air Movement Abdomen: Normal Bowel Sounds, Soft, No Tenderness Extremities: No Edema Current Medications: Current Medications Sig/Dominique Start time Last Medication Dose Route Stop Time Status Admin Albuterol Sulfate 2 PUF Q4H PRN 09/07 0015 AC INH Apixaban 5 MG BID 09/07 2200 AC 09/15 PO 0911 Clopidogrel Bisulfate 75 MG DAILY 09/07 1000 AC 09/15 PO 1015 Digoxin 0.125 MG 1700 09/15 1700 AC PO Digoxin 0.125 MG 1700 09/13 1700 DC 09/13 PO 1600 Metoprolol Tartrate 100 MG BID 09/07 1000 AC 09/15 PO 0913 Multivitamins 1 TAB DAILY 09/07 1000 AC 09/15 PO 1015 Omeprazole 20 MG DAILY AC 09/15 0805 AC 09/15 PO 1015 Pantoprazole Sodium 40 MG DAILY 09/07 1000 DC 09/14 IV 0945 Patient Medication 1 ED ONE ONE 09/14 1415 [facility] Teaching ED 09/14 1416 Last 24 Hrs of Lab/Yong Results Last 24 Hrs of Labs/Mics: Laboratory Tests 09/14/17 1615: Digoxin 1.0 Assessment/Plan Assessment: Mr Jenkins is an 81 year old male with a past medical history significant for advanced lung cancer, abdominal aortic aneurysm, emphysema and COPD on 2 L home O2 who was brought to the ED for worsening respiratory distress. Active issues: 1. Acute on Chronic hypoxic respiratory failure 2. Multifocal pneumonia - resolved 3. Influenza Type B - resolved 4. ?CHF Exacerbation 5. Afib/ flutter with rapid ventricular response 6. History of lung cancer 7. Leukocytosis - resolved 8. Chronic occlusion of superficial femoral artery 9. Lactic acidosis - resolved 10. History of PE on Eliquis 11. Nonsustained Vtach Plan: * Completed Moxifloxacin * Completed Tamiflu * TRC/nebs as needed * Hold lasix due to contraction alkalosis until further evaluation by Cardio as an outpatient * Continue home dose digoxin and metoprolol * Continue Eliquis for PE * He has a chronic occlusion of left SFA. He has been evaluated by vascular surgery and no acute treatment is warranted. He can follow up with vascular surgery as an outpatient. * Vascular surgery recommendations appreciated * Pulmonology recommendations appreciated * Resume Digoxin * IV Lasix on discharge if nursing facilty able to administer. If not continue PO with follow up at CHF clinic Diet: Heart Healthy DVT Prophylaxis: Eliquis Code: Full Possible dc tomorrow Problem List: 1. Pneumonia 2. Influenza Pain Ratin Pain Location: NA Pain Goal: Remain pain free Pain Plan: NA Tomorrow's Labs & Rationales: None
[2017-09-15 09:13] VITALS: BP 120/56
--- NOTE | 2017-09-15 14:26 | PN- Cardiology ---
Subjective Subjective: Clinically doing much better today. Objective Vital Signs and I&Os Vital Signs Date Time Temp Pulse Resp B/P B/P Pulse O2 O2 Flow FiO2 Mean Ox Delivery Rate 09/15 0913 62 120/56 09/15 0800 93 Nasal 2.0L Cannula 09/15 0656 97.4 61 20 120/56 93 Nasal 2.0L Cannula 09/14 2200 97.7 69 18 112/58 95 Nasal 2.0L Cannula 09/143 95 Nasal 2.0L Cannula 09/14 2028 69 112/58 09/14 1600 97 Nasal 2.0L Cannula Intake & Output 09/15 1600 09/15 0800 09/15 0000 09/14 1600 09/14 0800 09/14 0000 Intake Total 560 325 580 Output Total Balance 560 325 580 Intake, Oral 560 325 580 Patient 161 lb 161 lb Weight Weight Bed scale Bed scale Measurement Method Current Medications: Current Medications Sig/Dominique Start time Last Medication Dose Route Stop Time Status Admin Albuterol Sulfate 2 PUF Q4H PRN 09/07 0015 DCD INH Apixaban 5 MG BID 09/07 2200 DCD 09/15 PO 0911 Clopidogrel Bisulfate 75 MG DAILY 09/07 1000 DCD 09/15 PO 1015 Digoxin 0.125 MG 1700 09/15 1700 DCD PO Metoprolol Tartrate 100 MG BID 09/07 1000 DCD 09/15 PO 0913 Multivitamins 1 TAB DAILY 09/07 1000 DCD 09/15 PO 1015 Omeprazole 20 MG DAILY AC 09/15 0805 DCD 09/15 PO 1015 Pantoprazole Sodium 40 MG DAILY 09/07 1000 DC 09/14 IV 0945 Results Last 48 Hrs of Labs/Mics: Laboratory Tests 09/14/17 1615: Digoxin 1.0 09/13/17 1550: Troponin I 0.03 09/13/17 1550: Anion Gap 13, Estimated GFR > 60, BUN/Creatinine Ratio 27.3 H, CBC w Diff NO MAN DIFF REQ, RBC 5.27, MCV 91.3, MCH 29.9, MCHC 32.7 L, RDW 15.8 H, MPV 8.6, Gran % 73.6, Lymphocytes % 14.3 L, Monocytes % 10.2 H, Eosinophils % 1.9, Basophils % 0, Absolute Granulocytes 6.2, Absolute Lymphocytes 1.2, Absolute Monocytes 0.9 H, Absolute Eosinophils 0.2, Absolute Basophils 0 Assessment/Plan Assessment/Plan Assessment: 1. CAD 2. Lung cancer 3. Pneumonia 4. Influenza infection 5. Atrial flutter 6. Acute on chronic HFrEF 7. peripheral arterial disease with chronically Occluded left superficial femoral artery Plan: * Lasix currently on hold * Continue digoxin and metoprolol for rate control * Continue other cardiac medications. * When the patient is discharged, the patient should see me in the office in about one week. I would consider leaving his Lasix on hold at the time of discharge. This can be reinstituted in several days when I see him in the office. The patient should also continue to be followed in the CHF clinic * electro-lytes improved following 1 dose of Diamox. Digoxin level normal.
--- NOTE | 2017-09-15 14:35 | Discharge Summary ---
Visit Information Visit Dates Admission Date: 09/06/17 Discharge Date: 09/15/17 Hospital Course Course Attending Physician: Josesito Malcolm MD Primary Care Physician: Stalin Jimenez MD Hospital Course: Mr Jenkins is an 81 year old male with a past medical history significant for advanced lung cancer, abdominal aortic aneurysm, emphysema and COPD on 2 L home O2 who was brought to the ED for worsening respiratory distress. Problem list: 1. Acute on Chronic hypoxic respiratory failure 2. Multifocal pneumonia 3. Influenza Type B 4. Acute on chronic HFrEF 5. Leukocytosis 6. Lactic acidosis 7.Nonsustained Vtach Acute on Chronic hypoxic respiratory failure secondary to multifocal pneumonia and influenza On admission his labs showed lactic acidosis and an elevated white count. CXR showed bilateral consolidation. Viral culture was sent in the ED. He was placed on Moxifloxacin and Tamiflu. Pulmonology was consulted. He was given TRC/nebs as needed. CTA showed a stable chronic left lower lobe pulmonary embolism but no new pulmonary emboli. He was continued on his home medication Apixaban Acute on chronic HFrEF Patient has a history of CHF and A. fib/atrial flutter. He was placed on IV Lasix but subsequently it was held to due to contraction alkalosis. He was continued on his home dose digoxin and metoprolol. Cardiology was consulted. He was given Diamox as per pulmonary. He was instructed to follow up with cardiology upon discharge prior to resuming Lasix with follow up at CHF clinic. Nonsustained Vtach Patient had 2 episodes of nonsustained ventricular tachycardia. Cardiology was made aware. At the time patient was asymptomatic and resting. History of Occluded left superficial femoral artery Vascular surgery was consulted. No intervention needed at this time. He was advised to follow-up with vascular upon discharge. History of lung cancer and COPD He was given TRC and nebulizers as needed. Pulmonology was consulted. Allergies: Coded Allergies: animal dander (Severe, EYES REDDENED, HIVES 07/28/17) ceftriaxone (Severe, SHORTNESS OF BREATH 08/27/17) Penicillins (Intermediate, RASH 07/21/16) Pertinent Lab Results: 09/06/17-2040 CT ABD & PELVIS W IV CONTRAST; CTA CHEST-PULMONARY EMBOLISM IMPRESSION: 1. Stable appearance of a left lower lobe segmental pulmonary embolism. No new pulmonary emboli. 2. Chronic changes in the lungs with increased opacities in the right middle lobe and left upper lobe, suspicious for multifocal pneumonia. Severe emphysema. 3. No acute inflammatory changes in the abdomen or pelvis. 4. Severe atherosclerotic disease of the abdominal arterial vasculature. Abdominal aortic ectasia. Lack of opacification of the left common iliac artery suspicious for occlusion or high-grade stenosis. This is not well evaluated on this study. VTE: Positive, unchanged from recent prior. 09/06/17 XRY-PORTABLE CHEST XRAY FINDINGS: There is persistent bilateral consolidation and left pleural effusion unchanged. Surgical clips are present overlying the consolidation in the right upper lobe Cardiac silhouette mediastinum pulmonary vascularity are normal. IMPRESSION: Persistent bilateral consolidation in left pleural effusion essentially unchanged 09/07/17 US-DUPLEX SCAN LOWER EXT ARTERY IMPRESSION: Occlusion of the superficial femoral artery. Flow throughout the left lower extremity is monophasic. The profunda artery is patent and likely provides collateralized flow to the popliteal artery which is perfused. The calf arteries were unable to be assessed due to the patient's inability to comply with the exam with constant movement. Greater sensitivity and specificity can be obtained with pre-and post exercise PVRs with BENTON calculations. Also consider dedicated CTA for further anatomical detail. Disposition Summary Disposition Principal Diagnosis: Acute on Chronic hypoxic respiratory failure secondary to Multifocal pneumonia Additional Diagnosis: Influenza Nonsustained Vtac Acute on chronic HFrEF Leukocytosis Lactic acidosis Nonsustained Vtach Discharge Disposition: home health services Discharge Instructions General Discharge Information Code Status: Full Code Patient's Diet: Heart Healthy Patient's Activity: As tolerated Follow-Up Instructions/Appts: Follow up with your PCP upon discharge please follow up with your orchardist with in a week of discharge. we held lasix in hospital, please ask your orchardist for further need. If patient has > 3lbs weight gain or low oxygen levels inform the Cardiologsit Medications at Discharge Discharge Medications: Stop taking the following medications: Furosemide (Furosemide) 20 MG TABLET ORAL DAILY Qty = 30 Apixaban (Eliquis) 5 MG TABLET ORAL SEE INSTRUCTIONS Qty = 60 Continue taking these medications: Clopidogrel Bisulfate (Clopidogrel) 75 MG TABLET 1 Tablet ORAL DAILY Comments: Last Taken: 09/15/17 Time: 10:15 AM Multivit-Min/FA/Lycopen/Lutein (Centrum Silver Tablet) 0.4 MG-300 MCG-250 MCG TABLET 1 Tablet ORAL DAILY Comments: Last Taken: 09/15/17 Time: 10:15 AM Pantoprazole Sodium (Pantoprazole Sodium) 40 MG TABLET.DR 1 Tablet ORAL DAILY Qty = 90 Comments: Last Taken: 09/15/17 Time: 10:15 AM Cholecalciferol (Vitamin D3) (Vitamin D) 1,000 UNIT TABLET 1 Tablet ORAL DAILY Comments: Last Taken: NOT GIVEN IN HOSPITAL Time: Acetaminophen (Masophen) 325 MG TABLET 2 Tablet ORAL Q4H as needed for PAIN/TEMP Comments: Last Taken: NOT GIVEN IN HOSPITAL Time: Simethicone (Simethicone) 80 MG TAB.CHEW 1 Tablet ORAL Q6H as needed for GAS Comments: Last Taken: NOT GIVEN IN HOSPITAL Time: Albuterol Sulfate (Proair Hfa) 90 MCG HFA.AER.AD 2 Puff Inhale through mouth Q4H as needed for WHEEZE Comments: Last Taken: NOT GIVEN IN HOSPITAL Time: Digoxin (Lanoxin) 125 MCG TABLET 0.125 Milligram ORAL 5 PM Qty = 30 Instructions: . Comments: Last Taken: 09/13/17 Time: 4:00 PM Metoprolol Tartrate (Metoprolol Tartrate) 50 MG TABLET 100 Milligram ORAL TWICE DAILY Qty = 60 Instructions: . Comments: Last Taken: 09/15/17 Time: 9:15 AM Lisinopril (Lisinopril) 5 MG TABLET 5 Milligram ORAL DAILY Qty = 30 Instructions: . Comments: Last Taken: NOT GIVEN IN HOSPITAL Time: Start taking the following new medications: Apixaban (Eliquis) 5 MG TABLET 5 Milligram ORAL TWICE DAILY Qty = 60 No Refills Comments: Last Taken: 09/15/17 Time: 10:15 AM Copies To: Norberto ULRICH,Hank Anglin; Stalin Jimenez MD, MD, W Neil Attending MD Review Statement Documenting Attending: Josesito Malcolm MD Other Findings: The patient was seen and discussed with house staff and cardiology (Dr. Solano) . Agree with plan of care upon discharge to home with services.
== END 2017-09-15 11:20 | disposition home health service (06) | DRG 291 ==
LOC: ERH 20:28 → 1NO 23:07 → ERHI 23:07 → ENRESERV 09-07 13:03 → ENTRNSPT 09-07 14:21 → EDTRNSPTSTS 09-07 14:28 → EDTRNSPT 09-07 14:28 → 1NO 09-07 14:34 → CMPTRNSPT 09-07 14:43 → 1NO 09-08 08:15 → ENPENDDIS 09-15 10:01 → ENTRNSPT 09-15 11:03 → EDTRNSPT 09-15 11:07 → EDTRNSPTSTS 09-15 11:07 → 1NO 09-15 11:20 → CMPTRNSPT 09-15 11:56
PROVIDERS: Internal Medicine; Physician Assistant; Radiology Vascular & Interventional Radiology; Student in an Organized Health Care Education/Training Program
PROC: 5A09357 Assistance with Respiratory Ventilation, Less than 24 Consecutive Hours, Continuous Positive Airway Pressure (ICD-10-PCS; principal; 2017-09-06)
DX: I50.23 Acute on chronic systolic (congestive) heart failure (principal); J96.21 Acute and chronic respiratory failure with hypoxia; J10.00 Influenza due to other identified influenza virus with unspecified type of pneumonia; I47.2 Ventricular tachycardia; E87.2 Acidosis; E87.3 Alkalosis; I48.92 Unspecified atrial flutter; I42.9 Cardiomyopathy, unspecified; I48.91 Unspecified atrial fibrillation; E87.5 Hyperkalemia; J44.0 Chronic obstructive pulmonary disease with (acute) lower respiratory infection; I45.2 Bifascicular block; Z99.81 Dependence on supplemental oxygen; I70.202 Unspecified atherosclerosis of native arteries of extremities, left leg; I25.10 Atherosclerotic heart disease of native coronary artery without angina pectoris; Z87.891 Personal history of nicotine dependence; Z85.118 Personal history of other malignant neoplasm of bronchus and lung; Z86.711 Personal history of pulmonary embolism
CPT/HCPCS: 1NP; ERO; 36415; 36592; 71045; 74177; 81001; 82436; 87040; 87070; 87086; 87449; 87450; 87804; 87804-59; 93005; 93010; 94799; 96374; 96375; 97110-GO; 97116-GO; 97161-GP; 97530-GO; 99291; J0744; J1160; J1940; J2280; J2405; J2930; J3370; J3490; J7040; J7060; J7512

== ENCOUNTER 2017-12-24 12:40 | Inpatient (IN) | payer OTHER ==
[~2017-12-24] VITALS: Ht 182.9 cm; Wt 79.6 kg
[2017-12-24 13:03] LABS: ABSOLUTE BASOPHIL COUNT 0 /CUMM (0.0-0.2); ABSOLUTE EOSINOPHIL COUNT 0.3 /CUMM (0.0-0.7); ABSOLUTE GRANULOCYTE CT 5.4 /CUMM (1.4-6.5); ABSOLUTE LYMPH COUNT 0.9 /CUMM (1.2-3.4); ABSOLUTE MONOCYTE COUNT 1.4 /CUMM (0.10-0.60); BASOPHIL % 0.2 % (0.0-2.0); EOSINOPHIL % 3.4 % (0-5); GRANULOCYTE % 67.3 % (42.2-75.2); HEMATOCRIT 40.6 % (42-52); MEAN CORPUSCULAR HGB CONC 33.3 G/DL (33.0-37.0); MEAN CORPUSCULAR VOLUME 90.2 FL (80.0-94.0); MEAN PLATELET VOLUME 8.1 FL (7.4-10.4); PLATELET COUNT 283 /CUMM (130-400); RBC DISTRIBUTION WIDTH 15.7 % (11.5-14.5)
[2017-12-24 13:33] LABS: PT 18.2 SEC (9.4-12.5); PTT 38 SEC (25-37)
--- NOTE | 2017-12-24 13:38 | ED DYSPNEA/ASTHMA COMPLAINT ---
History of Present Illness General Chief Complaint: General Adult Stated Complaint: LOW 02 SAT PER SON Source: patient, family, old records Exam Limitations: no limitations Vital Signs & Intake/Output Vital Signs & Intake/Output Vital Signs Date Time Temp Pulse Resp B/P B/P Pulse O2 O2 Flow FiO2 Mean Ox Delivery Rate 12/24 1712 98.2 97 18 112/52 96 Nasal 2.0L Cannula 12/24 1602 94 108/62 12/24 1500 88/58 12/24 1453 127 88/58 12/24 1403 98.4 122 22 92/60 95 Nasal 2.0L Cannula 12/24 1329 95 Nasal 2.0L Cannula 12/24 1245 96.1 125 20 99/56 95 Room Air Allergies Coded Allergies: animal dander (Severe, EYES REDDENED, HIVES 07/28/17) ceftriaxone (Severe, SHORTNESS OF BREATH 08/27/17) Penicillins (Intermediate, RASH 07/21/16) Reconcile Medications Acetaminophen (Masophen) 325 MG TABLET 2 TAB PO Q4H PRN PAIN/TEMP (Reported) Albuterol Sulfate (Proair Hfa) 90 MCG HFA.AER.AD 2 PUF INH Q4H PRN WHEEZE ( Reported) Apixaban (Eliquis) 5 MG TABLET 5 MG PO BID AFLUTTER Cholecalciferol (Vitamin D3) (Vitamin D) 1,000 UNIT TABLET 1 TAB PO DAILY SUPPLEMENT (Reported) Clopidogrel Bisulfate (Clopidogrel) 75 MG TABLET 1 TAB PO DAILY BLOOD THINNER (Reported) Digoxin (Lanoxin) 125 MCG TABLET 0.125 MG PO 1700 HEART HEALTH . Lisinopril 5 MG TABLET 5 MG PO DAILY HEART HEALTH . Metoprolol Tartrate 50 MG TABLET 100 MG PO BID Heart rate . Multivit-Min/FA/Lycopen/Lutein (Centrum Silver Tablet) 0.4 MG-300 MCG-250 MCG TABLET 1 TAB PO DAILY VITAMIN SUPPORT (Reported) Pantoprazole Sodium 40 MG TABLET.DR 1 TAB PO DAILY GI (Reported) Simethicone 80 MG TAB.CHEW 1 TAB PO Q6H PRN GAS (Reported) Triage Note: SON REQUESTING HE IS EVALUATED DUE TO LOW O2 LEVEL. PT DENIES SOB OR CHEST PAIN, O2 SAT 95% AT TRIAGE. ALSO REPORTS IRREGULAR HR. KNOWN HX OF A-FIB. Triage Nurses Notes Reviewed? yes Onset: Abrupt Duration: day(s): (1-2), constant, continues in ED Timing: single episode today Severity: mild, moderate Activities at Onset: none Prior Episodes/Possible Cause: occasional episodes Associated Symptoms: cough HPI: 82-year-old male past medical history of COPD, CHF, lung cancer, coronary disease, atrial fibrillation, recurrent pneumonia presents for evaluation of cough, shortness of breath, palpitations and rapid heartbeat. Patient reports that he felt like his heart rate was elevated for the past 1-2 days. He states that he took his heart rate at home and is in the 140s. He also reports oxygen saturations in the 80s. He does have a history of COPD but does not require oxygen. He denies fever chest pain dizziness lightheadedness hemoptysis. The cough is productive of yellow sputum. He has had pneumonia multiple times. He denies nausea vomiting diarrhea abdominal pain lower extremity edema or any other associated symptoms. He has been taking his medications as directed (Giovanni Gaytan) Past History Travel History Traveled to [place] past 21 day No Medical History Any Pertinent Medical History? 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 No (Giovanni Gaytan) Review of Systems Review of Systems Constitutional: Reports: no symptoms. EENTM: Reports: no symptoms. Respiratory: Reports: cough, short of breath, sputum production. Cardiovascular: Reports: palpitations. GI: Reports: no symptoms. Genitourinary: Reports: no symptoms. Musculoskeletal: Reports: no symptoms. Skin: Reports: no symptoms. Neurological/Psychological: Reports: no symptoms. Hematologic/Endocrine: Reports: no symptoms. Immunologic/Allergic: Reports: no symptoms. All Other Systems: Reviewed and Negative (Giovanni Gaytan) Physical Exam Physical Exam General Appearance: well developed/nourished, no apparent distress, alert, awake Head: atraumatic, normal appearance Eyes: Bilateral: normal appearance, PERRL, EOMI. Ears, Nose, Throat: normal pharynx, normal ENT inspection, hearing grossly normal Neck: normal inspection, supple, full range of motion, NO JVD Respiratory: chest non-tender, no respiratory distress, quiet respiration, decreased breath sounds Cardiovascular: normal peripheral pulses, tachycardia, irregularly irregular Peripheral Pulses: 2+ radial (R), 2+ radial (L) Gastrointestinal: soft, non-tender Extremities: normal inspection, normal range of motion, no edema Neurologic/Psych: no motor/sensory deficits, awake, alert, oriented x 3 Skin: intact, normal color, warm/dry Lymphatic: no anterior cervical mitchell Core Measures ACS in differential dx? No CVA/TIA Diagnosis No Sepsis Present: No Sepsis Focused Exam Completed? No (Giovanni Gaytan) Progress Differential Diagnosis: AMI, bronchitis, CHF, COPD, pulmonary embolism, pneumonia, pneumothorax, unstable angina Plan of Care: Orders Procedure Date/time Status Heart Healthy Diet 12/25 B Active Heart Healthy Diet 12/24 D Complete Pathway - chart 12/24 1823 Active Patient Data 12/24 1823 Active TROPONIN LEVEL 12/24 1823 Active OXYGEN SETUP (GEN) 12/24 1815 Active Saline Lock 12/24 1815 Active Admit to inpatient 12/24 1815 Active Vital Signs 12/24 1815 Active Activity/Ambulation 12/24 1815 Active Code Status 12/24 1815 Active Add-on Test (ER Only) 12/24 1455 Active Intake & Output 12/24 1328 Active Add-on Test (ER Only) 12/24 1315 Active Add-on Test (ER Only) 12/24 1314 Active URINALYSIS 12/24 1314 Active TSH REFLEX 12/24 1254 Complete MAGNESIUM 12/24 1254 Complete LACTIC ACID 12/24 1254 Complete DIGOXIN 12/24 1254 Complete B-TYPE NATRIURETIC PEP (BNP) 12/24 1254 Complete TROPONIN LEVEL 12/24 1253 Complete COMPREHENSIVE METABOLIC PANEL 12/24 1253 Complete CBC WITHOUT DIFFERENTIAL 12/24 1253 Complete EKG 12/24 1247 Active PARTIAL THROMBOPLASTIN TIME 12/24 1204 Complete PROTHROMBIN TIME 12/24 1204 Complete D-DIMER 12/24 1204 Complete TRC EVALUATION (GEN) 12/24 UNK Active House Staff 12/24 UNK Active VTE Mechanical Prophylaxis 12/24 UNK Active Vital Signs 12/24 UNK Active Telemetry/[employer] 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 12/24 UNK Active Activity/Ambulation 12/24 UNK Active EKG 12/24 UNK Active Current Medications Sig/Dominique Start time Last Medication Dose Stop Time Status Admin Digoxin Immune ELENO 0.25 ANG ONCE ONE 12/24 1600 CAN (Digibind 40MG Inj) 12/24 1601 Laboratory Tests 12/24/17 1254: Anion Gap 13, Estimated GFR > 60, BUN/Creatinine Ratio 18.8, Glucose 115 H, Lactic Acid 2.0, Calcium 8.8, Magnesium 1.7, Total Bilirubin 0.4, AST 15 L, ALT 23, Alkaline Phosphatase 106, Troponin I 0.02, Mid-S-Wzxulaexwod Pept 1480 H, Total Protein 6.7, Albumin 3.6, Globulin 3.1, Albumin/Globulin Ratio 1.2, TSH & T3 &Free T4 Intrp 3.510, CBC w Diff NO MAN DIFF REQ, RBC 4.50 L, MCV 90.2, MCH 30.0, MCHC 33.3, RDW 15.7 H, MPV 8.1, Gran % 67.3, Lymphocytes % 11.6 L, Monocytes % 17.5 H, Eosinophils % 3.4, Basophils % 0.2, Absolute Granulocytes 5.4, Absolute Lymphocytes 0.9 L, Absolute Monocytes 1.4 H, Absolute Eosinophils 0.3, Absolute Basophils 0, Digoxin 0.5 L 12/24/17 1204: PT 18.2 H, INR 1.66 H, APTT 38 H, D-Dimer High Sensitivty 417 H Patient seen and evaluated. He is here with palpitations shortness of breath and cough. On initial evaluation he satting at 95% on room air and his heart rate in the 120s to 130s. Appears to be in A. fib or a flutter. He usually takes metoprolol. He is mildly hypotensive 90s over 60s on initial presentation. Patient was given a liter of fluid to increase his blood pressure he'll then be given IV metoprolol. Labs chest x-ray EKG ordered. Patient monitored on telemetry. Patient was able to get rate control and in improved blood pressure after receiving the metoprolol and fluids. He is now in the high 90s heart rate and 100s over 60s blood pressure. His digoxin level is low A dose of 250 g DIG was ordered for further rate control if needed. CT scan of the chest does not show any acute pneumonia. Patient does have a history of severe COPD. He does not have a white count but is reporting cough productive of yellow sputum. He may have a exacerbation versus an acute bronchitis. Patient will be admitted to the hospital for evaluation and treatment. CASE DISCUSSED WITH DR HAYES HE AGREES. Diagnostic Imaging: Viewed by Me: Radiology Read, CT Scan. Discussed w/RAD: Radiology Read, CT Scan. Radiology Impression: PATIENT: XIN LIM SR PRESENT AGE: 82 PATIENT ACCOUNT NO: [id number] : 33 LOCATION: [facility] ORDERING PHYSICIAN: Giovanni GARCIA SERVICE DATE: 12/24/17 EXAM TYPE: CAT - CT CHEST WO IV CONTRAST EXAMINATION: CT CHEST WITHOUT CONTRAST CLINICAL INFORMATION: Cough. Shortness of breath. Tachycardia. Evaluate for pneumonia. COMPARISON: Previous chest CT scans most recent a chest CTA August 2017 and chest x-ray most recent from earlier the same day. TECHNIQUE: Multidetector volumetric CT imaging of the chest was done. Axial MIP volume rendering provided. Sagittal and coronal reformatted images were obtained. DLP: 300 mGy-cm FINDINGS: LUNGS: There is evidence of severe emphysema. The abnormal density in the right upper lobe with some associated bronchiectasis, central surgical clips and adjacent pleural thickening does not appear appreciably changed. There is a similar appearing area of central consolidation, scarring and cicatrization bronchiectasis in the left upper lobe extending to the hilum that is unchanged. There is a 2.5 x 3 cm spiculated lesion in the superior segment of the right lower lobe. This appears decreased in size and increased in density compared to most recent exam August 2017 when this area measured approximately 3.5 x 4 cm. There is adjacent pleural thickening. There is linear scarring or subsegmental atelectasis in the right lower lobe. No evidence of an acute pneumonia is seen. MEDIASTINUM: There are small mediastinal lymph nodes that are stable. The heart is enlarged. There is coronary artery and aortic valve calcification. There is no pericardial effusion. The thoracic aorta is normal in caliber. PLEURA: There is interval decrease in the right pleural effusion with a very small remaining right pleural effusion. There is no left pleural effusion. AXILLA: No chest wall mass or enlarged lymph nodes are seen. There is a high attenuation seen in the left anterior chest wall questionable for surgical clips adjacent to the right anterior fourth rib. This is stable. UPPER ABDOMEN: There is evidence of diverticulosis. There is fatty infiltration of the pancreas. OSSEOUS STRUCTURES: There is increased sclerosis and cortical deformity of the right anterior third rib for changes from previous trauma. Similar to previous exams. No other focal bone lesion is seen. There are degenerative changes of the spine. IMPRESSION: Severe emphysema. Interval decrease in size and increase in density in the spiculated lesion in the superior segment of the right lower lobe. Bilateral upper lobe lesions do not appear appreciably changed, again questionable for post treatment change. No evidence of acute pneumonia. Resolved right pleural effusion compared to August 2017. Coronary artery and aortic valve calcification. Enlarged heart. DICTATED BY: Brendan ULRICH,Annalisa Jaramillo DATE/TIME DICTATED:12/24/171603 REFUELING RAMP SUPERVISOR:JOCE DATE/TIME TRANSCRIBED:1603 CONFIDENTIAL, DO NOT COPY WITHOUT APPROPRIATE AUTHORIZATION. CXR Impression: PATIENT: XIN LIM PRESENT AGE: 82 PATIENT ACCOUNT NO: [id number] : 33 LOCATION: [facility] ORDERING PHYSICIAN: Giovanni GARCIA SERVICE DATE: 12/24/17 EXAM TYPE: RAD - XRY-PORTABLE CHEST XRAY EXAMINATION: XR PORTABLE CHEST CLINICAL INFORMATION: Short of breath, tachycardia, hypoxia COMPARISON: Multiple priors, most recent from 09/06/2017. TECHNIQUE: Portable frontal view of the chest was obtained. FINDINGS: The right costophrenic angle is excluded from view. The cardiomediastinal silhouette is unchanged. 2 focal opacities project over the right lung, with overall improvement in right lung aeration compared to the prior radiograph. Surgical clips again seen in association with the superior lesion. Similar opacity in the left base compatible with scarring and atelectasis. Small effusion is also likely. No overt congestive changes. No acute osseous abnormality. Surgical clips project over the neck. IMPRESSION: Interval improvement of right lung aeration with residual focal opacities projecting over the mid and upper lung. This could reflect areas of scarring. Persistent volume loss and opacification involving the left lung base compatible with scarring and pleural effusion. However, superimposed acute process cannot be excluded. DICTATED BY: Abigail Santo MD DATE/TIME DICTATED:12/24/171424 REFUELING RAMP SUPERVISOR:JOCE DATE/ TIME TRANSCRIBED:12/24/171424 CONFIDENTIAL, DO NOT COPY WITHOUT APPROPRIATE AUTHORIZATION. <Electronically signed in Other Vendor System> SIGNED BY: Abigail Santo MD 12/24/17 1434 Initial ED EKG: A flutter with 2-1 AV block right bundle branch block Rhythm Strip: atrial fibrillation, atrial flutter (Giovanni Gaytan) Departure Departure Disposition: STILL A PATIENT Condition: Stable Clinical Impression Primary Impression: Rapid atrial fibrillation Secondary Impressions: COPD exacerbation Referrals: Barbara ULRICH,Stalin Montoya (PCP/Family) Departure Forms: Customer Survey General Discharge Information Admission Note Spoke With: Delvin ULRICH,Devora Documentation of Exam: Documentation of any treatments & extenuating circumstances including Concerns Regarding Discharge (functional status, medication knowledge or non-compliance, living conditions, etc.) that warrant an admission rather than observation: [ Cardiology consult, IV antiarrhythmicS, IV fluids, serial labs, EKGs, echocardiogram, DuoNeb's, medication adjustment telemetry] (Giovanni Gaytan) PA/ENVIRONMENTAL PROTECTION INSPECTOR Co-Sign Statement Statement: ED Attending supervision documentation- x I saw and evaluated the patient. I have also reviewed all the pertinent lab results and diagnostic results. I agree with the findings and the plan of care as documented in the PA's/ENVIRONMENTAL PROTECTION INSPECTOR's documentation. Rapid afib with hypotension improved after meds and IVF [] I have reviewed the ED Record and agree with the PA's/ENVIRONMENTAL PROTECTION INSPECTOR's documentation. [] Additions or exceptions (if any) to the PAs/ENVIRONMENTAL PROTECTION INSPECTOR's note and plan are summarized below: [] (Chintan ULRICH,David) Critical Care Note Critical Care Note Critical Care Time: 30-74 min (Giovanni Gaytan)
--- NOTE | 2017-12-24 14:37 | RADIOLOGY REPORT ---
EXAMINATION: XR PORTABLE CHEST CLINICAL INFORMATION: Short of breath, tachycardia, hypoxia COMPARISON: Multiple priors, most recent from 09/06/2017. TECHNIQUE: Portable frontal view of the chest was obtained. FINDINGS: The right costophrenic angle is excluded from view. The cardiomediastinal silhouette is unchanged. 2 focal opacities project over the right lung, with overall improvement in right lung aeration compared to the prior radiograph. Surgical clips again seen in association with the superior lesion. Similar opacity in the left base compatible with scarring and atelectasis. Small effusion is also likely. No overt congestive changes. No acute osseous abnormality. Surgical clips project over the neck. IMPRESSION: Interval improvement of right lung aeration with residual focal opacities projecting over the mid and upper lung. This could reflect areas of scarring. Persistent volume loss and opacification involving the left lung base compatible with scarring and pleural effusion. However, superimposed acute process cannot be excluded.
--- NOTE | 2017-12-24 15:10 | Admission Certification ---
Admission Certification Certification Statement - As attending physician, I certify that at the time of - admission, based on clinical presentation, severity of - symptoms, need for further diagnostic testing and - therapeutic interventions, and risk of adverse outcomes - without in-hospital treatment, in my clinical assessment, - this patient requires an acute hospital stay for a minimum - of two nights or longer. I have also considered psychsocial - factors such as support system, advanced age, financial - issues, cognitive issues, and failed out-patient treatments, - past re-admission history, safety of patient, and lack of - compliance as applicable. Specific rationale supporting this admission is: Rapid A. fib and hypotension
--- NOTE | 2017-12-24 15:19 | PN- Att Addend ---
Attending Addendum Attending Brief Note Patient seen and examined in the emergency room. Patient's son and are at the bedside. Plan of care discussed with the medical team and the patient. Available lab work and radiology test reports were reviewed. This is 82-year- old male with past history of chronic A. fib on eliquis follows with Dr. Solano. Patient was last admitted here in August this year for hypoxemic respiratory failure and pneumonia and influenza. Patient also has history of chronic heart failure and nonsustained V. tach. His for checks his vitals every morning. This morning she noted patient's heart rate to be 140 and blood pressure systolic 107. She has not been feeling well for past 1-2 weeks. He has been gradually losing appetite and has been feeling weak. He has minimal ambulation within the home. He recently restarted his oxygen. Patient has any new fever chills sore throat. Family has noted some yellow expectoration. Patient denies any nausea vomiting but lacks appetite. Denies any dysuria or flank pain. Other review system is negative. Allergies Coded Allergies: animal dander (Severe, EYES REDDENED, HIVES 07/28/17) ceftriaxone (Severe, SHORTNESS OF BREATH 08/27/17) Penicillins (Intermediate, RASH 07/21/16) Reconcile Medications Acetaminophen (Masophen) 325 MG TABLET 2 TAB PO Q4H PRN PAIN/TEMP (Reported) Albuterol Sulfate (Proair Hfa) 90 MCG HFA.AER.AD 2 PUF INH Q4H PRN WHEEZE ( Reported) Apixaban (Eliquis) 5 MG TABLET 5 MG PO BID AFLUTTER Cholecalciferol (Vitamin D3) (Vitamin D) 1,000 UNIT TABLET 1 TAB PO DAILY SUPPLEMENT (Reported) Clopidogrel Bisulfate (Clopidogrel) 75 MG TABLET 1 TAB PO DAILY BLOOD THINNER (Reported) Digoxin (Lanoxin) 125 MCG TABLET 0.125 MG PO 1700 HEART Angstro . Lisinopril 5 MG TABLET 5 MG PO DAILY HEART HEALTH . Metoprolol Tartrate 50 MG TABLET 100 MG PO BID Heart rate . Multivit-Min/FA/Lycopen/Lutein (Centrum Silver Tablet) 0.4 MG-300 MCG-250 MCG TABLET 1 TAB PO DAILY VITAMIN SUPPORT (Reported) Pantoprazole Sodium 40 MG TABLET.DR 1 TAB PO DAILY GI (Reported) Simethicone 80 MG TAB.CHEW 1 TAB PO Q6H PRN GAS (Reported) Medical History Any Pertinent Medical History? 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: NONE Other Medical Hx: peripheral vascular disease, carotid artery stenosis History of MRSA: No History of VRE: No History of CDIFF: No Influenza Vaccine: 04/30/17 Surgical History Surgical History: hernia repair-umbilical, PTX, CHEST TUBE LEFT CEA CEA Psychosocial History Who do you live with Spouse Services at Home None What is your primary language Swedish Tobacco Use: Quit >30 days ago Family History Family History, If Any: MOTHER FH: diabetes mellitus BROTHER FH: COPD (chronic obstructive pulmonary disease) Vital Signs Date Time Temp Pulse Resp B/P B/P Pulse O2 O2 Flow FiO2 Mean Ox Delivery Rate 12/24 1500 88/12/24 1453 127 8812/24 1403 98.4 122 22 92/60 95 Nasal 2.0L Cannula 12/24 1329 95 Nasal 2.0L Cannula 12/24 1245 96.1 125 20 99/56 95 Room Air Intake & Output 12/24 1600 12/24 0800 12/24 0000 Intake Total 0 Output Total Balance 0 Intake, Oral 0 Patient 167 lb Weight Weight Reported by Patient Measurement Method Exam: General: Patient awake but appears lethargic and oriented without any distress CVS: S1 plus S2 without any murmur or gallops; no JVD noted Chest: Few scattered crepitation without any wheeze. There is no respiratory distress. Abdomen: Soft non-tender, bowel sound present, no guarding or rebound OBSTETRIC ASSISTANT: Awake oriented without any focal neuro deficit and follows commands appropriately Extremities: No edema; no clubbing or cyanosis noted Laboratory Tests 12/24/17 1254: Anion Gap 13, Estimated GFR > 60, BUN/Creatinine Ratio 18.8, Glucose 115 H, Lactic Acid 2.0, Calcium 8.8, Magnesium 1.7, Total Bilirubin 0.4, AST 15 L, ALT 23, Alkaline Phosphatase 106, Troponin I 0.02, Ksy-X-Jokxkruoydn Pept 1480 H, Total Protein 6.7, Albumin 3.6, Globulin 3.1, Albumin/Globulin Ratio 1.2, TSH & T3 &Free T4 Intrp 3.510, CBC w Diff NO MAN DIFF REQ, RBC 4.50 L, MCV 90.2, MCH 30.0, MCHC 33.3, RDW 15.7 H, MPV 8.1, Gran % 67.3, Lymphocytes % 11.6 L, Monocytes % 17.5 H, Eosinophils % 3.4, Basophils % 0.2, Absolute Granulocytes 5.4, Absolute Lymphocytes 0.9 L, Absolute Monocytes 1.4 H, Absolute Eosinophils 0.3, Absolute Basophils 0 12/24/17 1204: PT 18.2 H, INR 1.66 H, APTT 38 H, D-Dimer High Sensitivty 417 H CXR Interval improvement of right lung aeration with residual focal opacities projecting over the mid and upper lung. This could reflect areas of scarring. Persistent volume loss and opacification involving the left lung base compatible with scarring and pleural effusion. However, superimposed acute process cannot be excluded. Assessment and problem list * Rapid A. fib * Hypotension * History of nonsustained V. tach * History of heart failure with reduced ejection fraction- EF 35% by echo in generally 2018 * Lack of appetite and reported weight loss- wires log book shows patient's weight to be 161 pound in early August and today's weight is 166. Need to rule out dig toxicity * Chronic hypoxemic respiratory failure dependent on oxygen Plan * Admit to telemetry * We'll obtain cardiac consult * Troponin 2 sets * Observe without antibiotics * Check dig level
--- NOTE | 2017-12-24 17:03 | CT SCAN REPORT ---
EXAMINATION: CT CHEST WITHOUT CONTRAST CLINICAL INFORMATION: Cough. Shortness of breath. Tachycardia. Evaluate for pneumonia. COMPARISON: Previous chest CT scans most recent a chest CTA August 2017 and chest x-ray most recent from earlier the same day. TECHNIQUE: Multidetector volumetric CT imaging of the chest was done. Axial MIP volume rendering provided. Sagittal and coronal reformatted images were obtained. DLP: 300 mGy-cm FINDINGS: LUNGS: There is evidence of severe emphysema. The abnormal density in the right upper lobe with some associated bronchiectasis, central surgical clips and adjacent pleural thickening does not appear appreciably changed. There is a similar appearing area of central consolidation, scarring and cicatrization bronchiectasis in the left upper lobe extending to the hilum that is unchanged. There is a 2.5 x 3 cm spiculated lesion in the superior segment of the right lower lobe. This appears decreased in size and increased in density compared to most recent exam August 2017 when this area measured approximately 3.5 x 4 cm. There is adjacent pleural thickening. There is linear scarring or subsegmental atelectasis in the right lower lobe. No evidence of an acute pneumonia is seen. MEDIASTINUM: There are small mediastinal lymph nodes that are stable. The heart is enlarged. There is coronary artery and aortic valve calcification. There is no pericardial effusion. The thoracic aorta is normal in caliber. PLEURA: There is interval decrease in the right pleural effusion with a very small remaining right pleural effusion. There is no left pleural effusion. AXILLA: No chest wall mass or enlarged lymph nodes are seen. There is a high attenuation seen in the left anterior chest wall questionable for surgical clips adjacent to the right anterior fourth rib. This is stable. UPPER ABDOMEN: There is evidence of diverticulosis. There is fatty infiltration of the pancreas. OSSEOUS STRUCTURES: There is increased sclerosis and cortical deformity of the right anterior third rib for changes from previous trauma. Similar to previous exams. No other focal bone lesion is seen. There are degenerative changes of the spine. IMPRESSION: Severe emphysema. Interval decrease in size and increase in density in the spiculated lesion in the superior segment of the right lower lobe. Bilateral upper lobe lesions do not appear appreciably changed, again questionable for post treatment change. No evidence of acute pneumonia. Resolved right pleural effusion compared to August 2017. Coronary artery and aortic valve calcification. Enlarged heart.
--- NOTE | 2017-12-24 18:16 | History & Physical ---
General Information and HPI MD Statement: I have seen and personally examined CARINAXIN and documented this H&P. The patient is a 82 year old M who presented with a patient stated chief complaint of increased HR. Source of Information: patient, old records Exam Limitations: poor historian History of Present Illness: 81 year old gentleman with a past medical history significant for HFrEF, NSVT, advanced lung cancer, abdominal aortic aneurysm, Occluded left superficial femoral artery, severe emphysema and COPD on 2 L home O2 brought in by as they noticed that his HR was elevated to 140s. He apparently had weaned himself off his oxygen but had to restart O2 yesterday when he had trouble lying flat. Last admitted here in August this year for hypoxemic respiratory failure and pneumonia and influenza. Denies chest pain, no shortness of breath, fever, chills, BLE, bowel/bladder. He apparently saw Dr. reed one month ago for follow up and stated that his metoprolol was increased to 100mg BID. Allergies/Medications Allergies: Coded Allergies: animal dander (Severe, EYES REDDENED, HIVES 07/28/17) ceftriaxone (Severe, SHORTNESS OF BREATH 08/27/17) Penicillins (Intermediate, RASH 07/21/16) Home Med list Acetaminophen (Masophen) 325 MG TABLET 2 TAB PO Q4H PRN PAIN/TEMP (Reported) Albuterol Sulfate (Proair Hfa) 90 MCG HFA.AER.AD 2 PUF INH Q4H PRN WHEEZE ( Reported) Apixaban (Eliquis) 5 MG TABLET 5 MG PO BID AFLUTTER Cholecalciferol (Vitamin D3) (Vitamin D) 1,000 UNIT TABLET 1 TAB PO DAILY SUPPLEMENT (Reported) Clopidogrel Bisulfate (Clopidogrel) 75 MG TABLET 1 TAB PO DAILY BLOOD THINNER (Reported) Digoxin (Lanoxin) 125 MCG TABLET 0.125 MG PO 1700 HEART Apervita . Lisinopril 5 MG TABLET 5 MG PO DAILY HEART HEALTH . Metoprolol Tartrate 50 MG TABLET 100 MG PO BID Heart rate . Multivit-Min/FA/Lycopen/Lutein (Centrum Silver Tablet) 0.4 MG-300 MCG-250 MCG TABLET 1 TAB PO DAILY VITAMIN SUPPORT (Reported) Pantoprazole Sodium 40 MG TABLET.DR 1 TAB PO DAILY GI (Reported) Simethicone 80 MG TAB.CHEW 1 TAB PO Q6H PRN GAS (Reported) Compliance With Home Meds: GOOD Past History Travel History Traveled to [place] past 21 day No Medical History Neurological: NONE EENT: NONE Cardiovascular: aortic aneurysm, AFIB, CAD, cardiomyopathy, PVD Respiratory: COPD, pneumonia Gastrointestinal: lower GI bleed Hepatic: NONE Renal: NONE Musculoskeletal: NONE Psychiatric: NONE Endocrine: NONE Blood Disorders: NONE Cancer(s): lung cancer 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 spouse Services at Home: None Primary Language: Pashto Living Will? no Functional Ability ADLs Independent: dressing, eating, toileting, bathing. Ambulation: independent IADLs Independent: shopping, housework, finances, food prep, telephone, transportation , medication admin. Review of Systems Review of Systems Constitutional: Reports: see HPI. Exam & Diagnostic Data Last 24 Hrs of Vital Signs/I&O Vital Signs Date Time Temp Pulse Resp B/P B/P Pulse O2 O2 Flow FiO2 Mean Ox Delivery Rate 12/24 1712 98.2 97 18 112/52 96 Nasal 2.0L Cannula 12/24 1602 94 108/62 12/24 1500 88/58 12/24 1453 127 88/58 12/24 1403 98.4 122 22 92/60 95 Nasal 2.0L Cannula 12/24 1329 95 Nasal 2.0L Cannula 12/24 1245 96.1 125 20 99/56 95 Room Air Intake & Output 12/24 1600 12/24 0800 12/24 0000 Intake Total 0 Output Total Balance 0 Intake, Oral 0 Patient 167 lb Weight Weight Reported by Patient Measurement Method Physical Exam General Appearance Alert, Oriented X3, Cooperative, No Acute Distress, Mild Distress HEENT Atraumatic, PERRLA, Mucous Membr. moist/pink Neck No JVD, No thryomegaly, +2 Carotid Pulse wo Bruit Cardiovascular Normal S1, Normal S2 Lungs mild bibasillar crackles Abdomen Normal Bowel Sounds, Soft, No Tenderness Extremities No Edema Diagnostic Data EKG Results : A flutter with 2-1 AV block right bundle branch block CXR Results IMPRESSION: Interval improvement of right lung aeration with residual focal opacities projecting over the mid and upper lung. This could reflect areas of scarring. Persistent volume loss and opacification involving the left lung base compatible with scarring and pleural effusion. However, superimposed acute process cannot be excluded. Other Results SERVICE DATE: 12/24/17 EXAM TYPE: CAT - CT CHEST WO IV CONTRAST IMPRESSION: Severe emphysema. Interval decrease in size and increase in density in the spiculated lesion in the superior segment of the right lower lobe. Bilateral upper lobe lesions do not appear appreciably changed, again questionable for post treatment change. No evidence of acute pneumonia. Resolved right pleural effusion compared to August 2017. Coronary artery and aortic valve calcification. Enlarged heart. Assessment/Plan Assessment: 81 year old gentleman with a past medical history significant for advanced lung cancer, abdominal aortic aneurysm, emphysema and COPD on 2 L home O2 brought in by as they noticed that his HR was elevated to 140s. ED was given 1.5L NS and 5mg of lopressor along with his digoxin CT chest WO IV contrast: IMPRESSION: Severe emphysema. Interval decrease in size and increase in density in the spiculated lesion in the superior segment of the right lower lobe. Bilateral upper lobe lesions do not appear appreciably changed, again questionable for post treatment change. No evidence of acute pneumonia. Resolved right pleural effusion compared to August 2017. assessment: afib/flutter with RVR unclear as to the etiology? acute on chronic HF as his lasix was held ( however reports loss of weight rather than weight gain approx 5 Ibs) Prob list: HFreF CAD PVD ?hypothryoidism Severe emphysema COPD afib/aflutter plan: admit to tele floor for continuous monitoring trend trop/ekg ProBNP 1480 much improved from last admission, normal TFT Last echo done jul 2017 showed EF of 35% digoxin level subtherapeutic at 0.5 continue supplemental O2 Cardio consult to be placed in am his lasix was held on last admission due alkalosis please verify his medication list with his , I was unable to reach her. will continue his metoprolol, eliquis, plavix and digoxin. nutrition consult dvt ppx eliquis heart healthy diet full code As Ranked By This Provider Problem List: 1. Lung cancer 2. AAA (abdominal aortic aneurysm) 3. Hypertension 4. Rapid atrial fibrillation Core Measures/Misc (04/16) Acute Coronary Syndrome ACS Diagnosis: No Congestive Heart Failure Congestive Heart Failure Diagnosis Yes Last Known EF % 35 Comment on debora Cerebrovascular Accident CVA/TIA Diagnosis: No VTE (View Protocol) VTE Risk Factors Age>40 No Mechanical VTE Prophylaxis d/t N/A MechProphylax Ordered No VTE Pharm Prophylaxis d/t NA PharmProphylax ordered Sepsis (View protocol) Sepsis Present: No If YES complete Sepsis Event Note If YES complete Sepsis Event Note
[2017-12-24 20:48] VITALS: BP 122/56
[2017-12-25 06:47] VITALS: BP 126/46
--- NOTE | 2017-12-25 11:16 | PN- Att Addend ---
Attending Addendum Attending Brief Note Patient seen and examined in the emergency room. Patient's son and are at the bedside. Plan of care discussed with the medical team and the patient. Available lab work and radiology test reports were reviewed. Patient has converted to normal sinus rhythm this morning. Patient feels better and denies any new complaints today. He denies any difficulty breathing any chest pain. He remains on oxygen. Exam: General: Patient awake but appears lethargic and oriented without any distress CVS: S1 plus S2 without any murmur or gallops; no JVD noted Chest: Few scattered crepitation without any wheeze. There is no respiratory distress. Abdomen: Soft non-tender, bowel sound present, no guarding or rebound BRISKET PULLER: Awake oriented without any focal neuro deficit and follows commands appropriately Extremities: No edema; no clubbing or cyanosis noted Assessment and problem list * Rapid A. fib now in sinus rhythm * Non-ST segment elevation PR with positive troponin * Hypotension improved * History of nonsustained V. tach * History of heart failure with reduced ejection fraction- EF 35% by echo in generally 2017 * Lack of appetite and reported weight loss- 's log book shows patient's weight to be 161 pound in early August and today's weight is 166. Need to rule out dig toxicity * Chronic hypoxemic respiratory failure dependent on oxygen * History of emphysema Plan * Await cardiac consult * Continue telemetry monitoring * Continue to Observe without antibiotics * Taper oxygen as tolerated Current Medications Sig/Dominique Start time Last Medication Dose Route Stop Time Status Admin Albuterol Sulfate 2 PUF Q4H PRN 12/24 1900 AC INH Apixaban 5 MG BID 12/24 2100 AC 12/25 PO 0910 Cholecalciferol 1,000 IU DAILY 12/25 0900 AC 12/25 PO 0911 Clopidogrel Bisulfate 75 MG DAILY 12/25 0900 AC 12/25 PO 0911 Digoxin 0.125 MG 1700 12/25 1700 AC PO Digoxin 0.25 MG ONCE ONE 12/24 1630 DC IV 12/24 1700 Digoxin Immune ELENO 0.25 ANG ONCE ONE 12/24 1600 CAN IV 12/24 1601 Lisinopril 5 MG DAILY 12/25 0900 AC 12/25 PO 0912 Metoprolol Tartrate 50 MG BID 12/24 2200 AC 12/25 PO 0913 Metoprolol Tartrate 100 MG BID 12/24 2100 DC PO Metoprolol Tartrate 0 .STK-MED ONE 12/24 1813 DC IV Metoprolol Tartrate 0 .STK-MED ONE 12/24 1356 DC IV Metoprolol Tartrate 5 MG ONCE ONE 12/24 1345 DC 12/24 IV 12/24 1346 1500 Sodium Chloride 1,000 ML BOLUS ONE 12/24 1500 DC 12/24 IV 12/24 1559 1500 Sodium Chloride 500 ML BOLUS ONE 12/24 1345 DC 12/24 IV 12/24 1444 1400 Laboratory Tests 12/25/17 0700: Anion Gap 13, Estimated GFR > 60, BUN/Creatinine Ratio 17.1, Magnesium 1.8, Troponin I 0.11 *H 12/25/17 0212: Troponin I 0.13 *H 12/24/17 1951: Troponin I 0.13 *H 12/24/17 1254: Anion Gap 13, Estimated GFR > 60, BUN/Creatinine Ratio 18.8, Glucose 115 H, Lactic Acid 2.0, Calcium 8.8, Magnesium 1.7, Total Bilirubin 0.4, AST 15 L, ALT 23, Alkaline Phosphatase 106, Troponin I 0.02, Uza-T-Umptefhyhyq Pept 1480 H, Total Protein 6.7, Albumin 3.6, Globulin 3.1, Albumin/Globulin Ratio 1.2, TSH & T3 &Free T4 Intrp 3.510, CBC w Diff NO MAN DIFF REQ, RBC 4.50 L, MCV 90.2, MCH 30.0, MCHC 33.3, RDW 15.7 H, MPV 8.1, Gran % 67.3, Lymphocytes % 11.6 L, Monocytes % 17.5 H, Eosinophils % 3.4, Basophils % 0.2, Absolute Granulocytes 5.4, Absolute Lymphocytes 0.9 L, Absolute Monocytes 1.4 H, Absolute Eosinophils 0.3, Absolute Basophils 0, Digoxin 0.5 L 12/24/17 1204: PT 18.2 H, INR 1.66 H, APTT 38 H, D-Dimer High Sensitivty 417 H Vital Signs Date Time Temp Pulse Resp B/P B/P Pulse O2 O2 Flow FiO2 Mean Ox Delivery Rate 12/25 0913 82 144/62 12/25 0912 82 144/62 12/25 0800 Nasal 2.0L Cannula 12/25 0647 97.4 89 20 126/46 95 Nasal Cannula 12/24 2236 94 122/64 12/24 2050 95 Nasal 2.0L Cannula 12/24 2048 97.7 108 22 122/56 94 Nasal 2.0L Cannula 12/24 1952 98.0 105 20 101/55 96 Nasal 2.0L Cannula 12/24 1800 95 112/52 12/24 1712 98.2 97 18 112/52 96 Nasal 2.0L Cannula 12/24 1602 94 108/62 12/24 1500 88/58 12/24 1453 127 12/24 1403 98.4 122 22 92/60 95 Nasal 2.0L Cannula 12/24 1329 95 Nasal 2.0L Cannula 12/24 1245 96.1 125 20 99/56 95 Room Air Intake & Output 12/25 1600 12/25 0800 12/25 0000 Intake Total 400 Output Total 350 Balance 50 Intake, Oral 400 Output, Urine 350 Patient 166 lb Weight Weight Reported by Patient Measurement Method
--- NOTE | 2017-12-25 13:24 | Cons- Cardiology ---
General Information and HPI Consulting Request Date of Consult: 12/25/17 Requested By: Delvin ULRICH,Devora History of Present Illness: Mr. Jenkins is an 82 year old male with history of coronary artery disease, paroxysmal atrial fibrillation and peripheral vascular disease. He also carries a history of lung cancer. The patient is known to have a decreased EF of 30-35% with mild to moderate MR, moderate TR and mild to moderate PI. In addition to lung cancer he has severe emphysema and is on home O2. The patient was brought to the ER for evaluation of worsening breathing accompanies by orthopnea. His heart rate was also elevated into the 140bpm range. The patient has a poor memory. His thinks that he was a bit short of breath yesterday but he is breathing well today lying flat. He denies chest pain , pressure, tightness, lightheadedness or palpitations. His weight is decreasing. The patient's ECG showed atrial flutter with 2:1 block and his cardiac enzymes are mildly elevated. Allergies/Medications Allergies: Coded Allergies: animal dander (Severe, EYES REDDENED, HIVES 07/28/17) ceftriaxone (Severe, SHORTNESS OF BREATH 08/27/17) Penicillins (Intermediate, RASH 07/21/16) Home Med List: Acetaminophen (Masophen) 325 MG TABLET 2 TAB PO Q4H PRN PAIN/TEMP (Reported) Albuterol Sulfate (Proair Hfa) 90 MCG HFA.AER.AD 2 PUF INH Q4H PRN WHEEZE ( Reported) Apixaban (Eliquis) 5 MG TABLET 5 MG PO BID AFLUTTER Cholecalciferol (Vitamin D3) (Vitamin D) 1,000 UNIT TABLET 1 TAB PO DAILY SUPPLEMENT (Reported) Clopidogrel Bisulfate (Clopidogrel) 75 MG TABLET 1 TAB PO DAILY BLOOD THINNER (Reported) Digoxin (Lanoxin) 125 MCG TABLET 0.125 MG PO 1700 HEART HEALTH . Lisinopril 5 MG TABLET 5 MG PO DAILY HEART HEALTH . Metoprolol Tartrate 50 MG TABLET 100 MG PO BID Heart rate . Multivit-Min/FA/Lycopen/Lutein (Centrum Silver Tablet) 0.4 MG-300 MCG-250 MCG TABLET 1 TAB PO DAILY VITAMIN SUPPORT (Reported) Pantoprazole Sodium 40 MG TABLET.DR 1 TAB PO DAILY GI (Reported) Simethicone 80 MG TAB.CHEW 1 TAB PO Q6H PRN GAS (Reported) Review of Systems Review of Systems: A twelve point review of systems is remarkable for a cough. Past History Travel History Traveled to [place] past 21 day No Medical History Blood Transfusion Hx: No Neurological: NONE EENT: NONE Cardiovascular: aortic aneurysm, AFIB, CAD, cardiomyopathy, PVD Respiratory: COPD, pneumonia Gastrointestinal: lower GI bleed Hepatic: NONE Renal: NONE Musculoskeletal: NONE Psychiatric: NONE Endocrine: NONE Blood Disorders: NONE Cancer(s): lung cancer ADVENTURE THERAPIST/Reproductive: NONE Other Medical Hx: peripheral vascular disease, carotid artery stenosis Surgical History Surgical History: hernia repair-umbilical, PTX, CHEST TUBE LEFT CEA CEA Family History Relations & Conditions If Any: MOTHER FH: diabetes mellitus BROTHER FH: COPD (chronic obstructive pulmonary disease) Psychosocial History Where Do You Live? Home Who Do You Live With? spouse Services at Home: Oxygen Primary Language: Faroese Smoking Status: Former Smoker Living Will? no Functional Ability ADLs Independent: dressing, eating, toileting, bathing. Ambulation: independent IADLs Independent: shopping, housework, finances, food prep, telephone, transportation , medication admin. Exam & Diagnostic Data Vital Signs and I&O Vital Signs Date Time Temp Pulse Resp B/P B/P Pulse O2 O2 Flow FiO2 Mean Ox Delivery Rate 12/25 0913 82 144/12/25 0912 82 14412/25 0800 Nasal 2.0L Cannula 12/25 0647 97.4 89 20 126/46 95 Nasal Cannula 12/24 2236 94 122/64 12/24 2050 95 Nasal 2.0L Cannula 12/24 2048 97.7 108 22 122/56 94 Nasal 2.0L Cannula 12/24 1952 98.0 105 20 101/55 96 Nasal 2.0L Cannula 12/24 1800 95 112/52 12/24 1712 98.2 97 18 112/52 96 Nasal 2.0L Cannula 12/24 1602 94 108/62 12/24 1500 88/58 12/24 1453 127 88/58 12/24 1403 98.4 122 22 92/60 95 Nasal 2.0L Cannula 12/24 1329 95 Nasal 2.0L Cannula Intake & Output 12/25 1600 12/25 0812/25 0000 12/24 1600 12/24 0800 12/24 0000 Intake Total 400 0 Output Total 350 Balance 50 0 Intake, Oral 400 0 Output, Urine 350 Patient 166 lb 167 lb Weight Weight Reported by Patient Reported by Patient Measurement Method Physical Exam: General: WD/WN male in NAD; alert and oriented x 3 HEENT: NC/AT, PERRL, EOMI Neck: no JVD, bilateral carotid bruits Heart: RRR w/o murmur Lungs: no crackles or wheezing Abdomen: soft, NT, +ve bowel sounds Extremities: no edema Assessment/Plan Assessment/Plan * This patient had a rapid heart rate and shortness of breath related to a brief episode of atrial flutter with 2:1 block. In that setting he also had demand ischemia with a small rise in cardiac troponin. It is note that the patient also has an elevated D-dimer. Since atrial fibrillation/flutter with tachycardia is often associated with a pulmonary embolism and since the patient had both shortness of breath and an elevated D-dimer, I recommend a CT angiogram to assess for a pulmonary embolism. It is understood that his risk is lower in the setting of Eliquis use but this patient has a history of cancer with continued weight loss and therefore may have a hypercoagulable state. * DC Metoprolol and change to Sotolol 80mg BID which is more effective at maintaining a sinus rhythm. * In the absence of a confirmed PE, it is reasonable to assume that this patient has a small rise in cardiac enzymes related to increased myocardial demand from his elevated heart rate. Continue a beta nicolette as above. Continue Eliquis, a statin, aspirin and Plavix. Would also begin a NTG patch at 0.4mg/hr for 12 hours daily for increased myocardial perfusion and improved exercise tolerance. At this point in time I would not be inclined to pursue invasive management. * Obtain an echocardiogram. Consult Acknowledgment - Thank you for your consult request.
[2017-12-25 14:14] VITALS: BP 118/60
[2017-12-25 20:47] VITALS: BP 122/64
--- NOTE | 2017-12-25 20:49 | CT SCAN REPORT ---
EXAMINATION: CT CHEST with contrast PE protocol CLINICAL INFORMATION: Elevated d-dimer shortness of breath COMPARISON: 1 day earlier TECHNIQUE: Volumetric imaging was performed through the chest. Reformatted coronal and sagittal imaging was performed. CONTRAST: 90 mL Optiray injected FINDINGS: PULMONARY ARTERIES: There is proper opacification of the pulmonary artery and its main branches. No CT evidence of pulmonary emboli. There is a pruning of the pulmonary artery which are enlarged proximally the RIGHT measures 2.9 and the LEFT measured 2.8 cm, this is worrisome for pulmonary hypertension. LINES/TUBES: None LUNGS: Lung Parenchyma: There is severe pulmonary emphysema. Lung Nodules: Recently described soft tissue mass RIGHT upper lobe measure 4.6 x 3.4 cm unchanged from prior exam one day earlier. Mass in the RIGHT lower lobe 3.4 x 2.7 cm, LEFT infrahilar mass/atelectasis measure 5.6 x 2.8 cm unchanged. AIRWAYS: Trachea and bronchi are normal. PLEURA: No pleural effusion or pneumothorax. MEDIASTINUM AND JT: The visualized thyroid gland is unremarkable. There are few mildly enlarged mediastinal and bilateral hilar lymph nodes. VESSELS: Thoracic aorta is normal in size. HEART AND PERICARDIUM: Heart is normal in size. There is no pericardial effusion. There are coronary calcifications. CHEST WALL, LOWER NECK, SURROUNDING SOFT TISSUES: Normal VISUALIZED ABDOMEN: Unremarkable BONES: The visualized bony thorax is within normal limits. IMPRESSION: 1. No CT evidence of pulmonary embolism. 2. Pruning of the pulmonary arteries, proximally RIGHT and LEFT are enlarged suggesting pulmonary hypertension. 3. Severe pulmonary emphysema. 4. Lung masses bilaterally and bilateral hilar adenopathy redemonstrated unchanged from the prior CT one day earlier.
[2017-12-25 22:49] VITALS: BP 104/58
[2017-12-26 06:48] VITALS: BP 104/58
[2017-12-26 06:52] VITALS: BP 110/70
--- NOTE | 2017-12-26 07:32 | PN- Housestaff ---
Nolberto ULRICH,Tracey 12/26/17 0731: Subjective Follow-up For: Atrial Fibrillation - no in NSR Tele-Events Since Last Visit: NSR: 88-96 Subjective: Patient was seen and examined. Reports a mild headache. Patient denies any other complaints of chest pain, palpitations, shortness of breath, abdominal pain, n/v , lower leg swelling, lightheadedness, dizziness, muscle weakness/pain. No acute events overnight. Review of Systems Constitutional: Reports: see HPI. Objective Last 24 Hrs of Vital Signs/I&O Vital Signs Date Time Temp Pulse Resp B/P B/P Pulse O2 O2 Flow FiO2 Mean Ox Delivery Rate 12/26 0652 97.7 88 18 110/70 96 Nasal 2.0L Cannula 12/26 0000 95 Nasal 2.0L Cannula 12/25 2249 96.3 88 22 104/58 96 Nasal 2.0L Cannula 12/25 2047 96 122/64 12/25 1829 Nasal 2.0L Cannula 12/25 1741 78 118/60 12/25 1504 Nasal 2.0L Cannula 12/25 1414 97.7 78 20 118/60 94 Nasal 2.0L Cannula 12/25 0913 82 144/62 12/25 0912 82 144/62 Intake & Output 12/26 1600 12/26 0800 12/26 0000 Intake Total 200 Output Total 425 Balance -225 Intake, Oral 200 Output, Urine 425 Patient 176 lb Weight Weight Bed scale Measurement Method Physical Exam General Appearance: Alert, Oriented X3, Cooperative, No Acute Distress Skin Temp/Moisture Exam: Warm/Dry Sepsis Skin Exam (color): Normal for Ethnicity HEENT: Atraumatic, Mucous Membr. moist/pink Cardiovascular: Regular Rate, Normal S1, Normal S2 Lungs: Clear to Auscultation, Normal Air Movement Abdomen: Normal Bowel Sounds, Soft, No Tenderness Neurological: Normal Speech, Cranial Nerves 3-12 NL Extremities: No Clubbing, No Cyanosis, No Edema, Normal Pulses, No Tenderness/ Swelling Assessment/Plan Assessment: 81 year old gentleman with a past medical history significant for advanced lung cancer, abdominal aortic aneurysm, emphysema and COPD on 2 L home O2 brought in by as they noticed that his HR was elevated to 140s. ED was given 1.5L NS and 5mg of lopressor along with his digoxin CT chest WO IV contrast: IMPRESSION: Severe emphysema. Interval decrease in size and increase in density in the spiculated lesion in the superior segment of the right lower lobe. Bilateral upper lobe lesions do not appear appreciably changed, again questionable for post treatment change. No evidence of acute pneumonia. Resolved right pleural effusion compared to August 2017. 1. afib/flutter with RVR unclear as to the etiology - patient is asymptomatic and currently in NSR, sotolol stopped due to low EF, started on amiodarone 400mg BID today, cardiology on board, ECHO pending 2. Chronic HFreF, CAD, PVD, COPD, A.fib/A.flutter Plan: admit to tele floor for continuous monitoring ECHO pending Repeat EKG in AM BEP and Mag in AM continue supplemental O2, wean off as tolerated cardio consult to be placed in am metoprolol started at 25mg BID amiodarone 400mg BID will continue eliquis, plavix and digoxin. dvt ppx eliquis heart healthy diet full code Problem List: 1. Rapid atrial fibrillation Pain Ratin Pain Location: n/a Pain Goal: Remain pain free Pain Plan: n/a Tomorrow's Labs & Rationales: bep, mg April ULRICH,[facility] 12/26/17 1141: Attending MD Review Statement Attending Statement Attending MD Statement: examined this patient, discuss w/resident/PA/BRONZE CHASER, agreed w/resident/PA/BRONZE CHASER, reviewed EMR data (avail) Attending Assessment/Plan: 82M PMH HFrEF, NSVT, advanced lung cancer, abdominal aortic aneurysm, Occluded left superficial femoral artery, severe emphysema and COPD on 2 L home O2 admitted for rapid atrial fibrillation. Patient has been asymptomatic and tachycardia was noted by who takes his vitals daily at home. Placed on Sotalol initially. He is currently in NSR with rate 80's, normal BP. He is asymptomatic. Exam benign. 1. Rapid atrial fibrillation with RVR 2. Type 2 myocardial infarction Plan - Continue on telemetry - Follow cardiology recommendations - Continue home medications - DVT PPx
[2017-12-26 09:57] VITALS: BP 136/78
--- NOTE | 2017-12-26 12:07 | PN- Cardiology ---
Subjective Subjective: The patient has converted to sinus rhythm. He reports that he is feeling well. No current chest pain. No palpitations. No diaphoresis. No nausea or vomiting Objective Vital Signs and I&Os Vital Signs Date Time Temp Pulse Resp B/P B/P Pulse O2 O2 Flow FiO2 Mean Ox Delivery Rate 12/26 1121 97 Nasal 2.0L Cannula 12/26 1004 96 136/78 12/26 0957 96 136/78 12/26 0800 Nasal 2.0L Cannula 12/26 0652 97.7 88 18 110/70 96 Nasal 2.0L Cannula 12/26 0000 95 Nasal 2.0L Cannula 12/25 2249 96.3 88 22 104/58 96 Nasal 2.0L Cannula 12/25 2047 96 122/64 12/25 1829 Nasal 2.0L Cannula 12/25 1741 78 118/60 12/25 1504 Nasal 2.0L Cannula 12/25 1414 97.7 78 20 118/60 94 Nasal 2.0L Cannula Intake & Output 12/26 1600 12/26 0800 12/26 0000 12/25 1600 12/25 0800 12/25 0000 Intake Total 200 500 400 Output Total 425 300 350 Balance -225 200 50 Intake, Oral 200 500 400 Output, Urine 425 300 350 Patient 176 lb 166 lb 166 lb Weight Weight Bed scale Reported by Patient Measurement Method Physical Exam: Gen: NAD HEENT: normal Lungs: clear to auscultation, normal resp. effort Heart: RRR, S1, S2, no murmurs Abdomen: Soft, nontender, no masses Extremities: No clubbing, cyanosis, or edema. Neuro: Alert and oriented x 3, cranial nerves intact Current Medications: Current Medications Sig/Dominique Start time Last Medication Dose Route Stop Time Status Admin Albuterol Sulfate 3 ML Q4P PRN 12/25 1515 AC 12/25 INH 1826 Albuterol Sulfate 2 PUF Q4H PRN 12/24 190 AC INH Apixaban 5 MG BID 12/24 2100 AC 12/26 PO 1003 Aspirin Buffered 81 MG DAILY 12/26 0900 AC 12/26 PO 1004 Aspirin Buffered 81 MG ONCE ONE 12/25 1930 DC 12/25 PO 12/25 Atorvastatin Calcium 40 MG 1700 12/25 1900 AC 12/25 PO 204 Cholecalciferol 1,000 IU DAILY 12/25 0900 AC 12/26 PO 1003 Clopidogrel Bisulfate 75 MG DAILY 12/25 0900 AC 12/26 PO 1004 Digoxin 0.125 MG 1700 12/25 1700 AC 12/25 PO 1741 Lisinopril 5 MG DAILY 12/25 0900 AC 12/26 PO 1004 Metoprolol Tartrate 50 MG BID 12/24 2200 DC 12/25 PO 0913 Nitroglycerin 0.4 MG Q24H 12/25 1855 12/25 [facility] 2042 Sotalol HCl 80 MG BID 12/25 2100 AC 12/26 PO 1003 Results Last 48 Hrs of Labs/Mics: Laboratory Tests 12/26/17 0918: Magnesium Cancelled 12/26/17 0918: Anion Gap 14, Estimated GFR > 60, BUN/Creatinine Ratio 17.1, Magnesium 1.7 12/25/17 1030: Urine Color YEL, Urine Clarity CLEAR, Urine pH 7.0, Ur Specific [place] 1.010, Urine Protein NEG, Urine Ketones NEG, Urine Nitrite NEG, Urine Bilirubin NEG, Urine Urobilinogen 1.0, Ur Leukocyte Esterase NEG, Ur Microscopic EXAM NOT REQUIRED, Urine Hemoglobin NEG, Urine Glucose NEG 12/25/17 0700: Anion Gap 13, Estimated GFR > 60, BUN/Creatinine Ratio 17.1, Magnesium 1.8, Troponin I 0.11 *H 12/25/17 0212: Troponin I 0.13 *H 12/24/17 1951: Troponin I 0.13 *H 12/24/17 1254: Anion Gap 13, Estimated GFR > 60, BUN/Creatinine Ratio 18.8, Glucose 115 H, Lactic Acid 2.0, Calcium 8.8, Magnesium 1.7, Total Bilirubin 0.4, AST 15 L, ALT 23, Alkaline Phosphatase 106, Troponin I 0.02, Wdy-D-Dhnyogxabjg Pept 1480 H, Total Protein 6.7, Albumin 3.6, Globulin 3.1, Albumin/Globulin Ratio 1.2, TSH & T3 &Free T4 Intrp 3.510, CBC w Diff NO MAN DIFF REQ, RBC 4.50 L, MCV 90.2, MCH 30.0, MCHC 33.3, RDW 15.7 H, MPV 8.1, Gran % 67.3, Lymphocytes % 11.6 L, Monocytes % 17.5 H, Eosinophils % 3.4, Basophils % 0.2, Absolute Granulocytes 5.4, Absolute Lymphocytes 0.9 L, Absolute Monocytes 1.4 H, Absolute Eosinophils 0.3, Absolute Basophils 0, Digoxin 0.5 L Recent Imaging Studies: CTA chest: 1. No CT evidence of pulmonary embolism. 2. Pruning of the pulmonary arteries, proximally RIGHT and LEFT are enlarged suggesting pulmonary hypertension. 3. Severe pulmonary emphysema. 4. Lung masses bilaterally and bilateral hilar adenopathy redemonstrated unchanged from the prior CT one day earlier. Assessment/Plan Assessment/Plan Assessment: 1. Chronic heart failure with reduced ejection fraction 2. Coronary artery disease 3. Atrial flutter, converted to sinus rhythm Plan: * Discontinue sotalol because it is contraindicated in patients with reduced ejection fraction * Start amiodarone 400 mg p.o. twice daily 7 days followed by 200 mg p.o. daily * Restart metoprolol at reduced dose of 25 mg p.o. twice daily * Echocardiogram * Continue telemetry monitoring * Likely ready for discharge tomorrow Continue telemetry? Yes
[2017-12-26 14:20] VITALS: BP 122/64
[2017-12-26 16:34] VITALS: BP 130/78
[2017-12-26 23:31] VITALS: BP 128/62
[2017-12-27 07:10] VITALS: BP 120/60
--- NOTE | 2017-12-27 07:30 | PN- Housestaff ---
Nolberto ULRICH,Tracey 12/27/17 0730: Subjective Follow-up For: Atrial Fibrillation - now in NSR Tele-Events Since Last Visit: NSR to , HR: 73-103 Subjective: Patient was seen and examined. Patient denies chest pain, palpitations, SOB, lower extremity swelling, n/v/c/d, hematuria/dysuria, lightheadedness or dizziness. No acute events overnight. Review of Systems Constitutional: Reports: see HPI. Objective Last 24 Hrs of Vital Signs/I&O Vital Signs Date Time Temp Pulse Resp B/P B/P Pulse O2 O2 Flow FiO2 Mean Ox Delivery Rate 12/27 1100 90 Room Air 12/27 0856 82 118/62 12/27 0835 80 106/58 12/27 0835 80 106/58 12/27 0835 80 106/58 12/27 0833 80 106/58 12/27 0800 96 Nasal 2.0L Cannula 12/27 0710 97.5 88 18 120/60 92 Nasal Cannula 12/27 0000 92 Nasal 2.0L Cannula 12/26 2331 97.6 81 16 128/62 93 Nasal 2.0L Cannula 12/26 2047 85 20 118/70 12/26 2046 85 20 118/70 12/26 2026 98 Nasal 2.0L Cannula 12/26 1635 85 130/78 12/26 1634 85 130/78 12/26 1420 98.1 85 18 122/64 95 Nasal Cannula Intake & Output 12/27 1600 12/27 0800 12/27 0000 Intake Total 200 600 Output Total 300 Balance -100 600 Intake, Oral 200 600 Output, Urine 300 Patient 176 lb Weight Weight Bed scale Measurement Method Physical Exam General Appearance: Alert, Oriented X3, Cooperative, No Acute Distress Other Physical Findings: HEENT: Atraumatic, Mucous Membr. moist/pink Cardiovascular: Regular Rate, Normal S1, Normal S2 Lungs: Clear to Auscultation, Normal Air Movement Abdomen: Normal Bowel Sounds, Soft, No Tenderness Neurological: Normal Speech, Cranial Nerves 3-12 NL Extremities: No Clubbing, No Cyanosis, No Edema, Normal Pulses, No Tenderness/ Swelling Assessment/Plan Assessment: 81 year old gentleman with a past medical history significant for advanced lung cancer, abdominal aortic aneurysm, emphysema and COPD on 2 L home O2 brought in by as they noticed that his HR was elevated to 140s. ED was given 1.5L NS and 5mg of lopressor along with his digoxin CT chest WO IV contrast: IMPRESSION: Severe emphysema. Interval decrease in size and increase in density in the spiculated lesion in the superior segment of the right lower lobe. Bilateral upper lobe lesions do not appear appreciably changed, again questionable for post treatment change. No evidence of acute pneumonia. Resolved right pleural effusion compared to August 2017. 1. afib/flutter with RVR unclear as to the etiology - patient is asymptomatic and currently in NSR, sotolol stopped due to low EF, started on amiodarone 400mg BID today, cardiology on board, ECHO pending 2. Chronic HFreF, CAD, PVD, COPD, A.fib/A.flutter Plan: admitted to tele floor for continuous monitoring ECHO read by cardiology today shows improved LVEF Patient will be sent home on amiodarone 400mg BID to be completed for a total of 7 days and metoprolol 25mg BID. Patient to continue eliquis, plavix, digoxin and statin Patient continues to require oxygen, desats to 85% while walking. Patient has oxygen set up at home. dvt ppx eliquis heart healthy diet full code dispo: discharge home today, follow up with Dr. Solano in 1 week Problem List: 1. Rapid atrial fibrillation Pain Ratin Pain Location: n/a Pain Goal: Remain pain free Pain Plan: per pain pathway Tomorrow's Labs & Rationales: none-discharge home today [facility] 12/27[facility]17 1518: Attending MD Review Statement Attending Statement Attending MD Statement: examined this patient, discuss w/resident/PA/COMPLAINT SUPERVISOR, agreed w/resident/PA/COMPLAINT SUPERVISOR, reviewed EMR data (avail) Attending Assessment/Plan: 82M PMH HFrEF, NSVT, advanced lung cancer, abdominal aortic aneurysm, Occluded left superficial femoral artery, severe emphysema and COPD on 2 L home O2 admitted for rapid atrial fibrillation. Patient has been asymptomatic and tachycardia was noted by who takes his vitals daily at home. Placed on Sotalol initially. He is currently in NSR with rate 80's, normal BP. He is asymptomatic. Exam benign. Sotalol stopped due to reduced EF. Echocardiogram looks improved. 1. Rapid atrial fibrillation with RVR 2. Type 2 myocardial infarction Plan - Stable for discharge - Continue Amiodarone on discharge - Outpatient cardiology - Continue home medications
[2017-12-27 08:33] VITALS: BP 106/58
[2017-12-27 08:56] VITALS: BP 118/62
[2017-12-27] MEDS ORDERED: ATORVASTATIN CA40 M1 PO ×2 (09:40→11:58)
[2017-12-27] MEDS ORDERED: METOPROLOL TART25 M1 PO ×2 (09:40→11:58)
[2017-12-27] MEDS ORDERED: AMIODARONE HCL200 M1 PO ×2 (10:11→11:58)
--- NOTE | 2017-12-27 11:03 | ECHOCARDIOGRAM REPORT ---
XIN LIM Age: 82 : 1935 Gender: M Exam Date: 12/26/2017 13:20 Exam Location: 1 [address] Ht (in): 72 Wt (lb): 165 BSA: 1.95 BP: 110 / 70 Ordering Physician: Kerrie Hu MD Referring Physician: Kerrie Hu MD Technologist: Sunil Ruggiero [facility] Room Number: 174-1 Indications: ARRHYTHMIAS Rhythm: Sinus Technical Quality: fair FINDINGS Left Ventricle Normal size left ventricle. Left ventricular wall thickness increased. Normal left ventricular ejection fraction estimated at 55-60%. Hypokinetic inferior wall. Hypokinetic lateral wall. Right Ventricle Right ventricle not well visualized, grossly normal. Right Atrium Right atrium not well visualized, grossly normal. Left Atrium Left atrial dilatation. Mitral Valve Moderate thickening/calcification of the anterior mitral valve leaflet. Mitral annular calcification. [id number] mitral regurgitation. Aortic Valve Trileaflet aortic valve. Diffuse thickening (sclerosis) of the aortic valve cusps without reduced excursion. No aortic stenosis. Trace aortic regurgitation. Tricuspid Valve Tricuspid valve not well visualized. Pulmonic Valve Pulmonic valve not well visualized. Pericardium No pericardial effusion. Great Vessels Aortic root and proximal ascending aorta not well visualized, grossly normal. CONCLUSIONS 1. This was a technically difficult examination. 2. Moderate aortic sclerosis is present with minimal aortic insufficiency. 3. Thickening and calcification of the mitral leaflets is present with anular calcification and mild to moderate mitral insufficiency with left atrial enlargement. 4. There is no significant pericardial fluid present 5. The left ventricular chamber size is normal with mild LVH and an ejection fraction of approximately 60%. There is hypokinesia of the inferoposterior and inferolateral segments present with fibrosis of the posteromedial papillary muscle. 6. The right heart structures were not optimally visualized and the RV systolic pressure was not accurately assessed on this examination. 7. Since the prior study, there has been a significant improvement in the LV ejection fraction. Cesar Solano M.D. (Electronically Signed) Final Date: 27 Dec 2017 11:02 MEASUREMENTS (Male / Female) Normal Values 2D ECHO LV Diastolic Diameter PLAX 5.4 cm 4.2 - 5.9 / 3.9 - 5.3 cm LV Systolic Diameter PLAX 3.6 cm 2.1 - 4.0 cm LV Fractional Shortening PLAX 33.3 % 25 - 46 % LV Ejection Fraction 2D Teich 61.5 % IVS Diastolic Thickness 1.1 cm LVPW Diastolic Thickness 1.2 cm LV Relative Wall Thickness 0.4 LV Ejection Fraction MOD BP 63.3 % >= 55 % LV Cardiac Index MOD BP 3723.6 cm/minm LV Diastolic Length 4C 8.2 cm 6.9 - 10.3 cm LV Diastolic Area 4C 38.6 cm LV Diastolic Volume MOD 4C 150.0 cm LV Ejection Fraction MOD 4C 64.7 % LV Stroke Volume MOD 4C 97.0 cm LV Cardiac Index MOD 4C 3883.8 cm/minm LV Systolic Length 4C 6.8 cm LV Systolic Area 4C 20.4 cm LV Systolic Volume MOD 4C 53.0 cm LV Ejection Fraction MOD 2C 57.6 % LV Cardiac Index MOD 2C 3043.0 cm/minm LV Diastolic Volume 4C AL 155.4 cm 85 - 139 / 69 - 109 cm LV Systolic Volume 4C AL 52.3 cm LV Ejection Fraction 4C AL 66.4 % LV Stroke Volume 4C AL 103.1 cm LV Cardiac Index 4C AL 4129.8 cm/minm LV Ejection Fraction 2C AL 59.4 % LV Cardiac Index 2C AL 3185.2 cm/minm LA Volume 51.0 cm 18 - 58 / 22 - 52 cm Ascending Aorta Diameter 3.6 cm DOPPLER AV Peak Velocity 121.0 cm/s AV Peak Gradient 5.9 mmHg LVOT Peak Velocity 71.6 cm/s LVOT Peak Gradient 2.1 mmHg Mitral E Point Velocity 129.0 cm/s Mitral A Point Velocity 42.0 cm/s Mitral E to A Ratio 3.1 LV E' Lateral Velocity 5.2 cm/s Mitral E to LV E' Lateral Ratio 25.0 LV E' Septal Velocity 5.9 cm/s Mitral E to LV E' Septal Ratio 21.7
--- NOTE | 2017-12-27 11:07 | Patient Discharge Instructions ---
Discharge Instructions General Discharge Information You were seen/treated for: Atrial fibrillation - fast, irregular heart rate and rhythm You had these procedures: ECHO Special Instructions: 1. 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 Solano in 1 week 2. Please follow up with your pcp within 1 week of discharge 3. Please note your medications have been changed: - Please take Amiodarone as prescribed - 2 pills twice a day for 6 days followed by one pill daily. - Please note your Metoprolol dose has changed. Diet Continue normal diet: No Recommended Diet: Heart Healthy Activity Full Activity/No Limits: No Activity Self Limited: Yes Acute Coronary Syndrome Inclusion Criteria At DC or during hospital stay patient has or had the following: ACS DIAGNOSIS No Discharge Core Measures Meds if any: Prescribed or Continued at Discharge Meds if any: NOT Prescribed or Continued at Discharge Congestive Heart Failure Inclusion Criteria At DC or during hospital stay patient has or had the following: CHF DIAGNOSIS No Discharge Core Measures Meds if any: Prescribed or Continued at Discharge Meds if any: NOT Prescribed or Continued at Discharge Cerebrovascular accident Inclusion Criteria At DC or during hospital stay patient has or had the following: CVA/TIA Diagnosis No Discharge Core Measures Meds if any: Prescribed or Continued at Discharge Meds if any: NOT Prescribed or Continued at Discharge Venous thromboembolism Inclusion Criteria VTE Diagnosis No VTE Type NONE VTE Confirmed by (Test) NONE Discharge Core Measures - Per Current guidelines, there needs to be overlap - treatment for the first 5 days of Warfarin therapy. - If discharged on Warfarin prior to 5 days of - overlap therapy, the patient will need to be - assessed for post discharge needs including - *Post discharge parental anticoagulation - *Warfarin and/or parental anticoagulation education - *Follow up date to check INR post discharge At least 5 days overlap therapy as Inpatient No Meds if any: Prescribed or Continued at Discharge Note: Overlap Therapy is Warfarin and Anticoagulant Meds if any: NOT Prescribed or Continued at Discharge
--- NOTE | 2017-12-27 11:30 | PN- Cardiology ---
Subjective Subjective: Patient is doing well today. He denies any symptoms. He has reverted to sinus rhythm. Heart rate normal. Ambulating without issues. Supplemental oxygen being tapered off. Objective Vital Signs and I&Os Vital Signs Date Time Temp Pulse Resp B/P B/P Pulse O2 O2 Flow FiO2 Mean Ox Delivery Rate 12/27 1100 90 Room Air 12/27 0856 82 118/62 12/27 0835 80 106/58 12/27 0835 80 106/58 12/27 0835 80 106/58 12/27 0833 80 106/58 12/27 0800 96 Nasal 2.0L Cannula 12/27 0710 97.5 88 18 120/60 92 Nasal Cannula 12/27 0000 92 Nasal 2.0L Cannula 12/26 2331 97.6 81 16 128/62 93 Nasal 2.0L Cannula 12/26 2047 85 20 118/70 12/26 2046 85 20 118/70 12/26 2025 98 Nasal 2.0L Cannula 12/26 1635 85 130/78 12/26 1634 85 130/78 12/26 1420 98.1 85 18 122/64 95 Nasal Cannula Intake & Output 12/27 1600 12/27 0800 12/27 0000 12/26 1600 12/26 0800 12/26 0000 Intake Total 200 600 670 200 Output Total 300 425 Balance -100 600 670 -225 Intake, IV 10 Intake, Oral 200 600 660 200 Output, Urine 300 425 Patient 176 lb 176 lb Weight Weight Bed scale Bed scale Measurement Method Physical Exam: General Appearance: well developed, thin, elderly white male, alert, awake, oriented Head: normal HEENT: Normal Neck: supple, JVP normal, carotid upstrokes normal bilaterally, no masses or thyromegaly Respiratory: chest non-tender, clear to auscultation and percussion bilaterally Cardiovascular: regular rate/rhythm, normal S1, S2, 1-2/6 systolic murmur Abdomen: normal bowel sounds, soft, non-tender Extremities: normal inspection, no edema Vascular: Pulses are 2+ and equal bilaterally Neurologic: Grossly normal/nonfocal Current Medications: Current Medications Sig/Dominique Start time Last Medication Dose Route Stop Time Status Admin Albuterol Sulfate 3 ML Q4P PRN 12/25 1515 AC 12/25 INH 1826 Albuterol Sulfate 2 PUF Q4H PRN 12/24 1900 AC INH Amiodarone HCl 400 MG BID 12/26 2100 AC 12/27 PO 0835 Apixaban 5 MG BID 12/24 2100 AC 12/27 PO 0835 Aspirin Buffered 81 MG DAILY 12/26 09 AC 12/27 PO 0835 Atorvastatin Calcium 40 MG 17012/25 1900 AC 12/26 PO 1635 Cholecalciferol 1,000 IU DAILY 12/25 0900 AC 12/27 PO 0835 Clopidogrel Bisulfate 75 MG DAILY 12/25 0900 AC 12/27 PO 0835 Digoxin 0.125 MG 17012/25 1700 AC 12/26 PO 1635 Lisinopril 5 MG DAILY 12/25 0900 AC 12/27 PO 0835 Magnesium Oxide 400 MG BID 12/27 0900 AC 12/27 PO 0835 Metoprolol Tartrate 25 MG BID 12/26 2100 AC 12/27 PO 0835 Nitroglycerin 0.4 MG Q24H 12/25 1855 AC 12/26 TOP 1939 Patient Medication 1 ED ONE ONE 12/26 181 DC Teaching ED 12/26 181 Sotalol HCl 80 MG BID 12/25 2100 DC 12/26 PO 1003 Results Last 48 Hrs of Labs/Mics: Laboratory Tests 12/27/17 0615: Anion Gap 11, Estimated GFR > 60, BUN/Creatinine Ratio 20.0, Magnesium 1.8 12/26/17 0918: Magnesium Cancelled 12/26/17917: Anion Gap 14, Estimated GFR > 60, BUN/Creatinine Ratio 17.1, Magnesium 1.7 Assessment/Plan Assessment/Plan Assessment: 1. Chronic heart failure with reduced ejection fraction 2. Coronary artery disease 3. Atrial flutter, converted to sinus rhythm Plan: * Continue amiodarone at discharge at current dose. * Decrease amiodarone dose to 200 mg daily in 1 week * Continue metoprolol at reduced dose of 25 mg p.o. twice daily * Echocardiogram noted. Left ventricular ejection fraction significantly higher than noted on prior echo of July 2017. In view of the significant change in ejection fraction, I will have further discussions with the patient and his about the possibility of further workup for underlying coronary disease/ ischemia. * Discharge planning * Follow-up with me in the office in 2 weeks. Continue telemetry? No
--- NOTE | 2017-12-27 13:37 | Discharge Summary ---
Visit Information Visit Dates Admission Date: 12/24/17 Discharge Date: 12/27/17 Hospital Course Course Attending Physician: Burak Chen MD Primary Care Physician: Stalin Jimenez MD Allergies: Coded Allergies: animal dander (Severe, EYES REDDENED, HIVES 07/28/17) ceftriaxone (Severe, SHORTNESS OF BREATH 08/27/17) Penicillins (Intermediate, RASH 07/21/16) Discharge Instructions Medications at Discharge Discharge Medications: Stop taking the following medications: Metoprolol Tartrate (Metoprolol Tartrate) 50 MG TABLET ORAL TWICE DAILY Qty = 60 Continue taking these medications: Clopidogrel Bisulfate (Clopidogrel) 75 MG TABLET 1 Tablet ORAL DAILY Comments: Last Taken: 12/27/17 Time: 9AM Multivit-Min/FA/Lycopen/Lutein (Centrum Silver Tablet) 0.4 MG-300 MCG-250 MCG TABLET 1 Tablet ORAL DAILY Comments: NOT GIVEN IN HOSPITAL Pantoprazole Sodium (Pantoprazole Sodium) 40 MG TABLET.DR 1 Tablet ORAL DAILY Qty = 90 Comments: NOT GIVEN IN HOSPITAL Cholecalciferol (Vitamin D3) (Vitamin D) 1,000 UNIT TABLET 1 Tablet ORAL DAILY Comments: Last Taken: 12/27/17 Time: 9AM Acetaminophen (Masophen) 325 MG TABLET 2 Tablet ORAL Q4H as needed for PAIN/TEMP Comments: NOT GIVEN IN HOSPITAL Simethicone (Simethicone) 80 MG TAB.CHEW 1 Tablet ORAL Q6H as needed for GAS Comments: NOT GIVEN IN HOSPITAL Albuterol Sulfate (Proair Hfa) 90 MCG HFA.AER.AD 2 Puff Inhale through mouth Q4H as needed for WHEEZE Comments: NOT GIVEN IN HOSPITAL Digoxin (Lanoxin) 125 MCG TABLET 0.125 Milligram ORAL 5 PM Qty = 30 Instructions: . Comments: Last Taken: 12/26/17 Time: 4 PM Lisinopril (Lisinopril) 5 MG TABLET 5 Milligram ORAL DAILY Qty = 30 Instructions: . Comments: Last Taken: 12/27/17 Time: 9AM Apixaban (Eliquis) 5 MG TABLET 5 Milligram ORAL TWICE DAILY Qty = 60 Comments: Last Taken: 12/27/17 Time: 9AM Start taking the following new medications: Amiodarone (Cordarone) 200 MG TAB 1 Tablet ORAL SEE INSTRUCTIONS Qty = 54 No Refills Instructions: Take 2 tabs in the morning and 2 tabs in the evening for 6 days On 01/02 start taking 1 tab daily Comments: Last Taken: 12/27/17 Time: 9AM Atorvastatin Calcium (Atorvastatin Calcium) 40 MG TABLET 1 Tablet ORAL DAILY Qty = 30 No Refills Instructions: Take as prescribed Comments: Last Taken: 12/26/17 Time: 5PM Metoprolol Tartrate (Metoprolol Tartrate) 25 MG TABLET 1 Tablet ORAL TWICE DAILY Qty = 60 No Refills Instructions: Take as prescribed. Comments: Last Taken: 12/27/17 Time: 9AM
== END 2017-12-27 12:54 | disposition home health service (06) | DRG 309 ==
LOC: ERH 12:40 → ERHI 18:15 → 1NO 18:15 → ENTRNSPT 19:53 → EDTRNSPTSTS 20:14 → 1NO 20:27 → CMPTRNSPT 20:57 → 1NO 12-26 08:05 → ENPENDDIS 12-27 11:38 → ENTRNSPT 12-27 12:41 → EDTRNSPT 12-27 12:51 → EDTRNSPTSTS 12-27 12:51 → 1NO 12-27 12:54 → CMPTRNSPT 12-27 13:25
PROVIDERS: Emergency Medicine
DX: I48.92 Unspecified atrial flutter (principal); J96.11 Chronic respiratory failure with hypoxia; I50.22 Chronic systolic (congestive) heart failure; I24.8 Other forms of acute ischemic heart disease; I48.91 Unspecified atrial fibrillation; I11.0 Hypertensive heart disease with heart failure; I73.9 Peripheral vascular disease, unspecified; J44.9 Chronic obstructive pulmonary disease, unspecified; Z99.81 Dependence on supplemental oxygen; I42.9 Cardiomyopathy, unspecified; I95.9 Hypotension, unspecified; R63.4 Abnormal weight loss; Z68.22 Body mass index [BMI] 22.0-22.9, adult; I25.10 Atherosclerotic heart disease of native coronary artery without angina pectoris; I71.4 Abdominal aortic aneurysm, without rupture; Z88.8 Allergy status to other drugs, medicaments and biological substances; Z88.0 Allergy status to penicillin; Z85.118 Personal history of other malignant neoplasm of bronchus and lung; Z91.048 Other nonmedicinal substance allergy status; Z87.891 Personal history of nicotine dependence
CPT/HCPCS: 1NSP; 36592; 71045; 81003; 82436; 93005; 93010; 93306; 96361; 96374; J1160; J3490; J7040

== ENCOUNTER 2018-01-12 01:06 | Emergency (ER) | payer OTHER ==
[~2018-01-12] VITALS: Ht 182.9 cm; Wt 76.2 kg
[~2018-01-12 01:06] MED LIST changes: +AMIODARONE HCL200 M1 PO; +ATORVASTATIN CA40 M1 PO
--- NOTE | 2018-01-12 01:27 | ED GI/GU/ABDOMINAL COMPLAINT ---
History of Present Illness General Chief Complaint: Abdominal Pain/Flank Pain Stated Complaint: "SEVERE ABD PAIN" PER PT X'S 1 DAY +N Source: patient, old records Exam Limitations: no limitations Vital Signs & Intake/Output Vital Signs & Intake/Output Vital Signs Date Time Temp Pulse Resp B/P B/P Pulse O2 O2 Flow FiO2 Mean Ox Delivery Rate 01/12 0448 65 18 147/65 93 Room Air Room Air 01/12 0204 92 Room Air Room Air 01/12 0143 97.4 63 16 152/69 92 Room Air Room Air Allergies Coded Allergies: animal dander (Severe, EYES REDDENED, HIVES 07/28/17) ceftriaxone (Severe, SHORTNESS OF BREATH 08/27/17) Penicillins (Intermediate, RASH 07/21/16) Reconcile Medications Acetaminophen (Masophen) 325 MG TABLET 2 TAB PO Q4H PRN PAIN/TEMP (Reported) Albuterol Sulfate (Proair Hfa) 90 MCG HFA.AER.AD 2 PUF INH Q4H PRN WHEEZE ( Reported) Amiodarone (Cordarone) 200 MG TAB 1 TAB PO SEE ADMIN CRITERIA A.FIB Take 2 tabs in the morning and 2 tabs in the evening for 6 days On 01/02 start taking 1 tab daily Apixaban (Eliquis) 5 MG TABLET 5 MG PO BID AFLUTTER Atorvastatin Calcium 40 MG TABLET 1 TAB PO DAILY HEART HEALTH Take as prescribed Cholecalciferol (Vitamin D3) (Vitamin D) 1,000 UNIT TABLET 1 TAB PO DAILY SUPPLEMENT (Reported) Clopidogrel Bisulfate (Clopidogrel) 75 MG TABLET 1 TAB PO DAILY BLOOD THINNER (Reported) Digoxin (Lanoxin) 125 MCG TABLET 0.125 MG PO 1700 HEART [employer] . Lisinopril 5 MG TABLET 5 MG PO DAILY HEART HEALTH . Metoprolol Tartrate 25 MG TABLET 1 TAB PO BID A.FIB Take as prescribed. Multivit-Min/FA/Lycopen/Lutein (Centrum Silver Tablet) 0.4 MG-300 MCG-250 MCG TABLET 1 TAB PO DAILY VITAMIN SUPPORT (Reported) Pantoprazole Sodium 40 MG TABLET.DR 1 TAB PO DAILY GI (Reported) Simethicone 80 MG TAB.CHEW 1 TAB PO Q6H PRN GAS (Reported) Triage Nurses Notes Reviewed? yes HPI: Patient presents for evaluation of severe abdominal pain for one day with associated nausea. Patient states that he gets diffuse waves of sharp pain that occur every few minutes and last for up to a minute. Onset was gradual on Monday but pain worsened overnight tonight. Patient denies any associated fever or diarrhea or dysuria but states he did vomit once 2 days ago and has felt nauseous since. He denies any prior episodes of this type of pain. He does refers a past medical history of an abdominal aortic aneurysm and a prior [place] of hernia surgery. Past History Medical History Any Pertinent Medical History? see below for history Neurological: NONE EENT: NONE Cardiovascular: aortic aneurysm, AFIB, CAD, cardiomyopathy, PVD Respiratory: COPD, pneumonia Gastrointestinal: lower GI bleed Hepatic: NONE Renal: NONE Musculoskeletal: NONE Psychiatric: NONE Endocrine: NONE Blood Disorders: NONE Cancer(s): lung cancer [employer]ATOR/Reproductive: NONE Other Medical Hx: peripheral vascular disease, carotid artery stenosis History of MRSA: No History of VRE: No History of CDIFF: No Surgical History Surgical History: hernia repair-umbilical, PTX, CHEST TUBE LEFT CEA CEA Psychosocial History Who do you live with Spouse Services at Home Oxygen What is your primary language Malagasy Family History Family History, If Any: MOTHER FH: diabetes mellitus BROTHER FH: COPD (chronic obstructive pulmonary disease) Hx Contributory? No Review of Systems Review of Systems Constitutional: Reports: no symptoms. EENTM: Reports: no symptoms. Respiratory: Reports: no symptoms. Cardiovascular: Reports: no symptoms. GI: Reports: see HPI. Genitourinary: Reports: no symptoms. Musculoskeletal: Reports: no symptoms. Skin: Reports: no symptoms. Neurological/Psychological: Reports: no symptoms. Hematologic/Endocrine: Reports: no symptoms. Immunologic/Allergic: Reports: no symptoms. All Other Systems: Reviewed and Negative Physical Exam Physical Exam Gastrointestinal: SEE BELOW Comments: Gen.: Well-nourished, well-developed, no acute respiratory distress. Head: Normocephalic, atraumatic. Eyes: Normal inspection bilaterally Ears: Normal inspection bilaterally Nose: Normal inspection Throat/mouth : Moist mucosa Neck: Supple, full range of motion, no goiter Heart: Regular rate and rhythm, no murmurs rubs or gallops Lungs: Clear to auscultation bilaterally with normal air entry Chest: Nontender Back: Normal range of motion Abdomen: Soft, diffuse tenderness with brief voluntary guarding but no rebound, nondistended, normal bowel sounds Extremities: Normal range of motion grossly, equal radial pulses, no cyanosis clubbing or edema Neurologic: Cranial nerves grossly intact, speech is clear Skin: warm and dry Psychiatric: Calm, cooperative, no apparent delusions or hallucinations Core Measures ACS in differential dx? No Sepsis Present: No Sepsis Focused Exam Completed? No Progress Differential Diagnosis: diverticulitis, pancreatitis, bowel obstruction, ascites Plan of Care: Orders Procedure Date/time Status URINALYSIS 01/12 139 Complete LIPASE 01/12 139 Complete COMPREHENSIVE METABOLIC PANEL 01/12 139 Complete CBC WITHOUT DIFFERENTIAL 01/12 139 Complete Laboratory Tests 01/12/18 0339: Urine Color YEL, Urine Clarity CLEAR, Urine pH 6.5, Ur Specific [place] <= 1.005 , Urine Protein NEG, Urine Ketones NEG, Urine Nitrite NEG, Urine Bilirubin NEG, Urine Urobilinogen 0.2, Ur Leukocyte Esterase NEG, Ur Microscopic EXAM NOT REQUIRED, Urine Hemoglobin NEG, Urine Glucose NEG 01/12/18 0154: Anion Gap 13, Estimated GFR > 60, BUN/Creatinine Ratio 16.3, Glucose 108 H, Calcium 8.9, Total Bilirubin 0.9, AST 18, ALT 23, Alkaline Phosphatase 110, Total Protein 6.6, Albumin 3.7, Globulin 2.9, Albumin/Globulin Ratio 1.3, Lipase 41, CBC w Diff NO MAN DIFF REQ, RBC 4.32 L, MCV 91.0, MCH 30.1, MCHC 33.1, RDW 15.3 H, MPV 8.5, Gran % 79.5 H, Lymphocytes % 8.0 L, Monocytes % 11.0 H, Eosinophils % 1.2, Basophils % 0.3, Absolute Granulocytes 9.2 H, Absolute Lymphocytes 0.9 L, Absolute Monocytes 1.3 H, Absolute Eosinophils 0.1, Absolute Basophils 0 Diagnostic Imaging: Discussed w/RAD: CT Scan. Radiology Impression: PATIENT: XIN LIM PRESENT AGE: 82 PATIENT ACCOUNT NO: [id number] : 33 LOCATION: [facility] ORDERING PHYSICIAN: Óscar Gaines MD SERVICE DATE: 01/12/18 EXAM TYPE : CAT - CT ABD & PELVIS W IV CONTRAST EXAMINATION: CT ABDOMEN AND PELVIS WITH CONTRAST CLINICAL INFORMATION: Diffuse abdominal pain, history of lung cancer COMPARISON: 09/06/2017 TECHNIQUE: Multidetector volumetric imaging was performed of the abdomen and pelvis following IV administration of 95 mL of Optiray 320 intravenous contrast. Sagittal and coronal reformatted images were obtained on the technologist's workstation. DLP: 370.92 mGy-cm FINDINGS: LUNG BASES: There is mild subsegmental atelectasis/scarring at the lung bases. LIVER, GALLBLADDER, AND BILIARY TREE: The liver is normal in size, shape, and attenuation. No focal hepatic lesion or biliary ductal dilatation is present. The gallbladder is unremarkable with no evidence of radiopaque gallstones, gallbladder wall thickening, or obvious pericholecystic inflammatory changes. PANCREAS: There is partial fatty atrophy of the pancreas. SPLEEN: Unremarkable. ADRENAL GLANDS: Unremarkable. KIDNEYS AND URETERS: The kidneys are normal in size, shape, and attenuation. Calcifications in the renal natalie bilaterally are favored to be vascular. No hydronephrosis or obstructing calculi seen. No perinephric stranding. BLADDER: Unremarkable. GASTROINTESTINAL TRACT: There is extensive colonic diverticulosis without evidence of diverticulitis. No evidence of bowel obstruction or abnormal wall thickening. The appendix is unremarkable. No free fluid or free air is seen. ABDOMINAL WALL: No significant hernia is appreciated. LYMPH NODES: Normal. VASCULAR: There is diffuse atherosclerotic calcification. As previously described, the left iliac vessels appear nonopacified which may be due to thrombosis or high-grade stenosis, with reconstitution of flow at the level of the common femoral artery presumably through collateral flow. 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 PELVIC VISCERA: Unremarkable. OSSEOUS STRUCTURES: Degenerative changes are noted in the spine. IMPRESSION: 1. No acute findings identified in the abdomen/pelvis. 2. Colonic diverticulosis without evidence of diverticulitis. No evidence of bowel obstruction. 3. Extensive atherosclerotic vascular calcification. DICTATED BY: Leif Garcia MD DATE/TIME DICTATED:01/12/18399 OXYACETYLENE TORCH OPERATOR:JOCE DATE/TIME TRANSCRIBED:01/12/18399 CONFIDENTIAL, DO NOT COPY WITHOUT APPROPRIATE AUTHORIZATION. <Electronically signed in Other Vendor System> SIGNED BY: Leif Garcia MD 01/12/18 0414 Initial ED EKG: none Comments: 01/12/2018 4:39:37 AM Chinedu feels better although his abdomen is still diffusely tender with brief voluntary guarding but no rebound. He declined rectal examination to check for occult blood. He and his are unsure of how to proceed. They will remain in the emergency department for about an hour and at that point I will reevaluate. 01/12/2018 5:40:32 AM Per patient's are and he is feeling better and wishes to go home. Departure Departure Disposition: HOME OR SELF CARE Condition: Stable Clinical Impression Primary Impression: Nonspecific abdominal pain Referrals: Barbara ULRICH,Stalin Montoya (PCP/Family) Additional Instructions: Levsin as needed for abdominal cramps. Follow-up with your primary care physician within the next 24-48 hours for reevaluation. Return if any concerns or sudden worsening. Please note that there might be incidental findings in your evaluation that are unrelated to the current emergency department visit. Please notify your primary care doctor about this emergency department visit in order to obtain and review all of the testing performed so that these incidental findings can be monitored as needed. If you had an x-ray performed, please understand that some fractures or other findings may not be seen on the initial set of x-rays. If your symptoms persist you might need a repeat set of x-rays to check for such a fracture. If you had a laceration evaluated, please understand that foreign bodies such as glass or wood may not be visible to the naked eye or on plain x-rays. If the wound becomes red, swollen, increasingly more painful or if there is any drainage from the wound, please have it reevaluated by a physician for the possibility of a retained foreign body. If you're unable to follow up as outlined in the discharge instructions please return to the emergency department. Thank you for choosing the [facility] Emergency Department for your care. It was a pleasure to serve you today. Óscar Gaines M.D. [facility] Departure Forms: Customer Survey General Discharge Information Prescriptions: Current Visit Scripts Hyoscyamine (Levsin) 1-2 TAB PO Q6P PRN ABDOMINAL CRAMPS #20 TAB
[2018-01-12 02:16] LABS: ABSOLUTE BASOPHIL COUNT 0 /CUMM (0.0-0.2); ABSOLUTE EOSINOPHIL COUNT 0.1 /CUMM (0.0-0.7); ABSOLUTE GRANULOCYTE CT 9.2 /CUMM (1.4-6.5); ABSOLUTE LYMPH COUNT 0.9 /CUMM (1.2-3.4); ABSOLUTE MONOCYTE COUNT 1.3 /CUMM (0.10-0.60); BASOPHIL % 0.3 % (0.0-2.0); EOSINOPHIL % 1.2 % (0-5); GRANULOCYTE % 79.5 % (42.2-75.2); HEMATOCRIT 39.4 % (42-52); MEAN CORPUSCULAR HGB 30.1 PG (27.0-31.0); MEAN CORPUSCULAR HGB CONC 33.1 G/DL (33.0-37.0); MEAN PLATELET VOLUME 8.5 FL (7.4-10.4); PLATELET COUNT 210 /CUMM (130-400); RBC DISTRIBUTION WIDTH 15.3 % (11.5-14.5); RED BLOOD CELL CT 4.32 /CUMM (4.70-6.10); WHITE BLOOD CELL COUNT 11.6 /CUMM (4.8-10.8)
--- NOTE | 2018-01-12 04:14 | CT SCAN REPORT ---
EXAMINATION: CT ABDOMEN AND PELVIS WITH CONTRAST CLINICAL INFORMATION: Diffuse abdominal pain, history of lung cancer COMPARISON: 09/06/2017 TECHNIQUE: Multidetector volumetric imaging was performed of the abdomen and pelvis following IV administration of 95 mL of Optiray 320 intravenous contrast. Sagittal and coronal reformatted images were obtained on the technologist's workstation. DLP: 370.92 mGy-cm FINDINGS: LUNG BASES: There is mild subsegmental atelectasis/scarring at the lung bases. LIVER, GALLBLADDER, AND BILIARY TREE: The liver is normal in size, shape, and attenuation. No focal hepatic lesion or biliary ductal dilatation is present. The gallbladder is unremarkable with no evidence of radiopaque gallstones, gallbladder wall thickening, or obvious pericholecystic inflammatory changes. PANCREAS: There is partial fatty atrophy of the pancreas. SPLEEN: Unremarkable. ADRENAL GLANDS: Unremarkable. KIDNEYS AND URETERS: The kidneys are normal in size, shape, and attenuation. Calcifications in the renal natalie bilaterally are favored to be vascular. No hydronephrosis or obstructing calculi seen. No perinephric stranding. BLADDER: Unremarkable. GASTROINTESTINAL TRACT: There is extensive colonic diverticulosis without evidence of diverticulitis. No evidence of bowel obstruction or abnormal wall thickening. The appendix is unremarkable. No free fluid or free air is seen. ABDOMINAL WALL: No significant hernia is appreciated. LYMPH NODES: Normal. VASCULAR: There is diffuse atherosclerotic calcification. As previously described, the left iliac vessels appear nonopacified which may be due to thrombosis or high-grade stenosis, with reconstitution of flow at the level of the common femoral artery presumably through collateral flow. 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 PELVIC VISCERA: Unremarkable. OSSEOUS STRUCTURES: Degenerative changes are noted in the spine. IMPRESSION: 1. No acute findings identified in the abdomen/pelvis. 2. Colonic diverticulosis without evidence of diverticulitis. No evidence of bowel obstruction. 3. Extensive atherosclerotic vascular calcification.
[2018-01-12 04:48] VITALS: BP 147/65
[2018-01-12] MEDS ORDERED: LEVSIN0.125 M1 PO (05:42)
== END 2018-01-12 06:13 ==
LOC: ERH 01:06
PROVIDERS: Emergency Medicine
DX: R10.9 Unspecified abdominal pain (principal); R11.0 Nausea; I48.91 Unspecified atrial fibrillation
CPT/HCPCS: 74177; 81003; 96360; 96361; J7040